=== PATIENT | female | born 1960 | race Caucasian/White ===

== ENCOUNTER 2023-01-16 09:07 | Outpatient (OUT) | payer BC, SELFPAY ==
[2023-01-16 09:55] LABS: Microalbumin Urine Random <1.3 mg/dL (<=30.0)
[2023-01-16 10:04] LABS: Basophils Percent Auto 0.6 % (0.2-2.0); Eosinophils Absolute Auto 0.1 10^3/uL (0.0-0.7); Eosinophils Percent Auto 1.8 % (0.9-7.0); Hematocrit 40.7 % (36.0-48.0); Hemoglobin 14.2 g/dL (12.0-16.0); Immature Granulocytes Abs Auto 0.03 10^3/uL (0.00-0.03); Immature Granulocytes Pct Auto 0.5 % (0.0-0.5); Lymphocytes Absolute Auto 1.5 10^3/uL (1.2-3.8); Lymphocytes Percent Auto 24.6 % (20.5-60.0); Mean Corpuscular HGB Conc 34.9 g/dL (29.9-35.2); Mean Corpuscular Hemoglobin 32.7 pg (26.7-34.0); Mean Corpuscular Volume 93.8 fL (81.0-99.0); Mean Platelet Volume 9.9 fL (9.5-13.5); Monocytes Absolute Auto 0.7 10^3/uL (0.3-0.8); Monocytes Percent Auto 10.4 % (1.7-12.0); Neutrophils Absolute Auto 3.9 10^3/uL (1.4-6.5); Neutrophils Percent Auto 62.1 % (43.0-75.0); Platelet Count 238 10^3/uL (150-450); Red Blood Count 4.34 10^6/uL (4.20-5.40); Red Cell Distribution Width 12.2 % (11.0-15.0); White Blood Count 6.2 10^3/uL (4.0-11.0)
[2023-01-16 10:07] LABS: Estimated Average Glucose 103 mg/dL; Glycohemoglobin A1C 5.2 % (4.5-6.2)
[2023-01-16 10:08] LABS: Alanine Aminotransferase 22 U/L (14-59); Albumin Globulin Ratio 1.1; Albumin Level 3.6 g/dL (3.4-5.0); Alkaline Phosphatase 86 U/L (46-116); Anion Gap 11.4; Aspartate Amino Transferase 19 U/L (15-37); BUN Creatinine Ratio 21.2; Bilirubin Total 0.5 mg/dL (0.2-1.0); Calcium 9.1 mg/dL (8.5-10.1); Carbon Dioxide 28.9 mmol/L (21.0-32.0); Chloride 105 mmol/L (98-107); Estimated GFR (African America >60 (>=60); Estimated GFR (Non-African Ame >60 (>=60); Globulin 3.4 g/dL; Glucose 101 mg/dL (74-106); Potassium 4.3 mmol/L (3.5-5.1); Sodium 141 mmol/L (136-145)
[2023-01-16 10:18] LABS: Chol HDL Ratio 3.3; Cholesterol 174 mg/dL (<=200); Free T3 2.68 pg/mL (2.18-3.98); HDL Cholesterol 52 mg/dL (40-60); Thyroid Stimulating Hormone 0.017 uIU/mL (0.358-3.740); Triglycerides 154 mg/dL (<=150); VLDL CHOLESTEROL 30.8 mg/dL
[2023-01-16 11:08] LABS: Free T4 1.25 ng/dL (0.76-1.46)
== END 2023-01-16 09:08 ==
PROVIDERS: PCP Family Medicine; Visit Provider Family Medicine
DX: R80.9 Proteinuria, unspecified (principal); Z79.899 Other long term (current) drug therapy; E03.9 Hypothyroidism, unspecified; R73.9 Hyperglycemia, unspecified; E78.5 Hyperlipidemia, unspecified
CPT/HCPCS: 36415; 80053; 80061; 82043; 83036; 84439; 84443; 84481; 85025

== ENCOUNTER 2023-03-06 11:16 | Outpatient (OUT) | payer BC, SELFPAY ==
--- NOTE | 2023-03-06 11:18 | MM_ITS ---
Patient: EZEQUIEL LEI Exam Date: 03/06/2023 : 1960 Gender:F Ordering : DR BLAS SLAUGHTER Admission #: [id number] Family : Order #: [id number] CLICK HERE TO VIEW EXAM RADIOLOGY REPORT PROCEDURE: MM TOMOSYNTHESIS SCREENING BI COMPARISON: None. INDICATIONS: Screening Calculator Name NCI Breast Cancer Risk Assessment Tool 5 Year Breast Cancer Risk 1.60% Lifetime Breast Cancer Risk 7.90% Personal Breast Cancer No Personal Ovarian Cancer No Treatments None Family Cancers None LOCATION: BREAST COMPOSITION: Almost entirely fatty. FINDINGS: DIAGNOSTIC CATEGORY 0--INCOMPLETE: NEED ADDITIONAL IMAGING EVALUATION. RIGHT BREAST: No significant suspicious finding. LEFT BREAST: 9 mm mass within upper-outer quadrant approximately 3 o'clock mid breast which does not clearly represent a lymph node. Spot magnification views and ultrasound evaluation recommended. RECOMMENDATIONS: ADDITIONAL MAMMOGRAPHIC VIEWS REQUIRED: LEFT BREAST - LEFT CRANIOCAUDAL SPOT MAGNIFICATION VIEW - LEFT OBLIQUE SPOT MAGNIFICATION VIEW - ULTRASOUND: LEFT BREAST PLEASE NOTE: A NORMAL MAMMOGRAM DOES NOT EXCLUDE THE POSSIBILITY OF BREAST CANCER. A CLINICALLY SUSPICIOUS PALPABLE LUMP SHOULD BE BIOPSIED. Dictated by: Jeff Kemp M.D. on 03/06/2023 at 14:58 Approved by: Jeff Kemp M.D. on 03/06/2023 at 15:02
== END 2023-03-06 11:17 | disposition home or self-care (01) ==
LOC: MAMMO 11:16
PROVIDERS: PCP Family Medicine; Visit Provider Family Medicine
DX: Z12.31 Encounter for screening mammogram for malignant neoplasm of breast (principal); N63.21 Unspecified lump in the left breast, upper outer quadrant
CPT/HCPCS: 77063; 77067

== ENCOUNTER 2023-03-16 13:53 | Outpatient (OUT) | payer BC, SELFPAY ==
--- NOTE | 2023-03-16 13:55 | MM_ITS ---
Patient: EZEQUIEL LEI Exam Date: 03/16/2023 : 1960 Gender:F Ordering : DR ELIER SLAUGHTER Admission #: [id number] Family : Order #: [id number] CLICK HERE TO VIEW EXAM RADIOLOGY REPORT PROCEDURE: MM DIAGNOSTIC MAMMO UNILAT LT, 03/16/2023, 13:43 US BREAST LT LIMITED, 03/16/2023, 15:05 COMPARISON: MM TOMOSYNTHESIS SCREENING BI, 03/06/2023. INDICATIONS: Abnormal mammogram R92.8 Calculator Name NCI Breast Cancer Risk Assessment Tool 5 Year Breast Cancer Risk 1.60% Lifetime Breast Cancer Risk 7.90% Personal Breast Cancer No Personal Ovarian Cancer No Treatments None Family Cancers None LOCATION: [facility] BREAST COMPOSITION: Almost entirely fatty. FINDINGS: DIAGNOSTIC CATEGORY 2--BENIGN FINDING: Three spot compression views demonstrate a persistent oval 7.2 x 5.5 mm nodule 3 o'clock position of the left breast. Ultrasound demonstrates at the 3 o'clock position 7.3 x 3.7 x 2.3 cm oval area of hypo echogenicity slightly lobular contour with mildly heterogeneous peripheral hypoechogenic cortex. Central hyperechogenic hypervascular hilum. A normal-sized lymph node is favored. No further evaluation is required. The patient was asked to return to yearly screening mammography RECOMMENDATIONS: ROUTINE MAMMOGRAM AND CLINICAL EVALUATION IN 12 MONTHS. PLEASE NOTE: A NORMAL MAMMOGRAM DOES NOT EXCLUDE THE POSSIBILITY OF BREAST CANCER. A CLINICALLY SUSPICIOUS PALPABLE LUMP SHOULD BE BIOPSIED. Dictated by: Elier Sanchez MD on 03/16/2023 at 15:19 Approved by: Elier Sanchez MD on 03/16/2023 at 15:21
== END 2023-03-16 13:54 | disposition home or self-care (01) ==
LOC: MAMMO 13:53
PROVIDERS: PCP Family Medicine; Visit Provider Family Medicine
DX: R92.8 Other abnormal and inconclusive findings on diagnostic imaging of breast (principal)
CPT/HCPCS: 76642; 77065

== ENCOUNTER 2023-08-28 06:36 | Outpatient (OUT) | payer BC, SELFPAY ==
[2023-08-28 07:11] LABS: Basophils Absolute Auto 0.1 10^3/uL (0.0-0.1); Basophils Percent Auto 1.1 % (0.2-2.0); Eosinophils Absolute Auto 0.1 10^3/uL (0.0-0.7); Eosinophils Percent Auto 1.7 % (0.9-7.0); Hematocrit 40.9 % (36.0-48.0); Immature Granulocytes Abs Auto 0.05 10^3/uL (0.00-0.03); Immature Granulocytes Pct Auto 0.8 % (0.0-0.5); Lymphocytes Absolute Auto 1.6 10^3/uL (1.2-3.8); Lymphocytes Percent Auto 25.2 % (20.5-60.0); Mean Corpuscular HGB Conc 34.2 g/dL (29.9-35.2); Mean Corpuscular Volume 99.3 fL (81.0-99.0); Mean Platelet Volume 9.9 fL (9.5-13.5); Monocytes Absolute Auto 0.7 10^3/uL (0.3-0.8); Monocytes Percent Auto 10.9 % (1.7-12.0); Neutrophils Absolute Auto 3.9 10^3/uL (1.4-6.5); Neutrophils Percent Auto 60.3 % (43.0-75.0); Platelet Count 212 10^3/uL (150-450); Red Blood Count 4.12 10^6/uL (4.20-5.40); White Blood Count 6.4 10^3/uL (4.0-11.0)
[2023-08-28 07:12] LABS: Bilirubin Urine NEGATIVE (NEGATIVE); Blood Urine NEGATIVE (NEGATIVE); Clarity Urine CLEAR (CLEAR); Color Urine LT. YELLOW (YELLOW); Glucose Urine UA NEGATIVE (NEGATIVE); Ketones Urine NEGATIVE (NEGATIVE); Leukocyte Esterase Urine NEGATIVE (NEGATIVE); Nitrite Urine NEGATIVE (NEGATIVE); Protein Urine NEGATIVE (NEG/TRACE); Urobilinogen Urine 0.2 EU/dL (0.2-1.0); pH Urine 6.5 (5.0-9.0)
[2023-08-28 07:23] LABS: RBC Urine 0-2 #/HPF (0-2); WBC Urine 0-2 #/HPF (NONE SEEN)
[2023-08-28 07:24] LABS: Bacteria Urine NONE SEEN #/HPF (NONE SEEN); Cast Seen? NONE SEEN #/LPF (NONE SEEN); Crystals Seen? None Seen #/HPF (None Seen); Mucus Urine TRACE (NONE SEEN); Squamous Epithelial Cell Urine RARE #/LPF (NONE/RARE); Urine Culture Indicated ALREADY ORDERED
[2023-08-28 07:27] LABS: Estimated Average Glucose 108 mg/dL; Glycohemoglobin A1C 5.4 % (4.5-6.2)
[2023-08-28 08:02] LABS: Alanine Aminotransferase 19 U/L (14-59); Albumin Globulin Ratio 1.1; Albumin Level 3.5 g/dL (3.4-5.0); Alkaline Phosphatase 100 U/L (46-116); Anion Gap 13.5; Aspartate Amino Transferase 17 U/L (15-37); BUN Creatinine Ratio 21.1; Bilirubin Total 0.4 mg/dL (0.2-1.0); Calcium 8.7 mg/dL (8.5-10.1); Carbon Dioxide 26.6 mmol/L (21.0-32.0); Chloride 106 mmol/L (98-107); Cholesterol 154 mg/dL (<=200); Estimated GFR (African America >60 (>=60); Estimated GFR (Non-African Ame >60 (>=60); Free T3 2.55 pg/mL (2.18-3.98); Globulin 3.3 g/dL; Glucose 97 mg/dL (74-106); HDL Cholesterol 52 mg/dL (40-60); Potassium 4.1 mmol/L (3.5-5.1); Sodium 142 mmol/L (136-145); Thyroid Stimulating Hormone 1.266 uIU/mL (0.358-3.740); Total Protein 6.8 g/dL (6.4-8.2); Triglycerides 120 mg/dL (<=150)
== END 2023-08-28 06:37 | disposition home or self-care (01) ==
LOC: LAB 06:39
PROVIDERS: PCP Family Medicine; Visit Provider Family Medicine
DX: Z00.00 Encounter for general adult medical examination without abnormal findings (principal); E03.9 Hypothyroidism, unspecified; R73.9 Hyperglycemia, unspecified
CPT/HCPCS: 36415; 80053; 80061; 81001; 83036; 84436; 84443; 84481; 85025; 87086

== ENCOUNTER 2023-11-19 09:32 | Emergency (ER) | payer BC, SELFPAY ==
[2023-11-19 09:34] VITALS: BP 160/107; PULSE 68; TEMP 36.5; O2SAT 98; BMI 32.5
--- NOTE | 2023-11-19 09:52 | CT_ITS ---
The [address] [address] Patient Name: EZEQUIEL LEI MRN: [id number] date: 1960 Sex: F Assigned Patient Location: ER Current Patient Location: ER Accession/Order Number: [id number] Exam Date: 11/19/2023 11:12 Report Date: 11/19/2023 12:04 At the request of: PAULA HERNANDEZ Procedure: CT abdomen pelvis w con EXAM: CT abdomen pelvis w con HISTORY: abdominal pain, n/v/d, hx diverticulitis COMPARISON: CT abdomen and CT pelvis studies dated 01/11/2022 TECHNIQUE: CT abdomen and CT pelvis studies were performed with the use of intravenous contrast. Multiple axial images were obtained. Reformatted coronal and sagittal images were obtained and reviewed. FINDINGS: Abdomen: Visualized lower lung smith appear grossly unremarkable. Views of the liver demonstrate a few small scattered areas of decreased attenuation measuring up to 0.7 cm too small to qualify with certainty though most likely representing cysts and similar to the prior study. No obvious splenic mass. Patient is status post cholecystectomy. Pancreas and adrenal glands appear grossly unremarkable. Stomach appears grossly unremarkable. Mild diverticulosis of the colon without evidence acute diverticulitis. Uson-ye-vyzkjkys generalized wall thickening of the colon compatible with colitis. No evidence of bowel obstruction or perforation. No evidence of abscess. Atherosclerotic calcifications within portions of the abdominal aorta. No evidence of aneurysm. No evidence of adenopathy in the retroperitoneum. A few small areas of decreased attenuation in the right kidney measuring up to 0.6 cm too small to qualify with certainty though likely representing cysts. Focal area of moderate cortical thinning of the superior right kidney similar to the prior study not felt to be acutely significant. Small fat filled umbilical hernia without bowel content. Pelvis: Bladder appears grossly unremarkable. Patient status post hysterectomy. No obvious adnexal mass. Perirectal fat planes appear grossly intact. Mild to moderate diverticulosis of the sigmoid colon, no obvious acute diverticulitis. Hxyu-lk-wirzwtdw generalized wall thickening of the sigmoid colon compatible with colitis. Correlate clinically. Atherosclerotic calcifications within portions of the iliac arteries. No evidence of aneurysm. No evidence of adenopathy. The appendix is visualized and appears unremarkable. Uelu-lm-vonejiev degenerative changes in the visualized dorsal spine with mild degenerative changes in the lumbar spine. Slight convexity of the lumbar spine to the left. CT/CT abdomen pelvis w con IMPRESSION: CT abdomen and CT pelvis studies demonstrate findings compatible colitis as described. Colon diverticulosis without definite evidence of acute diverticulitis. Likely few right renal cysts as noted. Small fat filled umbilical hernia. Likely few small hepatic cysts. Electronically authenticated by: YOAN LOPEZ Date: 11/19/2023 12:04
[2023-11-19 09:57] LABS: Basophils Absolute Auto 0.1 10^3/uL (0.0-0.1); Basophils Percent Auto 0.7 % (0.2-2.0); Eosinophils Absolute Auto 0.1 10^3/uL (0.0-0.7); Eosinophils Percent Auto 1.2 % (0.9-7.0); Hematocrit 43.4 % (36.0-48.0); Hemoglobin 14.9 g/dL (12.0-16.0); Immature Granulocytes Abs Auto 0.05 10^3/uL (0.00-0.03); Immature Granulocytes Pct Auto 0.6 % (0.0-0.5); Lymphocytes Absolute Auto 1.9 10^3/uL (1.2-3.8); Lymphocytes Percent Auto 22.3 % (20.5-60.0); Mean Corpuscular HGB Conc 34.3 g/dL (29.9-35.2); Mean Corpuscular Hemoglobin 33.3 pg (26.7-34.0); Mean Corpuscular Volume 97.1 fL (81.0-99.0); Mean Platelet Volume 9.9 fL (9.5-13.5); Monocytes Absolute Auto 0.8 10^3/uL (0.3-0.8); Monocytes Percent Auto 9.3 % (1.7-12.0); Neutrophils Absolute Auto 5.5 10^3/uL (1.4-6.5); Neutrophils Percent Auto 65.9 % (43.0-75.0); Platelet Count 251 10^3/uL (150-450); Red Blood Count 4.47 10^6/uL (4.20-5.40); Red Cell Distribution Width 12.3 % (11.0-15.0); White Blood Count 8.3 10^3/uL (4.0-11.0)
--- OUTSIDE RECORDS SUMMARY | 2023-11-19 10:01 | XMS_ITS | CCD ---
Author Organization [facility] Care Team Providers Care Flush Tester Name Role Phone Blas Slaughter Unavailable FRANCISCO JAVIER, COSME Admitting Unavailable FRANCISCO JAVIER, COSME Attending Unavailable FRANCISCO JAVIER, COSME Consulting Unavailable FRANCISCO JAVIER, COSME Admitting Unavailable FRANCISCO JAVIER, COSME Attending Unavailable GIRVIN, DR ODONNELL Primary Care Unavailable FRANCISCO JAVIER, COSME Consulting Unavailable KASANDRA, DR ODONNELL Admitting Unavailable GIRVIN, DR ODONNELL Attending Unavailable GIRVIN, DR ODONNELL Primary Care Unavailable GIRVIN, DR ODONNELL Consulting Unavailable PAY, DR DESHPANDE Admitting Unavailable PAY, DR DESHPANDE Attending Unavailable PAY, DR DESHPANDE Consulting Unavailable HARRIS, SABRINA Consulting Unavailable MISC, DR SKINNER Admitting Unavailable MISC, DR SKINNER Attending Unavailable MISC, DR SKINNER Consulting Unavailable GIRVIN, DR ODONNELL Admitting Unavailable GIRVIN, DR ODONNELL Attending Unavailable GIRVIN, DR ODONNELL Consulting Unavailable Allergies Allergy Classification Reported Allergen(s) Allergy Type Date of Onset Reaction(s) Facility (19 sources) atorvastatin Drug Allergy muscle aches/pain [facility] [employer] Other (19 sources) Ciprofloxacin Drug Allergy hives ? per ER 11/06/12 [employer] [facility] Other (19 sources) Meperidine Drug Allergy rash, swelling [employer] Other (19 sources) metroNIDAZOLE Drug Allergy hives ? per ER 11/06/12 [facility] [place] [employer] Other (1 source) Ciprofloxacin Drug Allergy [facility] (1 source) Meperidine Drug Allergy [facility] (1 source) metroNIDAZOLE Drug Allergy [facility] Medications Current Medications Medication Drug Class(es) Dates Sig (Normalized) Sig (Original) 0.25 MG, 0.5 MG Dose 3 ML semaglutide 0.68 MG/ML Pen Injector [Ozempic] (4 sources) Start: 01-19-2023 inject 0.5 mg by subcutaneous injection every week Ozempic (0.25 or 0.5 MG/DOSE) 2 MG/3ML 0.5 MG Subcutaneous once weekly for 28 days Jan, Active 3 ML semaglutide 1.34 MG/ML Pen Injector [Ozempic] (1 source) Start: 12-05-2022 inject 1 mg by subcutaneous injection every week Ozempic (1 MG/DOSE) 4 MG/3ML as directed Subcutaneous once a week for 30 days Nov, Active acetaminophen 325 mg / oxyCODONE hydrochloride 5 mg oral tablet (1 source) Opioid Agonist Start: 09-12-2021 Percocet 5-325 MG 1 tablet Orally q8-12 hrs prn Aug, Active amoxicillin 875 mg / clavulanate 125 mg oral tablet (1 source) Penicillin-class Antibacterial Start: 08-30-2021 take 1 tablet by mouth twice daily at mealtime Amoxicillin-Pot Clavulanate 875-125 MG 1 tablet Orally two times a day with food for 10 day(s) Aug, Active 84 hr estradiol 0.50281 mg/hr transdermal system (20 sources) Estrogen Start: 02-15-2023 apply 1 dose transdermal route two times weekly Estradiol 0.1 MG/24HR 1 patch to skin Transdermal Two times a Week for 30 days Feb, Active Vivelle Active hydrOXYzine pamoate 25 mg oral capsule (19 sources) Antihistamine Start: 08-27-2020 Vistaril 25 MG 1 capsule Orally q8-12 hrs prn anxiety prn Aug, Active levothyroxine sodium 0.15 mg oral tablet (19 sources) l-Thyroxine take 1 tablet by mouth once daily in the morning Levothyroxine Sodium 150 MCG TAKE 1 TABLET DAILY EVERY MORNING ON AN EMPTY STOMACH Orally Active take 1 tablet by gio th once daily in the morning Levothyroxine Sodium 150 MCG TAKE 1 TABL ET DAILY EVERY MORNING ON AN EMPTY STOMACH Orally Active take 1 tablet by gio th once daily in the morning Levothyroxine Sodium 175 MCG TAKE 1 TABL ET DAILY EVERY MORNING ON AN EMPTY STOMACH Orally for 90 days Active Multivitamin Women (19 sources) Multivitamin Wom en Not-Taking/PRN Multivitamin Wom en Not-Taking Multivitamin Wom en Active nitrofurantoin, macrocrystals 25 mg / nitrofurantoin, monohydrate 75 mg oral capsule (2 sources) Nitrofuran Antibacterial Start: 02-27-2022 take 1 capsule by mouth twice daily at mealtime Macrobid 100 MG 1 capsule Orally twice a day with food for 7 days Feb, Active rosuvastatin calcium 10 mg oral tablet (19 sources) HMG-CoA Reductase Inhibitor take 1 tablet by mouth once daily Rosuvastatin Calcium 10 MG TAKE 1 TABLET BY MOUTH EVERY DAY Active 0.25 mg, 0.5 mg dose 1.5 ml semaglutide 1.34 mg/ml pen injector (3 sources) Ozempic (0.25 or 0.5 MG/DOSE) 2 MG/1.5ML INJECT 0.25 MG SUBCUTANEOUSLY ONCE WEEKLY DIRECTED for 28 Active vitamin b12 1 mg extended release oral tablet (3 sources) Vitamin B12 Start: 12-08-2019 take 1 tablet by mouth once daily Vitamin B12 1000 MCG 1 tablet Orally qd Sun-Nov, Active Vitamin B12 1000 MCG (13 sources) Start: 12-08-2019 take 1 tablet by mouth once daily Vitamin B12 1000 MCG 1 tablet Orally qd Sun-Nov, Active wegovy 0.25 mg/0.5ml solution auto-injector (3 sources) Start: 09-12-2023 inject 0.5 mL by subcutaneous injection every week Wegovy 0.25 MG/0.5ML 0.5 mL Subcutaneous once weekly for 28 days Aug, Active Completed/Discontinued Medications Medication Drug Class(es) Dates Sig (Normalized) Sig (Original) homatropine / HYDROcodone (1 source) Opioid Agonist, Cholinergic Muscarinic Agonist Start: 09-20-2021 take 5 mL by mouth every six hours as needed Hycodan Syrup 5mg/1.5 mg 5ml po q 6 hrs prn for 7 days Sep, Not-Taking methylPREDNISolone (19 sources) Corticosteroid Start: 10-17-2019 SOLU-MEDROL 41 - 125 mg Oct, 125 mg ozempic (0.25 or 0.5 mg/dose) 2 mg/3ml solution pen-injector (6 sources) Start: 01-19-2023 inject 0.5 mg by subcutaneous injection every week as needed Ozempic (0.25 or 0.5 MG/DOSE) 2 MG/3ML 0.5 MG Subcutaneous once weekly for 28 days Jan, Not-Taking/PRN Start: 01-19-2023 inject 0.5 mg by sub cutaneous injection every week Ozempic (0.25 or 0.5 MG/DOSE) 2 MG/3ML 0.5 MG Subcutaneous once weekly for 28 days Jan, Active Triamcinolone (19 sources) Corticosteroid Start: 01-22-2017 Kenalog -40 mg Jan, 40 mg Problems Active Problems Problem Classification Problem Date Documented Date Episodic/Chronic Anxiety disorders (20 sources) Anxiety; Translations: [Anxiety disorder, unspecified] Chronic Diabetes mellitus without complication (6 sources) Hyperglycemia, unspecified Onset: 01-17-2022 Resolved: 01-17-2022 Episodic Disorders of lipid metabolism (20 sources) Hyperlipidemia; Translations: [Hyperlipidemia, unspecified] Onset: 01-17-2022 Resolved: 01-17-2022 Chronic Diverticulosis and diverticulitis (20 sources) Diverticulitis; Translations: [Diverticulitis of intestine, part unspecified, without perforation or abscess without bleeding] Onset: 01-13-2022 Resolved: 02-27-2022 Chronic Genitourinary symptoms and ill-defined conditions (6 sources) Nocturia; Translations: [Dysuria] Onset: 01-17-2022 Resolved: 02-27-2022 Episodic Osteoarthritis (19 sources) Osteoarthritis of knee; Translations: [Unilateral primary osteoarthritis, right knee] Chronic Other aftercare (5 sources) Other buttermaker (current) 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 therapy; Translations: [OTH 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 CURRENT DRUG THERAPY] Onset: 01-13-2022 Resolved: 01-17-2022 Episodic Other diseases of bladder and urethra (19 sources) Spasm of bladder; Translations: [Other specified disorders of bladder] Chronic Other ear and sense organ disorders (19 sources) Otitis externa; Translations: [Unspecified otitis externa, unspecified ear] Chronic Other nutritional; endocrine; and metabolic disorders (19 sources) Body mass index 30+ - obesity; Translations: [Body mass index (BMI) 36.0-36.9, adult] Chronic Other nutritional; endocrine; and metabolic disorders (10 sources) Obesity; Translations: [Obesity, unspecified] Chronic Other nutritional; endocrine; and metabolic disorders (2 sources) Obesity, unspecified Chronic Other nutritional; endocrine; and metabolic disorders (1 source) Disorder of carbohydrate metabolism; 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, unspecified] Chronic Other nutritional; endocrine; and metabolic disorders (1 source) Disorder of carbohydrate metabolism, unspecified Chronic Other nutritional; endocrine; and metabolic disorders (2 sources) Abnormal weight gain Episodic Other screening for suspected conditions (not mental disorders or infectious disease) (5 sources) Encounter for screening mammogram for malignant neoplasm of breast; Translations: [Other abnormal and inconclusive findings on diagnostic imaging of breast] Onset: 01-17-2022 Resolved: 01-17-2022 Episodic Other upper respiratory infections (20 sources) Sore throat symptom; Translations: [Acute pharyngitis, unspecified] Onset: 09-23-2021 Episodic Thyroid disorders (20 sources) Hypothyroidism; Translations: [Hypothyroidism, unspecified] Onset: 01-17-2022 Resolved: 01-17-2022 Chronic Unclassified (3 sources) CONTACT W/AND (SUSP) EXPOS COVID-19; Translations: [CONTACT W/AND (SUSP) EXPOS COVID-19] Onset: 05-09-2022 Unclassified (1 source) COUGH, UNSPECIFIED; Translations: [COUGH, UNSPECIFIED] Onset: 09-23-2021 Viral infection (1 source) COVID-19; Translations: [COVID-19] Onset: 09-06-2021 Past or Other Problems Problem Classification Problem Date Documented Da te Episodic/Chronic Abdominal pain (3 sources) Left upper quadrant pain; Translations: [LEFT UPPER QUADRANT PAIN] Onset: 01-11-2022 Episodic Unclassified (1 source) Cough R05.9 Onset: 02-27-2022 Resolved: 02-27-2022 Unclassified (1 source) CONTACT W/AND (SUSP) EXPOS COVID-19; Translations: [CONTACT W/AND (SUSP) EXPOS COVID-19] Onset: 05-02-2022 Urinary tract infections (1 source) Cystitis, unspecified without hematuria Onset: 03-01-2022 Resolved: 03-01-2022 Episodic Results Test Name Value Interpretation Reference Range Facility CBC AUTO DIFFon 07-15-2022 BASO # 0.1 103/ul Normal 0.0-0.1 [facility] Comment on above: Performed By: #### C BC #### [facility] [address] [address] [address] Ortega Morel Basophils/100 WBC (Bld) 1.0 % Normal 0.2-2.0 [facility] Comment on above: Performed By: #### C BC #### [facility] [address] [address] [address] Ortega Morel EO # 0.1 103/ul Normal 0.0-0.7 [facility] Comment on above: Performed By: #### C BC #### [facility] [address] [address] [address] Ortega Morel Eosinophils/100 WBC (Bld) 2.0 % Normal 0.9-7.0 [facility] Comment on above: Performed By: #### C BC #### [facility] [address] [place] [address] Dr. Ortega Morel Erythrocyte distribution width (RBC) [Ratio] 12.2 % Normal 11.0-15.0 [facility] Comment on above: Performed By: #### C BC #### [facility] [address] [place] [address] Dr. Ortega Morel Hematocrit (Bld) [Volume fraction] 41.4 % Normal 36.0-48.0 [facility] Comment on above: Performed By: #### C BC #### [facility] [address] [address] [address] Ortega Morel Hemoglobin (Bld) [Mass/Vol] 14.4 g/dL Normal 12.0-16.0 [facility] Comment on above: Performed By: #### C BC #### [facility] [address] [address] [address] Ortega Morel IG # 0.04 10e3/ul Critically high 0.00-0.03 [facility] Comment on above: Performed By: #### C BC #### [facility] [address] [address] [address] Ortega Morel IG % 0.7 % Critically high 0.0-0.5 [facility] Comment on above: Performed By: #### C BC #### [facility] [address] [place] [address] Dr. Ortega Morel LYMPH # 1.7 103/ul Normal 1.2-3.8 [facility] Comment on above: Performed By: #### C BC #### [facility] [address] [place] [address] Dr. Ortega Morel Lymphocytes/100 WBC (Bld) 28.2 % Normal 20.5-60.0 [facility] Comment on above: Performed By: #### C BC #### [facility] [address] [place] [address] Dr. Ortega Morel MANUAL DIFF REQ NO Normal [facility] Comment on above: Performed By: #### C BC #### [facility] [address] [place] [address] Dr. Ortega Morel MCH (RBC) [Entitic mass] 33.4 pg Normal 26.7-34.0 [facility] Comment on above: Performed By: #### C BC #### [facility] [address] [place] [address] Dr. Ortega Morel MCHC (RBC) [Mass/Vol] 34.8 g/dL Normal 29.9-35.2 [facility] Comment on above: Performed By: #### C BC #### [facility] [address] [place] [address] Dr. Ortega Morel MCV (RBC) [Entitic vol] 96.1 fL Normal 81.0-99.0 [facility] Comment on above: Performed By: #### C BC #### [facility] [address] [place] [address] Dr. Ortega Morel MONO # 0.7 103/ul Normal 0.3-0.8 [facility] Comment on above: Performed By: #### C BC #### [facility] [address] [place] [address] Dr. Ortega Morel Monocytes/100 WBC (Bld) 11.4 % Normal 1.7-12.0 [facility] Comment on above: Performed By: #### C BC #### [facility] [address] [place] [address] Dr. Ortega Morel NEUT # 3.4 103/ul Normal 1.4-6.5 [facility] Comment on above: Performed By: #### C BC #### [facility] [address] [place] [address] Dr. Ortega Morel Neutrophils/100 WBC (Bld) 56.7 % Normal 43.0-75.0 [facility] Comment on above: Performed By: #### C BC #### [facility] [address] [place] [address] Dr. Ortega Morel Platelet mean volume (Bld) [Entitic vol] 10.1 fL Normal 9.5-13.5 [facility] Comment on above: Performed By: #### C BC #### [facility] [address] [place] [address] Dr. Ortega Morel PLT 217 103/ul Normal 150-450 [facility] Comment on above: Performed By: #### C BC #### [facility] [address] [place] [address] Dr. Ortega Morel RBC 4.31 106/ul Normal 4.20-5.40 [facility] Comment on above: Performed By: #### C BC #### [facility] [address] [place] [address] Dr. Ortega Morel WBC 6.0 103/ul Normal 4.0-11.0 [facility] Comment on above: Performed By: #### C BC #### [facility] [address] [place] [address] Dr. Ortega Morel CULTURE URINEon 07-15-2022 CULTURE URINE Culture Observations: NO GROWTH. Normal [facility] Comment on above: Performed By: #### C MP #### [facility] [address] [place] [address] Dr. Ortega Morel FREE T3on 07-15-2022 FREE T3 1.87 pg/mlL Critically low 2.18-3.98 [facility] Comment on above: Performed By: #### T SH, LIPID, FT3 #### [facility] [address] [place] [address] Dr. Ortega Morel FREE T4on 07-15-2022 Free T4 [Mass/Vol] 0.92 ng/dL Normal 0.76-1.46 [facility] Comment on above: Performed By: #### F T4 #### [facility] [address] [place] [address] Dr. Ortega Morel GLYCOHEMOGLOBIN A1Con 2021 ADA RECOMMENDATION SEE BELOW Normal [facility] Comment on above: Result Comment: ADA RECOMMENDED LIMIT 4.0 - 6.0 ADA THERAPEUTIC TARGET < 7.0 ACTION SUGGESTED > 7.0 Performed By: #### C MP #### [facility] [address] [place] [address] Dr. Ortega Morel Glucose [Mass/Vol] 103 mg/dL Normal [facility] Comment on above: Performed By: #### C MP #### [facility] [address] [place] [address] Dr. Ortega Morel HbA1c (Bld) [Mass fraction] 5.2 % Normal 4.5-6.2 [facility] Comment on above: Performed By: #### C MP #### [facility] [address] [place] [address] Dr. Ortega Morel LIPID PROFILEon 07-15-2022 CHOL-HDL RATIO NORM SEE BELOW Normal [facility] Comment on above: Result Comment: 3.3 - 4.4 LOW RISK 4.4 - 7.1 AVERAGE RISK 7.1 - 11.0 MODERATE RISK >11.0 HIGH RISK Performed By: #### T SH, LIPID, FT3 #### [facility] [address] [place] [address] Dr. Ortega Morel Cholesterol [Mass/Vol] 197 mg/dL Normal <=200 [facility] Comment on above: Performed By: #### T SH, LIPID, FT3 #### [facility] [address] [place] [address] Dr. Ortega Morel Cholesterol in HDL [Mass/Vol] 54 mg/dL Normal 40-60 [facility] Comment on above: Performed By: #### T SH, LIPID, FT3 #### [facility] [address] [address] [address] Ortega Morel Cholesterol in LDL [Mass/Vol] 111.8 mg/dL Normal [facility] Comment on above: Performed By: #### T SH, LIPID, FT3 #### [facility] [address] [address] [address] Ortega Morel Cholesterol.total/Ch olesterol in HDL [Mass ratio] 3.6 {ratio} Normal [facility] Comment on above: Performed By: #### T SH, LIPID, FT3 #### [facility] [address] [address] [address] Ortega Morel HDL NORMAL > or = 60 mg/dl - LOW CARDIOVASCULAR RISK <40 mg/dl - HIGH CARDIOVASCULAR RISK Normal [facility] Comment on above: Performed By: #### T SH, LIPID, FT3 #### [facility] [address] [place] [address] Dr. Ortega Morel LDL CALC NORMAL SEE BELOW Normal [facility] Comment on above: Result Comment: <100 mg/dl OPTIMAL 100 - 129 mg/dl NEAR OR ABOVE OPTIMAL 130 - 159 mg/dl BORDERLINE HIGH 160 - 189 mg/dl HIGH >190 mg/dl VERY HIGH Performed By: #### T SH, LIPID, FT3 #### [facility] [address] [place] [address] Dr. Ortega Morel Triglyceride [Mass/Vol] 156 mg/dL Critically high <=150 [facility] Comment on above: Performed By: #### T SH, LIPID, FT3 #### [facility] [address] [place] [address] Dr. Ortega Morel VLDL CALC 31.2 mg/dL Normal [facility] Comment on above: Performed By: #### T SH, LIPID, FT3 #### [facility] [address] [place] [address] Dr. Ortega Morel PROF 14(COMP METB)on 022 Albumin [Mass/Vol] 3.8 g/dL Normal 3.4-5.0 [facility] Comment on above: Performed By: #### C MP #### [facility] [address] [place] [address] Dr. Ortega Morel Albumin/Globulin [Mass ratio] 1.2 {ratio} Normal [facility] Comment on above: Performed By: #### C MP #### [facility] [address] [address] [address] Ortega Morel ALP [Catalytic activity/Vol] 84 U/L Normal 46-116 [facility] Comment on above: Performed By: #### C MP #### [facility] [address] [place] [address] Dr. Ortega Morel ALT [Catalytic activity/Vol] 15 U/L Normal 14-59 [facility] Comment on above: Performed By: #### C MP #### [facility] [address] [place] [address] Dr. Ortega Morel Anion gap [Moles/Vol] 13.6 mmol/L Normal [facility] Comment on above: Performed By: #### C MP #### [facility] [address] [place] [address] Dr. Ortega Morel AST [Catalytic activity/Vol] 16 U/L Normal 15-37 [facility] Comment on above: Performed By: #### C MP #### [facility] [address] [place] [address] Dr. Ortega Morel Bilirubin [Mass/Vol] 0.5 mg/dL Normal 0.2-1.0 [facility] Comment on above: Performed By: #### C MP #### [facility] [address] [place] [address] Dr. Ortega Morel Calcium [Mass/Vol] 8.7 mg/dL Normal 8.5-10.1 [facility] Comment on above: Performed By: #### C MP #### [facility] [address] [place] [address] Dr. Ortega Morel Chloride [Moles/Vol] 105 mmol/L Normal 98-107 [facility] Comment on above: Performed By: #### C MP #### [facility] [address] [place] [address] Dr. Ortega Morel CO2 [Moles/Vol] 25.5 mmol/L Normal 21.0-32.0 [facility] Comment on above: Performed By: #### C MP #### [facility] [address] [address] [address] Ortega Morel Creatinine [Mass/Vol] 0.69 mg/dL Normal 0.55-1.02 [facility] Comment on above: Performed By: #### C MP #### [facility] [address] [address] [address] Ortega Morel EGFR-AF AUSTRIAN >60 Normal >=60 [facility] Comment on above: Performed By: #### C MP #### [facility] [address] [place] [address] Dr. Ortega Morel EGFR-NON AF AUSTRIAN >60 Normal >=60 [facility] Comment on above: Performed By: #### C MP #### [facility] [address] [place] [address] Dr. Ortega Morel Globulin (S) [Mass/Vol] 3.2 g/dL Normal [facility] Comment on above: Performed By: #### C MP #### [facility] [address] [place] [address] Dr. Ortega Morel Glucose [Mass/Vol] 94 mg/dL Normal 74-106 [facility] Comment on above: Performed By: #### C MP #### [facility] [address] [place] [address] Dr. Ortega Morel Potassium [Moles/Vol] 4.1 mmol/L Normal 3.5-5.1 [facility] Comment on above: Performed By: #### C MP #### [facility] [address] [place] [address] Dr. Ortega Morel Protein [Mass/Vol] 7.0 g/dL Normal 6.4-8.2 [facility] Comment on above: Performed By: #### C MP #### [facility] [address] [place] [address] Dr. Ortega Morel Sodium [Moles/Vol] 140 mmol/L Normal 136-145 [facility] Comment on above: Performed By: #### C MP #### [facility] [address] [address] [address] Ortega Morel Urea nitrogen [Mass/Vol] 14.0 mg/dL Normal 7.0-18.0 [facility] Comment on above: Performed By: #### C MP #### [facility] [address] [address] [address] Ortega oMrel Urea nitrogen/Creatinine [Mass ratio] 20.3 mg/mg Normal [facility] Comment on above: Performed By: #### C MP #### [facility] [address] [place] [address] Dr. Ortega Morel TSHon 07-15-2022 TSH 14.645 uIU/mL Critically high 0.358-3.740 [facility] Comment on above: Performed By: #### T SH, LIPID, FT3 #### [facility] [address] [place] [address] Dr. Ortega Morel UA RANDOMon 07-15-2022 Bilirubin Ql (U) Negative Normal NEGATIVE [facility] Comment on above: Performed By: #### U A #### [facility] [address] [place] [address] Dr. Ortega Morel Clarity (U) CLEAR Normal CLEAR [facility] Comment on above: Performed By: #### U A #### [facility] [address] [place] [address] Dr. Ortega Morel Color (U) YELLOW Normal YELLOW [facility] Comment on above: Performed By: #### U A #### [facility] [address] [place] [address] Dr. Ortega Morel Glucose Ql (U) Negative Normal NEGATIVE [facility] Comment on above: Performed By: #### U A #### [facility] [address] [place] [address] Dr. Ortega Morel Hemoglobin Ql (U) Negative Normal NEGATIVE [facility] Comment on above: Performed By: #### U A #### [facility] [address] [place] [address] Dr. Ortega Morel Ketones Ql (U) Negative Normal NEGATIVE [facility] Comment on above: Performed By: #### U A #### [facility] [address] [place] [address] Dr. Ortega Morel LEUKOCYTES Negative Normal NEGATIVE [facility] Comment on above: Performed By: #### U A #### [facility] [address] [place] [address] Dr. Ortega Morel Nitrite Ql (U) Negative Normal NEGATIVE [facility] Comment on above: Performed By: #### U A #### [facility] [address] [place] [address] Dr. Ortega Morel pH (U) 6.5 [pH] Normal 5-9 [facility] Comment on above: Performed By: #### U A #### [facility] [address] [place] [address] Dr. Ortega Morel SPEC GRAVITY 1.025 Normal 1.005-<=1.025 [facility] Comment on above: Performed By: #### U A #### [facility] [address] [place] [address] Dr. Ortega Morel UA PROTEIN TRACE Normal NEGATIVE/ TRACE [facility] Comment on above: Performed By: #### U A #### [facility] [address] [place] [address] Dr. Ortega Morel Urobilinogen Qn (U) 1.0 {Alphonso'U}/dL Normal 0.2 - 1. 0 [facility] Comment on above: Performed By: #### U A #### [facility] [address] [place] [address] Dr. Ortega Morel Covid-19 PCR ([facility])on 04-14 SARS-CoV-2 (COVID-19) RNA LIU+probe Ql (Unsp spec) Not detected Normal NOT DETECTED [facility] Comment on above: Result Comment: When diagnostic testing is negative, the possibility of a false negative should be considered in the context of a patient's recent exposures and the presence of clinical signs and symptoms consistent with SARS-CoV-2. This test is not yet approved or cleared by the [place] FDA. When there are no FDA-approved or cleared tests available, and other criteria are met, FDA can make tests available under an emergency access mechanism called an Emergency Use Authorization (EUA). The EUA for this test is supported by the Slice Cutting Machine Operator of Health and Human Service's declaration that circumstances exist to justify the emergency use of in vitro diagnostics for the detection and/or diagnosis of the virus that causes COVID-19. This EUA will remain in effect for the duration of the COVID-19 declaration justifying emergency of IVDs, unless it is terminated or revoked by the FDA (after which the test may no longer be used). Performed By: #### C MP #### [facility] [address] [place] [address] Dr. Ortega Morel Covid-19 PCR ([facility])on 04-13 SARS-CoV-2 (COVID-19) RNA LIU+probe Ql (Unsp spec) Not detected Normal NOT DETECTED [facility] Comment on above: Result Comment: When diagnostic testing is negative, the possibility of a false negative should be considered in the context of a patient's recent exposures and the presence of clinical signs and symptoms consistent with SARS-CoV-2. This test is not yet approved or cleared by the [place] FDA. When there are no FDA-approved or cleared tests available, and other criteria are met, FDA can make tests available under an emergency access mechanism called an Emergency Use Authorization (EUA). The EUA for this test is supported by the Slice Cutting Machine Operator of Health and Human Service's declaration that circumstances exist to justify the emergency use of in vitro diagnostics for the detection and/or diagnosis of the virus that causes COVID-19. This EUA will remain in effect for the duration of the COVID-19 declaration justifying emergency of IVDs, unless it is terminated or revoked by the FDA (after which the test may no longer be used). Performed By: #### C MP #### [facility] [address] [place] [address] Dr. Ortega Morel Dipstick and Microscopicon 0 02-27-2022 Appearance (U) Turbid Critically abnormal Clear F [facility] Comment on above: Order Comment: Name Collection Type:: Clean-Voided Midstream Performed By: #### A DDONUAPLUS, CUU #### [facility] [address] [place] [address] [place] Bacteria,Urine None Seen Normal None Seen [facility] Comment on above: Order Comment: Name Collection Type:: Clean-Voided Midstream Performed By: #### A DDONUAPLUS, CUU #### [place] [address] [place] Bilirubin,Urine 1+ High Negative [facility] Comment on above: Order Comment: Name Collection Type:: Clean-Voided Midstream Performed By: #### A DDONUAPLUS, CUU #### [place] [address] [place] Color (U) Dark Yellow Critically abnormal Yellow [facility] Comment on above: Order Comment: Name Collection Type:: Clean-Voided Midstream Performed By: #### A DDONUAPLUS, CUU #### [address] Glucose Ql (U) Normal Normal Normal [facility] Comment on above: Order Comment: Name Collection Type:: Clean-Voided Midstream Performed By: #### A DDONUAPLUS, CUU #### [place] [address] [place] Hyaline Casts,Urine 3-4 High 0-1 [facility] Comment on above: Order Comment: Name Collection Type:: Clean-Voided Midstream Performed By: #### A DDONUAPLUS, CUU #### [place] [address] [place] Ketones Ql (U) 3+ High Negative [facility] Comment on above: Order Comment: Name Collection Type:: Clean-Voided Midstream Performed By: #### A DDONUAPLUS, CUU #### [place] [address] [place] Leukocyte esterase Test strip Ql (U) 1+ High Negative [facility] Comment on above: Order Comment: Name Collection Type:: Clean-Voided Midstream Performed By: #### A DDONUAPLUS, CUU #### [place] [address] [place] Nitrite,Urine Negative Normal Negative [facility] Comment on above: Order Comment: Name Collection Type:: Clean-Voided Midstream Performed By: #### A DDONUAPLUS, CUU #### [place] [address] [place] Occult Blood,Urine Negative Normal Negative [facility] Comment on above: Order Comment: Name Collection Type:: Clean-Voided Midstream Result Comment: PERF ORMED BY: [place] [address] PATHOLOGIST [employer] EQUIPMENT OPERATOR JUANA EDDY M.D. Performed By: #### A ROSIBELUAPLUS, CUU #### [address] Other Casts,Urine None Seen Normal None Seen [facility] Comment on above: Order Comment: Name Collection Type:: Clean-Voided Midstream Result Comment: PERF ORMED BY: [place] [address] PATHOLOGIST [employer]OL[employer] COUR[employer] EQUIPMENT OPERATOR JUANA EDDY M.D. Performed By: #### A ROSIBELUAPLUS, CUU #### [address] pH (U) 5.5 [pH] Normal 5.0-9.0 [facility] Comment on above: Order Comment: Name Collection Type:: Clean-Voided Midstream Performed By: #### A DDONUAPLUS, CUU #### [address] Protein (U) [Mass/Vol] 30 mg/dL High Negative [facility] Comment on above: Order Comment: Name Collection Type:: Clean-Voided Midstream Performed By: #### A DDONUAPLUS, CUU #### [place] [address] [place] RBC,Urine 5-9 High 0-4 [facility] Comment on above: Order Comment: Name Collection Type:: Clean-Voided Midstream Performed By: #### A DDKACIEUAPLUS, CUU #### [address] Specificy [place],Urine 1.025 Normal 1.001-1.030 [facility] Comment on above: Order Comment: Name Collection Type:: Clean-Voided Midstream Performed By: #### A DDONUAPLUS, CUU #### [address] Squamous Epithelial Cell,Urine 10-19 High 0-2 [facility] Comment on above: Order Comment: Name Collection Type:: Clean-Voided Midstream Performed By: #### A DDONUAPLUS, CUU #### [address] Urobilinogen,Urine Normal Normal Normal [facility] Comment on above: Order Comment: Name Collection Type:: Clean-Voided Midstream Performed By: #### A DDONUAPLUS, CUU #### [address] WBC,Urine 3-4 Normal 0-4 [facility] Comment on above: Order Comment: Name Collection Type:: Clean-Voided Midstream Performed By: #### A DDONUAPLUS, CUU #### [address] Urine Cultureon 02-27-2022 Bacteria identified Cx Nom (U) <9,000 colonies/ml mixed bacterial skin contaminants 2 Days PERFORMED BY: [place] [address] PATHOLOGIST GOL[employer] COUR[employer] EQUIPMENT OPERATOR JUAAN EDDY M.D. [facility] Comment on above: Performed By: #### A DDONUAPLUS, CUU #### [address] CBC AUTO DIFFon 01-11-2022 BASO # 0.0 103/ul Normal 0.0-0.1 [facility] Comment on above: Performed By: #### C MP #### [facility] [address] [address] [address] Ortega Morel Basophils/100 WBC (Bld) 0.6 % Normal 0.2-2.0 [facility] Comment on above: Performed By: #### C MP #### [facility] [address] [place] [address] Dr. Ortega Morel EO # 0.1 103/ul Normal 0.0-0.7 [facility] Comment on above: Performed By: #### C MP #### [facility] [address] [place] [address] Dr. Ortega Morel Eosinophils/100 WBC (Bld) 1.5 % Normal 0.9-7.0 [facility] Comment on above: Performed By: #### C MP #### [facility] [address] [place] [address] Dr. Ortega Morel Erythrocyte distribution width (RBC) [Ratio] 12.7 % Normal 11.0-15.0 [facility] Comment on above: Performed By: #### C MP #### [facility] [address] [place] [address] Dr. Ortega Morel Hematocrit (Bld) [Volume fraction] 38.0 % Normal 36.0-48.0 [facility] Comment on above: Performed By: #### C MP #### [facility] [address] [place] [address] Dr. Ortega Morel Hemoglobin (Bld) [Mass/Vol] 13.1 g/dL Normal 12.0-16.0 [facility] Comment on above: Performed By: #### C MP #### [facility] [address] [place] [address] Dr. Ortega Morel IG # 0.02 10e3/ul Normal 0.00-0.03 [facility] Comment on above: Performed By: #### C MP #### [facility] [address] [place] [address] Dr. Ortega Morel IG % 0.4 % Normal 0.0-0.5 [facility] Comment on above: Performed By: #### C MP #### [facility] [address] [place] [address] Dr. Ortega Morel LYMPH # 1.0 103/ul Critically low 1.2-3.8 [facility] Comment on above: Performed By: #### C MP #### [facility] [address] [place] [address] Dr. Ortega Morel Lymphocytes/100 WBC (Bld) 18.3 % Critically low 20.5-60.0 [facility] Comment on above: Performed By: #### C MP #### [facility] [address] [place] [address] Dr. Ortega Morel MANUAL DIFF REQ NO Normal [facility] Comment on above: Performed By: #### C MP #### [facility] [address] [place] [address] Dr. Ortega Morel MCH (RBC) [Entitic mass] 33.9 pg Normal 26.7-34.0 [facility] Comment on above: Performed By: #### C MP #### [facility] [address] [place] [address] Dr. Ortega Morel MCHC (RBC) [Mass/Vol] 34.5 g/dL Normal 29.9-35.2 [facility] Comment on above: Performed By: #### C MP #### [facility] [address] [place] [address] Dr. Ortega Morel MCV (RBC) [Entitic vol] 98.4 fL Normal 81.0-99.0 [facility] Comment on above: Performed By: #### C MP #### [facility] [address] [place] [address] Dr. Ortega Morel MONO # 0.5 103/ul Normal 0.3-0.8 [facility] Comment on above: Performed By: #### C MP #### [facility] [address] [place] [address] Dr. Ortega Morel Monocytes/100 WBC (Bld) 9.2 % Normal 1.7-12.0 [facility] Comment on above: Performed By: #### C MP #### [facility] [address] [place] [address] Dr. Ortega Morel NEUT # 3.6 103/ul Normal 1.4-6.5 [facility] Comment on above: Performed By: #### C MP #### [facility] [address] [address] [address] Ortega Morel Neutrophils/100 WBC (Bld) 70.0 % Normal 43.0-75.0 [facility] Comment on above: Performed By: #### C MP #### [facility] [address] [address] [address] Ortega Morel Platelet mean volume (Bld) [Entitic vol] 10.0 fL Normal 9.5-13.5 [facility] Comment on above: Performed By: #### C MP #### [facility] [address] [address] [address] Ortega Morel PLT 189 103/ul Normal 150-450 [facility] Comment on above: Performed By: #### C MP #### [facility] [address] [address] [address] Ortega Morel RBC 3.86 106/ul Critically low 4.20-5.40 [facility] Comment on above: Performed By: #### C MP #### [facility] [address] [address] [address] Ortega Morel WBC 5.2 103/ul Normal 4.0-11.0 [facility] Comment on above: Performed By: #### C MP #### [facility] [address] [place] [address] ABD/PELV W CONon 01-12-[address] ABD/PELV W CON CT ABD/PELV W CON CLINICAL HISTORY: Generalized and left lower quadrant abdominal pain for one day. History of diverticulitis. COMPARISON: None available TECHNIQUE: Axial CT from lung bases through symphysis pubis following the injection of 65 mL of Omnipaque 300 iodinated contrast material. No oral contrast. Coronal and sagittal reconstructions generated. Dose reduction techniques were achieved by using automated exposure control and/or adjustment of mA and/or kV according to patient size and/or use of iterative reconstruction technique. FINDINGS: CT ABDOMEN FINDINGS: Normal heart size. Lung bases clear. Liver with a few too small to characterize hypodensities but probable cysts. Normal splenic size and enhancement. Normal-sized adrenal glands. Cholecystectomy with common duct size of 7 mm and tapering distally. Normal pancreatic enhancement without peripancreatic edema. Normal bilateral renal enhancement without hydronephrosis. Atherosclerotic aorta without aneurysm. GI tract nondilated without obstruction. Colonic diverticulosis with focal area of acute diverticulitis in the proximal descending colon just below the level of the spleen. No abscess or free air. No other significant inflammatory changes. Small fatty umbilical hernia. CT PELVIS FINDINGS: Appendix is negative. Hysterectomy. Urinary bladder not well distended but grossly unremarkable. Lumbar spondylosis with no acute bony process. IMPRESSION: Acute diverticulitis in the proximal descending colon. No abscess or free air. Cholecystectomy with 7 mm common duct size. Hysterectomy. Electronically authenticated by: SABRINA HARRIS Date: 2022-01-11 10:31 Normal [facility] ER URINE PROFILEon 2 Bilirubin Ql (U) Negative Normal NEGATIVE [facility] Comment on above: Performed By: #### E RUR #### [facility] [address] [place] [address] Dr. Ortega Morel Clarity (U) CLEAR Normal CLEAR [facility] Comment on above: Performed By: #### E RUR #### [facility] [address] [place] [address] Dr. Ortega Morel Color (U) BROWN Abnormal YELLOW [facility] Comment on above: Performed By: #### E RUR #### [facility] [address] [place] [address] Dr. Ortega Morel ERUJEFF A micrscopic examination will be performed if indicated. Normal [facility] Comment on above: Performed By: #### E RUR #### [facility] [address] [place] [address] Dr. Ortega Morel Glucose Ql (U) Negative Normal NEGATIVE [facility] Comment on above: Performed By: #### E RUR #### [facility] [address] [place] [address] Dr. Ortega Morel Hemoglobin Ql (U) Negative Normal NEGATIVE [facility] Comment on above: Performed By: #### E RUR #### [facility] [address] [place] [address] Dr. Ortega Morel Ketones Ql (U) TRACE Abnormal NEGATIVE [facility] Comment on above: Performed By: #### E RUR #### [facility] [address] [place] [address] Dr. Ortega Morel LEUKOCYTES Negative Normal NEGATIVE [facility] Comment on above: Performed By: #### E RUR #### [facility] [address] [place] [address] Dr. Ortega Morel Nitrite Ql (U) Negative Normal NEGATIVE [facility] Comment on above: Performed By: #### E RUR #### [facility] [address] [place] [address] Dr. Ortega Morel pH (U) 6.0 [pH] Normal 5-9 [facility] Comment on above: Performed By: #### E RUR #### [facility] [address] [place] [address] Dr. Ortega Morel SPEC GRAVITY 1.025 Normal 1.005-<=1.025 [facility] Comment on above: Performed By: #### E RUR #### [facility] [address] [place] [address] Dr. Ortega Morel UA PROTEIN Negative Normal NEGATIVE/ TRACE [facility] Comment on above: Performed By: #### E RUR #### [facility] [address] [place] [address] Dr. Ortega Morel UR MICRO IND NOT INDICATED Normal [facility] Comment on above: Performed By: #### E RUR #### [facility] [address] [place] [address] Dr. Ortega Morel Urobilinogen Qn (U) 1.0 {Alphonso'U}/dL Normal 0.2 - 1. 0 [facility] Comment on above: Performed By: #### E RUR #### [facility] [address] [place] [address] Dr. Ortega Morel LACTATE/LACTIC ACIDon 2021 Lactate [Moles/Vol] 0.7 mmol/L Normal 0.4-1.9 [facility] Comment on above: Performed By: #### L ACT #### [facility] [address] [place] [address] Dr. Ortega Morel LIPASEon 01-11-2022 Lipase [Catalytic activity/Vol] 66.0 U/L Critically low 73.0-393.0 [facility] Comment on above: Performed By: #### C MP #### [facility] [address] [place] [address] Dr. Ortega Morel PROF 14(COMP METB)on 022 Albumin [Mass/Vol] 3.4 g/dL Normal 3.4-5.0 [facility] Comment on above: Performed By: #### C MP #### [facility] [address] [place] [address] Dr. Ortega Morel Albumin/Globulin [Mass ratio] 1.1 {ratio} Normal [facility] Comment on above: Performed By: #### C MP #### [facility] [address] [place] [address] Dr. Ortega Mroel ALP [Catalytic activity/Vol] 71 U/L Normal 46-116 [facility] Comment on above: Performed By: #### C MP #### [facility] [address] [place] [address] Dr. Ortega Morel ALT [Catalytic activity/Vol] 20 U/L Normal 14-59 [facility] Comment on above: Performed By: #### C MP #### [facility] [address] [place] [address] Dr. Ortega Morel Anion gap [Moles/Vol] 10.3 mmol/L Normal [facility] Comment on above: Performed By: #### C MP #### [facility] [address] [place] [address] Dr. Ortega Morel AST [Catalytic activity/Vol] 15 U/L Normal 15-37 [facility] Comment on above: Performed By: #### C MP #### [facility] [address] [place] [address] Dr. Ortega Morel Bilirubin [Mass/Vol] 0.7 mg/dL Normal 0.2-1.0 [facility] Comment on above: Performed By: #### C MP #### [facility] [address] [address] [address] Ortega Morel Calcium [Mass/Vol] 8.7 mg/dL Normal 8.5-10.1 [facility] Comment on above: Performed By: #### C MP #### [facility] [address] [place] [address] Dr. Ortega Morel Chloride [Moles/Vol] 106 mmol/L Normal 98-107 [facility] Comment on above: Performed By: #### C MP #### [facility] [address] [address] [address] Ortega Morel CO2 [Moles/Vol] 26.5 mmol/L Normal 21.0-32.0 [facility] Comment on above: Performed By: #### C MP #### [facility] [address] [place] [address] Dr. Ortega Morel Creatinine [Mass/Vol] 0.74 mg/dL Normal 0.55-1.02 [facility] Comment on above: Performed By: #### C MP #### [facility] [address] [place] [address] Dr. Ortega Morel EGFR-AF AUSTRIAN >60 Normal >=60 [facility] Comment on above: Performed By: #### C MP #### [facility] [address] [place] [address] Dr. Ortega Morel EGFR-NON AF AUSTRIAN >60 Normal >=60 [facility] Comment on above: Performed By: #### C MP #### [facility] [address] [place] [address] Dr. Ortega Morel Globulin (S) [Mass/Vol] 3.1 g/dL Normal [facility] Comment on above: Performed By: #### C MP #### [facility] [address] [place] [address] Dr. Ortega Morel Glucose [Mass/Vol] 95 mg/dL Normal 74-106 [facility] Comment on above: Performed By: #### C MP #### [facility] [address] [place] [address] Dr. Ortega Morel Potassium [Moles/Vol] 3.8 mmol/L Normal 3.5-5.1 [facility] Comment on above: Performed By: #### C MP #### [facility] [address] [place] [address] Dr. Ortega Morel Protein [Mass/Vol] 6.5 g/dL Normal 6.4-8.2 [facility] Comment on above: Performed By: #### C MP #### [facility] [address] [address] [address] Ortega Morel Sodium [Moles/Vol] 139 mmol/L Normal 136-145 [facility] Comment on above: Performed By: #### C MP #### [facility] [address] [place] [address] Dr. Ortega Morel Urea nitrogen [Mass/Vol] 15.0 mg/dL Normal 7.0-18.0 [facility] Comment on above: Performed By: #### C MP #### [facility] [address] [place] [address] Dr. Ortega Morel Urea nitrogen/Creatinine [Mass ratio] 20.3 mg/mg Normal [facility] Comment on above: Performed By: #### C MP #### [facility] [address] [place] [address] Dr. Ortega Morel TROPONIN, HIGH SENSITIVITYon 01-11-2022 HSTROP <4.0 Normal 4.0-51.3 [facility] Comment on above: Result Comment: CUT- OFF POINTS HAVE BEEN ESTABLISHED BASED ON THE FOURTH UNIVERSAL DEFINITIONS OF MYOCARDIAL INFARCTION. THE UPPER REFERENCE LIMIT (URL) OF TROPONIN, DEFINED THE 99TH PERCENTILE OF cTnI DISTRIBUTION IN A REFERENCE POPULATION, HAS BEEN CONFIRMED THE DECISION THRESHOLD FOR [place] DIAGNOSIS. Performed By: #### C MP #### [facility] [address] [place] [address] Dr. Ortega Morel CNOVon 09-29-2021 CNOV Office Visit (GENSAM) EZEQUIEL LEI ([id number]) 1960 F Date Time Provider Department 09/29/21 11:15 AM JESSICA LITTLE III During your visit today, we recorded the following information about you: Pulse Blood pressure Weight 79/minute 134/91 91.2 kg Jessica Little III, MD 09/29/2021 11:22 AM Addendum Ms. Lei is here today at the request of Blas Slaughter [address] [place] [phone] for my opinion regarding recurrent diverticulitis. My final recommendation will be communicated back to the requesting physician by way of shared medical record or letter. Patient states she has had intermittent episodes of diverticulitis for the past 5 years. She states she has episodes about every 9 months that have all been treated in ED/outpatient. Her most recent episode began August 21 and required two 10 day courses of Augmentin to resolve. She states she had taken Cipro/Flagyl in the past with faster results but developed allergy to both meds. She does not have residual pain presently. Her last colonoscopy she believes was about 10 years ago. Pain is located in LLQ Pain is sharp/stabbing Pain severity is 10/10 at the worst Pain radiates to: no radiation Pain is associated with diarrhea, bloating Pain is worse with stress Pain is better with abx No past medical history on file.No past surgical history on file. Social History Tobacco Use - Smoking status: Current Some Day Smoker - Smokeless tobacco: Never Used Substance Use Topics - Alcohol use: Not Currently - Drug use: Not on file No family history on file. REVIEW OF SYSTEMS GENERAL: No weight loss, malaise or fevers. HEENT: Negative for frequent or significant headaches, Negative for changes in hearing, vision or dizziness, Negative for nose bleeds, Negative for difficulty swallowing or hoarseness RESPIRATORY: Negative for hemoptysis, wheezing or shortness of breath; Positive for cough CARDIOVASCULAR: Negative for chest pain, leg swelling or palpitations. GI: No nausea, vomiting, diarrhea, constipation, hematochezia, melena, or abdominal pain : No history of dysuria, hematuria, frequency or incontinence. SKIN: Negative for lesions, rash, and itching NEURO: No history of headaches, syncope, paralysis, seizures or tremors PHYSICAL EXAMINATION BP 134/91 Pulse 79 Wt 91.2 kg (201 lb) General Appearance: Well appearing, alert, in no acute distress, well-hydrated, well nourished. Skin: Color, texture, turgor normal, no suspicious rashes or lesions Head: Normocephalic, no masses, lesions, tenderness or abnormalities Neck: Supple, no adenopathy; thyroid symmetric, normal size, no bruits Lungs: +mild wheeze apices bilaterally Heart: RRR without murmur, gallop, or rubs. No ectopy Abdomen: Soft, non-tender. +well-healed laparoscopic and pfannenstiel scars Extremities: No ankle edema. Lymph Nodes: No cervical lymphadenopathy CT abdomen pelvis wo con [facility] [place] [address] [place] [address] CT Scan Report Signed Patient: Ezequiel Lei MR#: [id number] : 1960 Acct:[id number] Age/Sex: 61 / F ADM Date: 08/30/21 Loc: ER Room: Type: [facility] ER Attending Dr: Ordering Provider: Jas Watson Jr, MD Date of Service: 08/31/21 CT/CT abdomen pelvis wo con: severe LLQ pain hx diverticulitis Copies to: Jas Watson Jr, MD CT abdomen and pelvis withoutcontrast TECHNIQUE: Axial imaging with 2-D reconstruction. . The CT exam was performed using one or more the following dose reduction techniques: Automated exposure control, adjustment of the MA and/or Kv according to patient size, or use of the iterative reconstruction technique. COMPARISON:09/21/20 History: LEFT lower quadrant pain for 2 days. History of diverticulitis. Lung bases are unremarkable. No hepatic mass or intrahepatic biliary ductal dilatation identified. Prominent Francia's lobe identified. Normal density of the liver parenchyma identified. Cholecystectomy clips identified. No extrahepatic biliary ductal dilatation identified. There is no splenomegaly or splenic mass identified. No pancreatic mass or ductal dilatation identified. The adrenal glands are unremarkable. No nephrolithiasis or obstructive uropathy is identified. No abdominal aortic aneurysm identified. No significant retroperitoneal abnormalities identified. The small bowel loops are nondistended. The appendix is normal. Mild wall thickening and pericolonic inflammation involving the proximal sigmoid colon is consistent with acute diverticulitis. No abscess or pneumoperitoneum. Scattered distal colonic diver ticuli identified. Urinary bladder is unremarkable. The uterus is absent. No free intraperitoneal air or fluid is identified. Endplate osteophytes. Facet arthropat (more content not included)... Normal [facility] HISTORY PHYSICALon HISTORY PHYSICAL HNO ID: [id number] Author: Jessica Little III, MD Service: ? Author Type: Physician Type: HANDP Filed: 09/29/2021 12:21 PM Note Text: Ms. Lei is here today at the request of Blas Slaughter [address] [place] [id number] for my opinion regarding recurrent diverticulitis. My final recommendation will be communicated back to the requesting physician by way of shared medical record or letter. Patient states she has had intermittent episodes of diverticulitis for the past 5 years. She states she has episodes about every 9 months that have all been treated in ED/outpatient. Her most recent episode began August 21 and required two 10 day courses of Augmentin to resolve. She states she had taken Cipro/Flagyl in the past with faster results but developed allergy to both meds. She does not have residual pain presently. Her last colonoscopy she believes was about 10 years ago. Pain is located in LLQ Pain is sharp/stabbing Pain severity is 10/10 at the worst Pain radiates to: no radiation Pain is associated with diarrhea, bloating Pain is worse with stress Pain is better with abx No past medical history on file.No past surgical history on file. Social History Tobacco Use - Smoking status: Current Some Day Smoker - Smokeless tobacco: Never Used Substance Use Topics - Alcohol use: Not Currently - Drug use: Not on file No family history on file. REVIEW OF SYSTEMS GENERAL: No weight loss, malaise or fevers. HEENT: Negative for frequent or significant headaches, Negative for changes in hearing, vision or dizziness, Negative for nose bleeds, Negative for difficulty swallowing or hoarseness RESPIRATORY: Negative for hemoptysis, wheezing or shortness of breath; Positive for cough CARDIOVASCULAR: Negative for chest pain, leg swelling or palpitations. GI: No nausea, vomiting, diarrhea, constipation, hematochezia, melena, or abdominal pain : No history of dysuria, hematuria, frequency or incontinence. SKIN: Negative for lesions, rash, and itching NEURO: No history of headaches, syncope, paralysis, seizures or tremors PHYSICAL EXAMINATION BP 134/91 Pulse 79 Wt 91.2 kg (201 lb) General Appearance: Well appearing, alert, in no acute distress, well-hydrated, well nourished. Skin: Color, texture, turgor normal, no suspicious rashes or lesions Head: Normocephalic, no masses, lesions, tenderness or abnormalities Neck: Supple, no adenopathy; thyroid symmetric, normal size, no bruits Lungs: +mild wheeze apices bilaterally Heart: RRR without murmur, gallop, or rubs. No ectopy Abdomen: Soft, non-tender. +well-healed laparoscopic and pfannenstiel scars Extremities: No ankle edema. Lymph Nodes: No cervical lymphadenopathy CT abdomen pelvis wo con [facility] Main [place] [address] [place] [address] CT Scan Report Signed Patient: Ezequiel Lei MR#: [id number] 239 : 1960 Acct:[id number] Age/Sex: 61 / F ADM Date: 08/30/21 Loc: ER Room: Type: [facility] ER Attending Dr: Ordering Provider: Jas Watson Jr, MD Date of Service: 08/31/21 CT/CT abdomen pelvis wo con: severe LLQ pain hx diverticulitis Copies to: Jas Watson Jr, MD CT abdomen and pelvis withoutcontrast TECHNIQUE: Axial imaging with 2-D reconstruction. . The CT exam was performed using one or more the following dose reduction techniques: Automated exposure control, adjustment of the MA and/or Kv according to patient size, or use of the iterative reconstruction technique. COMPARISON:09/21/20 History: LEFT lower quadrant pain for 2 days. History of diverticulitis. Lung bases are unremarkable. No hepatic mass or intrahepatic biliary ductal dilatation identified. Prominent Francia's lobe identified. Normal density of the liver parenchyma identified. Cholecystectomy clips identified. No extrahepatic biliary ductal dilatation identified. There is no splenomegaly or splenic mass identified. No pancreatic mass or ductal dilatation identified. The adrenal glands are unremarkable. No nephrolithiasis or obstructive uropathy is identified. No abdominal aortic aneurysm identified. No significant retroperitoneal abnormalities identified. The small bowel loops are nondistended. The appendix is normal. Mild wall thickening and pericolonic inflammation involving the proximal sigmoid colon is consistent with acute diverticulitis. No abscess or pneumoperitoneum. Scattered distal colonic diver ticuli identified. Urinary bladder is unremarkable. The uterus is absent. No free intraperitoneal air or fluid is identified. Endplate osteophytes. Facet arthropathy. Acute bony findings. No subcutaneous soft tissue abnormality identified. CT/CT abdomen pelvis wo con IMPRESSION: Acute diverticulitis of the proximal sigmoid colon. No abscess or pneumoperitoneum. Impression dictated by: Quinton (more content not included)... Normal [facility]on SARS-CoV-2 (COVID-19) RNA LIU+probe Ql (Unsp spec) Not detected Normal NOT DETECTED [facility] Comment on above: Result Comment: This test is not yet approved or cleared by the [place] FDA. When there are no FDA-approved or cleared tests available, and other criteria are met, FDA can make tests available under an emergency access mechanism called an Emergency Use Authorization (EUA). The EUA for this test is supported by the [place] of Health and Human Service's (HHS's) declaration that circumstances exist to justify the emergency use of in vitro diagnostics for the detection and/or diagnosis of the virus that causes COVID-19. This EUA will remain in effect (meaning this test can be used) for the duration of the COVID-19 declaration justifying emergency of IVDs, unless it is terminated or revoked by FDA (after which the test may no longer be used). When diagnostic testing is negative, the possibility of a false negative should be considered in the context of a patient's recent exposures and the presence of clinical signs and symptoms consistent with SARS-CoV-2. Performed By: #### C VDTB #### [facility] [address] [place] [address] Dr. Ortega Morel Complete Blood Count Auto Di ffon 09-12-2021 Basophils (Bld) [#/Vol] 0.0 10*3/uL Normal 0.0-0.2 [facility] Comment on above: Result Comment: PERF ORMED BY: [place] [address] PATHOLOGIST [employer] EQUIPMENT OPERATOR JUANA EDDY M.D. Performed By: #### C BC, CMP #### [address] Basophils/100 WBC (Bld) 0.5 % Normal . [facility] Comment on above: Performed By: #### C BC, CMP #### [address] Eosinophils (Bld) [#/Vol] 0.1 10*3/uL Normal 0.0-0.45 [facility] Comment on above: Performed By: #### C BC, CMP #### [address] Eosinophils/100 WBC (Bld) 0.9 % Normal . [facility] Comment on above: Performed By: #### C BC, CMP #### [address] Erythrocyte distribution width (RBC) [Ratio] 12.7 % Normal 11.9-15.3 [facility] Comment on above: Performed By: #### C BC, CMP #### [address] Hematocrit (Bld) [Volume fraction] 39.0 % Normal 34.0-46.4 [facility] Comment on above: Performed By: #### C BC, CMP #### [address] Hemoglobin (Bld) [Mass/Vol] 13.6 g/dL Normal 11.8-15.4 [facility] Comment on above: Performed By: #### C BC, CMP #### [address] Lymphocytes (Bld) [#/Vol] 0.8 10*3/uL Low 1.00-4.8 [facility] Comment on above: Performed By: #### C BC, CMP #### [place] [address] [place] Lymphocytes/100 WBC (Bld) 11.6 % Normal . [facility] Comment on above: Performed By: #### C BC, CMP #### [facility] [address] MCH (RBC) [Entitic mass] 33.9 pg Normal 24.7-34.3 [facility] Comment on above: Performed By: #### C BC, CMP #### [facility] [address] MCV (RBC) [Entitic vol] 97.5 fL Normal 80-100 [facility] Comment on above: Performed By: #### C BC, CMP #### [facility] [address] Mean Corpuscular HGB Conc 34.7 g/dL Normal 32.0-35.0 [facility] Comment on above: Performed By: #### C BC, CMP #### [address] Monocytes (Bld) [#/Vol] 0.6 10*3/uL Normal 0.0-0.8 [facility] Comment on above: Performed By: #### C BC, CMP #### [address] Monocytes/100 WBC (Bld) 8.7 % Normal . [facility] Comment on above: Performed By: #### C BC, CMP #### [facility] [address] Neutrophils (Bld) [#/Vol] 5.5 10*3/uL Normal 1.8-7.7 [facility] Comment on above: Performed By: #### C BC, CMP #### [address] Neutrophils/100 WBC (Bld) 78.3 % Normal . [facility] Comment on above: Performed By: #### C BC, CMP #### [address] Nucleated RBC/100 WBC (Bld) [Ratio] 0.0 % Normal 0-0.5 [facility] Comment on above: Performed By: #### C BC, CMP #### [address] Platelet mean volume (Bld) [Entitic vol] 8.2 fL Normal 6.3-10.7 [facility] Comment on above: Performed By: #### C BC, CMP #### [address] Platelets (Bld) [#/Vol] 223 10*3/uL Normal 150-450 [facility] Comment on above: Performed By: #### C BC, CMP #### [address] RBC (Bld) [#/Vol] 4.00 10*6/uL Normal 3.60-5.00 [facility] Comment on above: Performed By: #### C BC, CMP #### [address] WBC (Bld) [#/Vol] 7.1 10*3/uL Normal 4.5-11.0 [facility] Comment on above: Performed By: #### C BC, CMP #### [address] Comprehensive Metabolic Pane rhoda 09-12-2021 Albumin [Mass/Vol] 3.4 g/dL Normal 3.2-5.5 [facility] Comment on above: Performed By: #### C BC, CMP #### [address] Albumin/Globulin [Mass ratio] 1.2 {ratio} Normal [facility] Comment on above: Performed By: #### C BC, CMP #### [address] ALP [Catalytic activity/Vol] 64 U/L Normal 32-92 [facility] Comment on above: Performed By: #### C BC, CMP #### [address] ALT [Catalytic activity/Vol] 19 U/L Normal 10-60 [facility] Comment on above: Performed By: #### C BC, CMP #### [facility] [address] AST [Catalytic activity/Vol] 30 U/L Normal 10-42 [facility] Comment on above: Performed By: #### C BC, CMP #### [facility] [address] Bilirubin [Mass/Vol] 1.1 mg/dL Normal 0.3-1.2 [facility] Comment on above: Performed By: #### C BC, CMP #### [facility] [address] Calcium [Mass/Vol] 8.9 mg/dL Normal 8.2-10.2 [facility] Comment on above: Performed By: #### C BC, CMP #### [facility] [address] [place] [address] [place] Chloride [Moles/Vol] 106 mmol/L Normal 95-114 [facility] Comment on above: Performed By: #### C BC, CMP #### [facility] [address] CO2 [Moles/Vol] 21.5 mmol/L Low 22.0-30.0 [facility] Comment on above: Performed By: #### C BC, CMP #### [facility] [address] [place] [address] [place] Creatinine [Mass/Vol] 0.70 mg/dL Normal 0.44-1.03 [facility] Comment on above: Performed By: #### C BC, CMP #### [facility] [address] [place] [address] [place] Creatinine Clr Calc Pharmacy 82.76 Normal [facility] Comment on above: Result Comment: PERF ORMED BY: [place] [address] PATHOLOGIST [employer] EQUIPMENT OPERATOR JUANA EDDY M.D. Performed By: #### C BC, CMP #### [address] [place] [address] [place] Estimated GFR ( Shilpa > 60 Normal [facility] Comment on above: Result Comment: GFR estimated reference range: According to KDOQI guidelines, <60 ml/min/1.73m2 is sufficient to diagnose a patient with chronic kidney disease. Performed By: #### C BC, CMP #### [address] Estimated GFR (Non- Am > 60 Normal [facility] Comment on above: Performed By: #### C BC, CMP #### [address] Globulin (S) [Mass/Vol] 2.8 g/dL Normal [facility] Comment on above: Performed By: #### C BC, CMP #### [address] Glucose [Mass/Vol] 101 mg/dL High 70-100 [facility] Comment on above: Result Comment: [place] Glucose Reference Range is dependent on time and content of last meal. Glucose of more than 200 mg/dL in a nonstressed, ambulatory subject supports the diagnosis of Diabetes Mellitus. ADA recommended reference range Performed By: #### C BC, CMP #### [address] Potassium [Moles/Vol] 3.8 mmol/L Normal 3.5-5.1 [facility] Comment on above: Performed By: #### C BC, CMP #### [address] Protein [Mass/Vol] 6.2 g/dL Normal 6.1-7.9 [facility] Comment on above: Performed By: #### C BC, CMP #### [address] Sodium [Moles/Vol] 137 mmol/L Normal 136-146 [facility] Comment on above: Performed By: #### C BC, CMP #### [address] Urea nitrogen [Mass/Vol] 8 mg/dL Low 9-23 [facility] Comment on above: Performed By: #### C BC, CMP #### [facility] [address] [place] [id number] [facility] CT abdomen pelvis wo conon 0 08-31-2021 CT abdomen pelvis wo con [facility] Main [place] [address] [place] [address] CT Scan Report Signed Patient: Ezequiel Lei MR#: [id number] 239 : 1960 Acct:[id number] Age/Sex: 61 / F ADM Date: 08/30/21 Loc: ER Room: Type: [facility] ER Attending Dr: Ordering Provider: Jas Watson Jr, MD Date of Service: 08/31/21 CT/CT abdomen pelvis wo con: severe LLQ pain hx diverticulitis Copies to: Jas Watson Jr, MD CT abdomen and pelvis withoutcontrast TECHNIQUE: Axial imaging with 2-D reconstruction. . The CT exam was performed using one or more the following dose reduction techniques: Automated exposure control, adjustment of the MA and/or Kv according to patient size, or use of the iterative reconstruction technique. COMPARISON:09/21/20 History: LEFT lower quadrant pain for 2 days. History of diverticulitis. Lung bases are unremarkable. No hepatic mass or intrahepatic biliary ductal dilatation identified. Prominent Francia's lobe identified. Normal density of the liver parenchyma identified. Cholecystectomy clips identified. No extrahepatic biliary ductal dilatation identified. There is no splenomegaly or splenic mass identified. No pancreatic mass or ductal dilatation identified. The adrenal glands are unremarkable. No nephrolithiasis or obstructive uropathy is identified. No abdominal aortic aneurysm identified. No significant retroperitoneal abnormalities identified. The small bowel loops are nondistended. The appendix is normal. Mild wall thickening and pericolonic inflammation involving the proximal sigmoid colon is consistent with acute diverticulitis. No abscess or pneumoperitoneum. Scattered distal colonic diver ticuli identified. Urinary bladder is unremarkable. The uterus is absent. No free intraperitoneal air or fluid is identified. Endplate osteophytes. Facet arthropathy. Acute bony findings. No subcutaneous soft tissue abnormality identified. CT/CT abdomen pelvis wo con IMPRESSION: Acute diverticulitis of the proximal sigmoid colon. No abscess or pneumoperitoneum. Impression dictated by: Charlee Arriaga M.D.08/31/2021 9:01 AM Dictation Location: [place] [address] Transcribed By: [facility] 08/31/21900 Dictated By: Charlee Arriaga DO 08/31/2155 Signed By: 08/31/21900 Normal [facility] Complete Blood Count Auto Di ffon 08-31-2021 Basophils (Bld) [#/Vol] 0.0 10*3/uL Normal 0.0-0.2 [facility] Comment on above: Result Comment: PERF ORMED BY: [place] [address] PATHOLOGIST [employer] EQUIPMENT OPERATOR JUANA EDDY M.D. Performed By: #### C BC #### [address] Basophils/100 WBC (Bld) 0.5 % Normal . [facility] Comment on above: Performed By: #### C BC #### [address] Eosinophils (Bld) [#/Vol] 0.0 10*3/uL Normal 0.0-0.45 [facility] Comment on above: Performed By: #### C BC #### [address] Eosinophils/100 WBC (Bld) 0.6 % Normal . [facility] Comment on above: Performed By: #### C BC #### [address] Erythrocyte distribution width (RBC) [Ratio] 12.5 % Normal 11.9-15.3 [facility] Comment on above: Performed By: #### C BC #### [address] Hematocrit (Bld) [Volume fraction] 39.3 % Normal 34.0-46.4 [facility] Comment on above: Performed By: #### C BC #### [address] Hemoglobin (Bld) [Mass/Vol] 13.4 g/dL Normal 11.8-15.4 [facility] Comment on above: Performed By: #### C BC #### [facility] [address] Lymphocytes (Bld) [#/Vol] 0.9 10*3/uL Low 1.00-4.8 [facility] Comment on above: Performed By: #### C BC #### [address] Lymphocytes/100 WBC (Bld) 11.0 % Normal . [facility] Comment on above: Performed By: #### C BC #### [facility] [address] MCH (RBC) [Entitic mass] 33.1 pg Normal 24.7-34.3 [facility] Comment on above: Performed By: #### C BC #### [address] MCV (RBC) [Entitic vol] 96.9 fL Normal 80-100 [facility] Comment on above: Performed By: #### C BC #### [address] Mean Corpuscular HGB Conc 34.2 g/dL Normal 32.0-35.0 [facility] Comment on above: Performed By: #### C BC #### [address] Monocytes (Bld) [#/Vol] 0.8 10*3/uL Normal 0.0-0.8 [facility] Comment on above: Performed By: #### C BC #### [place] [address] [place] Monocytes/100 WBC (Bld) 10.0 % Normal . [facility] Comment on above: Performed By: #### C BC #### [address] Neutrophils (Bld) [#/Vol] 6.4 10*3/uL Normal 1.8-7.7 [facility] Comment on above: Performed By: #### C BC #### [facility] [address] Neutrophils/100 WBC (Bld) 77.9 % Normal . [facility] Comment on above: Performed By: #### C BC #### [facility] [address] [place] [id number] [facility] Nucleated RBC/100 WBC (Bld) [Ratio] 0.0 % Normal 0-0.5 [facility] Comment on above: Performed By: #### C BC #### [facility] [address] Platelet mean volume (Bld) [Entitic vol] 7.4 fL Normal 6.3-10.7 [facility] Comment on above: Performed By: #### C BC #### [address] Platelets (Bld) [#/Vol] 211 10*3/uL Normal 150-450 [facility] Comment on above: Performed By: #### C BC #### [address] RBC (Bld) [#/Vol] 4.06 10*6/uL Normal 3.60-5.00 [facility] Comment on above: Performed By: #### C BC #### [address] WBC (Bld) [#/Vol] 8.2 10*3/uL Normal 4.5-11.0 [facility] Comment on above: Performed By: #### C BC #### [place] [id number] [facility] Comprehensive Metabolic Pane rhoda 08-31-2021 Albumin [Mass/Vol] 3.6 g/dL Normal 3.2-5.5 [facility] Comment on above: Performed By: #### L IPASE, CMP #### [place] [id number] [facility] Albumin/Globulin [Mass ratio] 1.5 {ratio} Normal [facility] Comment on above: Performed By: #### L IPASE, CMP #### [facility] [address] ALP [Catalytic activity/Vol] 61 U/L Normal 32-92 [facility] Comment on above: Performed By: #### L IPASE, CMP #### [facility] [address] ALT [Catalytic activity/Vol] 13 U/L Normal 10-60 [facility] Comment on above: Performed By: #### L IPASE, CMP #### [address] AST [Catalytic activity/Vol] 16 U/L Normal 10-42 [facility] Comment on above: Performed By: #### L IPASE, CMP #### [address] Bilirubin [Mass/Vol] 0.7 mg/dL Normal 0.3-1.2 [facility] Comment on above: Performed By: #### L IPASE, CMP #### [address] Calcium [Mass/Vol] 8.9 mg/dL Normal 8.2-10.2 [facility] Comment on above: Performed By: #### L IPASE, CMP #### [address] Chloride [Moles/Vol] 107 mmol/L Normal 95-114 [facility] Comment on above: Performed By: #### L IPASE, CMP #### [address] CO2 [Moles/Vol] 23.0 mmol/L Normal 22.0-30.0 [facility] Comment on above: Performed By: #### L IPASE, CMP #### [place] [address] [place] Creatinine [Mass/Vol] 0.68 mg/dL Normal 0.44-1.03 [facility] Comment on above: Performed By: #### L IPASE, CMP #### [place] [address] [place] Creatinine Clr Calc Pharmacy 85.19 [facility] Comment on above: Performed By: #### L IPASE, CMP #### [facility] [address] Estimated GFR ( Shilpa > 60 [facility] Comment on above: Result Comment: GFR estimated reference range: According to KDOQI guidelines, <60 ml/min/1.73m2 is sufficient to diagnose a patient with chronic kidney disease. Performed By: #### L IPASE, CMP #### [facility] [address] Estimated GFR (Non- Am > 60 [facility] Comment on above: Performed By: #### L IPASE, CMP #### [address] Globulin (S) [Mass/Vol] 2.4 g/dL [facility] Comment on above: Performed By: #### L IPASE, CMP #### [address] Glucose [Mass/Vol] 111 mg/dL High 70-100 [facility] Comment on above: Result Comment: [place] Glucose Reference Range is dependent on time and content of last meal. Glucose of more than 200 mg/dL in a nonstressed, ambulatory subject supports the diagnosis of Diabetes Mellitus. ADA recommended reference range Performed By: #### L IPASE, CMP #### [address] Potassium [Moles/Vol] 3.9 mmol/L Normal 3.5-5.1 [facility] Comment on above: Performed By: #### L IPASE, CMP #### [address] Protein [Mass/Vol] 6.0 g/dL Low 6.1-7.9 [facility] Comment on above: Performed By: #### L IPASE, CMP #### [address] Sodium [Moles/Vol] 138 mmol/L Normal 136-146 [facility] Comment on above: Performed By: #### L IPASE, CMP #### [facility] [address] Urea nitrogen [Mass/Vol] 13 mg/dL Normal 05-05 [facility] Comment on above: Performed By: #### L IPASE, CMP #### [facility] [address] Lipaseon 08-31-2021 Lipase [Catalytic activity/Vol] 21.0 U/L Low 22-51 [facility] Comment on above: Result Comment: PERF ORMED BY: [place] [address] PATHOLOGIST [employer] EQUIPMENT OPERATOR JUANA EDDY M.D. Performed By: #### L IPASE, CMP #### [facility] [address] Covid-19 PCR ([facility])on SARS-CoV-2 (COVID-19) RNA LIU+probe Ql (Unsp spec) Detected Critically abnormal NOT DETECTED [facility] Comment on above: Result Comment: This test is not yet approved or cleared by the [place] FDA. When there are no FDA-approved or cleared tests available, and other criteria are met, FDA can make tests available under an emergency access mechanism called an Emergency Use Authorization (EUA). The EUA for this test is supported by the [employer] Operator of Health and Human Service's (HHS's) declaration that circumstances exist to justify the emergency use of in vitro diagnostics for the detection and/or diagnosis of the virus that causes COVID-19. This EUA will remain in effect (meaning this test can be used) for the duration of the COVID-19 declaration justifying emergency of IVDs, unless it is terminated or revoked by FDA (after which the test may no longer be used). Performed By: #### C MP #### [facility] [address] [id number] [address] Ortega Morel Quantiferon-TB Plus (Client Incubated)on 07-08-2020 Gamma interferon background IA Qn (Bld) 0.09 International_Unit/m L [facility] Comment on above: Performed By: #### 3 [id number] #### [facility] [address] [place] [address]91 M. tuberculosis stim IFN-g by CD4+ CD8+ T-cells corrected for background Qn (Bld) 0.43 International_Unit/m L [facility] Comment on above: Performed By: #### 3 [id number], [id number] #### [facility] [address] [place] [address]29 M. tuberculosis stim IFN-g by CD4+ T-cells corrected for background Qn (Bld) 0.36 International_Unit/m L [facility] Comment on above: Performed By: #### 3 [id number], [id number], [id number] #### [facility] [address] [place] [address]9833 M. tuberculosis stim IFN-g Ql (Bld) [Interp] Negative Negative [facility] Comment on above: Result Comment: The specimen received for QuantiFERON testing was incubated by the ordering institution. Specific procedures outlined in our Directory of Services and in the package insert for the QuantiFERON Gold (In Tube) test must be followed to enable for proper stimulation of cells for the production of interferon gamma. Performed at: [address] [id number] PhD Anjel Arreola Performed By: #### 3 [id number] #### [facility] [address] [place] [address] Mitogen stimulated gamma interferon Qn (Bld) >10.00 [facility] Comment on above: Performed By: #### 3 [id number] #### [facility] [address] [place] [id number] Service comment (Unsp spec) [Interp] Comment [facility] Comment on above: Result Comment: The QuantiFERON-TB Gold Plus result is determined by subtracting the Nil value from either TB antigen (Ag) tube. The mitogen tube serves as a control for the test. Performed By: #### 3 [id number], [id number] #### [facility] [address] [place] [address] Hep Bs Abon 07-06-2020 HBV surface Ab Ql (S) Reactive [facility] Comment on above: Result Comment: Non Reactive: Inconsistent with immunity, less than 10 mIU/mL Reactive: Consistent with immunity, greater than 9.9 mIU/mL Performed at: [address] [id number] PhD Anjel Arreola Performed By: #### 3 [id number] #### [facility] [address] [place] [address] Measles/Mumps/Rubella Immuni tyon 07-06-2020 MeV IgG IA Qn (S) {index_val} Immune >16.4 [facility] Comment on above: Result Comment: Nega tive <13.5 Equivocal 13.5 - 16.4 Positive >16.4 Presence of antibodies to Rubeola is presumptive evidence of immunity except when acute infection is suspected. Performed By: #### 3 [id number], [id number], [id number] #### [facility] [address] [place] [address] MuV IgG IA Qn (S) 31.4 A unit/mL Immune >10.9 [facility] Comment on above: Result Comment: Nega tive <9.0 Equivocal 9.0 - 10.9 Positive >10.9 A positive result generally indicates past exposure to Mumps virus or previous vaccination. Performed at: [facility] [address] [place] [id number] PhD Anjel Arreola Performed By: #### 3 [id number] #### [facility] [address] [place] [address] Rubella virus IgG Qn (S) 24.40 [IU]/mL Immune >0.99 [facility] Comment on above: Result Comment: Non- immune <0.90 Equivocal 0.90 - 0.99 Immune >0.99 Performed By: #### 3 [id number], [id number], [id number] #### [facility] [address] [place] [address] Varic IgGon 07-06-2020 VZV IgG IA Qn (S) >4000 Immune >165 [facility] Comment on above: Result Comment: Nega tive <135 Equivocal 135 - 165 Positive >165 A positive result generally indicates exposure to the pathogen or administration of specific immunoglobulins, but it is not indication of active infection or stage of disease. Performed at: [address] [id number] PhD Anjel Arreola Performed By: #### 3 [id number], [id number] #### [facility] [address] [place] [address] Consent for Treatmenton 06-14 Consent for Treatment [id number] #1.00CD:127 Normal [facility] Physician Orderon 07-05-2020 Physician Order [id number]#1.00CD:127 Normal [facility] Vital Signs Date Time Vital Sign Value Performing Clinician Facility 09-11-2023 14:40-0500 Body height 154.94 cm Blas Slaughter Other [facility] Other 09-11-2023 14:40-0500 Body mass index (BMI) [Ratio] 37.6 kg/m2 Blas Slaughter Other [facility] Other 09-11-2023 14:40-0500 Body temperature 97.9 [degF] Blas Slaughter Other [facility] Other 09-11-2023 14:40-0500 Body weight 90.27 kg Blas Slaughter Other [facility] Other 09-11-2023 14:40-0500 Diastolic blood pressure 88 mm[Hg] Blas Slaughter Other [facility] Other 09-11-2023 14:40-0500 Respiratory rate 18 /min Blas Slaughter Other [facility] Other 09-11-2023 14:40-0500 SaO2% (BldA) [Mass fraction] 98 % Blas Slaughter Other [facility] Other 09-11-2023 14:40-0500 Systolic blood pressure 138 mm[Hg] Blas Slaughter Other [facility] Other 01-19-2023 10:30-0400 Body height 154.94 cm Blas Slaughter Other [facility] Other 01-19-2023 10:30-0400 Body mass index (BMI) [Ratio] 36.27 kg/m2 Blas Slaughter Other [facility] Other 01-19-2023 10:30-0400 Body temperature 98.7 [degF] Blas Slaughter Other [facility] Other 01-19-2023 10:30-0400 Body weight 87.09 kg Blas Slaughter Other [facility] Other 01-19-2023 10:30-0400 Diastolic blood pressure 82 mm[Hg] Blas Slaughter Other [facility] Other 01-19-2023 10:30-0400 Respiratory rate 18 /min Blas Slaughter Other [facility] Other 01-19-2023 10:30-0400 SaO2% (BldA) [Mass fraction] 97 % Blas Slaughter Other [facility] Other 01-19-2023 10:30-0400 Systolic blood pressure 126 mm[Hg] Blas Slaughter Other [facility] Other 07-17-2022 10:50-0500 Body height 154.94 cm Blas Slaughter Other [facility] Other 07-17-2022 10:50-0500 Body mass index (BMI) [Ratio] 37.5 kg/m2 Blas Slaughter Other [facility] Other 07-17-2022 10:50-0500 Body temperature 97.6 [degF] Blas Slaughter Other [facility] Other 07-17-2022 10:50-0500 Body weight 90.04 kg Blas Slaughter Other [facility] Other 07-17-2022 10:50-0500 Diastolic blood pressure 88 mm[Hg] Blas Slaughter Other [facility] Other 07-17-2022 10:50-0500 Respiratory rate 18 /min Blas Slaughter Other [facility] Other 07-17-2022 10:50-0500 SaO2% (BldA) [Mass fraction] 99 % Blas Slaughter Other [facility] Other 07-17-2022 10:50-0500 Systolic blood pressure 132 mm[Hg] Blas Slaughter Other [facility] Other 01-17-2022 09:10-0400 Body height 154.94 cm Blas Slaughter Other [facility] Other 01-17-2022 09:10-0400 Body mass index (BMI) [Ratio] 37.31 kg/m2 Blas Slaughter Other [facility] Other 01-17-2022 09:10-0400 Body temperature 96.8 [degF] Blas Slaughter Other [facility] Other 01-17-2022 09:10-0400 Body weight 89.59 kg Blas Slaughter Other [facility] Other 01-17-2022 09:10-0400 Diastolic blood pressure 86 mm[Hg] Blas Slaughter Other [facility] Other 01-17-2022 09:10-0400 Respiratory rate 18 /min Blas Slaughter Other [facility] Other 01-17-2022 09:10-0400 SaO2% (BldA) [Mass fraction] 98 % Blas Slaughter Other [facility] Other 01-17-2022 09:10-0400 Systolic blood pressure 126 mm[Hg] Blas Slaughter Other [facility] Other Encounters Encounter Date Encounter Type Care Provider Facility Start: 09-19-2023 End: 09-19-2023 ambulatory Blas Slaughter Other [facility] Other Start: 09-19-2023 Telephone encounter Blas Slaughter [facility] Start: 09-12-2023 End: 09-12-2023 ambulatory Blas Slaughter Other [facility] Other Start: 09-12-2023 Telephone encounter Blas Slaughter [facility] [place] Start: 09-11-2023 End: 09-11-2023 ambulatory Blas Slaughter Other [facility] Other Start: 09-11-2023 Office outpatient vi sit 25 minutes Blas Slaughter [facility] [place] Start: 09-10-2023 End: 09-10-2023 ambulatory Blas Slaughter Other [facility] Other Start: 09-10-2023 Encounter for genera l adult medical examination without abnormal findings Blas Slaughter [facility] [place] Start: 09-10-2023 Telephone encounter Blas Slaughter [facility] [place] Start: 08-27-2023 End: 08-27-2023 ambulatory Blas Slaughter Other [facility] Other Start: 08-27-2023 Encounter for genera l adult medical examination without abnormal findings Blas Slaughter [facility] [place] Start: 08-27-2023 Telephone encounter Blas Slaughter [facility] [place] Start: 08-21-2023 End: 08-21-2023 ambulatory Blas Slaughter Other [facility] Other Start: 08-21-2023 Telephone encounter Blas Slaughtre [facility] [place] Start: 05-01-2023 End: 05-01-2023 ambulatory Blas Slaughter Other [facility] Other Start: 05-01-2023 Telephone encounter Blas Slaughter [facility] [place] Start: 03-07-2023 End: 03-07-2023 ambulatory Blas Slaughter Other [facility] Other Start: 03-07-2023 Telephone encounter Blas Slaughter [facility] [place] Start: 02-15-2023 End: 02-15-2023 ambulatory Blas Slaughter Other [facility] Other Start: 02-15-2023 Telephone encounter Blas Slaughter [facility] [place] Start: 01-19-2023 End: 01-19-2023 ambulatory Blas Slaughter Other [facility] Other Start: 01-19-2023 Office outpatient vi sit 25 minutes Blas Slaughter [facility] [place] Start: 12-05-2022 End: 12-05-2022 ambulatory Blas Slaughter Other [facility] Other Start: 12-05-2022 Telephone encounter Blas Slaughter [facility] [place] Start: 10-10-2022 End: 10-10-2022 ambulatory Blas Slaughter Other [facility] Other Start: 10-10-2022 Telephone encounter Blas Slaughter [facility] [place] Start: 09-04-2022 End: 09-04-2022 ambulatory Blas Slaughter Other [facility] Other Start: 09-04-2022 Telephone encounter Blas Slaughter [facility] [place] Start: 08-16-2022 End: 08-16-2022 ambulatory Blas Slaughter Other [facility] Other Start: 08-16-2022 Telephone encounter Blas Slaughter [facility] [place] Start: 07-17-2022 End: 07-17-2022 ambulatory Blas Slaughter Other [facility] Other Start: 07-17-2022 Office outpatient vi sit 25 minutes Blas Slaughter [facility] [place] Start: 07-17-2022 Telephone encounter Blas Slaughter [facility] [place] Start: 07-15-2022 End: 07-16-[address] BLAS SLAUGHTER Facility:[facility] Start: 05-02-2022 End: 05-02-2022 ambulatory COSME MCINTYRE Facility:[facility] Start: 04-28-2022 End: 04-28-2022 ambulatory COSME MCINTYRE Facility:[facility] Start: 03-01-2022 End: 03-01-2022 ambulatory Blas Slaughter Other [facility] Other Start: 03-01-2022 Telephone encounter Blas Slaughter [facility] Start: 02-27-2022 End: 02-27-2022 ambulatory Blas Slaughter Other [facility] Other Start: 02-27-2022 Telephone encounter Blas Slaughter [facility] Start: 01-17-2022 End: 01-17-2022 ambulatory Blas Slaughter Other [facility] Other Start: 01-17-2022 Office outpatient vi sit 15 minutes Blas Slaughter [facility] Start: 01-11-2022 End: 01-11-[address] CHARLEE TAYLOR Facility:[facility] Start: 09-20-2021 End: 09-20-[address] BLAS SLAUGHTER Facility:[facility] Start: 08-21-2021 End: 08-21-[address] DOCTOR GOLDSTEIN Facility:[facility] Immunizations Immunization Date Immunization Notes Care Provider [place] ring 06-13-2021 COVID-19 Vaccine Moderna - Documentation Purposes Only Blas Slaughter Other [facility] Other 09-08-2020 COVID-19 Vaccine Moderna - Documentation Purposes Only Blas Slaughter Other [facility] Other 08-11-2020 COVID-19 Vaccine Moderna - Documentation Purposes Only Blas Slaughter Other [facility] Other NEGATED: Highlighted row has not occurred!10-17-2019 influenza, seasonal, injectable Blas Slaughter Other [facility] Other Payers Date Payer Category Payer Unknown [id number] 2.16.84 [id number] 1960 Unknown [id number] 2.16.84 [id number] 1961 Unknown [id number] 2.16.84 [id number] 1961 Unknown [id number] 2.16.84 [id number] 1961 Unknown [id number] 2.16.84 [id number] 1961 Unknown [id number] 2.16.84 [id number] 1959 Unknown [id number] 2. 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 TSH is 1.266. Free T3 is 2.55. Free T4 is 8.80. I would like her to continue with the same dose of Levothyroxine. Aug, Hyperlipidemia (ICD-10 - E78.5) Discussed cholesterol results with patient today. Total is 154. HDL is 52. LDL is 78. Triglycerides are 120. VLDL is 24. I would like her to continue to monitor her intake of carbs and sugars. Stay active. I would like her to continue with the same dose of Rosuvastatin. Aug, Hyperglycemia (ICD-10 - R73.9) She voices that she has new insurance and was told that her insurance will cover weight loss medication. I did recommend that she try Wegovy which is the same medication as Ozempic but is used for weight loss. She is willing to try this medication. I will have to see her back in one month. Her glucose is 97. HgA1C is 5.4 which is normal. Aug, Abnormal CBC (ICD-10 - R79.89) I did advise her that her CBC showed immature granulocytes 0.8 (H) on it. I did explain to her that this has not hit the problem zone yet and I suspect the lab is being too strict with their values. To be sure, I would like to repeat a CBC in one month, and she can call for results. If needed in the future we could refer to a specialist but I do not expect this to be an issue. Reassurance given. Aug, Other fpc (current) drug therapy (ICD-10 - Z79.899) Aug, Nocturia (ICD-10 - R35.1) Aug, Weight gain (ICD-10 - R63.5) She has gained seven pounds since last seen. We are going to start her on Wegovy to help with weight loss. Side effects/risks/benef its of medication were reviewed. She can keep me posted with how she does on the medication. Will start her on the low dose of medication and explained that we can titrate the dose if needed. I will see her back in one month. She has taken Adipex in the past but does not like the way it makes her feel. Aug, Other She is told thony t her lab work indicates that her cells are big, she may need B12. She admits that she drinks bourbon. I did recommend she take a B Complex and a B12 vitamin daily. [facility] Other 01-29-2024 Evaluation note* Encounter Date Diagnosis Assessment Notes Treatment Notes Treatment Clinical Notes Aug, Wellness examination (ICD-10 - Z00.00) [facility] Other 01-15-2024 Evaluation note* Encounter Date Diagnosis Assessment Notes Treatment Notes Treatment Clinical Notes Aug, Wellness examination (ICD-10 - Z00.00) Aug, Hypothyroidism (ICD-10 - E03.9) Aug, Hyperglycemia (ICD-1 0 - R73.9) [facility] Other 07-26-2023 Evaluation note* Encounter Date Diagnosis Assessment Notes Treatment Notes Treatment Clinical Notes Feb, Abnormal mammogram of left breast (ICD-10 - R92.8) [facility] Other 06-09-2023 Evaluation note* Encounter Date Diagnosis Assessment Notes Treatment Notes Treatment Clinical Notes Jan, Hypothyroidism (ICD-10 - E03.9) Discussed thyroid results with patient today. TSH is 0.017. Free T3 is 2.68. Free T4 is 1.25. I would like her to decrease her Levothyroxine to 150 MCG daily. Repeat lab in three months. Guidance is given on how to take the lower dose. She does not need a refill on the 150 MCG she has enough at home. Jan, Hyperlipidemia (ICD-10 - E78.5) Discussed cholesterol results with patient today. Total is 174. HDL is 52. LDL is 92. Triglycerides are 154. VLDL is 30.8. Continue to work on weight loss, lifestyle modifications. Jan, Hyperglycemia (ICD-10 - R73.9) She voices that while on Ozempic she was unable to eat barely any food. When she went up to the 1 MG dose she became very nauseous and sick and could not handle the higher dose. She voices that she did not have any energy after taking it. She tried one more dose and she still felt the same way so she did not use it. She would like to return to the lower dose. Guidance was given on how to use the 0.5 MG dose once weekly. Her glucose is 101. HgA1C is 5.2 which is normal. She is encouraged to continue with lifestyle and dietary modifications that she has made to help keep the weight she has lost off. Jan, Obesity (BMI 30-39.9) (ICD-10 - E66.9) She is working on lifestyle and dietary modifications to help lose weight. Jan, Breast cancer screening (ICD-10 - Z12.31) Provided her with an order to have a bilateral mammogram done. Jan, Other fpc (current) drug therapy (ICD-10 - Z79.899) Jan, Anxiety (ICD-10 - F41.9) Continue with above medication as needed. Jan, Nocturia (ICD-10 - R35.1) [facility] Other 01-04-2023 Evaluation note* Encounter Date Diagnosis Assessment Notes Treatment Notes Treatment Clinical Notes Aug, Hyperlipidemia (ICD-10 - E78.5) [facility] Other 12-05-2022 Evaluation note* Encounter Date Diagnosis Assessment Notes Treatment Notes Treatment Clinical Notes Jul, Hypothyroidism (ICD-10 - E03.9) [facility] Other 12-05-2022 Evaluation note* Encounter Date Diagnosis Assessment Notes Treatment Notes Treatment Clinical Notes Jul, Hyperlipidemia (ICD-10 - E78.5) Discussed cholesterol results with patient today. Total is 197. HDL is 54. LDL is 111.8. Triglycerides are 156. VLDL is 31.2. She voices that she has been good about taking her medication as directed. I did encourage her to watch her intake of carbs and sugars. Stay active. Jul, Hyperglycemia (ICD-10 - R73.9) Discussed blood sugar results with patient today. Glucose is 94. HgA1C is normal at 5.2. Jul, Hypothyroidism (ICD-10 - E03.9) We discussed thyroid results today. TSH is 14.645. Free T3 is 1.87. Free T4 is 0.92. She voices that she takes her thyroid medication most days of the week. She is going to go home and be sure she is taking the correct dose at home. I want her to be taking 150 MCG daily. She will call me with what she is taking. She does take this on it's own with water first thing in the morning. If she is currently taking 150 MCG daily then we will likely increase the dose to 175 MCG daily. If we have to increase the dose then we may recheck lab in three months. Jul, Proteinuria (ICD-10 - R80.9) Will order a microalbumin/creatin ine ratio to be done with her next lab. Jul, Other fpc (current) drug therapy (ICD-10 - Z79.899) Jul, Anxiety (ICD-10 - F41.9) Continue with above medication as needed. Jul, Nocturia (ICD-10 - R35.1) Jul, Weight gain (ICD-10 - R63.5) She voices that she has been doing research on Ozempic. We discussed that this medication can make you feel sick to your stomach after you take it. Side effects/risks/benefi ts of medication were reviewed. She would like to work on weight loss to help her overall health. I did advise her that since 2019 she has lost 13 pounds. She would like to begin taking Ozempic. I did advise her that constipation is a side effect, she is concerned about this because of her diverticulitis. She takes a stool softener every night. After discussion she voices that she is going to continue to do research on this and will think about the medication. She does not want a prescription. If she changes her mind and would like to try the Ozempic she is to call. She should cut back on her intake of carbs and sugars. Stay active. Jul, Diverticulitis (ICD-10 - K57.92) She voices that she did not follow up with Dr. Muñoz for evaluation. She has done some research and has decided that she does not want to have surgery for this. She is due to have a colonoscopy in the spring and would like to have Dr. Muñoz do this. We will discuss that at her office visit in six months. She voices that she has not had any episodes of diverticulitis recently. Jul, Encounter for screening mammogram for breast cancer (ICD-10 - Z12.31) She voices that she has a mammogram scheduled for 07-20-22. [facility] Other 07-20-2022 Evaluation note* Encounter Date Diagnosis Assessment Notes Treatment Notes Treatment Clinical Notes Feb, Cystitis (ICD-10 - N30.90) [facility] Other 07-18-2022 Evaluation note* Encounter Date Diagnosis Assessment Notes Treatment Notes Treatment Clinical Notes Feb, Dysuria (ICD-10 - R30.0) Feb, Diverticulitis (ICD-10 - K57.92) Feb, Cough (ICD-10 - R05.9) [facility] Other 06-07-2022 Evaluation note* Encounter Date Diagnosis Assessment Notes Treatment Notes Treatment Clinical Notes Jan, Diverticulitis (ICD-10 - K57.92) She did go see the specialist in [place] for evaluation who recommended that she have a colonoscopy and otherwise was not sure why she was there. She advised him that she has had recurrent episodes of diverticulitis. She explained to him that all she eats is jello, applesauce, she is afraid to eat anything because she is afraid it will flare up the diverticulitis. She is scared to eat a full meal. She asked him what her options were, and he told her to have the colonoscopy done and get back with him . She decided she did not want to return to see him. She has not had the colonoscopy done. She voices that she does not finish her antibiotics because she is so afraid that she won't have any for the next time she has a flare up. She cannot go to the ER every time she has a flare up for a CT scan. I did explain to her that I have to recommend that she go to the ER for evaluation when she calls with abdominal pain and potential diverticulitis to rule out an abscess. An abscess can perforate at any time. She has been educated on the importance of going to the ER. She voices that she knows immediately when she has diverticulitis. She would like to have Augmentin on hand to use if needed. Education was done on how to use the medication and when to use the medication. She understands when she will need to be seen at the ER. I did independently review the CT scan of the abdomen and pelvis from 01-11-22 with her today. Results showed acute diverticulitis of the proximal descending colon, no abscess. Three other episodes were in different areas (sigmoid, mid and lower) Her last colonoscopy was 10 years ago at age 51. I did recommend she have a consultation with a general surgeon such as Dr. Muñoz. A referral is provided. Provided her with an off work note for 01-15-22. Jan, Hyperglycemia (ICD-10 - R73.9) Jan, Hyperlipidemia (ICD-10 - E78.5) Provided her with an order to have fasting labs drawn soon. 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 Hardy Medical History Diverticulosis Surgical History hysterectomy and bilateral ooph erectomy 1988 Surgical History tumor removal 1993 Surgical History gallbladder 1995 Surgical History Colonoscopy, Dr. Carlyn yanes- Sigmoid Diverticulosis repeat in 10 years 12-04-12 Surgical History Fried, cortisone injection rt kn ee Hospitalization History see above Hospitalization History [facility] [place] 03/09/2015 Hospitalization History Urgent Care - Diarrhea 1 Hospitalization History [facility] [place] - Back Pain 2019 [employer] Other Evaluation noteNo InformationNort Palmer [employer] Other Summary Purpose Family History No Family History Records FoundNo Family History Records FoundNo Family History Records FoundNo Family History Records Found Advance Directives No Advanced Directives Records FoundNo Advanced Directives Records FoundNo Advanced Directives Records FoundNo Advanced Directives Records Found Reason for Referral Reason appt pt needs cons ult w/ Dr. Muñoz to discuss recurrent diverticulitis and discuss colonoscopy Diagnosis 1 Diverticulitis (K57. 92) Referral Organization [facility] Referring Provider First Name Blas Referring Provider Last Name Kasandra Referring Provider Specialty Family Prac kat Referred Organization [facility] Referred Provider Yo Muñozdrmargie David Referred Address ,[place], [place],[address] Referred Provider Specialty Surgery Referral Priority Routine General Notes Charissa Paulino 01/17/2022 09:06:40 AM > referral sent p2p with visit note, last two CT scans, ER labs and ins card. pt informed she zeina be contacted to schedule this appt. Additional Source Comments INFORMATION SOURCE (unrecogn ized section and content) DATE CREATED AUTHOR 07/08/2020 Ronquillo Vladimir [facility] DATE CREATED AUTHOR AUTHOR'S ORGANIZ ATION 11/04/2021 [facility] DATE CREATED AUTHOR AUTHOR'S ORGANIZ ATION 03/06/2022 [facility] DATE CREATED AUTHOR AUTHOR'S ORGANIZ ATION 07/16/2022 [facility] REASON FOR VISIT (unrecogniz ed section and content) ER f/u diverticulitisUTIclin icalClinicalcheck uprefillstarting meddosage increaserefillreview labsrefill requestClinicalClinicallab orderslab order changereview labNo InformationPA WegovyPA Appeal FOR RECORDS PERTAINING TO PATIENTS WHO ARE OR HAVE BEEN ENROLLED IN A CHEMICAL DEPENDENCY/SUBSTANCEABUSE PROGRAM, SOME INFORMATION MAY BE OMITTED. This clinical summary was aggregated from multiple sources. Caution should be exercised in using it in the provision of clinical care. This summary normalizes information from multiple sources, and as a consequence, information in this document may materially change the coding, format and clinical context of patient data. In addition, data may be omitted in some cases. CLINICAL DECISIONS SHOULD BE BASED ON THE PRIMARY CLINICAL RECORDS. [employer] provides no warranty or guarantee of the accuracy or completeness of information in this document.
[2023-11-19] MEDS: 0.9 % SODIUM CHLORIDE 1,000 ML 999 ML IV (10:04)
[2023-11-19] MEDS: ONDANSETRON PF 4 MG/2 ML VIAL IV (10:05)
--- NOTE | 2023-11-19 10:12 | PC.NURSE ---
pt does not wish to be tested for flu or covid at this time
[2023-11-19 10:13] LABS: Bilirubin Urine NEGATIVE (NEGATIVE); Blood Urine TRACE-I (NEGATIVE); Clarity Urine CLEAR (CLEAR); Color Urine YELLOW (YELLOW); Glucose Urine UA NEGATIVE (NEGATIVE); Ketones Urine NEGATIVE (NEGATIVE); Leukocyte Esterase Urine NEGATIVE (NEGATIVE); Nitrite Urine NEGATIVE (NEGATIVE); Protein Urine NEGATIVE (NEG/TRACE); Specific Gravity Urine >=1.030 (1.005-1.025); Urobilinogen Urine 0.2 EU/dL (0.2-1.0); pH Urine 5.5 (5.0-9.0)
[2023-11-19 10:14] LABS: Urine Microscopic Indicated YES
[2023-11-19 10:26] LABS: Bacteria Urine NONE SEEN #/HPF (NONE SEEN); Mucus Urine NONE SEEN (NONE SEEN); RBC Urine 0-2 #/HPF (0-2); WBC Urine NONE SEEN #/HPF (NONE SEEN)
[2023-11-19 10:27] LABS: Cast Seen? NONE SEEN #/LPF (NONE SEEN); Crystals Seen? None Seen #/HPF (None Seen); Squamous Epithelial Cell Urine RARE #/LPF (NONE/RARE)
[2023-11-19 10:28] LABS: Alanine Aminotransferase 21 U/L (14-59); Albumin Globulin Ratio 1.1; Albumin Level 3.8 g/dL (3.4-5.0); Alkaline Phosphatase 91 U/L (46-116); Anion Gap 17.7; Aspartate Amino Transferase 18 U/L (15-37); BUN Creatinine Ratio 22.8; Bilirubin Total 0.7 mg/dL (0.2-1.0); Calcium 9.3 mg/dL (8.5-10.1); Carbon Dioxide 22.2 mmol/L (21.0-32.0); Chloride 104 mmol/L (98-107); Estimated GFR (African America >60 (>=60); Estimated GFR (Non-African Ame >60 (>=60); Globulin 3.5 g/dL; Glucose 99 mg/dL (74-106); Potassium 3.9 mmol/L (3.5-5.1); Sodium 140 mmol/L (136-145); Total Protein 7.3 g/dL (6.4-8.2)
--- NOTE | 2023-11-19 12:33 | ED.ABDPAIN1 ---
HPI - Abdominal Pain General Chief Complaint: Abdominal Pain Stated Complaint: ABDOMINAL PAIN Time Seen by Provider: 11/19/23 09:40 Source: patient Mode of arrival: walk-in History of Present Illness HPI narrative: Patient complains of left upper abdominal pain that began yesterday and was worse this morning. Prev diagnosed with diverticulitis. She has some nausea and diarrhea but no vomiting. pain is moderate. No blood in urine or stool. No flank pain. No fever or chills. Related Data Previous Rx's ?Medication ?Instructions ?Recorded amoxicillin 875 mg-potassium 1 tab PO Q12H #14 tabs 11/19/23 clavulanate 125 mg tablet hyoscyamine sulfate 0.125 mg 0.125 mg PO Q6H PRN abdominal pain 11/19/23 sublingual tablet (Levsin/SL) #20 tabs Allergies Allergy/AdvReac Type Severity Reaction Status Date / Time ciprofloxacin [From Cipro] Allergy Verified 11/19/23 09:39 meperidine [From Demerol] Allergy Verified 11/19/23 09:39 metronidazole [From Flagyl] Allergy Verified 11/19/23 09:39 Exam Narrative Exam Narrative: Nurses notes and vital signs reviewed and patient is not hypoxic. Afebrile General: Well-appearing and in no apparent distress. Skin: Warm, dry, no pallor noted. No rash. Eye: Pupils are equal, round and EOMI. No scleral icterus. Ears, Nose, Mouth, and Throat: Oral mucosa is moist Cardiovascular: Regular Rate and Rhythm without murmur, gallop or rub. Respiratory: No accessory muscle use or respiratory distress. Lungs are clear to auscultation, no wheezing, rales or rhonchi Back: No CVA tenderness Musculoskeletal: normal ROM GI: Abdomen is soft, non-distended. Normal bowel sounds. No masses appreciated. LUQ tenderness to palpation. No rebound, guarding, or rigidity noted. Neurological: A&O x4. No cranial nerve dysfunction observed. No truncal ataxia. Moves all extremities. Sensation intact. Psychiatric: Cooperative and interactive. Normal mood and affect. Constitutional Vital Signs, click to edit/add: Last Vital Signs Temp 97.7 F 11/19/23 09:34 Pulse 68 11/19/23 09:34 Resp 18 11/19/23 09:34 BP 160/107 H 11/19/23 09:34 Pulse Ox 98 11/19/23 09:34 O2 Del Method Room Air 11/19/23 09:34 Course Vital Signs Vital signs: Vital Signs Temperature 97.7 F 11/19/23 09:34 Pulse Rate 68 11/19/23 09:34 Respiratory Rate 18 11/19/23 09:34 Blood Pressure 160/107 H 11/19/23 09:34 Pulse Oximetry 98 11/19/23 09:34 Oxygen Delivery Method Room Air 11/19/23 09:34 Temperature 97.7 F 11/19/23 09:34 Pulse Rate 68 11/19/23 09:34 Respiratory Rate 18 11/19/23 09:34 Blood Pressure 160/107 H 11/19/23 09:34 Pulse Oximetry 98 11/19/23 09:34 Oxygen Delivery Method Room Air 11/19/23 09:34 MDM - Abdominal Pain MDM Narrative Medical decision making narrative: Peripheral IV established blood drawn and sent for testing. Urine also obtained and sent for testing. The patient was ordered to undergo CT scanning of the abdomen pelvis with IV contrast. She refused swab for COVID or influenza. Patient received a liter of normal saline IV fluid And IV Zofran. She was given a dose of Levsin before discharge CBC, CMP, urine and lipase all were negative. No worrisome findings noted on blood or urine testing. CT revealed colitis as well as diverticulosis without definitive evidence of acute diverticulitis. Results were explained to the patient. She is allergic to Cipro and Flagyl - She had a very bad allergic reaction with hives and difficulty breathing. We discussed the use of natural cultures and probiotics via yogurt. She will also be discharged home with prescriptions for Augmentin and Levsin. ED return if she worsens. Lab Data Attestation: I reviewed the patient's lab results. Labs: Lab Results 11/19/23 11/19/23 Range/Units 09:45 10:00 WBC 8.3 (4.0-11.0) 10^3/uL RBC 4.47 (4.20-5.40) 10^6/uL Hgb 14.9 (12.0-16.0) g/dL Hct 43.4 (36.0-48.0) % MCV 97.1 (81.0-99.0) fL MCH 33.3 (26.7-34.0) pg MCHC 34.3 (29.9-35.2) g/dL RDW 12.3 (11.0-15.0) % Plt Count 251 (150-450) 10^3/uL MPV 9.9 (9.5-13.5) fL Neut % (Auto) 65.9 (43.0-75.0) % Lymph % (Auto) 22.3 (20.5-60.0) % [place] % (Auto) 9.3 (1.7-12.0) % Eos % (Auto) 1.2 (0.9-7.0) % Baso % (Auto) 0.7 (0.2-2.0) % Neut # (Auto) 5.5 (1.4-6.5) 10^3/uL Lymph # (Auto) 1.9 (1.2-3.8) 10^3/uL [place] # (Auto) 0.8 (0.3-0.8) 10^3/uL Eos # (Auto) 0.1 (0.0-0.7) 10^3/uL Baso # (Auto) 0.1 (0.0-0.1) 10^3/uL Abs Immat Gran (auto) 0.05 H (0.00-0.03) 10^3/uL Imm/Tot Granulo (auto) 0.6 H (0.0-0.5) % Sodium 140 (136-145) mmol/L Potassium 3.9 (3.5-5.1) mmol/L Chloride 104 (98-107) mmol/L Carbon Dioxide 22.2 (21.0-32.0) mmol/L Anion Gap 17.7 BUN 18.0 (7.0-18.0) mg/dL Creatinine 0.79 (0.55-1.02) mg/dL Est GFR ( Amer) >60 (>=60) Est GFR (Non-Af Amer) >60 (>=60) BUN/Creatinine Ratio 22.8 Glucose 99 (74-106) mg/dL Calcium 9.3 (8.5-10.1) mg/dL Total Bilirubin 0.7 (0.2-1.0) mg/dL AST 18 (15-37) U/L ALT 21 (14-59) U/L Alkaline Phosphatase 91 (46-116) U/L Total Protein 7.3 (6.4-8.2) g/dL Albumin 3.8 (3.4-5.0) g/dL Globulin 3.5 g/dL Albumin/Globulin Ratio 1.1 Lipase 23.0 (16.0-77.0) U/L Urine Color Yellow (YELLOW) Urine Clarity Clear (CLEAR) Urine pH 5.5 (5.0-9.0) Ur Specific [place] >=1.030 A (1.005-1.025) Urine Protein Negative (NEG/TRACE) mg/dL Urine Glucose (UA) Negative (NEGATIVE) mg/dL Urine Ketones Negative (NEGATIVE) mg/dL Urine Occult Blood Trace-i (NEGATIVE) Urine Nitrite Negative (NEGATIVE) Urine Bilirubin Negative (NEGATIVE) Urine Urobilinogen 0.2 (0.2-1.0) EU/dL Ur Leukocyte Esterase Negative (NEGATIVE) Urine RBC 0-2 (0-2) #/HPF Urine WBC None seen (NONE SEEN) #/HPF Ur Squamous Epith Cells Rare (NONE/RARE) #/LPF Urine Crystals None seen (None Seen) #/HPF Urine Bacteria None seen (NONE SEEN) #/HPF Urine Casts None seen (NONE SEEN) #/LPF Urine Mucus None seen (NONE SEEN) Imaging Data CT scan - abdomen: Radiologist's impression: ITS Impressions Abdomen/Pelvis CT 11/19/23 09:52 IMPRESSION: CT abdomen and CT pelvis studies demonstrate findings compatible colitis as described. Colon diverticulosis without definite evidence of acute diverticulitis. Likely few right renal cysts as noted. Small fat filled umbilical hernia. Likely few small hepatic cysts. Electronically authenticated by: YOAN LOPEZ Date: 11/19/2023 12:04 Discharge Plan Discharge Stand Alone Forms: Portal Instructions Chief Complaint: Abdominal Pain Clinical Impression: Colitis Patient Disposition: Home, Self-Care Time of Disposition Decision: 12:32 Prescriptions / Home Meds: New amoxicillin-pot clavulanate 875-125 mg tablet 1 tab PO Q12H Qty: 14 0RF hyoscyamine sulfate [Levsin/SL] 0.125 mg tablet, sublingual 0.125 mg PO Q6H PRN (Reason: abdominal pain) Qty: 20 0RF Print Language: Bruneian Instructions: Colitis (ED) Referrals: BLAS SLAUGHTER [Primary Care Provider] - 1 week
[2023-11-19] MEDS: HYOSCYAMINE SULFATE 0.125 MG TAB.SUBL SL (12:39)
== END 2023-11-19 12:44 | disposition home or self-care (01) ==
PROVIDERS: Emergency Provider Emergency Medicine; PCP Family Medicine
DX: K52.9 Noninfective gastroenteritis and colitis, unspecified (principal)
CPT/HCPCS: 36415; 74177; 80053; 81001; 83690; 85025; 87804; 87811; 96361; 96374; 99284; Q9967

== ENCOUNTER 2024-09-23 06:39 | Outpatient (OUT) | payer BC, SELFPAY ==
--- OUTSIDE RECORDS SUMMARY | 2024-09-23 06:45 | XMS_ITS | CCD ---
Author Organization [facility] Care Team Providers Care [employer]ined [employer] Sprayer Name Role Phone Blas Slaughter Unavailable FRANCISCO JAVIER, COSME Admitting Unavailable FRANCISCO JAVIER, COSME Attending Unavailable FRANCISCO JAVIER, COSME Consulting Unavailable FRANCISCO JAVIER, COSME Admitting Unavailable FRANCISCO JAVIER, COSME Attending Unavailable GIRVIN, DR ODONNELL Primary Care Unavailable FRANCISCO JAVIER, COSME Consulting Unavailable LINDSEYVIN, DR ODONNELL Admitting Unavailable GIRVIN, DR ODONNELL Attending Unavailable GIRVIN, DR ODONNELL Primary Care Unavailable GIRVIN, DR ODONNELL Consulting Unavailable PAY, DR DESHPANDE Admitting Unavailable PAY, DR DESHPANDE Attending Unavailable PAY, DR DESHPANDE Consulting Unavailable HARRISSABRINA Consulting Unavailable MISC, DR SKINNER Admitting Unavailable MISC, DR SKINNER Attending Unavailable MISC, DR SKINNER Consulting Unavailable GIRVIN, DR ODONNELL Admitting Unavailable GIRVIN, DR ODONNELL Attending Unavailable GIRVIN, DR ODONNELL Consulting Unavailable Lindseyvin Blas DUNCAN Primary Care Provider Blas Slaughter DO Primary Care Provider [phone] Dina Mendez APRN Emergency Provider Luis Enrique Marcano DO Emergency Provider Luis Enrique Marcano Admitting Unavailable Blas Slaughter Primary Care Unavailable Luis Enrique Marcano Attending Unavailable Blas Slaughter Primary Care Unavailable Dina Mendez Attending Unavailable Dina Mendez Admitting Unavailable Allergies Allergy Classification Reported Allergen(s) Allergy Type Date of Onset Reaction(s) Facility HMG-CoA Reductase Inhibitors (statins) (1 source) atorvastatin Drug Allergy 4 muscle aches/pain [facility] Nitroimidazoles (antibiotic) (1 source) metroNIDAZOLE Drug Allergy 4 Hives, hives ? per ER 11/06/12 [facility] Opioid Agonists (1 source) Meperidine Drug Allergy 4 Hives, rash, swelling [facility] Quinolones (antibiotic) (1 source) Ciprofloxacin Drug Allergy 4 Hives, hives ? per ER 11/06/12 [facility] (20 sources) atorvastatin Drug Allergy 4 muscle aches/pain [facility] (20 sources) Ciprofloxacin Drug Allergy 4 hives ? per ER 11/06/12, Hives, hives ? per ER 11/06/12 [facility] (20 sources) Meperidine Drug Allergy 2 [facility] (20 sources) metroNIDAZOLE Drug Allergy 2 [facility] (1 source) Ciprofloxacin Drug Allergy [facility] (1 source) Meperidine Drug Allergy [facility] (1 source) metroNIDAZOLE Drug Allergy [facility] (1 source) Ciprofloxacin Drug Allergy 2 Hives [facility] (1 source) Meperidine Drug Allergy [address] [facility] (1 source) atorvastatin Drug Allergy 5 [facility] (1 source) Ciprofloxacin Drug Allergy 5 [facility] (1 source) Meperidine Drug Allergy 5 [facility] (1 source) metroNIDAZOLE Drug Allergy 5 [facility] Medications Current Medications Medication Drug [...] tablet Orally q8-12 hrs prn Aug, Active atorvastatin 20 mg oral tablet (1 source) HMG-CoA Reductase Inhibitor atorvastatin (Lipitor) 20 MG tablet 1 (one) time each day at the same time. Active 84 hr estradiol 0.03218 mg/hr transdermal system (20 sources) Estrogen Start: 09-22-2024 apply 1 dose transdermal route two times weekly Estradiol 0.1 mg/24 hr patch semiweekly Active 1 PATCH TRANSDERML Twice a Week September 22, 2024 12:08pm Start: 09-18-2024 End: 09-22-2024 Estradiol 0.1 mg/24 hr patch semiweekly Discontinued September 18, 2024 12:00am September 22, 2024 12:08pm Start: 06-26-2024 estradiol (Anita ne-DOT) 0.1 MG/24HR Indications: Surgical menopause on hormone replacement therapy PLACE ONE PATCH ON THE SKIN FOR 96 HOURS (4 DAYS) DO THIS TWICE WEEKLY 24 patch 06/26/2024 Active Start: 04-07-2024 End: 06-26-2024 estradiol (Vivelle-DOT) 0.1 MG/24HR Indications: Surgical menopause on hormone replacement therapy PLACE 1 PATCH OVER 96 HOURS ON THE SKIN 2 (TWO) TIMES A WEEK. 24 patch 04/07/2024 06/26/2024 Discontinued Start: 02-15-2023 apply 1 dose transde rmal route two times weekly Estradiol 0.1 MG/24HR 1 patch to skin Transdermal Two times a Week for 30 days Feb, Active Start: 04-30-2018 End: 09-18-2024 Estradiol (Vivelle) 0.075 mg /24 hr Patch Semiweekly Discontinued 1 PATCH TRANSDERML Twice a Week April 29, 2018 11:00pm September 18, 2024 12:10pm Vivelle Active hydrOXYzine pamoate 25 mg oral capsule (20 sources) Antihistamine Start: 09-19-2024 Hydroxyzine Pa moate 25 mg capsule Active 25 MG PO .COMPLEX September 19, 2024 12:00am 25 mg orally Q8-12 hours prn anxiety; Start: 08-27-2020 Vistaril 25 MG 1 capsule Orally q8-12 hrs prn anxiety prn Aug, Active magnesium oxide 400 mg oral tablet (4 sources) Start: 01-22-2024 take 1 tablet by mouth once daily Magnesium Oxide 400 mg magnesium tablet Active 400 MG PO Daily January 21, 2024 11:00pm Multivitamin Women (19 sources) Multivitamin Wom en Not-Taking/PRN Multivitamin Wom en Not-Taking Multivitamin Wom en Active nitrofurantoin, macrocrystals 25 mg / nitrofurantoin, monohydrate 75 mg oral capsule (2 sources) Nitrofuran Antibacterial Start: 02-27-2022 take 1 capsule by mouth twice daily at mealtime Macrobid 100 MG 1 capsule Orally twice a day with food for 7 days Feb, Active ondansetron 4 mg oral tablet (7 sources) Serotonin-3 Receptor Antagonist Start: 09-18-2024 Ondansetron Hcl 4 mg tablet Active 4 MG PO every 6 to 8 hours as needed for nausea and vomiting September 18, 2024 12:00am Start: 08-31-2021 End: 12-14-2023 take 1 tablet by mouth every eight hours as needed for nausea and vomiting Ondansetron 4 mg tablet,disintegrating Discontinued 4 MG PO Q8H as needed for nausea and vomiting August 31, 2021 12:00am December 14, 2023 9:28am 0.25 mg, 0.5 mg dose 1.5 ml semaglutide 1.34 mg/ml pen injector (3 sources) Ozempic (0.25 or 0.5 MG/DOSE) 2 MG/1.5ML INJECT 0.25 MG SUBCUTANEOUSLY ONCE WEEKLY DIRECTED for 28 Active Semaglutide (1 source) Start: 02-18-20 inject 1 mL by subcutaneous injection every week Semaglutide Active 0.5 ML SUBCUT .once weekly February 18, 2024 12:00am sertraline 25 mg oral tablet (1 source) Serotonin Reuptake Inhibitor Start: 09-22-19 take 1 tablet by mouth once daily Sertraline (Zoloft) 25 mg tablet Active 25 MG PO Daily September 22, 2024 12:00am vitamin b12 1 mg extended release oral tablet (3 sources) Vitamin B12 Start: 04-27-20 20 take 1 tablet by mouth once daily Vitamin B12 1000 MCG 1 tablet Orally qd Sun-Nov, Active Vitamin B12 1000 MCG (13 sources) Start: 12-08-19 20 take 1 tablet by mouth once daily Vitamin B12 1000 MCG 1 tablet Orally qd Sun-Nov, Active Vitamin D3-Vitamin K2 (Mk4) (K2 Plus D3) 1,000-100 unit-mcg tablet (5 sources) Start: 12-14-19 24 take 1 tablet by mouth once daily Vitamin D3-Vitamin K2 (Mk4) (K2 Plus D3) 1,000-100 unit-mcg tablet Active 1 TAB PO Daily December 13, 2023 11:00pm Start: 12-14-2023 take 1 tablet by gio th once daily Vitamin D3-Vitamin K2 (Mk4) (K2 Plus D3) 1,000-100 unit-mcg tablet Active 1 TAB PO Daily December 14, 2023 12:00am wegovy 0.25 mg/0.5ml solution auto-injector (3 sources) Start: 09-12-2023 inject 0.5 mL by subcutaneous injection every week Wegovy 0.25 MG/0.5ML 0.5 mL Subcutaneous once weekly for 28 days Aug, Active Completed/Discontinued Medications Medication Drug Class(es) Dates Sig (Normalized) Sig (Original) acetaminophen 325 mg / HYDROcodone bitartrate 5 mg oral tablet (20 sources) Opioid Agonist Start: 08-31-2021 End: 12-14-2023 take 1 tablet by mouth every six hours as needed for pain Hydrocodone-Acetami nophen 5-325 mg tablet Discontinued 1 - 2 TAB PO Q6H as needed for pain 15 August 31, 2021 December 14, 2023 9:28am Start: 11-03-2020 End: 08-31-2021 take 1 tablet by mouth every four to six hours as needed for pain Hydrocodone-Acetaminophen 5-325 mg Table t Discontinued 1 TAB PO EVERY 4-6 HOURS as needed for Pain 20 November 03, 2020 August 31, 2021 2:07am Start: 10-14-2019 End: 09-21-2020 take 1 tablet by mouth every four to six hours as needed for pain Hydrocodone-Acetaminophen ([place]) 5-325 mg tablet Discontinued 1 TAB PO EVERY 4-6 HOURS as needed for pain 10 October 14, 2019 September 21, 2020 9:46am Start: 04-30-2018 End: 05-03-2018 take 1 tablet by mouth every four hours Hydrocodone-Acetaminophen ([place]) 5-325 mg tablet Discontinued 1 TAB PO Q4H 10 April 30, 2018 May 01, 2018 11:00pm May 02, 2018 11:01pm amoxicillin 875 mg / clavulanate 125 mg oral tablet (20 sources) Penicillin-class Antibacterial Start: 09-02-2024 End: 09-18-2024 take 1 tablet by mouth twice daily at mealtime Amoxicillin-Pot Clavulanate 875-125 mg tablet Discontinued 1 TAB PO Twice daily 01 06September 02, 2024 12:00am September 18, 2024 12:11pm with food Start: 09-21-2020 End: 12-14-2023 take 1 tablet by mouth twice daily Amoxicillin-Pot Clavulanate (Augmentin) 875-125 mg Tablet Discontinued 1 TAB PO Twice daily September 12, 2021 12:00am November 19, 2023 8:45am Start: 04-30-2018 End: 09-12-2018 take 1 tablet by mouth twice daily Amoxicillin-Pot Clavulanate 875-125 mg tablet Discontinued 1 TAB PO Twice daily April 29, 2018 11:00pm September 12, 2018 9:13am cephalexin 500 mg oral capsule (5 sources) Cephalosporin Antibacterial Start: 09-12-2018 End: 09-19-2018 take 1 capsule by mouth twice daily Cephalexin (Keflex) 500 mg capsule Discontinued 500 MG PO Twice daily 23 02September 12, 2018 12:00am September 18, 2018 12:00am September 19, 2018 12:01am cyclobenzaprine hydrochloride 10 mg oral tablet (5 sources) Muscle Relaxant Start: 10-14-2019 End: 09-21-2020 take 1 tablet by mouth three times daily as needed for muscle spasms Cyclobenzaprine 10 mg tablet Discontinued 10 MG PO Three times daily as needed for muscle spasm October 14, 2019 12:00am September 21, 2020 9:46am dicyclomine hydrochloride 10 mg oral capsule (2 sources) Anticholinergic Start: 07-21-2024 End: 09-18-2024 take 1 capsule by mouth every eight hours as needed Dicyclomine 10 mg capsule Discontinued 10 MG PO .COMPLEX July 21, 2024 12:00am September 18, 2024 12:11pm 10 mg orally q8 hrs prn intestinal cramping; doxycycline hyclate 100 mg oral tablet (7 sources) Tetracycline-class Drug Start: 08-12-2024 End: 09-02-2024 take 1 tablet by mouth twice daily Doxycycline Hyclate 100 mg tablet Discontinued 100 MG PO Twice daily August 12, 2024 12:00am September 02, 2024 1:52pm Start: 04-30-2018 End: 09-12-2018 take 1 capsule by mouth twice daily Doxycycline Hyclate 100 mg capsule Discontinued 100 MG PO Twice daily 01 06April 29, 2018 11:00pm September 12, 2018 9:13am fluconazole 150 mg oral tablet (7 sources) Azole Antifungal Start: 09-02-2024 End: 09-18-2024 take 1 tablet by mouth once daily Fluconazole 150 mg tablet Discontinued 150 MG PO Daily 2 September 02, 2024 12:00am September 18, 2024 12:09pm Start: 04-30-2018 End: 09-12-2018 take 1 tablet by mouth once Fluconazole 150 mg tablet Discontinued 150 MG PO April 29, 2018 11:00pm September 12, 2018 9:13am homatropine / HYDROcodone (1 source) Opioid Agonist, Cholinergic Muscarinic Agonist Start: 09-20-2021 take 5 mL by mouth every six hours as needed Hycodan Syrup 5mg/1.5 mg 5ml po q 6 hrs prn for 7 days Sep, Not-Taking ibuprofen 600 mg oral tablet (5 sources) Nonsteroidal Anti-inflammatory Drug Start: 08-31-2021 End: 09-18-2024 take 1 tablet by mouth every eight hours as needed for pain Ibuprofen 600 mg tablet Discontinued 600 MG PO Q8H as needed for pain August 31, 2021 12:00am September 18, 2024 12:18pm levothyroxine sodium 0.15 mg oral tablet (20 sources) l-Thyroxine Start: 10-30-2022 take 1 tablet by mouth once daily in the morning levothyroxine (Synthroid, Levoxyl) 175 MCG tablet TAKE 1 TABLET BY MOUTH ONCE EVERY MORNING ON AN EMPTY STOMACH 10/30/2022 Active Start: 04-30-2018 End: 10-19-2023 take 1 tablet by mouth once daily Levothyroxine 150 mcg tablet Discontinued 150 MCG PO Daily October 19, 2023 9:59am October 19, 2023 12:29pm take 1 tablet by gio th once daily in the morning Levothyroxine Sodium 150 MCG TAKE 1 TABLET DAILY EVERY MORNING ON AN EMPTY STOMACH Orally Active take 1 tablet by gio th once daily in the morning Levothyroxine Sodium 175 MCG TAKE 1 TABLET DAILY EVERY MORNING ON AN EMPTY STOMACH Orally for 90 days Active lidocaine 0.05 mg/mg medicated patch (5 sources) Antiarrhythmic, Amide Local Anesthetic Start: 10-14-2019 End: 09-21-2020 apply 1 dose topically every twenty-four hours Lidocaine 5 % adhesive patch,medicated Discontinued 2 PATCH TOPICAL Q24H October 14, 2019 12:00am September 21, 2020 9:46am leave on most painful area for up to 12 hrs methylPREDNISolone (19 sources) Corticosteroid Start: 10-17-2019 SOLU-MEDROL 41 - 125 mg Oct, 125 mg naproxen 500 mg oral tablet (5 sources) Nonsteroidal Anti-inflammatory Drug Start: 10-14-2019 End: 09-21-2020 take 1 tablet by mouth twice daily as needed for pain Naproxen 500 mg tablet Discontinued 500 MG PO Twice daily as needed for pain October 14, 2019 12:00am September 21, 2020 9:46am administer with food or milk ozempic (0.25 or 0.5 mg/dose) 2 mg/3ml [...] once weekly for 28 days Jan, Active predniSONE 20 mg oral tablet (2 sources) Start: 08-06-2024 End: 09-18-2024 take 1 tablet by mouth once daily Prednisone 20 mg tablet Discontinued 20 MG PO Daily 12 15August 06, 2024 12:00am September 18, 2024 12:10pm rosuvastatin calcium 10 mg oral tablet (20 sources) HMG-CoA Reductase Inhibitor Start: 12-14-2023 End: 08-26-2024 take 1 tablet by mouth once daily Rosuvastatin 10 mg tablet Discontinued 10 MG PO Daily May 23, 2024 6:47am August 26, 2024 1:55pm Start: 11-28-2023 End: 12-14-2023 take 1 tablet by mouth once daily Rosuvastatin 10 mg tablet Discontinued 0 .ROUTE .COMPLEX November 28, 2023 7:31am December 14, 2023 9:32am TAKE 1 TABLET BY MOUTH EVERY DAY Start: 11-28-2023 End: 11-28-2023 take 1 tablet by mouth once daily Rosuvastatin 10 mg tablet Discontinued 10 MG PO Daily November 27, 2023 11:00pm November 28, 2023 7:31am Start: 04-30-2018 End: 11-28-2023 take 1 tablet by mouth once daily Rosuvastatin 5 mg tablet Discontinued 5 MG PO Daily April 29, 2018 11:00pm November 28, 2023 7:30am Semaglutide (5 sources) Start: 12-14-2023 End: 02-18-2024 inject 0.5 mg by subcutaneous injection every week Semaglutide (Ozempic) 0.25 mg or 0.5 mg (2 mg/3 mL) pen injector Discontinued 0.25 MG SUBCUT every week December 13, 2023 11:00pm February 18, 2024 2:23pm FreeTextSi.5 MG Subcutaneous once weekly; Note: Source Status: Not-TakingundefinedPRN; Refills: 5; Qty: 1.5 ml; Provider: Katy Vasquez Start: 12-14-2023 End: 02-18-2024 inject 0.5 mg by subcutaneous injection every week Semaglutide (Ozempic) 0.25 mg or 0.5 mg (2 mg/3 mL) pen injector Discontinued 0.25 MG SUBCUT every week December 14, 2023 12:00am February 18, 2024 3:23pm FreeTextSi.5 MG Subcutaneous once weekly; Note: Source Status: Not-Taking\PRN; Refills: 5; Qty: 1.5 ml; Provider: Katy Vasquez Start: 12-14-2023 inject 0.5 mg by sub cutaneous injection every week Semaglutide (Ozempic) 0.25 mg or 0.5 mg (2 mg/3 mL) pen injector Active 0.25 MG SUBCUT every week December 14, 2023 12:00am FreeTextSi.5 MG Subcutaneous once weekly; Note: Source Status: Not-Taking\PRN; Refills: 5; Qty: 1.5 ml; Provider: Katy Vasquez Semaglutide (Weight Loss) (5 sources) Start: 12-14-2023 End: 12-14-2023 Semaglutide (Weight Loss) (W egovy) 0.25 mg/0.5 mL pen injector Discontinued 0.25 MG SUBCUT every week December 13, 2023 11:00pm December 14, 2023 9:44am Start: 12-14-2023 End: 12-14-2023 Semaglutide (Weight Loss) (W egovy) 0.25 mg/0.5 mL pen injector Discontinued 0.25 MG SUBCUT every week December 14, 2023 12:00am December 14, 2023 10:44am Semaglutide 0.6 mg/0.5 mL (2 sources) Start: 02-18-2024 End: 09-22-2024 Semaglutide 0.6 mg/0.5 mL Discontinued 0.5 ML SUBCUT .once weekly February 17, 2024 11:00pm September 22, 2024 12:02pm Start: 02-18-2024 Semaglutide 0. 6 mg/0.5 mL Active 0.5 ML SUBCUT .once weekly February 17, 2024 11:00pm Triamcinolone (19 sources) Corticosteroid Start: 01-22-2017 Kenalog -40 mg Jan, 40 mg Problems Active Problems Problem Classification Problem Date Documented Date Episodic/Chronic Anxiety disorders (20 sources) Anxiety; Translations: [Anxiety disorder, unspecified] Chronic Complications of surgical procedures or medical care (1 source) Postsurgical menopause; 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 postprocedural ovarian failure] 06-25-2024 Chronic Conditions associated with dizziness or vertigo (2 sources) Dizziness; Translations: [Dizziness and giddiness] 09-18-2024 Episodic Diabetes mellitus without complication (6 sources) Hyperglycemia, [...] Translations: [Dysuria] Onset: 01-17-2022 Resolved: 02-27-2022 Episodic Intestinal infection (1 source) Viral gastroenteritis due to Lamona-like agent; Translations: [Acute gastroenteropathy due to Lamona agent] 09-22-2024 Episodic Nausea and vomiting (4 sources) Diarrhea and vomiting; Translations: [Vomiting, unspecified] 09-22-2024 Episodic Osteoarthritis (19 sources) Osteoarthritis of knee; Translations: [Unilateral primary osteoarthritis, right knee] Chronic Other aftercare (5 sources) Other fci (current) drug therapy; Translations: [OTH CARE HOME CURRENT DRUG THERAPY] Onset: 01-13-2022 Resolved: 01-17-2022 Episodic Other connective tissue disease (4 sources) Cramp in lower limb; Translations: [Cramp and spasm] 01-22-2024 Episodic Other connective tissue disease (3 sources) Cramp and spasm; Translations: [Cramp of limb] 01-22-2024 Episodic Other diseases of bladder and urethra (19 sources) Spasm of bladder; Translations: [Other specified disorders of bladder] Chronic Other ear and sense organ disorders (19 sources) Otitis externa; Translations: [Unspecified otitis externa, unspecified ear] Chronic Other lower respiratory disease (1 source) Dyspnea; Translations: [Shortness of breath] 09-22-2024 Episodic Other nutritional; endocrine; and metabolic disorders (19 [...] Chronic Other nutritional; endocrine; and metabolic disorders (8 sources) Abnormal weight gain; Translations: [Abnormal weight gain] Episodic Other nutritional; endocrine; and metabolic disorders (3 sources) Weight gain; Translations: [Abnormal weight gain] 12-14-2023 Episodic Other nutritional; endocrine; and metabolic disorders (2 sources) Weight increased; Translations: [Abnormal weight gain] 12-14-2023 Episodic Other screening for suspected conditions (not mental disorders or infectious disease) (5 sources) Encounter for screening mammogram for malignant neoplasm of breast; Translations: [Other abnormal and inconclusive findings on diagnostic imaging of breast] Onset: 01-17-2022 Resolved: 01-17-2022 Episodic Other upper respiratory infections (20 sources) Sore throat symptom; Translations: [Acute pharyngitis, unspecified] Onset: 09-23-2021 08-14-2024 Episodic Sprains and strains (5 sources) Low back strain; Translations: [Strain of muscle, fascia and tendon of lower back, initial encounter] 10-14-2019 Episodic Superficial injury; contusion (5 sources) Abrasion of foot; Translations: [Abrasion, unspecified foot, initial encounter] 11-03-2020 Episodic Thyroid disorders (20 sources) Hypothyroidism; Translations: [Hypothyroidism, unspecified] Onset: 01-17-2022 Resolved: 01-17-2022 Chronic Unclassified (3 sources) CONTACT W/AND (SUSP) EXPOS COVID-19; Translations: [CONTACT W/AND (SUSP) EXPOS COVID-19] Onset: 05-09-2022 Unclassified (1 source) COUGH, UNSPECIFIED; Translations: [COUGH, UNSPECIFIED] Onset: 09-23-2021 Unclassified (5 sources) Fracture of toe 11-03-2020 Unclassified (1 source) Cough, unspecified; Translations: [Cough, unspecified] Onset: 08-06-2024 Viral infection (1 source) COVID-19; Translations: [COVID-19] [...] Test Name Value Interpretation Reference Range Facility Alanine aminotransferase [En zymatic activity/volume] in Serum or PlasmaOrdered By: Luis Enrique Marcano on 09-18-2024 ALT [Catalytic activity/Vol] Alanine aminotransferase [Enzymatic activity/volume] in Serum or Plasma 7-52 [facility] Albumin [Mass/volume] in Ser um or Plasma by Bromocresol green (BCG) dye binding methoOrdered By: Luis Enrique Marcano on 09-18-2024 Albumin BCG dye [Mass/Vol] Albumin [Mass/volume] in Serum or Plasma by Bromocresol green (BCG) dye binding metho 3.5-5.7 [facility] Alkaline phosphatase [Enzyma tic activity/volume] in Serum or PlasmaOrdered By: Luis Enrique Macrano on 09-18-2024 ALP [Catalytic activity/Vol] Alkaline phosphatase [Enzymatic activity/volume] in Serum or Plasma 34-104 [facility] Appearance of UrineOrdered B y: Luis Enrique Marcano on 09-18-2024 Appearance (U) Urine appearance Clear [facility] Aspartate aminotransferase [ Enzymatic activity/volume] in Serum or PlasmaOrdered By: Luis Enrique Marcano on 09-18-2024 AST [Catalytic activity/Vol] Aspartate aminotransferase [Enzymatic activity/volume] in Serum or Plasma 13-39 [facility] B-Type Natriuretic Peptideon 09-18-2024 Natriuretic peptide B (Bld) [Mass/Vol] 30.0 pg/mL Normal 5-100 [facility] Comment on above: Result Comment: PERF ORMED BY: [facility] [address] [place] [address] PATHOLOGIST CARVER HAND TIBURCIO BARRON M.D. Performed By: #### P T, BNP, BMP, HEPATIC, CBC, CK, HS TROP #### [facility] [address] [place] [address] [place] Bacteria [Presence] in Urine by AutomatedOrdered By: Luis Enrique Marcano on 09-18-2024 Bacteria Auto Ql (U) Bacteria [Presence] in Urine by Automated None Seen [facility] Basic Metabolic Panelon Anion gap [Moles/Vol] 11.9 mmol/L Normal 6.0-15.0 [facility] Comment on above: Performed By: #### P T, BNP, BMP, HEPATIC, CBC, CK, HS TROP #### [address] Calcium [Mass/Vol] 9.0 mg/dL Normal 8.6-10.3 [facility] Comment on above: Performed By: #### P T, BNP, BMP, HEPATIC, CBC, CK, HS TROP #### [address] Chloride [Moles/Vol] 109 mmol/L High 98-107 [facility] Comment on above: Performed By: #### P T, BNP, BMP, HEPATIC, CBC, CK, HS TROP #### [address] CO2 [Moles/Vol] 21.5 mmol/L Normal 21.0-31.0 [facility] Comment on above: Performed By: #### P T, BNP, BMP, HEPATIC, CBC, CK, HS TROP #### [facility] [address] [place] [address] [place] Creatinine [Mass/Vol] 0.71 mg/dL Normal 0.60-1.20 [facility] Comment on above: Performed By: #### P T, BNP, BMP, HEPATIC, CBC, CK, HS TROP #### [facility] [address] [place] [address] [place] Creatinine Clr Calc Pharmacy 78.53 Normal [facility] Comment on above: Result Comment: PERF ORMED BY: [place] [address] PATHOLOGIST CARVER HAND TIBURCIO BARRON M.D. Performed By: #### P T, BNP, BMP, HEPATIC, CBC, CK, HS TROP #### [facility] [address] GFR/1.73 sq M.predicted MDRD (S/P/Bld) [Vol rate/Area] mL/min/{1.73_m2} Normal [facility] Comment on above: Performed By: #### P T, BNP, BMP, HEPATIC, CBC, CK, HS TROP #### [facility] [address] Glucose [Mass/Vol] 117 mg/dL High 70-100 [facility] Comment on above: Result Comment: [place] Glucose Reference Range is dependent on time and content of last meal. Glucose of more than 200 mg/dL in a nonstressed, ambulatory subject supports the diagnosis of Diabetes Mellitus. ADA recommended reference range Performed By: #### P T, BNP, BMP, HEPATIC, CBC, CK, HS TROP #### [facility] [address] Potassium [Moles/Vol] 3.4 mmol/L Low 3.5-5.1 [facility] Comment on above: Performed By: #### P T, BNP, BMP, HEPATIC, CBC, CK, HS TROP #### [facility] [address] Sodium [Moles/Vol] 139 mmol/L Normal 136-145 [facility] Comment on above: Performed By: #### P T, BNP, BMP, HEPATIC, CBC, CK, HS TROP #### [facility] [address] [place] [address] [place] Urea nitrogen [Mass/Vol] 13 mg/dL Normal 7-25 [facility] Comment on above: Performed By: #### P T, BNP, BMP, HEPATIC, CBC, CK, HS TROP #### [facility] [address] [place] [address] [place] Basophils Auto (Bld) [#/Vol] Ordered By: Luis Enrique Marcano on 09-18-2024 Basophils (Bld) [#/Vol] Automated basophil count 0.0-0.2 [facility] Basophils/100 WBC Auto (Bld) Ordered By: Luis Enrique Marcano on 09-18-2024 Basophils/100 WBC (Bld) Automated basophil % . [facility] Bilirubin Test strip Ql (U)O rdered By: Luis Enrique Marcano on 09-18-2024 Bilirubin Ql (U) Bilirubin.total [Pre sence] in Urine by Test strip Negative [facility] Bilirubin.direct [Mass/volum e] in Serum or PlasmaOrdered By: Luis Enrique Marcano on 09-18-2024 Bilirubin.direct [Mass/Vol] Bilirubin.direct [Mass/volume] in Serum or Plasma High 0.03-0.18 [facility] Bilirubin.total [Mass/volume ] in Serum or PlasmaOrdered By: Luis Enrique Marcano on 09-18-2024 Bilirubin [Mass/Vol] Bilirubin.total [Mass/volume] in Serum or Plasma 0.3-1.0 [facility] COVID Cepheid NegativeOrdere d By: Luis Enrique Marcano on 09-18-2024 SARS-CoV-2 (COVID-19) Ab IA Ql COVID Cepheid Negative [facility] Comment on above: This is a duplicate Cepheid Xpert Xpress CoV-2/Flu/RSV Plus RNA by RT-PCR result to be used for statistical tracking purpose only. COVID-19 / Flu A/B / RSV PCR on 09-18-2024 SARS-CoV-2 (COVID-19) RNA LIU+probe Ql (Unsp spec) COVID-19 Cepheid Result Negative for SARS-CoV-2 RNA by RT-PCR Flu A Cepheid Result Negative for Flu A RNA by RT-PCR Flu B Cepheid Result Negative for Flu B RNA by RT-PCR RSV Cepheid Result Negative for RSV RNA by RT-PCR COVID19 Blank Space -- Reference: Negative COVID19 Blank Space -- Cepheid Disclaimer The Cepheid Xpert Xpress CoV-2/Flu/RSV Plus has Cepheid Disclaimer not been FDA cleared or approved; this test has Cepheid Disclaimer been authorized by FDA under an EUA for use by Cepheid Disclaimer authorized laboratories; this test has been Cepheid Disclaimer authorized only for the simultaneous qualitative Cepheid Disclaimer detection and differentiation of nucleic acids from Cepheid Disclaimer SARS-CoV-2, influenza A, influenza B, and Cepheid Disclaimer respiratory syncytial virus (RSV), and not for any Cepheid Disclaimer other viruses or pathogens; and this test is only Cepheid Disclaimer authorized for the duration of the declaration that Cepheid Disclaimer circumstances exist justifying the authorization of Cepheid Disclaimer emergency use of in vitro diagnostic tests for Cepheid Disclaimer detection and/or diagnosis of COVID-19 under Cepheid Disclaimer Section 564(b)(1) of the Act, 21 U.S.C. 360bbb- Cepheid Disclaimer 3(b)(1), unless the authorization is terminated or Cepheid Disclaimer revoked sooner. PERFORMED BY: [place] [address] PATHOLOGIST CARVER HAND TIBURCIO BARRON M.D. Normal [facility] Comment on above: Performed By: #### P T, BNP, BMP, HEPATIC, CBC, CK, HS TROP #### [address] Calcium [Mass/volume] in Ser um or PlasmaOrdered By: Luis Enrique Marcano on 09-18-2024 Calcium [Mass/Vol] Calcium [Mass/volume ] in Serum or Plasma 8.6-10.3 [facility] Carbon dioxide, total [Moles /volume] in Serum or PlasmaOrdered By: Luis Enrique Marcano on 09-18-2024 CO2 [Moles/Vol] Carbon dioxide, tota l [Moles/volume] in Serum or Plasma 21.0-31.0 [facility] Cepheid COVID PCR Negativeon 09-18-2024 SARS-CoV-2 (COVID-19) RNA LIU+probe Ql (Unsp spec) Negative Normal Negative [facility] Comment on above: Result Comment: This is a duplicate Cepheid Xpert Xpress CoV-2/Flu/RSV Plus RNA by RT-PCR result to be used for statistical tracking purpose only. PERFORMED BY: [place] [address] PATHOLOGIST [employer] TIBURCIO BARRON M.D. Performed By: #### P T, BNP, BMP, HEPATIC, CBC, CK, HS TROP #### [facility] [address] [place] [address] Chloride [Moles/volume] in S apollo or PlasmaOrdered By: Luis Enrique Marcano on 09-18-2024 Chloride [Moles/Vol] Chloride [Moles/vol ume] in Serum or Plasma High 98-107 [facility] Color Auto (U)Ordered By: Cisco Marcano on 09-18-2024 Color (U) Color of Urine by Auto Yellow Fi [facility] Complete Blood Count Auto Di ffon 09-18-2024 Basophils (Bld) [#/Vol] 0.0 10*3/uL Normal 0.0-0.2 [facility] Comment on above: Result Comment: PERF ORMED BY: [place] [address] PATHOLOGIST [employer]VER HAND TIBURCIO BARRON M.D. Performed By: #### P T, BNP, BMP, HEPATIC, CBC, CK, HS TROP #### [facility] [address] [place] [address] [place] Basophils/100 WBC (Bld) 0.9 % Normal . [facility] Comment on above: Performed By: #### P T, BNP, BMP, HEPATIC, CBC, CK, HS TROP #### [facility] [address] [place] [address] [place] Eosinophils (Bld) [#/Vol] 0.1 10*3/uL Normal 0.0-0.45 [facility] Comment on above: Performed By: #### P T, BNP, BMP, HEPATIC, CBC, CK, HS TROP #### [address] Eosinophils/100 WBC (Bld) 1.2 % Normal . [facility] Comment on above: Performed By: #### P T, BNP, BMP, HEPATIC, CBC, CK, HS TROP #### [address] Erythrocyte distribution width (RBC) [Ratio] 13.1 % Normal 11.9-15.3 [facility] Comment on above: Performed By: #### P T, BNP, BMP, HEPATIC, CBC, CK, HS TROP #### [address] Hematocrit (Bld) [Volume fraction] 40.8 % Normal 34.0-46.4 [facility] Comment on above: Performed By: #### P T, BNP, BMP, HEPATIC, CBC, CK, HS TROP #### [address] Hemoglobin (Bld) [Mass/Vol] 14.5 g/dL Normal 11.8-15.4 [facility] Comment on above: Performed By: #### P T, BNP, BMP, HEPATIC, CBC, CK, HS TROP #### [address] Lymphocytes (Bld) [#/Vol] 1.7 10*3/uL Normal 1.00-4.8 [facility] Comment on above: Performed By: #### P T, BNP, BMP, HEPATIC, CBC, CK, HS TROP #### [address] Lymphocytes/100 WBC (Bld) 37.7 % Normal . [facility] Comment on above: Performed By: #### P T, BNP, BMP, HEPATIC, CBC, CK, HS TROP #### [address] MCH (RBC) [Entitic mass] 34.5 pg High 24.7-34.3 [facility] Comment on above: Performed By: #### P T, BNP, BMP, HEPATIC, CBC, CK, HS TROP #### [address] MCV (RBC) [Entitic vol] 97.4 fL Normal 80-100 [facility] Comment on above: Performed By: #### P T, BNP, BMP, HEPATIC, CBC, CK, HS TROP #### [address] Mean Corpuscular HGB Conc 35.5 g/dL High 32.0-35.0 [facility] Comment on above: Performed By: #### P T, BNP, BMP, HEPATIC, CBC, CK, HS TROP #### [address] Monocytes (Bld) [#/Vol] 0.4 10*3/uL Normal 0.0-0.8 [facility] Comment on above: Performed By: #### P T, BNP, BMP, HEPATIC, CBC, CK, HS TROP #### [address] Monocytes/100 WBC (Bld) 23.57 % High 0.00-20.00 [facility] Comment on above: Result Comment: For adults in ED, MDW > 20.0 may be associated with a higher risk of sepsis during the first 12 hrs of hospital admission Performed By: #### P T, BNP, BMP, HEPATIC, CBC, CK, HS TROP #### [address] Monocytes/100 WBC (Bld) 9.2 % Normal . [facility] Comment on above: Performed By: #### P T, BNP, BMP, HEPATIC, CBC, CK, HS TROP #### [address] Neutrophils (Bld) [#/Vol] 2.3 10*3/uL Normal 1.8-7.7 [facility] Comment on above: Performed By: #### P T, BNP, BMP, HEPATIC, CBC, CK, HS TROP #### [address] Neutrophils/100 WBC (Bld) 51.0 % Normal . [facility] Comment on above: Performed By: #### P T, BNP, BMP, HEPATIC, CBC, CK, HS TROP #### [address] NRBC% 0.1 /100{WBC} Normal 0-0.5 [facility] Comment on above: Performed By: #### P T, BNP, BMP, HEPATIC, CBC, CK, HS TROP #### [address] Platelet mean volume (Bld) [Entitic vol] 7.6 fL Normal 6.3-10.7 [facility] Comment on above: Performed By: #### P T, BNP, BMP, HEPATIC, CBC, CK, HS TROP #### [address] Platelets (Bld) [#/Vol] 235 10*3/uL Normal 150-450 [facility] Comment on above: Performed By: #### P T, BNP, BMP, HEPATIC, CBC, CK, HS TROP #### [address] RBC (Bld) [#/Vol] 4.19 10*6/uL Normal 3.60-5.00 [facility] Comment on above: Performed By: #### P T, BNP, BMP, HEPATIC, CBC, CK, HS TROP #### [address] WBC (Bld) [#/Vol] 4.5 10*3/uL Normal 3.8-11.6 [facility] Comment on above: Performed By: #### P T, BNP, BMP, HEPATIC, CBC, CK, HS TROP #### [address] Creatine Kinaseon 09-18-2024 CK [Catalytic activity/Vol] 189 U/L Normal 30-223 [facility] Comment on above: Performed By: #### P T, BNP, BMP, HEPATIC, CBC, CK, HS TROP #### [facility] [address] [place] [id number] [place] Creatine kinase [Enzymatic a ctivity/volume] in Serum or PlasmaOrdered By: Luis Enrique Marcano on 09-18-2024 CK [Catalytic activity/Vol] Creatine kinase [Enzymatic activity/volume] in Serum or Plasma [facility] Creatinine [Mass/volume] in Serum or PlasmaOrdered By: Luis Enrique Marcano on 09-18-2024 Creatinine [Mass/Vol] Creatinine [Mass/v olume] in Serum or Plasma 0.60-1.20 [facility] Dipstick and Microscopicon 0 09-18-2024 Appearance (U) Clear Normal Clear [facility] Comment on above: Order Comment: Name Collection Type:: Clean-Voided Midstream Performed By: #### A DDONUAPLUS #### [facility] [address] [place] [address] [place] Bacteria,Urine Rare Normal None Seen [facility] Comment on above: Order Comment: Name Collection Type:: Clean-Voided Midstream Performed By: #### A DDONUAPLUS #### [place] [address] [place] Bilirubin,Urine Negative Normal Negative [facility] Comment on above: Order Comment: Name Collection Type:: Clean-Voided Midstream Performed By: #### A DDONUAPLUS #### [facility] [address] [place] [id number] [place] Color (U) Yellow Normal Yellow [facility] Comment on above: Order Comment: Name Collection Type:: Clean-Voided Midstream Performed By: #### A DDONUAPLUS #### [facility] [address] [place] [id number] [place] Glucose Ql (U) Normal Normal Normal [facility] Comment on above: Order Comment: Name Collection Type:: Clean-Voided Midstream Performed By: #### A DDONUAPLUS #### [facility] [address] [place] [id number] [place] Hyaline Casts,Urine None Normal 0-8 [facility] Comment on above: Order Comment: Name Collection Type:: Clean-Voided Midstream Performed By: #### A DDONUAPLUS #### [address] Ketones Ql (U) 2+ High Negative [facility] Comment on above: Order Comment: Name Collection Type:: Clean-Voided Midstream Performed By: #### A DDONUAPLUS #### [address] Leukocyte esterase Test strip Ql (U) Negative Normal Negative [facility] Comment on above: Order Comment: Name Collection Type:: Clean-Voided Midstream Performed By: #### A DDONUAPLUS #### [address] Mucus,Urine 1+ Critically abnormal [facility] Comment on above: Order Comment: Name Collection Type:: Clean-Voided Midstream Result Comment: PERF ORMED BY: [place] [address] PATHOLOGIST [employer] HAND TIBURCIO BARRON M.D. Performed By: #### A DDONUAPLUS #### [place] [address] [place] Nitrite,Urine Negative Normal Negative [facility] Comment on above: Order Comment: Name Collection Type:: Clean-Voided Midstream Performed By: #### A DDONUAPLUS #### [place] [address] [place] Occult Blood,Urine Negative Normal Negative [facility] Comment on above: Order Comment: Name Collection Type:: Clean-Voided Midstream Result Comment: PERF ORMED BY: [place] [address] PATHOLOGIST [employer] HAND TIBURCIO BARRON M.D. Performed By: #### A DDONUAPLUS #### [place] [address] [place] pH (U) 7.5 [pH] Normal 5.0-9.0 [facility] Comment on above: Order Comment: Name Collection Type:: Clean-Voided Midstream Performed By: #### A DDONUAPLUS #### [place] [address] [place] Protein,Urine Trace High Negative [facility] Comment on above: Order Comment: Name Collection Type:: Clean-Voided Midstream Performed By: #### A DDONUAPLUS #### [address] RBC,Urine 1 [HPF] Normal 0-4 [facility] Comment on above: Order Comment: Name Collection Type:: Clean-Voided Midstream Performed By: #### A DDONUAPLUS #### [place] [address] [place] Specificy Amasa,Urine 1.025 Normal 1.001-1.030 [facility] Comment on above: Order Comment: Name Collection Type:: Clean-Voided Midstream Performed By: #### A DDONUAPLUS #### [address] Squamous Epithelial Cell,Urine 3 [HPF] High 0-2 [facility] Comment on above: Order Comment: Name Collection Type:: Clean-Voided Midstream Performed By: #### A DDONUAPLUS #### [place] [address] [place] Urobilinogen,Urine 2 mg/dL High Normal [facility] Comment on above: Order Comment: Name Collection Type:: Clean-Voided Midstream Performed By: #### A DDONUAPLUS #### [place] [address] [place] WBC,Urine 3 [HPF] Normal 0-4 [facility] Comment on above: Order Comment: Name Collection Type:: Clean-Voided Midstream Performed By: #### A DDONUAPLUS #### [address] ECG 12 lead ECGon 09-18-2024 ECG 12 lead ECG [facility] [place] [address] [place] [address] Electrocardiograph Report Signed Patient: Ezequiel Lei MR#: [id number] : 1960 Acct:[id number] Age/Sex: 64 / F ADM Date: 09/18/24 Loc: ER Room: Type: [facility] ER Attending Dr: Ordering Provider: Luis Enrique Marcano DO Date of Service: 09/18/2402/05/1204 ECG/ECG 12 lead ECG: Dizziness Copies to: Test Reason : Blood Pressure : 147/67 mmHG Vent. Rate : 70 BPM Atrial Rate : 70 BPM P-R Int : 170 ms QRS Dur : 80 ms QT Int : 420 ms P-R-T Axes : 44 -38 23 degrees QTcB Int : 453 ms Normal sinus rhythm Left axis deviation Abnormal ECG No previous ECGs available Confirmed by Luis Enrique Marcano DO ([id number]) on 09/18/2024 4:42:55 PM Referred By: Electronically Signed By: Lius Enrique Marcano DO Transcribed By: MUS Signed By Luis Enrique Marcano DO 5 1643 Normal [facility] Eosinophils Auto (Bld) [#/Vo l]Ordered By: Luis Enrique Marcano on 09-18-2024 Eosinophils (Bld) [#/Vol] Automated eosinophil count 0.0-0.45 [facility] Eosinophils/100 WBC Auto (Bl d)Ordered By: Luis Enrique Marcano on 09-18-2024 Eosinophils/100 WBC (Bld) Automated eosinophil % . [facility] Epithelial cells.squamous [# /area] in Urine sediment by Automated countOrdered By: Luis Enrique Marcano on 09-18-2024 Epithelial cells.squamous Auto (Urine sed) [#/Area] Epithelial cells.squamous [#/area] in Urine sediment by Automated count High 0-2 [facility] Erythrocyte distribution wid th Auto (RBC) [Ratio]Ordered By: Luis Enrique Marcano on 09-18-2024 Erythrocyte distribution width (RBC) [Ratio] Erythrocyte distribution width [Ratio] by Automated count 11.9-15.3 [facility] Erythrocytes [#/area] in Uri ne sediment by Automated countOrdered By: Luis Enrique Marcano on 09-18-2024 RBC Auto (Urine sed) [#/Area] Erythrocytes [#/area] in Urine sediment by Automated count 0-4 [facility] Globulin Calc (S) [Mass/Vol] Ordered By: Luis Enrique Marcano on 09-18-2024 Globulin (S) [Mass/Vol] Serum globulin measurement by calculation (mass/volume) [facility] Glucose [Mass/volume] in Ser um or PlasmaOrdered By: Luis Enrique Marcano on 09-18-2024 Glucose [Mass/Vol] Glucose [Mass/volume ] in Serum or Plasma High 70-100 [facility] Comment on above: ADA recommended refe rence rangeRandom Glucose Reference Range is dependent on time and content of last meal. Glucose of more than 200 mg/dL in a nonstressed, ambulatory subject supports the diagnosis of Diabetes Mellitus. Glucose [Mass/volume] in Uri ne by Test stripOrdered By: Luis Enrique Marcano on 09-18-2024 Glucose Test strip (U) [Mass/Vol] Glucose [Mass/volume] in Urine by Test strip Normal [facility] Hematocrit Auto (Bld) [Volum e fraction]Ordered By: Luis Enrique Marcano on 09-18-2024 Hematocrit (Bld) [Volume fraction] Hematocrit [Volume Fraction] of Blood by Automated count 34.0-46.4 [facility] Hemoglobin Test strip Ql (U) Ordered By: Luis Enrique Marcano on 09-18-2024 Hemoglobin Ql (U) Hemoglobin [Presence ] in Urine by Test strip Negative [facility] Hemoglobin [Mass/volume] in BloodOrdered By: Luis Enrique Marcano on 09-18-2024 Hemoglobin (Bld) [Mass/Vol] Hemoglobin [Mass/volume] in Blood 11.8-15.4 [facility] Hepatic Panelon 09-18-2024 Albumin [Mass/Vol] 4.0 g/dL Normal 3.5-5.7 [facility] Comment on above: Performed By: #### P T, BNP, BMP, HEPATIC, CBC, CK, HS TROP #### [facility] [address] [place], [place] [address] Albumin/Globulin [Mass ratio] 1.5 {ratio} Normal [facility] Comment on above: Performed By: #### P T, BNP, BMP, HEPATIC, CBC, CK, HS TROP #### [facility] [address] ALP [Catalytic activity/Vol] 55 U/L Normal 34-104 [facility] Comment on above: Performed By: #### P T, BNP, BMP, HEPATIC, CBC, CK, HS TROP #### [address] ALT [Catalytic activity/Vol] 15 U/L Normal 7-52 [facility] Comment on above: Performed By: #### P T, BNP, BMP, HEPATIC, CBC, CK, HS TROP #### [address] AST [Catalytic activity/Vol] 25 U/L Normal 13-39 [facility] Comment on above: Performed By: #### P T, BNP, BMP, HEPATIC, CBC, CK, HS TROP #### [address] Bilirubin [Mass/Vol] 0.7 mg/dL Normal 0.3-1.0 [facility] Comment on above: Performed By: #### P T, BNP, BMP, HEPATIC, CBC, CK, HS TROP #### [place] [address] [place] Bilirubin,Indirect 0.5 mg/dL Normal [facility] Comment on above: Performed By: #### P T, BNP, BMP, HEPATIC, CBC, CK, HS TROP #### [place] [address] [place] Bilirubin.indirect [Mass/Vol] 0.20 mg/dL High 0.03-0.18 [facility] Comment on above: Performed By: #### P T, BNP, BMP, HEPATIC, CBC, CK, HS TROP #### [place] [address] [place] Globulin (S) [Mass/Vol] 2.6 g/dL Normal [facility] Comment on above: Performed By: #### P T, BNP, BMP, HEPATIC, CBC, CK, HS TROP #### [address] Protein [Mass/Vol] 6.6 g/dL Normal 6.4-8.9 [facility] Comment on above: Performed By: #### P T, BNP, BMP, HEPATIC, CBC, CK, HS TROP #### [facility] [address] Hyaline casts [#/area] in Ur ine sediment by Automated countOrdered By: Luis Enrique Marcano on 09-18-2024 Hyaline casts Auto (Urine sed) [#/Area] Hyaline casts [#/area] in Urine sediment by Automated count 0-8 [facility] INR in Platelet poor plasma by Coagulation assayOrdered By: Luis Enrique Marcano on 09-18-2024 INR Coag (PPP) [Relative time] INR in Platelet poor plasma by Coagulation assay [facility] Comment on above: INR Therapeutic Rang e A) Pre- and Peroperative OAT started two weeks before surgery. NOT HIP SURGERY: 1.5 - 2.5 HIP SURGERY: 2 - 3B) Primary and secondary prevention of venous THROMBOSIS: 2 - 3C) Active venous thrombosis, pulmonary embolismand prevention of recurrent venous thrombosis: 2 - 3D) Prevention of arterial thromboembolismincluding patients with mechanical heart valves: 3 - 4.5 Ketones Test strip Ql (U)Ord ered By: Luis Enrique Marcano on 09-18-2024 Ketones Ql (U) Ketones [Presence] i n Urine by Test strip High Negative [facility] Leukocyte esterase [Presence ] in Urine by Test stripOrdered By: Luis Enrique Marcano on 09-18-2024 Leukocyte esterase Test strip Ql (U) Leukocyte esterase [Presence] in Urine by Test strip Negative [facility] Leukocytes [#/area] in Urine sediment by Automated countOrdered By: Luis Enrique Marcano on 09-18-2024 WBC Auto (Urine sed) [#/Area] Leukocytes [#/area] in Urine sediment by Automated count 0-4 [facility] Leukocytes [#/volume] correc malka for nucleated erythrocytes in Blood by Automated counOrdered By: Luis Enrique Marcano on 09-18-2024 WBC corrected for nucl RBC Auto (Bld) [#/Vol] Leukocytes [#/volume] corrected for nucleated erythrocytes in Blood by Automated coun 3.8-11.6 [facility] Lymphocytes Auto (Bld) [#/Vo l]Ordered By: Luis Enrique Marcano on 09-18-2024 Lymphocytes (Bld) [#/Vol] Lymphocytes [#/volume] in Blood by Automated count 1.00-4.8 [facility] Lymphocytes/100 WBC Auto (Bl d)Ordered By: Luis Enrique Marcano on 09-18-2024 Lymphocytes/100 WBC (Bld) Lymphocytes/100 leukocytes in Blood by Automated count . [facility] MCH Auto (RBC) [Entitic mass ]Ordered By: Luis Enrique Marcano on 09-18-2024 MCH (RBC) [Entitic mass] MCH [Entitic mass] by Automated count High 24.7-34.3 [facility] MCHC Auto (RBC) [Mass/Vol]Or dered By: Luis Enrique Marcano on 09-18-2024 MCHC (RBC) [Mass/Vol] MCHC [Mass/volume] by Automated count High 32.0-35.0 [facility] MCV Auto (RBC) [Entitic vol] Ordered By: Luis Enrique Marcano on 09-18-2024 MCV (RBC) [Entitic vol] MCV [Entitic volume] by Automated count 80-100 [facility] Monocyte distribution width [Entitic volume] in Blood by AutomatedOrdered By: Luis Enrique Marcano on 09-18-2024 Monocyte distribution width Auto (Bld) [Entitic vol] Monocyte distribution width [Entitic volume] in Blood by Automated High 0.00-20.00 [facility] Comment on above: For adults in ED, MD W > 20.0 may be associated with a higher risk of sepsis during the first 12 hrs of hospital admission Monocytes Auto (Bld) [#/Vol] Ordered By: Luis Enrique Marcano on 09-18-2024 Monocytes (Bld) [#/Vol] Automated blood monocyte count 0.0-0.8 [facility] Monocytes/100 WBC Auto (Bld) Ordered By: Luis Enrique Marcano on 09-18-2024 Monocytes/100 WBC (Bld) Automated monocyte % . [facility] Mucus [Presence] in Urine by AutomatedOrdered By: Luis Enrique Marcano on 09-18-2024 Mucus Auto Ql (U) Mucus [Presence] in Urine by Automated Abnormal [facility] Natriuretic peptide B [Mass/ Vol]Ordered By: Luis Enrique Marcano on 09-18-2024 Natriuretic peptide B (Bld) [Mass/Vol] BNP ser/plas 5-100 [facility] Neutrophils Auto (Bld) [#/Vo l]Ordered By: Luis Enrique Marcano on 09-18-2024 Neutrophils (Bld) [#/Vol] Neutrophils [#/volume] in Blood by Automated count 1.8-7.7 [facility] Neutrophils/100 WBC Auto (Bl d)Ordered By: Luis Enrique Marcano on 09-18-2024 Neutrophils/100 WBC (Bld) Automated neutrophil % . [facility] Nitrite Test strip Ql (U)Ord ered By: Luis Enrique Marcano on 09-18-2024 Nitrite Ql (U) Nitrite [Presence] i n Urine by Test strip Negative [facility] No Panel InformationOrdered By: Luis Enrique Marcano on 09-18-2024 Estimated GFR (CKD-EPI) > 60.0 mL/Min [facility]acy Creatinine Clearance (Chem 78.53 [facility] Nucleated erythrocytes [Pres ence] in Blood by Automated countOrdered By: Luis Enrique Marcano on 09-18-2024 Nucleated RBC Auto Ql (Bld) Nucleated erythrocytes [Presence] in Blood by Automated count 0-0.5 [facility] Platelet mean volume Auto (B ld) [Entitic vol]Ordered By: Luis Enrique Marcano on 09-18-2024 Platelet mean volume (Bld) [Entitic vol] Platelet mean volume [Entitic volume] in Blood by Automated count 6.3-10.7 [facility] Platelets Auto (Bld) [#/Vol] Ordered By: Luis Enrique Marcano on 09-18-2024 Platelets (Bld) [#/Vol] Platelets [#/volume] in Blood by Automated count 150-450 [facility] Potassium [Moles/volume] in Serum or PlasmaOrdered By: Luis Enrique Marcano on 09-18-2024 Potassium [Moles/Vol] Potassium [Moles/v olume] in Serum or Plasma Low 3.5-5.1 [facility] Protein Test strip (U) [Mass /Vol]Ordered By: Luis Enrique Marcano on 09-18-2024 Protein (U) [Mass/Vol] Protein [Mass/vol ume] in Urine by Test strip High Negative [facility] Protein [Mass/volume] in Ser um or PlasmaOrdered By: Luis Enrique Marcano on 09-18-2024 Protein [Mass/Vol] Protein [Mass/volume ] in Serum or Plasma 6.4-8.9 [facility] Prothrombin Time INRon 09-18 INR Coag (PPP) [Relative time] 1.0 {INR} Normal [facility] Comment on above: Result Comment: INR Therapeutic Range A) Pre- and Peroperative OAT started two weeks before surgery. NOT HIP SURGERY: 1.5 - 2.5 HIP SURGERY: 2 - 3 B) Primary and secondary prevention of venous THROMBOSIS: 2 - 3 C) Active venous thrombosis, pulmonary embolism and prevention of recurrent venous thrombosis: 2 - 3 D) Prevention of arterial thromboembolism including patients with mechanical heart valves: 3 - 4.5 PERFORMED BY: [place] [address] PATHOLOGIST CARVER HAND TIBURCIO BARRON M.D. Performed By: #### P T, BNP, BMP, HEPATIC, CBC, CK, HS TROP #### [facility] [id number] [facility] PT Coag (PPP) [Time] 11.7 s Normal 9.0-12.9 [facility] Comment on above: Result Comment: A he matocrit value greater than 55% may lead to inaccurate results in coagulation testing. Patients having hematocrit values >55% require a special collection tube for coagulation studies. Please contact the laboratory at [phone] for redraw instructions. Performed By: #### P T, BNP, BMP, HEPATIC, CBC, CK, HS TROP #### [facility] [address] [place] [address] [place] Prothrombin time (PT)Ordered By: Luis Enrique Marcano on 09-18-2024 PT Coag (PPP) [Time] Prothrombin time (PT) 9.0- 12.9 [facility] Comment on above: A hematocrit value g reater than 55% may lead to inaccurate results in coagulation testing. Patients having hematocrit values >55% require a special collection tube for coagulation studies. Please contact the laboratory at [phone] for redraw instructions. RBC Auto (Bld) [#/Vol]Ordere d By: Luis Enrique Marcano on 09-18-2024 RBC (Bld) [#/Vol] Erythrocytes [#/volu me] in Blood by Automated count 3.60-5.00 [facility] Respiratory specimen influen za A virus, influenza B virus, respiratory syncytical virOrdered By: Luis Enrique Marcano on 09-18-2024 SARS-CoV-2 (COVID-19) RNA LIU+probe Ql (Unsp spec) Respiratory specimen influenza A virus, influenza B virus, respiratory syncytical vir [facility] Serum or plasma albumin/glob ulin mass ratioOrdered By: Luis Enrique Marcano on 09-18-2024 Albumin/Globulin [Mass ratio] Serum or plasma albumin/globulin mass ratio [facility] Serum or plasma anion gap de terminationOrdered By: Luis Enrique Marcano on 09-18-2024 Anion gap [Moles/Vol] Serum or plasma an ion gap determination 6.0-15.0 [facility] Serum or plasma non-glucuron idated bilirubin measurement (mass/volume)Ordered By: Luis Enrique Marcano on 09-18-2024 Bilirubin.indirect [Mass/Vol] Serum or plasma non-glucuronidated bilirubin measurement (mass/volume) [facility] Sodium [Moles/volume] in Ser um or PlasmaOrdered By: Luis Enrique Marcano on 09-18-2024 Sodium [Moles/Vol] Sodium [Moles/volume ] in Serum or Plasma 136-145 [facility] Specific gravity Test strip (U) [Rel density]Ordered By: Luis Enrique Marcano on 09-18-2024 Specific gravity (U) [Rel density] Specific gravity of Urine by Test strip 1.001-1.030 [facility] Troponin I High Sensitivityo n 09-18-2024 Troponin I High Sensitivity 3 Normal 0-15 [facility] Comment on above: Result Comment: The Troponin units of report have been changed to meet the Chest Pain Accreditation requirement, element EC5.M1l2. Troponin units are changed from pg/ml to ng/L. Also, the decimal is removed and results are in whole numbers. PERFORMED BY: [address] [place] [address] PATHOLOGIST CARVER HAND TIBURCIO BARRON M.D. Performed By: #### P T, BNP, BMP, HEPATIC, CBC, CK, HS TROP #### [id number] [facility] Troponin I.cardiac [Mass/vol ume] in Serum or Plasma by Detection limit <= 0.01 ng/Ordered By: Luis Enrique Marcano on 09-18-2024 Troponin I.cardiac DL <= 0.01 ng/mL [Mass/Vol] Troponin I.cardiac [Mass/volume] in Serum or Plasma by Detection limit <= 0.01 ng/ 0-15 [facility] Comment on above: The Troponin units o f report have been changed to meet the Chest Pain Accreditation requirement, element EC5.M1l2. Troponin units are changed from pg/ml to ng/L. Also, the decimal is removed and results are in whole numbers. Urea nitrogen [Mass/volume] in Serum or PlasmaOrdered By: Luis Enrique Marcano on 09-18-2024 Urea nitrogen [Mass/Vol] Urea nitrogen [Mass/volume] in Serum or Plasma 7-25 [facility] Urobilinogen Test strip (U) [Mass/Vol]Ordered By: Luis Enrique Marcano on 09-18-2024 Urobilinogen (U) [Mass/Vol] Urobilinogen [Mass/volume] in Urine by Test strip High Normal [facility] WBC Auto (Bld) [#/Vol]Ordere d By: Luis Enrique Marcano on 09-18-2024 WBC (Bld) [#/Vol] Leukocytes [#/volume ] in Blood by Automated count 3.8-11.6 [facility] X-ray reportOrdered By: Gabino Shirley on 09-18-2024 Study report [facility] [address] [place] [address] [place] [address] XRay Report Signed Patient: Ezequiel Lei MR#: [id number] : 1960 Acct:[id number] Age/Sex: 64 / F ADM Date: 5 Loc: ER Room: Type: PRE ER Attending Dr: Copies to: Luis Enrique Marcano, DO~ Ordering Provider: Luis Enrique Marcano DO Date of Service: 09/18/24 XR/XR chest 1V portable: Dizziness XR chest 1V portable 09/18/2024 12:05 PM SIGNS AND SYMPTOMS: Lightheadedness, nausea, shortness of breath PROTOCOL: Frontal radiograph of the chest COMPARISON: None FINDINGS: The trachea is midline. The heart and mediastinal structures are within normal limits. The lung parenchyma is clear. The bony thorax is intact. XR/XR chest 1V portable IMPRESSION: No acute cardiopulmonary pathology. Impression dictated by: Gabino Shirley M.D.09/18/2024 12:34 PM Dictation Location: [id number] Transcribed By: JAMEY 09/18/24 1234 Dictated By: Gabino Shirley II, MD 09/18/24 1232 Signed By: 09/18/24 [facility] Work Phone: XR chest 1V portableon 09-18 XR chest 1V portable [place] [address] XRay Report Signed Patient: Ezequiel Lei MR#: [id number] : 1960 Acct:[id number] Age/Sex: 64 / F ADM Date: 09/18/24 Loc: ER Room: Type: PRE ER Attending Dr: Copies to: Luis Enrique Marcano DO Ordering Provider: Luis Enrique Marcano DO Date of Service: 09/18/24 XR/XR chest 1V portable: Dizziness XR chest 1V portable 09/18/2024 12:05 PM SIGNS AND SYMPTOMS: Lightheadedness, nausea, shortness of breath PROTOCOL: Frontal radiograph of the chest COMPARISON: None FINDINGS: The trachea is midline. The heart and mediastinal structures are within normal limits. The lung parenchyma is clear. The bony thorax is intact. XR/XR chest 1V portable IMPRESSION: No acute cardiopulmonary pathology. Impression dictated by: Gabino Shirley M.D.09/18/2024 12:34 PM Dictation Location: [id number] Transcribed By: JAMEY 09/18/24 1234 Dictated By: Gabino Shirley II, MD 09/18/24 1232 Signed By: 09/18/24 1234 Normal [facility] pH Test strip (U)Ordered By: Luis Enrique Marcano on 09-18-2024 pH (U) pH of Urine by Test strip 5.0-9.0 [facility] Automated epithelial cells c ount in urine sediment (number/area)on 11-19-2023 Epithelial cells Auto (Urine sed) [#/Area] RARE #/LPF NONE/RARE [facility] Automated leukocytes count i n urine sediment (number/area)on 11-19-2023 WBC Auto (Urine sed) [#/Area] 0-2 #/HPF 0-2 [facility] Automated urine specific gra vity by refractometryon 11-19-2023 Specific gravity Refractometry automated (U) [Rel density] >=1.030 1.005-1.025 [facility] Basophils Auto (Bld) [#/Vol] on 11-19-2023 Basophils (Bld) [#/Vol] 0.1 10 3/uL 0.0-0.1 [facility] Basophils/100 WBC Auto (Bld) on 11-19-2023 Basophils/100 WBC (Bld) 0.7 % 0.2-2.0 [facility] Bilirubin Auto test strip (U ) [Mass/Vol]on 11-19-2023 Bilirubin (U) [Mass/Vol] Negative NEGATIVE [facility] Casts typing in urine sedime nt by light microscopyon 11-19-2023 Casts LM Nom (Urine sed) NONE SEEN #/LPF NONE SEEN [facility] Color Auto (U)on 11-19-2023 Color (U) YELLOW YELLOW [facility] Eosinophils/100 WBC Auto (Bl d)on 11-19-2023 Eosinophils/100 WBC (Bld) 1.2 % 0.9-7.0 [facility] Erythrocyte distribution wid th Auto (RBC) [Ratio]on 11-19-2023 Erythrocyte distribution width (RBC) [Ratio] 12.3 % 11.0-15.0 [facility] Estimated glomerular filtrat ion rate (GFR) non- Americanon 11-19-2023 GFR/1.73 sq M.predicted among non-blacks MDRD (S/P/Bld) [Vol rate/Area] mL/min/{1.73_m2} >=60 [facility] Globulin Calc (S) [Mass/Vol] on 11-19-2023 Globulin (S) [Mass/Vol] 3.5 g/dL [facility] Hematocrit Auto (Bld) [Volum e fraction]on 11-19-2023 Hematocrit (Bld) [Volume fraction] 43.4 % 36.0-48.0 [facility] Hemoglobin [Mass/volume] in Bloodon 11-19-2023 Hemoglobin (Bld) [Mass/Vol] 14.9 g/dL 12.0-16.0 [facility] Ketones Auto test strip (U) [Mass/Vol]on 11-19-2023 Ketones (U) [Mass/Vol] Negative NEGATIVE [facility] - Chemistry and C hemistry - challengeon 11-19-2023 Albumin [Mass/Vol] 3.8 g/dL 3.4-5.0 [facility] ALP [Catalytic activity/Vol] 91 U/L 46-116 [facility] ALT [Catalytic activity/Vol] 21 U/L 14-59 [facility] AST [Catalytic activity/Vol] 18 U/L 15-37 [facility] Bilirubin [Mass/Vol] 0.7 mg/dL 0.2-1.0 [facility] Calcium [Mass/Vol] 9.3 mg/dL 8.5-10.1 [facility] Chloride [Moles/Vol] 104 mmol/L 98-107 [facility] CO2 [Moles/Vol] 22.2 mmol/L 21.0-32.0 [facility] Creatinine [Mass/Vol] 0.79 mg/dL 0.55-1.02 [facility] GFR/1.73 sq M.predicted MDRD (S/P/Bld) [Vol rate/Area] mL/min/{1.73_m2} >=60 [facility] Glucose [Mass/Vol] 99 mg/dL 74-106 [facility] Lipase [Catalytic activity/Vol] 23.0 U/L 16.0-77.0 [facility] Potassium [Moles/Vol] 3.9 mmol/L 3.5-5.1 [facility] Protein [Mass/Vol] 7.3 g/dL 6.4-8.2 [facility] Sodium [Moles/Vol] 140 mmol/L 136-145 [facility] Urea nitrogen [Mass/Vol] 18.0 mg/dL 7.0-18.0 [facility] Urea nitrogen/Creatinine [Mass ratio] 22.8 mg/mg [facility] Laboratory - Hematology and Cell countson 11-19-2023 Immature granulocytes/100 WBC (Bld) 0.6 % 0.0-0.5 [facility] Leukocytes [#/volume] correc malka for nucleated erythrocytes in Blood by Automated counon 11-19-2023 WBC corrected for nucl RBC Auto (Bld) [#/Vol] 8.3 10 3/uL 4.0-11.0 [facility] Lymphocytes Auto (Bld) [#/Vo l]on 11-19-2023 Lymphocytes (Bld) [#/Vol] 1.9 10 3/uL 1.2-3.8 [facility] Lymphocytes/100 WBC Auto (Bl d)on 11-19-2023 Lymphocytes/100 WBC (Bld) 22.3 % 20.5-60.0 [facility] MCH Auto (RBC) [Entitic mass ]on 11-19-2023 MCH (RBC) [Entitic mass] 33.3 pg 26.7-34.0 [facility] MCHC Auto (RBC) [Mass/Vol]on 11-19-2023 MCHC (RBC) [Mass/Vol] 34.3 g/dL 29.9-35.2 [facility] MCV Auto (RBC) [Entitic vol] on 11-19-2023 MCV (RBC) [Entitic vol] 97.1 fL 81.0-99.0 [facility] Monocytes Auto (Bld) [#/Vol] on 11-19-2023 Monocytes (Bld) [#/Vol] 0.8 10 3/uL 0.3-0.8 [facility] Monocytes/100 WBC Auto (Bld) on 11-19-2023 Monocytes/100 WBC (Bld) 9.3 % 1.7-12.0 [facility] Mucus LM Ql (Urine sed)on Mucus Ql (Urine sed) NONE SEEN NONE SEEN [facility] Neutrophils Auto (Bld) [#/Vo l]on 11-19-2023 Neutrophils (Bld) [#/Vol] 5.5 10 3/uL 1.4-6.5 [facility] Neutrophils/100 WBC Auto (Bl d)on 11-19-2023 Neutrophils/100 WBC (Bld) 65.9 % 43.0-75.0 [facility] No Panel Informationon 11-18 Urine Microscopic Review YES [facility] Eosinophils # (Auto) 0.1 10 3/uL 0.0-0.7 [facility] Immature Granulocyte # (Auto) 0.05 10 3/uL 0.00-0.03 [facility] Platelet mean volume Auto (B ld) [Entitic vol]on 11-19-2023 Platelet mean volume (Bld) [Entitic vol] 9.9 fL 9.5-13.5 [facility] Platelets Auto (Bld) [#/Vol] on 11-19-2023 Platelets (Bld) [#/Vol] 251 10 3/uL 150-450 [facility] Protein Auto test strip (U) [Mass/Vol]on 11-19-2023 Protein (U) [Mass/Vol] Negative NEG/TRACE [facility] RBC Auto (Bld) [#/Vol]on RBC (Bld) [#/Vol] 4.47 10 6/uL 4.20-5.40 [facility] Serum or plasma albumin/glob ulin mass ratioon 11-19-2023 Albumin/Globulin [Mass ratio] 1.1 {ratio} [facility] Serum or plasma anion gap de terminationon 11-19-2023 Anion gap [Moles/Vol] 17.7 mmol/L Fi [facility] Specific gravity Auto test s trip (U) [Rel density]on 11-19-2023 Specific gravity (U) [Rel density] CLEAR CLEAR [facility] Urine bacteria detection by automated methodon 11-19-2023 Bacteria Auto Ql (U) NONE SEEN #/HPF NONE SEEN [facility] Urine glucose measurement by test strip (mass/volume)on 11-19-2023 Glucose Test strip (U) [Mass/Vol] Negative NEGATIVE [facility] Urine hemoglobin detection b y automated test stripon 11-19-2023 Hemoglobin Auto test strip Ql (U) TRACE-I NEGATIVE [facility] Urine nitrite detection by a utomated test stripon 11-19-2023 Nitrite Auto test strip Ql (U) Negative NEGATIVE [facility] Urine sediment crystal ident ification by light microscopyon 11-19-2023 Crystals LM Nom (Urine sed) None Seen #/HPF None Seen [facility] Urine sediment leukocyte cou nt by microscopy (number/high power field)on 11-19-2023 WBC LM.HPF (Urine sed) [#/Area] NONE SEEN #/HPF NONE SEEN [facility] Urobilinogen Auto test strip (U) [Mass/Vol]on 11-19-2023 Urobilinogen Qn (U) 0.2 {Alphonso'U}/dL 0.2-1.0 [facility] pH Auto test strip (U)on pH (U) 5.5 [pH] 5.0-9.0 [facility] CBC AUTO DIFFon 07-15-2022 BASO # 0.1 103/ul Normal 0.0-0.1 [facility] Comment on above: Performed By: #### C BC #### [facility] [address] [place] [address] Dr. Ortega Morel Basophils/100 WBC (Bld) 1.0 % Normal 0.2-2.0 [facility] Comment on above: Performed By: #### C BC #### [facility] [address] [place] [address] Dr. Ortega Morel EO # 0.1 103/ul Normal 0.0-0.7 [facility] Comment on above: Performed By: #### C BC #### [facility] [address] [place] [address] Dr. Ortega Morel Eosinophils/100 WBC (Bld) 2.0 % Normal 0.9-7.0 [facility] Comment on above: Performed By: #### C BC #### [facility] [address] [place] [address] Dr. Ortega Morel Erythrocyte distribution width (RBC) [Ratio] 12.2 % Normal 11.0-15.0 [facility] Comment on above: Performed By: #### C BC #### [facility] [address] [place] [address] Dr. Ortega Morel Hematocrit (Bld) [Volume fraction] 41.4 % Normal 36.0-48.0 [facility] Comment on above: Performed By: #### C BC #### [facility] [address] [place] [address] Dr. Ortega Morel Hemoglobin (Bld) [Mass/Vol] 14.4 g/dL Normal 12.0-16.0 [facility] Comment on above: Performed By: #### C BC #### [facility] [address] [place] [address] Dr. Ortega Morel IG # 0.04 10e3/ul Critically high 0.00-0.03 [facility] Comment on above: Performed By: #### C BC #### [facility] [address] [place] [address] Dr. Ortega Morel IG % 0.7 % Critically high 0.0-0.5 [facility] Comment on above: Performed By: #### C BC #### [facility] [address] [place] [address] Dr. Ortega Morel LYMPH # 1.7 103/ul Normal 1.2-3.8 [facility] Comment on above: Performed By: #### C BC #### [facility] [address] [place] [address] Dr. Ortega Morel Lymphocytes/100 WBC (Bld) 28.2 % Normal 20.5-60.0 [facility] Comment on above: Performed By: #### C BC #### [facility] [address] [place] [address] Dr. Ortega Morel MANUAL DIFF REQ NO Normal [facility] Comment on above: Performed By: #### C BC #### [facility] [address] [place] [address] Dr. Ortega Morel MCH (RBC) [Entitic mass] 33.4 pg Normal 26.7-34.0 [facility] Comment on above: Performed By: #### C BC #### [facility] [address] [place] [address] Dr. Ortega Morel MCHC (RBC) [Mass/Vol] 34.8 g/dL Normal 29.9-35.2 [facility] Comment on above: Performed By: #### C BC #### [facility] [address] [place] [address] Dr. Ortega Morel MCV (RBC) [Entitic vol] 96.1 fL Normal 81.0-99.0 [facility] Comment on above: Performed By: #### C BC #### [facility] [address] [place] [address] Dr. Ortega Morel MONO # 0.7 103/ul Normal 0.3-0.8 [facility] Comment on above: Performed By: #### C BC #### [facility] [address] [place] [address] Dr. Ortega Morel Monocytes/100 WBC (Bld) 11.4 % Normal 1.7-12.0 [facility] Comment on above: Performed By: #### C BC #### [facility] [address] [place] [address] Dr. Ortega Morel NEUT # 3.4 103/ul Normal 1.4-6.5 [facility] Comment on above: Performed By: #### C BC #### [facility] [address] [place] [address] Dr. Ortega Morel Neutrophils/100 WBC (Bld) 56.7 % Normal 43.0-75.0 [facility] Comment on above: Performed By: #### C BC #### [facility] [address] [place] [address] Dr. Ortega Morel Platelet mean volume (Bld) [Entitic vol] 10.1 fL Normal 9.5-13.5 [facility] Comment on above: Performed By: #### C BC #### [facility] [address] [place] [address] Dr. Ortega Morel PLT 217 103/ul Normal 150-450 [facility] Comment on above: Performed By: #### C BC #### [facility] [address] [place] [address] Dr. Ortega Morel RBC 4.31 106/ul Normal 4.20-5.40 [facility] Comment on above: Performed By: #### C BC #### [facility] [address] [place] [address] Dr. Ortega Morel WBC 6.0 103/ul Normal 4.0-11.0 [facility] Comment on above: Performed By: #### C BC #### [facility] [address] [place] [address] Dr. Ortega Morel CULTURE URINEon 07-15-2022 CULTURE URINE Culture Observations : NO GROWTH. Normal [facility] Comment on above: Performed By: #### C MP #### [facility] [address] [place] [address] Dr. Ortega Morel FREE T3on 07-15-2022 FREE T3 1.87 pg/mlL Critically low 2.18-3.98 [facility] Comment on above: Performed By: #### T SH, LIPID, FT3 #### [facility] [address] [place] [address] Dr. Ortega Morel FREE T4on 07-15-2022 Free T4 [Mass/Vol] 0.92 ng/dL Normal 0.76-1.46 [facility] Comment on above: Performed By: #### F T4 #### [facility] [address] [place] [address] Dr. Ortega Morel GLYCOHEMOGLOBIN A1Con 2021 ADA RECOMMENDATION SEE BELOW Normal [facility] Comment on above: Result Comment: ADA RECOMMENDED LIMIT 4.0 - 6.0 ADA THERAPEUTIC TARGET < 7.0 ACTION SUGGESTED > 7.0 Performed By: #### C MP #### [facility] [address] [address] [address] Ortega Morel Glucose [Mass/Vol] 103 mg/dL Normal [facility] Comment on above: Performed By: #### C MP #### [facility] [address] [address] [address] Ortega Morel HbA1c (Bld) [Mass fraction] 5.2 % Normal 4.5-6.2 [facility] Comment on above: Performed By: #### C MP #### [facility] [address] [place] [address] Dr. Ortega Morel LIPID PROFILEon 07-15-2022 CHOL-HDL RATIO NORM SEE BELOW Normal [facility] Comment on above: Result Comment: 3.3 - 4.4 LOW RISK 4.4 - 7.1 AVERAGE RISK 7.1 - 11.0 MODERATE RISK >11.0 HIGH RISK Performed By: #### T SH, LIPID, FT3 #### [facility] [address] [place] [address] Dr. Ortega Morel Cholesterol [Mass/Vol] 197 mg/dL Normal <=200 [facility] Comment on above: Performed By: #### T SH, LIPID, FT3 #### [facility] [address] [place] [address] Dr. Ortega Morel Cholesterol in HDL [Mass/Vol] 54 mg/dL Normal 40-60 [facility] Comment on above: Performed By: #### T SH, LIPID, FT3 #### [facility] [address] [place] [address] Dr. Ortega Morel Cholesterol in LDL [Mass/Vol] 111.8 mg/dL Normal [facility] Comment on above: Performed By: #### T SH, LIPID, FT3 #### [facility] [address] [place] [address] Dr. Ortega Morel Cholesterol.total/Chol esterol in HDL [Mass ratio] 3.6 {ratio} Normal [facility] Comment on above: Performed By: #### T SH, LIPID, FT3 #### [facility] [address] [place] [address] Dr. Ortega Morel HDL NORMAL > or = 60 mg/dl - LO W CARDIOVASCULAR RISK <40 mg/dl - HIGH CARDIOVASCULAR RISK Normal [facility] Comment on above: Performed By: #### T SH, LIPID, FT3 #### [facility] [address] [address] [address] Ortega Morel LDL CALC NORMAL SEE BELOW Normal [facility] Comment on above: Result Comment: <100 mg/dl OPTIMAL 100 - 129 mg/dl NEAR OR ABOVE OPTIMAL 130 - 159 mg/dl BORDERLINE HIGH 160 - 189 mg/dl HIGH >190 mg/dl VERY HIGH Performed By: #### T SH, LIPID, FT3 #### [facility] [address] [address] [address] Ortega Morel Triglyceride [Mass/Vol] 156 mg/dL Critically high <=150 [facility] Comment on above: Performed By: #### T SH, LIPID, FT3 #### [facility] [address] [place] [address] Dr. Ortega Morel VLDL CALC 31.2 mg/dL Normal [facility] Comment on above: Performed By: #### T SH, LIPID, FT3 #### [facility] [address] [place] [address] Dr. Ortega Morel PROF 14(COMP METB)on 022 Albumin [Mass/Vol] 3.8 g/dL Normal 3.4-5.0 [facility] Comment on above: Performed By: #### C MP #### [facility] [address] [place] [address] Dr. Ortega Morel Albumin/Globulin [Mass ratio] 1.2 {ratio} Normal [facility] Comment on above: Performed By: #### C MP #### [facility] [address] [place] [address] Dr. Ortega Morel ALP [Catalytic activity/Vol] 84 U/L Normal 46-116 [facility] Comment on above: Performed By: #### C MP #### [facility] [address] [place] [address] Dr. Ortega Morel ALT [Catalytic activity/Vol] 15 U/L Normal 14-59 [facility] Comment on above: Performed By: #### C MP #### [facility] [address] [address] [address] Ortega Morel Anion gap [Moles/Vol] 13.6 mmol/L Normal [facility] Comment on above: Performed By: #### C MP #### [facility] [address] [address] [address] Ortega Morel AST [Catalytic activity/Vol] 16 U/L Normal 15-37 [facility] Comment on above: Performed By: #### C MP #### [facility] [address] [address] [address] Ortega Morel Bilirubin [Mass/Vol] 0.5 mg/dL Normal 0.2-1.0 [facility] Comment on above: Performed By: #### C MP #### [facility] [address] [place] [address] Dr. Ortega Morel Calcium [Mass/Vol] 8.7 mg/dL Normal 8.5-10.1 [facility] Comment on above: Performed By: #### C MP #### [facility] [address] [place] [address] Dr. Ortega Morel Chloride [Moles/Vol] 105 mmol/L Normal 98-107 [facility] Comment on above: Performed By: #### C MP #### [facility] [address] [place] [address] Dr. Ortega Morel CO2 [Moles/Vol] 25.5 mmol/L Normal 21.0-32.0 [facility] Comment on above: Performed By: #### C MP #### [facility] [address] [place] [address] Dr. Ortega Morel Creatinine [Mass/Vol] 0.69 mg/dL Normal 0.55-1.02 [facility] Comment on above: Performed By: #### C MP #### [facility] [address] [place] [address] Dr. Ortega Morel EGFR-AF FILIPINO >60 Normal >=60 [facility] Comment on above: Performed By: #### C MP #### [facility] [address] [place] [address] Dr. Ortega Morel EGFR-NON AF FILIPINO >60 Normal >=60 [facility] Comment on above: Performed By: #### C MP #### [facility] [address] [place] [address] Dr. Ortega Morel Globulin (S) [Mass/Vol] 3.2 g/dL Normal [facility] Comment on above: Performed By: #### C MP #### [facility] [address] [place] [address] Dr. Ortega Morel Glucose [Mass/Vol] 94 mg/dL Normal 74-106 [facility] Comment on above: Performed By: #### C MP #### [facility] [address] [place] [address] Dr. Ortega Morel Potassium [Moles/Vol] 4.1 mmol/L Normal 3.5-5.1 [facility] Comment on above: Performed By: #### C MP #### [facility] [address] [place] [address] Dr. Ortega Morel Protein [Mass/Vol] 7.0 g/dL Normal 6.4-8.2 [facility] Comment on above: Performed By: #### C MP #### [facility] [address] [place] [address] Dr. Ortega Morel Sodium [Moles/Vol] 140 mmol/L Normal 136-145 [facility] Comment on above: Performed By: #### C MP #### [facility] [address] [place] [address] Dr. Ortega Morel Urea nitrogen [Mass/Vol] 14.0 mg/dL Normal 7.0-18.0 [facility] Comment on above: Performed By: #### C MP #### [facility] [address] [place] [address] Dr. Ortega Morel Urea nitrogen/Creatinine [Mass ratio] 20.3 mg/mg Normal [facility] Comment on above: Performed By: #### C MP #### [facility] [address] [place] [address] Dr. Ortega Morel TSHon 07-15-2022 TSH 14.645 uIU/mL Critically high 0.358-3.740 [facility] Comment on above: Performed By: #### T SH, LIPID, FT3 #### [facility] [address] [place] [address] Dr. Ortega Morel UA RANDOMon 07-15-2022 Bilirubin Ql (U) Negative Normal NEGATIVE [facility] Comment on above: Performed By: #### U A #### [facility] [address] [place] [address] Dr. Ortega Morel Clarity (U) CLEAR Normal CLEAR [facility] Comment on above: Performed By: #### U A #### [facility] [address] [place] [address] Dr. Ortega Morel Color (U) YELLOW Normal YELLOW [facility] Comment on above: Performed By: #### U A #### [facility] [address] [place] [address] Dr. Ortega Morel Glucose Ql (U) Negative Normal NEGATIVE [facility] Comment on above: Performed By: #### U A #### [facility] [address] [place] [address] Dr. Ortega Morel Hemoglobin Ql (U) Negative Normal NEGATIVE [facility] Comment on above: Performed By: #### U A #### [facility] [address] [place] [address] Dr. Ortega Morel Ketones Ql (U) Negative Normal NEGATIVE [facility] Comment on above: Performed By: #### U A #### [facility] [address] [place] [address] Dr. Ortega Morel LEUKOCYTES Negative Normal NEGATIVE [facility] Comment on above: Performed By: #### U A #### [facility] [address] [place] [address] Dr. Ortega Morel Nitrite Ql (U) Negative Normal NEGATIVE [facility] Comment on above: Performed By: #### U A #### [facility] [address] [place] [address] Dr. Ortega Morel pH (U) 6.5 [pH] Normal 5-9 [facility] Comment on above: Performed By: #### U A #### [facility] [address] [place] [address] Dr. Ortega Morel SPEC GRAVITY 1.025 Normal 1.005-<=1.0 25 [facility] Comment on above: Performed By: #### U A #### [facility] [address] [place] [address] Dr. Ortega Morel UA PROTEIN TRACE Normal NEGATIVE/ TRACE [facility] Comment on above: Performed By: #### U A #### [facility] [address] [place] [address] Dr. Ortega Morel Urobilinogen Qn (U) 1.0 {Alphonso'U}/dL Normal 0.2 - 1. 0 [facility] Comment on above: Performed By: #### U A #### [facility] [address] [place] [address] Dr. Ortega Morel Covid-19 PCR (CVDTB)on 04-14 SARS-CoV-2 (COVID-19) RNA LIU+probe Ql (Unsp spec) Not detected Normal NOT DETECTED [facility] Comment on above: Result Comment: When [...] for this test is supported by the [employer] Analyst of Health and Human Service's declaration that [...] used). Performed By: #### C MP #### [facility] [address] [place] [address] Dr. Ortega Morel Covid-19 PCR (CVDTBH)on 04-13 SARS-CoV-2 (COVID-19) RNA LIU+probe Ql (Unsp spec) Not detected Normal NOT DETECTED [facility] Comment on above: Result Comment: When [...] for this test is supported by the [employer] Analyst of Health and Human Service's declaration that [...] used). Performed By: #### C MP #### [facility] [address] [place] [address] Dr. Ortega Morel CBC AUTO DIFFon 01-11-2022 BASO # 0.0 103/ul Normal 0.0-0.1 [facility] Comment on above: Performed By: #### C MP #### [facility] [address] [place] [address] Dr. Ortega Morel Basophils/100 WBC (Bld) 0.6 % Normal 0.2-2.0 [facility] Comment on above: Performed By: #### C MP #### [facility] [address] [place] [address] Dr. Ortega Morel EO # 0.1 103/ul Normal 0.0-0.7 [facility] Comment on above: Performed By: #### C MP #### [facility] [address] [place] [address] Dr. Ortega Moerl Eosinophils/100 WBC (Bld) 1.5 % Normal 0.9-7.0 [facility] Comment on above: Performed By: #### C MP #### [facility] [address] [place] [address] Dr. Ortega Morel Erythrocyte distribution width (RBC) [Ratio] 12.7 % Normal 11.0-15.0 [facility] Comment on above: Performed By: #### C MP #### [facility] [address] [place] [address] Dr. Ortega Morel Hematocrit (Bld) [Volume fraction] 38.0 % Normal 36.0-48.0 [facility] Comment on above: Performed By: #### C MP #### [facility] [address] [place] [address] Dr. Ortega Morel Hemoglobin (Bld) [Mass/Vol] 13.1 g/dL Normal 12.0-16.0 [facility] Comment on above: Performed By: #### C MP #### [facility] [address] [place] [address] Dr. Ortega Morel IG # 0.02 10e3/ul Normal 0.00-0.03 [facility] Comment on above: Performed By: #### C MP #### [facility] [address] [place] [address] Dr. Ortega Morel IG % 0.4 % Normal 0.0-0.5 [facility] Comment on above: Performed By: #### C MP #### [facility] [address] [place] [address] Dr. Ortega Morel LYMPH # 1.0 103/ul Critically low 1.2-3.8 [facility] Comment on above: Performed By: #### C MP #### [facility] [address] [place] [address] Dr. Ortega Morel Lymphocytes/100 WBC (Bld) 18.3 % Critically low 20.5-60.0 [facility] Comment on above: Performed By: #### C MP #### [facility] [address] [place] [address] Dr. Ortega Morel MANUAL DIFF REQ NO Normal [facility] Comment on above: Performed By: #### C MP #### [facility] [address] [address] [address] Ortega Morel MCH (RBC) [Entitic mass] 33.9 pg Normal 26.7-34.0 [facility] Comment on above: Performed By: #### C MP #### [facility] [address] [place] [address] Dr. Ortega Morel MCHC (RBC) [Mass/Vol] 34.5 g/dL Normal 29.9-35.2 [facility] Comment on above: Performed By: #### C MP #### [facility] [address] [place] [address] Dr. Ortega Morel MCV (RBC) [Entitic vol] 98.4 fL Normal 81.0-99.0 [facility] Comment on above: Performed By: #### C MP #### [facility] [address] [place] [address] Dr. Ortega Morel MONO # 0.5 103/ul Normal 0.3-0.8 [facility] Comment on above: Performed By: #### C MP #### [facility] [address] [place] [address] Dr. Ortega Morel Monocytes/100 WBC (Bld) 9.2 % Normal 1.7-12.0 [facility] Comment on above: Performed By: #### C MP #### [facility] [address] [place] [address] Dr. Ortega Morel NEUT # 3.6 103/ul Normal 1.4-6.5 [facility] Comment on above: Performed By: #### C MP #### [facility] [address] [place] [address] Dr. Ortega Morel Neutrophils/100 WBC (Bld) 70.0 % Normal 43.0-75.0 [facility] Comment on above: Performed By: #### C MP #### [facility] [address] [place] [address] Dr. Ortega Morel Platelet mean volume (Bld) [Entitic vol] 10.0 fL Normal 9.5-13.5 [facility] Comment on above: Performed By: #### C MP #### [facility] [address] [address] [address] Ortega Morel PLT 189 103/ul Normal 150-450 [facility] Comment on above: Performed By: #### C MP #### [facility] [address] [address] [address] Ortega Morel RBC 3.86 106/ul Critically low 4.20-5.40 [facility] Comment on above: Performed By: #### C MP #### [facility] [address] [id number] Ortega Morel WBC 5.2 103/ul Normal 4.0-11.0 [facility] Comment on above: Performed By: #### C MP #### [facility] [address] [address] [address] ABD/PELV W CONon [...] SABRINA HARRIS Date: 2022-01-11 10:31 Normal [facility] URINE PROFILEon 2 Bilirubin Ql (U) Negative Normal NEGATIVE [facility] Comment on above: Performed By: #### E RUR #### [facility] [address] [place] [address] Dr. Ortega Morel Clarity (U) CLEAR Normal CLEAR [facility] Comment on above: Performed By: #### E RUR #### [facility] [address] [place] [address] Dr. Ortega Morel Color (U) BROWN Abnormal YELLOW [facility] Comment on above: Performed By: #### E RUR #### [facility] [address] [place] [address] Dr. Ortega MAZA A micrscopic examina tion will be performed if indicated. Normal [facility] Comment on above: Performed By: #### E RUR #### [facility] [address] [place] [address] Dr. Ortega Morel Glucose Ql (U) Negative Normal NEGATIVE [facility] Comment on above: Performed By: #### E RUR #### [facility] [address] [place] [address] Dr. Ortega Morel Hemoglobin Ql (U) Negative Normal NEGATIVE [facility] Comment on above: Performed By: #### E RUR #### [facility] [address] [place] [address] Dr. Ortega Morel Ketones Ql (U) TRACE Abnormal NEGATIVE [facility] Comment on above: Performed By: #### E RUR #### [facility] [address] [place] [address] Dr. Ortega Morel LEUKOCYTES Negative Normal NEGATIVE [facility] Comment on above: Performed By: #### E RUR #### [facility] [address] [place] [address] Dr. Ortega Morel Nitrite Ql (U) Negative Normal NEGATIVE [facility] Comment on above: Performed By: #### E RUR #### [facility] [address] [place] [address] Dr. Ortega Morel pH (U) 6.0 [pH] Normal 5-9 [facility] Comment on above: Performed By: #### E RUR #### [facility] [address] [place] [address] Dr. Ortega Morel SPEC GRAVITY 1.025 Normal 1.005-<=1.0 25 [facility] Comment on above: Performed By: #### E RUR #### [facility] [address] [place] [address] Dr. Ortega Morel UA PROTEIN Negative Normal NEGATIVE/ TRACE [facility] Comment on above: Performed By: #### E RUR #### [facility] [address] [place] [address] Dr. Ortega Morel UR MICRO IND NOT INDICATED Normal [facility] Comment on above: Performed By: #### E RUR #### [facility] [address] [place] [address] Dr. Ortega Morel Urobilinogen Qn (U) 1.0 {Alphonso'U}/dL Normal 0.2 - 1. 0 [facility] Comment on above: Performed By: #### E RUR #### [facility] [address] [place] [address] Dr. Ortega Morel LACTATE/LACTIC ACIDon 2021 Lactate [Moles/Vol] 0.7 mmol/L Normal 0.4-1.9 [facility] Comment on above: Performed By: #### L ACT #### [facility] [address] [place] [address] Dr. Ortega Morel LIPASEon 01-11-2022 Lipase [Catalytic activity/Vol] 66.0 U/L Critically low 73.0-393.0 [facility] Comment on above: Performed By: #### C MP #### [facility] [address] [place] [address] Dr. Ortega Morel PROF 14(COMP METB)on 022 Albumin [Mass/Vol] 3.4 g/dL Normal 3.4-5.0 [facility] Comment on above: Performed By: #### C MP #### [facility] [address] [place] [address] Dr. Ortega Morel Albumin/Globulin [Mass ratio] 1.1 {ratio} Normal [facility] Comment on above: Performed By: #### C MP #### [facility] [address] [place] [address] Dr. Ortega Morel ALP [Catalytic activity/Vol] 71 U/L Normal 46-116 [facility] Comment on above: Performed By: #### C MP #### [facility] [address] [place] [address] Dr. Ortega Morel ALT [Catalytic activity/Vol] 20 U/L Normal 14-59 [facility] Comment on above: Performed By: #### C MP #### [facility] [address] [place] [address] Dr. Ortega Morel Anion gap [Moles/Vol] 10.3 mmol/L Normal [facility] Comment on above: Performed By: #### C MP #### [facility] [address] [place] [address] Dr. Ortega Morel AST [Catalytic activity/Vol] 15 U/L Normal 15-37 [facility] Comment on above: Performed By: #### C MP #### [facility] [address] [place] [address] Dr. Ortega Morel Bilirubin [Mass/Vol] 0.7 mg/dL Normal 0.2-1.0 [facility] Comment on above: Performed By: #### C MP #### [facility] [address] [place] [address] Dr. Ortega Morel Calcium [Mass/Vol] 8.7 mg/dL Normal 8.5-10.1 [facility] Comment on above: Performed By: #### C MP #### [facility] [address] [place] [address] Dr. Ortega Morel Chloride [Moles/Vol] 106 mmol/L Normal 98-107 [facility] Comment on above: Performed By: #### C MP #### [facility] [address] [place] [address] Dr. Ortega Morel CO2 [Moles/Vol] 26.5 mmol/L Normal 21.0-32.0 [facility] Comment on above: Performed By: #### C MP #### [facility] [address] [place] [address] Dr. Ortega Morel Creatinine [Mass/Vol] 0.74 mg/dL Normal 0.55-1.02 [facility] Comment on above: Performed By: #### C MP #### [facility] [address] [place] [address] Dr. Ortega Morel EGFR-AF FILIPINO >60 Normal >=60 [facility] Comment on above: Performed By: #### C MP #### [facility] [address] [place] [address] Dr. Ortega Morel EGFR-NON AF FILIPINO >60 Normal >=60 [facility] Comment on above: Performed By: #### C MP #### [facility] [address] [place] [address] Dr. Ortega Morel Globulin (S) [Mass/Vol] 3.1 g/dL Normal [facility] Comment on above: Performed By: #### C MP #### [facility] [address] [place] [address] Dr. Ortega Morel Glucose [Mass/Vol] 95 mg/dL Normal 74-106 [facility] Comment on above: Performed By: #### C MP #### [facility] [address] [place] [address] Dr. Ortega Morel Potassium [Moles/Vol] 3.8 mmol/L Normal 3.5-5.1 [facility] Comment on above: Performed By: #### C MP #### [facility] [address] [place] [address] Dr. Ortega Morel Protein [Mass/Vol] 6.5 g/dL Normal 6.4-8.2 [facility] Comment on above: Performed By: #### C MP #### [facility] [address] [place] [address] Dr. Ortega Morel Sodium [Moles/Vol] 139 mmol/L Normal 136-145 [facility] Comment on above: Performed By: #### C MP #### [facility] [address] [address] [address] Ortega Morel Urea nitrogen [Mass/Vol] 15.0 mg/dL Normal 7.0-18.0 [facility] Comment on above: Performed By: #### C MP #### [facility] [address] [place], [place] [address] Dr. Ortega Morel Urea nitrogen/Creatinine [Mass ratio] 20.3 mg/mg Normal [facility] Comment on above: Performed By: #### C MP #### [facility] [address] [place], [place] [address] Dr. Ortega Morel TROPONIN, HIGH SENSITIVITYon 01-11-2022 HSTROP <4.0 Normal 4.0-51.3 [facility] Comment on above: Result Comment: CUT- OFF POINTS HAVE BEEN ESTABLISHED BASED ON THE FOURTH UNIVERSAL DEFINITIONS OF MYOCARDIAL INFARCTION. THE UPPER REFERENCE LIMIT (URL) OF TROPONIN, DEFINED THE 99TH PERCENTILE OF cTnI DISTRIBUTION IN A REFERENCE POPULATION, HAS BEEN CONFIRMED THE DECISION THRESHOLD FOR RI DIAGNOSIS. Performed By: #### C MP #### [facility] [address] [address] [address] Ortega BENTONon 09-29-2021 SERENITY Office Visit (JUAN ) -- EZEQUIEL LEI ([id number]) 1960 F Date Time Provider Department 09/29/21 11:15 AM JESSICA LITTLE III During your visit today, we recorded the following information about you: Pulse Blood pressure Weight 79/minute 134/91 91.2 kg Jessica Little III, MD 09/29/2021 11:22 AM Addendum Ms. Lei is here today at the request of Blas Slaughter [address] [place] [phone] for my opinion regarding recurrent diverticulitis. My [...] cervical lymphadenopathy CT abdomen pelvis wo con [facility] [place] [address] [place] [address] CT Scan Report Signed Patient: Ezequiel Lei MR#: [id number] : 1960 Acct:[id number] Age/Sex: 61 / F ADM Date: 08/30/21 Loc: ER Room: Type: [facility] ER Attending Dr: Ordering Provider: Jas [...] Facet arthropat (more content not included)... Normal [facility] HISTORY PHYSICALon HISTORY PHYSICAL HNO ID: [id number] Author: Jessica Little III, MD Service: ? Author Type: Physician Type: HANDP Filed: 09/29/2021 12:21 PM Note Text: Ms. Lei is here today at the request of Blas C Girvin [address] [place] [id number] for my opinion regarding recurrent diverticulitis. My [...] cervical lymphadenopathy CT abdomen pelvis wo con [facility] [place] [address] [place] [id number] Scan Report Signed Patient: Ezequiel Lei MR#: [id number] 239 : 1960 Acct:[id number] Age/Sex: 61 / F ADM Date: 08/30/21 Loc: ER Room: Type: [facility] ER Attending Dr: Ordering Provider: Jas [...] by: Quinton (more content not included)... Normal [facility] Covid-19 PCR (CVDTB[facility])on SARS-CoV-2 (COVID-19) RNA LIU+probe Ql (Unsp spec) Not detected Normal NOT DETECTED [facility] Comment on above: Result Comment: This test is not yet approved or cleared by the [place] FDA. When there are no FDA-approved or cleared tests available, and other criteria are met, FDA can make tests available under an emergency access mechanism called an Emergency Use Authorization (EUA). The EUA for this test is supported by the [place] of Health and Human Service's (HHS's) declaration [...] consistent with SARS-CoV-2. Performed By: #### [facility] #### [facility] [address] [place] [address] Dr. Ortega Morel [facility]on SARS-CoV-2 (COVID-19) RNA LIU+probe Ql (Unsp spec) Detected Critically abnormal NOT DETECTED [facility] Comment on above: Result Comment: This test is not yet approved or cleared by the [place] FDA. When there are no FDA-approved or cleared tests available, and other criteria are met, FDA can make tests available under an emergency access mechanism called an Emergency Use Authorization (EUA). The EUA for this test is supported by the [employer] of Health and Human Service's (HHS's) declaration [...] longer be used). Performed By: #### C #### [facility] [address] [place], [place] [address] Dr. Ortega Morel Quantiferon-TB Plus (Client Incubated)on 07-08-2020 Gamma interferon background IA Qn (Bld) 0.09 International_Unit/mL [facility] Comment on above: Performed By: #### 3 [id number], [id number] #### [facility] [address] [place] [address] M. tuberculosis stim IFN-g by CD4+ CD8+ T-cells corrected for background Qn (Bld) 0.43 International_Unit/mL [facility] Comment on above: Performed By: #### 3 [id number] #### [facility] [address] [place] [address] M. tuberculosis stim IFN-g by CD4+ T-cells corrected for background Qn (Bld) 0.36 International_Unit/mL [facility] Comment on above: Performed By: #### 3 [id number], [id number] #### [facility] [address] [place] [address] M. tuberculosis stim IFN-g Ql (Bld) [Interp] Negative Negative [facility] Comment on above: Result Comment: The specimen received for QuantiFERON testing was incubated by the ordering institution. Specific procedures outlined in our Directory of Services and in the package insert for the QuantiFERON Gold (In Tube) test must be followed to enable for proper stimulation of cells for the production of interferon gamma. Performed at: [address] [id number] PhD Anjel Arreola Performed By: #### 3 [id number] #### [facility] [address] [place] [address] Mitogen stimulated gamma interferon Qn (Bld) >10.[address] [facility] Comment on above: Performed By: #### 3 [id number], [id number] #### [facility] [address] [place] [address] Service comment (Unsp spec) [Interp] Comment [facility] Comment on above: Result Comment: The QuantiFERON-TB Gold Plus result is determined by subtracting the Nil value from either TB antigen (Ag) tube. The mitogen tube serves as a control for the test. Performed By: #### 3 [id number], [id number] #### [facility] [address] [place] [address] Hep Bs Abon 07-06-2020 HBV surface Ab Ql (S) Reactive Fis [facility] Comment on above: Result Comment: Non Reactive: Inconsistent with immunity, less than 10 mIU/mL Reactive: Consistent with immunity, greater than 9.9 mIU/mL Performed at: [facility] [id number] PhD Anjel Arreola Performed By: #### 3 [id number], [id number], [id number] #### [facility] [address] [place] [address] Measles/Mumps/Rubella Immuni tyon 07-06-2020 MeV IgG IA Qn (S) {index_val} Immune >16.[address] [facility] Comment on above: Result Comment: Nega tive <13.5 Equivocal 13.5 - 16.4 Positive >16.4 Presence of antibodies to Rubeola is presumptive evidence of immunity except when acute infection is suspected. Performed By: #### 3 [id number], [id number], [id number] #### [facility] [address] [place] [address] MuV IgG IA Qn (S) 31.4 A unit/mL Immune >10.[address] [facility] Comment on above: Result Comment: Nega tive <9.0 Equivocal 9.0 - 10.9 Positive >10.9 A positive result generally indicates past exposure to Mumps virus or previous vaccination. Performed at: [facility] [address] [place], [place] [id number] PhD Anjel Arreola Performed By: #### 3 [id number], [id number] #### [facility] [address] [place] [address] Rubella virus IgG Qn (S) 24.40 [IU]/mL Immune >0.[address] [facility] Comment on above: Result Comment: Non- immune <0.90 Equivocal 0.90 - 0.99 Immune >0.99 Performed By: #### 3 [id number], [id number], [id number] #### [facility] [address] [place] [address] Varic IgGon 07-06-2020 VZV IgG IA Qn (S) >4000 Immune >[address] [facility] Comment on above: Result Comment: Nega tive <135 Equivocal 135 - 165 Positive >165 A positive result generally indicates exposure to the pathogen or administration of specific immunoglobulins, but it is not indication of active infection or stage of disease. Performed at: [facility] [address] [place], [place] [id number] PhD Anjel Arreola Performed By: #### 3 [id number], [id number], [id number] #### [facility] [address] [place] [address] Consent for Treatmenton 06-14 Consent for Treatment [id number]:[address] [facility] Physician Orderon 07-05-2020 Physician Order [id number]:[address] [facility] Vital Signs Date Time Vital Sign Value Performing Clinician Facility 09-22-2024 11:44-0500 Body height 154.94 cm Blas Katy DO Work Phone: [facility] 09-22-2024 11:44-0500 Body mass index (BMI) [Ratio] 37.4 kg/m2 Blas Slaughter DO Work Phone: [facility] 09-22-2024 11:44-0500 Body temperature 98.2 [degF] Blas Slaughter DO Work Phone: [facility] 09-22-2024 11:44-0500 Body weight 89.81 kg Blas lSaughter DO Work Phone: [facility] 09-22-2024 11:44-0500 Diastolic blood pressure 78 mm[Hg] Blas Slaughter DO Work Phone: [facility] 09-22-2024 11:44-0500 Heart rate 74 /min Blas Slaughter DO Work Phone: [facility] 09-22-2024 11:44-0500 SaO2% (BldA) [Mass fraction] 98 % Blas Slaughter DO Work Phone: [facility] 09-22-2024 11:44-0500 Systolic blood pressure 122 mm[Hg] Blas Slaughter DO Work Phone: [facility] 09-18-2024 13:30-0500 Diastolic blood pressure 62 mm[Hg] Blas Slaughter DO Work Phone: [facility] 09-18-2024 13:30-0500 Heart rate 62 /min Blas Slaughter DO Work Phone: [facility] 09-18-2024 13:30-0500 Respiratory rate 18 /min Blas Slaughter DO Work Phone: [facility] 09-18-2024 13:30-0500 SaO2% (BldA) [Mass fraction] 98 % Blas Slaughter DO Work Phone: [facility] 09-18-2024 13:30-0500 Systolic blood pressure 110 mm[Hg] Blas Slaughter DO Work Phone: [facility] 09-18-2024 12:09-0500 Body temperature 98.3 [degF] Blas Slaughter DO Work Phone: [facility] 09-18-2024 12:01-0500 Body height 154.94 cm Blas Slaughter DO Work Phone: [facility] 09-18-2024 12:01-0500 Body weight 81.64 kg Blas Slaughter DO Work Phone: [facility] 08-06-2024 11:10-0500 Diastolic blood pressure 78 mm[Hg] Blas Katy DO Work Phone: [facility] 08-06-2024 11:10-0500 Systolic blood pressure 118 mm[Hg] Blas Katy DO Work Phone: [facility] 08-06-2024 10:38-0500 Body temperature 97.7 [degF] Blas Katy DO Work Phone: [facility] 08-06-2024 10:38-0500 Heart rate 84 /min Blas Katy DO Work Phone: [facility] 08-06-2024 10:38-0500 Respiratory rate 22 /min Blas Slaughter DO Work Phone: [facility] 08-06-2024 10:38-0500 SaO2% (BldA) [Mass fraction] 100 % Blas Slaughter DO Work Phone: [facility] 08-06-2024 10:34-0500 Body height 154.94 cm Blas Katy DO Work Phone: [facility] 08-06-2024 10:34-0500 Body weight 89.9 kg Blas Katy DO Work Phone: [facility] 02-18-2024 14:56-0400 Body height 154.94 cm [facility] 02-18-2024 14:56-0400 Body mass index (BMI) [Ratio] 37 kg/m2 [facility] 02-18-2024 14:56-0400 Body temperature 97.2 [degF] [facility] 02-18-2024 14:56-0400 Body weight 88.9 kg [facility] 02-18-2024 14:56-0400 Diastolic blood pressure 86 mm[Hg] [facility] 02-18-2024 14:56-0400 SaO2% (BldA) [Mass fraction] 98 % [facility] 02-18-2024 14:56-0400 Systolic blood pressure 120 mm[Hg] [facility] 01-22-2024 09:04-0400 Body height 154.94 cm [facility] 01-22-2024 09:04-0400 Body mass index (BMI) [Ratio] 36.8 kg/m2 [facility] 01-22-2024 09:04-0400 Body temperature 97.3 [degF] [facility] 01-22-2024 09:04-0400 Body weight 88.59 kg [facility] 01-22-2024 09:04-0400 Diastolic blood pressure 84 mm[Hg] [facility] 01-22-2024 09:04-0400 Heart rate 78 /min [facility] 01-22-2024 09:04-0400 SaO2% (BldA) [Mass fraction] 99 % [facility] 01-22-2024 09:04-0400 Systolic blood pressure 124 mm[Hg] [facility] 12-14-2023 10:18-0400 Body height 154.94 cm [facility] 12-14-2023 10:18-0400 Body mass index (BMI) [Ratio] 36.8 kg/m2 [facility] 12-14-2023 10:18-0400 Body temperature 98 [degF] [facility] 12-14-2023 10:18-0400 Body weight 88.45 kg [facility] 12-14-2023 10:18-0400 Diastolic blood pressure 84 mm[Hg] [facility] 12-14-2023 10:18-0400 Heart rate 68 /min [facility] 12-14-2023 10:18-0400 Systolic blood pressure 132 mm[Hg] [facility] 09-11-2023 14:40-0500 Body height 154.94 cm Blas Slaughter Other [employer] Other 09-11-2023 14:40-0500 Body mass index (BMI) [Ratio] 37.6 kg/m2 Blas Slaughter Other [employer] Other 09-11-2023 14:40-0500 Body temperature 97.9 [degF] Blas Slaughter Other [employer] Other 09-11-2023 14:40-0500 Body weight 90.27 kg Blas Slaughter Other [employer] Other 09-11-2023 14:40-0500 Diastolic blood pressure 88 mm[Hg] Blas Slaughter Other [employer] Other 09-11-2023 14:40-0500 Respiratory rate 18 /min Blas Lindseyjulissa Other [employer] Other 09-11-2023 14:40-0500 SaO2% (BldA) [Mass fraction] 98 % Blas Slaughter Other [employer] Other 09-11-2023 14:40-0500 Systolic blood pressure 138 mm[Hg] Blas Slaughter Other [employer] Other 01-19-2023 10:30-0400 Body height 154.94 cm Blas Slaughter Other [employer] Other 01-19-2023 10:30-0400 Body mass index (BMI) [Ratio] 36.27 kg/m2 Blas Slaughter Other [employer] Other 01-19-2023 10:30-0400 Body temperature 98.7 [degF] Blas Slaughter Other [employer] Other 01-19-2023 10:30-0400 Body weight 87.09 kg Blas Lindseyjulissa Other [employer] Other 01-19-2023 10:30-0400 Diastolic blood pressure 82 mm[Hg] Blas Slaughter Other [employer] Other 01-19-2023 10:30-0400 Respiratory rate 18 /min Blas Lindseyjulissa Other [employer] Other 01-19-2023 10:30-0400 SaO2% (BldA) [Mass fraction] 97 % Blas Slaughter Other [employer] Other 01-19-2023 10:30-0400 Systolic blood pressure 126 mm[Hg] Blas Slaughter Other [employer] Other 07-17-2022 10:50-0500 Body height 154.94 cm Blas Slaughter Other [employer] Other 07-17-2022 10:50-0500 Body mass index (BMI) [Ratio] 37.5 kg/m2 Blas Lindseyjulissa Other [employer] Other 07-17-2022 10:50-0500 Body temperature 97.6 [degF] Blas Slaughter Other [employer] Other 07-17-2022 10:50-0500 Body weight 90.04 kg Blas Slaughter Other [employer] Other 07-17-2022 10:50-0500 Diastolic blood pressure 88 mm[Hg] Blas Slaughter Other [employer] Other 07-17-2022 10:50-0500 Respiratory rate 18 /min Blas Slaughter Other [employer] Other 07-17-2022 10:50-0500 SaO2% (BldA) [Mass fraction] 99 % Blas Slaughter Other [employer] Other 07-17-2022 10:50-0500 Systolic blood pressure 132 mm[Hg] Blas Slaughter Other [employer] Other 01-17-2022 09:10-0400 Body height 154.94 cm Blas Slaughter Other [employer] Other 01-17-2022 09:10-0400 Body mass index (BMI) [Ratio] 37.31 kg/m2 Blas Slaughter Other [employer] Other 01-17-2022 09:10-0400 Body temperature 96.8 [degF] Blas Slaughter Other [employer] Other 01-17-2022 09:10-0400 Body weight 89.59 kg Blas Slaughter Other [employer] Other 01-17-2022 09:10-0400 Diastolic blood pressure 86 mm[Hg] Blas Slaughter Other [employer] Other 01-17-2022 09:10-0400 Respiratory rate 18 /min Blas Slaughter Other [employer] Other 01-17-2022 09:10-0400 SaO2% (BldA) [Mass fraction] 98 % Blas Slaughter Other [employer] Other 01-17-2022 09:10-0400 Systolic blood pressure 126 mm[Hg] Blas Slaughter Other [employer] Other Encounters Encounter Date Encounter Type Care Provider Facility Start: 09-22-2024 End: 09-22-2024 ambulatory Blas Slaughter DO Work Phone: [facility] Work Phone: Start: 09-22-2024 End: 09-22-2024 Patient encounter procedure Blas Slaughter DO Work Phone: [facility] Physician [facility] [place] Work Phone: Start: 09-18-2024 End: 09-18-2024 Emergency department patient visit Blas Slaughter DO Work Phone: [facility] Work Phone: Start: 08-06-2024 End: 08-06-2024 Emergency department patient visit Blas Slaughter DO Work Phone: [facility] Work Phone: Start: 06-25-2024 End: 06-26-2024 Refill Luisa Kasandra Nataprawira DO Work Phone: [facility] Comment on above: Surgical menopause o n hormone replacement therapy Start: 02-18-2024 End: 02-18-2024 ambulatory [facility] Work Phone: Start: 02-18-2024 End: 02-18-2024 Patient encounter procedure [facility] [place] Work Phone: Start: 01-22-2024 End: 01-22-2024 ambulatory [facility] Work Phone: Start: 01-22-2024 End: 01-22-2024 Patient encounter procedure [facility] [place] Work Phone: Start: 12-14-2023 End: 12-14-2023 ambulatory [facility] Work Phone: Start: 12-14-2023 End: 12-14-2023 Patient encounter procedure [facility] [place] Work Phone: Start: 11-28-2023 Non-patient / Non-visit [facility] Work Phone: Start: 11-19-2023 Non-patient / Non-visit [facility] Work Phone: Start: 09-19-2023 End: 09-19-2023 ambulatory Blas Slaughter Other [employer] Other Start: 09-19-2023 Telephone encounter Blas Slaughter [facility] [place] Start: 09-12-2023 End: 09-12-2023 ambulatory Blas Slaughter Other [employer] Other Start: 09-12-2023 Telephone encounter Blas Slaughter [facility] [place] Start: 09-11-2023 End: 09-11-2023 ambulatory Blas Slaughter Other [employer] Other Start: 09-11-2023 Office outpatient visit 25 minutes Blas Slaughter [facility] [place] Start: 09-10-2023 End: 09-10-2023 ambulatory Blas Slaughter Other [employer] Other Start: 09-10-2023 Encounter for genera l adult medical examination without abnormal findings Blas Slaughter [facility] [place] Start: 09-10-2023 Telephone encounter Blas Slaughter [facility] [place] Start: 08-27-2023 End: 08-27-2023 ambulatory Blas Slaughter Other [employer] Other Start: 08-27-2023 Encounter for genera l adult medical examination without abnormal findings Blas Slaughter [facility] [place] Start: 08-27-2023 Telephone encounter Blas Slaughter [facility] [place] Start: 08-21-2023 End: 08-21-2023 ambulatory Blas Slaughter Other [employer] Other Start: 08-21-2023 Telephone encounter Blas Slaughter [facility] [place] Start: 05-01-2023 End: 05-01-2023 ambulatory Blas Slaughter Other [employer] Other Start: 05-01-2023 Telephone encounter Blas Slaughter [facility] [place] Start: 03-07-2023 End: 03-07-2023 ambulatory Blas Slaughter Other [employer] Other Start: 03-07-2023 Telephone encounter Blas Slaughter [facility] [place] Start: 02-15-2023 End: 02-15-2023 ambulatory Blas Slaughter Other [employer] Other Start: 02-15-2023 Telephone encounter Blas Slaughter [facility] [place] Start: 01-19-2023 End: 01-19-2023 ambulatory Blas Slaughter Other [employer] Other Start: 01-19-2023 Office outpatient visit 25 minutes Blas Slaughter [facility] [place] Start: 12-05-2022 End: 12-05-2022 ambulatory Blas Slaughter Other [employer] Other Start: 12-05-2022 Telephone encounter Blas Slaughter [facility] [place] Start: 10-10-2022 End: 10-10-2022 ambulatory Blas Slaughter Other [employer] Other Start: 10-10-2022 Telephone encounter Blas Slaughter [facility] [place] Start: 09-04-2022 End: 09-04-2022 ambulatory Blas Slaughter Other [employer] Other Start: 09-04-2022 Telephone encounter Blas Slaughter [facility] [place] Start: 08-16-2022 End: 08-16-2022 ambulatory Blas Slaughter Other [employer] Other Start: 08-16-2022 Telephone encounter Blas Slaughter [facility] [place] Start: 07-17-2022 End: 07-17-2022 ambulatory Blas Slaughter Other [employer] Other Start: 07-17-2022 Office outpatient visit 25 minutes Blas Slaughter [facility] [place] Start: 07-17-2022 Telephone encounter Blas Slaughter [facility] [place] Start: 07-15-2022 End: 07-16-[address] BLAS SLAUGHTER Facility:[facility] Start: 05-02-2022 End: 05-02-2022 ambulatory COSME MCINTYRE Facility:[facility] Start: 04-28-2022 End: 04-28-2022 ambulatory COSME MCINTYRE Facility:[facility] Start: 03-01-2022 End: 03-01-2022 ambulatory Blas Slaughter Other [employer] Other Start: 03-01-2022 Telephone encounter Blas Slaughter [facility] [place] Start: 02-27-2022 End: 02-27-2022 ambulatory Blas Slaughter Other [employer] Other Start: 02-27-2022 Telephone encounter Blas Slaughter [facility] [place] Start: 01-17-2022 End: 01-17-2022 ambulatory Blas Slaughter Other [employer] Other Start: 01-17-2022 Office outpatient visit 15 minutes Blas Slaughter [facility] [place] Start: 01-11-2022 End: 01-11-[address] CHARLEE TAYLOR Facility:[facility] Start: 09-20-2021 End: 09-20-[address] BLAS SLAUGHTER Facility:[facility] Start: 08-21-2021 End: 08-21-[address] DOCTOR GOLDSTEIN Facility:[facility] Procedures Date Procedure Procedure Detail Performing Clinician Start: 09-18-2024 Viral nucleic acid assay Blas Slaughter DO Work Phone: Start: 09-18-2024 Plain chest X-ray Blas Slaughter DO Work Phone: Plan of Treatment Date Care Activity Detail Author Start: 04-13-2024 Influenza vaccination Influenz a Vaccine (#1) [facility] Start: 2001 Screening for malign ant neoplasm of breast Mammogram [facility] Start: 1991 Screening for malign ant neoplasm of cervix [facility] Start: 1982 Screening for malign ant neoplasm of cervix Pap Smear [facility] Start: 1961 Screening for malign ant neoplasm of colon [facility] metabo lic 2000 panel - Serum or Plasma [facility] Patient Education [facility] Work Phone: Patient referral [facility] Work Phone: Urine culture [facility] Immunizations Immunization Date Immunization Notes Care Provider Fa cility 07-18-2021 influenza virus vaccine, unspecified formulation Luisa Stiles DO Work Phone: [facility] 06-13-2021 COVID-19 Vaccine Moderna - Documentation Purposes Only Blas Slaughter Other [facility] 11-03-2020 tetanus toxoid, reduced diphtheria toxoid, and acellular pertussis vaccine, adsorbed [facility] 09-08-2020 COVID-19 Vaccine Moderna - Documentation Purposes Only Blas Slaughter Other [facility] 08-11-2020 COVID-19 Vaccine Moderna - Documentation Purposes Only Blas Slaughter Other [facility] NEGATED: Highlighted row has not occurred!10-17-2019 influenza, seasonal, injectable Blas Slaughter Other [employer] Other Payers Date Payer Category [id number] 08-06-2024 Self-pay [id number] 08-13-2022 Blue Cross Blue Shield BCBS [id number] 1961 Unknown [id number] [id number] 1961 Unknown [id number]. 593 1961 Unknown [id number]. 593 1961 Unknown [id number]. 593 1961 Unknown [id number]. 593 1961 Unknown [id number]. 593 08-13-1958 Unknown [id number] Unknown [id number] 531 Unknown [id number] 531 Social History Date Type Detail Facility Unknown if ever smoked [facility] [employer] Other Start: 08-13-1981 Sex Assigned At N [facility] [employer] Other Start: 04-13-2023 End: 12-14-2023 Tobacco smoking status VAIS Ex-smoker (finding) [facility] Start: 1960 Sex Assigned At Female F [facility] End: 08-13-2014 History of tobacco use Current smoker [facility] End: 08-13-2014 History of tobacco use Cigarette Smoker [facility] Start: 04-17-2023 Alcoholic beverage intake Current drinker of alcohol (finding) [facility] Start: 04-17-2023 History of Social function [facility] Start: 04-13-2023 Tobacco Comment Last smoked : > 10 years [facility] Start: 04-13-2023 Alcohol Comment caffeine intak e : 1-2 cups per day 1 cup of coffee daily , an occasional mountain dew [facility] Start: 09-18-2024 Tobacco smoking stat us NHIS Current some day smoker [facility] Start: 09-18-2024 End: 09-22-2024 Sex Female (finding) [facility] Clinical Notes 12-04-2012 to 01-22-2024 Note Date & Type Note Facility 01-22-2024 Evaluation note Authored January 22, 2024 9:42 am The above note written by __ _Prince Quinones____ acting as human recorder, note dictated by Dr. Kenney .I performed the above HPI, ROS, and Examination. I formulated and dictated the treatment plan and was present for entire encounter. Blas Slaughter D.O. Author Blas Slaughter [facility] Authored December 14, 2023 11:35a m The above note written by __ _Prince Quinones____ acting as human recorder, note dictated by Dr. Kenney .I performed the above HPI, ROS, and Examination. I formulated and dictated the treatment plan and was present for entire encounter. Blas Slaughter D.O. [facility] Work Phone: [phone]) 132-706005-03-2024 Evaluation note* Author Blas Slaughter [facility] Authored December 14, 2023 11:35a m The above note written by __ _Prince Quinonse____ acting as human recorder, note dictated by Dr. Kenney .I performed the above HPI, ROS, and Examination. I formulated and dictated the treatment plan and was present for entire encounter. Blas Slaughter D.O. 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 Reassurance given. Aug, Other fci (current) drug therapy (ICD-10 - Z79.899) Aug, [...] B Complex and a B12 vitamin daily. [employer] Other 01-29-2024 Evaluation note* Encounter Date Diagnosis Assessment Notes Treatment Notes Treatment Clinical Notes Aug, Wellness examination (ICD-10 - Z00.00) [employer] Other 01-15-2024 Evaluation note* Encounter Date Diagnosis Assessment Notes Treatment Notes Treatment Clinical Notes Aug, Wellness examination (ICD-10 - Z00.00) Aug, Hypothyroidism (ICD-10 - E03.9) Aug, Hyperglycemia (ICD-1 0 - R73.9) [employer] Other 07-26-2023 Evaluation note* Encounter Date Diagnosis Assessment Notes Treatment Notes Treatment Clinical Notes Feb, Abnormal mammogram of left breast (ICD-10 - R92.8) [employer] Other 06-09-2023 Evaluation note* Encounter Date Diagnosis [...] have a bilateral mammogram done. Jan, Other fci (current) drug therapy (ICD-10 - Z79.899) Jan, Anxiety (ICD-10 - F41.9) Continue with above medication as needed. Jan, Nocturia (ICD-10 - R35.1) [employer] Other 01-04-2023 Evaluation note* Encounter Date Diagnosis Assessment Notes Treatment Notes Treatment Clinical Notes Aug, Hyperlipidemia (ICD-10 - E78.5) [employer] Other 12-05-2022 Evaluation note* Encounter Date Diagnosis Assessment Notes Treatment Notes Treatment Clinical Notes Jul, Hypothyroidism (ICD-10 - E03.9) [employer] Other 12-05-2022 Evaluation note* Encounter Date Diagnosis [...] done with her next lab. 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 [employer] Other 07-20-2022 Evaluation note* Encounter Date Diagnosis Assessment Notes Treatment Notes Treatment Clinical Notes Feb, Cystitis (ICD-10 - N30.90) [employer] Other 07-18-2022 Evaluation note* Encounter Date Diagnosis Assessment Notes Treatment Notes Treatment Clinical Notes Feb, Dysuria (ICD-10 - R30.0) Feb, Diverticulitis (ICD-10 - K57.92) Feb, Cough (ICD-10 - R05.9) [employer] Other 06-07-2022 Evaluation note* Encounter Date Diagnosis Assessment Notes Treatment Notes Treatment Clinical Notes Jan, Diverticulitis (ICD-10 - K57.92) She did go see the specialist in [place] for evaluation who recommended that she have [...] Jan, Hypothyroidism (ICD-10 - E03.9) Jan, Other fci (current) drug therapy (ICD-10 - Z79.899) Jan, Nocturia (ICD-10 - R35.1) Jan, Encounter for screening mammogram for breast cancer (ICD-10 - Z12.31) [employer] Other 04-24-2013 History general Narrative - Reported* Type Description Date Medical History Hypothyroidism Medical History Colonoscopy 12-04-12; Dr. Hardy Medical History Diverticulosis Surgical History hysterectomy and bilateral ooph erectomy 1988 Surgical History tumor removal 1993 Surgical History gallbladder 1995 Surgical History Colonoscopy, Dr. Alcocer rman- Sigmoid Diverticulosis repeat in 10 years 12-04- Surgical History Fried, cortisone injection rt kn ee Hospitalization History see above Hospitalization History [facility] [place] 03/09/2015 Hospitalization History Urgent Care - Diarrhea 1 Hospitalization History [facility] - [facility] Pain 2019 [facility] [employer] Other Evaluation [facility]No [facility] Other Evaluation note* Diagnosis Onset Date Resolution Status Diverticulitis of colon acut e Weight gain acute [facility] Work Phone: Evaluation note* Diagnosis Surgical menopause on hormone replacement therapy documented in this encounter [facility] noteNo assessment information available[facility] Work [facility]: Evaluation note* Diagnosis Onset Date Resolution Status Admit Date Anxiety acute September 22, 2024 11:52am Nausea acute September 22, 2024 11:52am Vomiting and diarrhea acute Sep 11:52am [facility] Work Phone: Hospital Discharge instructions Additional Instructions Follow-up with your primary care doctor Return to ED if develop worsening [facility] Work Phone: Summary Purpose Family History Relationship Condition Age at Onset Recorded Date/T corina father Unknown Diabetes mellitus Unknown Family history of mental disorder Unknown grandparent Unknown Not Specified Unknown Malignant neoplasm Unknown Relationship Condition Age at Onset Recorded Date/T corina father Unknown Diabetes mellitus Unknown Family history of mental disorder Unknown grandparent Unknown mother Unknown Malignant neoplasm Unknown Advance Directives Advance Directive Response Recorded Date/ Time Advance Directives No April 9:53am Advance Directive Response Recorded Date/ Time Advance Directives No April 8:53am Reason for Referral Reason appt pt needs cons ult w/ Dr. Muñoz to discuss recurrent diverticulitis and discuss colonoscopy Diagnosis 1 Diverticulitis (K57. 92) Referral Organization [facility] Referring Provider First Name Blas Referring Provider Last Name Katy Referring Provider Specialty Family Prac kat Referred Organization [facility] Referred Provider Jose Muñoz Referred Address ,[place], [place],[address] Referred Provider Specialty Surgery Referral Priority Routine General Notes PaulinoCharissa junior 01/17/2022 09:06:40 AM > referral sent p2p with visit note, last two CT scans, ER labs and ins card. pt informed she zeina be contacted to schedule this appt. Chief Complaint and Reason for Visit Chief Complaint Amb Documentation med refill Semaglutide Reason for Visit Diverticulitis of co rhoda Weight gain Chief Complaint Amb Documentation med refill Semaglutide med refill Semaglutide Reason for Visit Diverticulitis of co [place]oda Weight gain Diverticulitis of colon Leg cramps Weight gain Chief Complaint Amb Documentation med refill Semaglutide med refill Semaglutide med refill Semaglutide Reason for Visit Diverticulitis of co rhoda Weight gain Diverticulitis of colon Leg cramps Weight gain Leg cramps Weight gain Chief Complaint Admit Date cold symptoms August 06, 2024 10:27am dizzy/light headed September 18, 2024 1 1:32am Chief Complaint Admit Date cold symptoms August 06, 2024 10:27am dizzy/light headed September 18, 2024 1 1:32am anxiety/discuss meds September 22, 2024 11:52am Reason for Visit Admit Date Anxiety September 22, 2024 11:52am Nausea September 22, 2024 11:52am Vomiting and diarrhea September 22 11:52am Additional Source Comments INFORMATION SOURCE (unrecogn ized section and content) DATE CREATED AUTHOR 07/08/2020 Yg Gilbert [facility] DATE CREATED AUTHOR AUTHOR'S ORGANIZ ATION 11/04/2021 [facility] DATE CREATED AUTHOR AUTHOR'S ORGANIZ ATION 07/16/2022 [facility] DATE CREATED AUTHOR AUTHOR'S ORGANIZ ATION 09/20/2024 [facility] REASON FOR VISIT (unrecogniz ed section and content) Reason Comments Med Refill Care Teams (unrecognized sec tion and content) Team Status: Active Member Role Status Dates Blas Slaughter DO Primary Care Provider Active Team Status: Inactive Member Role Status Dates Blas Slaughter DO Primary Care Provider Active S tart: August 06, 2024 End: August 06, 2024 Dina Mendez , OLERICULTURE TEACHER Emergency Provider Active Start: August 06, 2024 End: August 06, 2024 Team Status: Inactive Member Role Status Dates Blas Slaughter DO Primary Care Provider Active S tart: September 18, 2024 End: September 18, 2024 Luis Enrique Shaffer Krys DO Emergency Provider Active Sta rt: September 18, 2024 End: September 18, 2024 Team Status: Active Member Role Status Dates Blas Slaughter DO Primary Care Provide r, Attending Provider Active Start: November 19, 2023 Team Status: Active Member Role Status Dates Blas Slaughter DO Primary Care Provider Active S tart: November 28, 2023 Prince Quinones LPN Attending Provider Active St art: November 28, 2023 Team Status: Inactive Member Role Status Dates Blas Slaughter DO Primary Care Provide r, Attending Provider Active Start: December 14, 2023 End: December 14, 2023 Team Status: Inactive Member Role Status Donnie Slaughter DO Primary Care Provide r, Attending Provider Active Start: January 22, 2024 End: January 22, 2024 Team Status: Inactive Member Role Status Donnie Slaughter DO Primary Care Provide r, Attending Provider Active Start: February 18, 2024 End: February 18, 2024 [employer] Relationship Specialty Start Date End Date Blas Slaughter MD [address] [place] [address] PCP - General Family Medicine 04/17/23 Team Status: Inactive Member Role Status Donnie Slaughter DO Primary Care Provide r, Attending Provider Active Start: September 22, 2024 End: September 22, 2024 Goals (unrecognized section and content) Goals may be documented in a n alternate section FOR RECORDS PERTAINING TO PATIENTS WHO ARE [...] BE BASED ON THE PRIMARY CLINICAL RECORDS. [facility] [employer] [facility]. provides no warranty or guarantee of the accuracy or completeness of information in this document.
[2024-09-23 07:36] LABS: Bilirubin Urine NEGATIVE (NEGATIVE); Blood Urine NEGATIVE (NEGATIVE); Clarity Urine CLEAR (CLEAR); Color Urine YELLOW (YELLOW); Glucose Urine UA NEGATIVE (NEGATIVE); Ketones Urine NEGATIVE (NEGATIVE); Leukocyte Esterase Urine NEGATIVE (NEGATIVE); Nitrite Urine NEGATIVE (NEGATIVE); Protein Urine NEGATIVE (NEG/TRACE); Urobilinogen Urine 0.2 EU/dL (0.2-1.0)
[2024-09-23 07:36] LABS: Basophils Percent Auto 0.7 % (0.2-2.0); Eosinophils Absolute Auto 0.1 10^3/uL (0.0-0.7); Eosinophils Percent Auto 1.8 % (0.9-7.0); Hematocrit 42.6 % (36.0-48.0); Hemoglobin 14.3 g/dL (12.0-16.0); Immature Granulocytes Abs Auto 0.06 10^3/uL (0.00-0.03); Immature Granulocytes Pct Auto 1.1 % (0.0-0.5); Lymphocytes Absolute Auto 1.7 10^3/uL (1.2-3.8); Lymphocytes Percent Auto 30.3 % (20.5-60.0); Mean Corpuscular HGB Conc 33.6 g/dL (29.9-35.2); Mean Corpuscular Hemoglobin 33.3 pg (26.7-34.0); Mean Corpuscular Volume 99.1 fL (81.0-99.0); Mean Platelet Volume 9.6 fL (9.5-13.5); Monocytes Absolute Auto 0.6 10^3/uL (0.3-0.8); Monocytes Percent Auto 10.8 % (1.7-12.0); Neutrophils Percent Auto 55.3 % (43.0-75.0); Platelet Count 231 10^3/uL (150-450); Red Cell Distribution Width 12.5 % (11.0-15.0); White Blood Count 5.5 10^3/uL (4.0-11.0)
[2024-09-23 09:50] LABS: Alanine Aminotransferase 28 U/L (14-59); Albumin Globulin Ratio 1.2; Albumin Level 3.6 g/dL (3.4-5.0); Alkaline Phosphatase 96 U/L (46-116); Anion Gap 11.6; Aspartate Amino Transferase 26 U/L (15-37); BUN Creatinine Ratio 19.4; Bilirubin Total 0.4 mg/dL (0.2-1.0); Calcium 8.9 mg/dL (8.5-10.1); Carbon Dioxide 29.5 mmol/L (21.0-32.0); Chloride 107 mmol/L (98-107); Chol HDL Ratio 3.5; Cholesterol 165 mg/dL (<=200); Estimated GFR (African America >60 (>=60 mL/min/1.73m^2); Estimated GFR (Non-African Ame >60 (>=60 mL/min/1.73m^2); Free T3 2.27 pg/mL (2.18-3.98); Glucose 79 mg/dL (74-106); HDL Cholesterol 47 mg/dL (40-60); LDL Cholesterol Calculated 96.2 mg/dL; Potassium 4.1 mmol/L (3.5-5.1); Sodium 144 mmol/L (136-145); Thyroid Stimulating Hormone 4.708 uIU/mL (0.358-3.740); Total Protein 6.6 g/dL (6.4-8.2); Triglycerides 109 mg/dL (<=150); VLDL CHOLESTEROL 21.8 mg/dL
[2024-09-23 10:05] LABS: Free T4 1.35 ng/dL (0.76-1.46)
== END 2024-09-23 06:40 | disposition home or self-care (01) ==
PROVIDERS: PCP Family Medicine; Visit Provider Family Medicine
DX: Z00.00 Encounter for general adult medical examination without abnormal findings (principal); E03.9 Hypothyroidism, unspecified; E78.5 Hyperlipidemia, unspecified; Z79.899 Other long term (current) drug therapy; R35.1 Nocturia; R73.9 Hyperglycemia, unspecified
CPT/HCPCS: 36415; 80053; 80061; 81003; 84439; 84443; 84481; 85025; 87086

== ENCOUNTER 2025-02-10 11:09 | Outpatient (OUT) | payer BC, SELFPAY ==
[2025-02-10 11:30] LABS: Glucose Urine UA NEGATIVE (NEGATIVE)
== END 2025-02-10 11:10 | disposition home or self-care (01) ==
LOC: LAB 11:12
PROVIDERS: PCP Family Medicine; Visit Provider Family Medicine
DX: R30.0 Dysuria (principal)
CPT/HCPCS: 81003; 87086; 87088; 87186

== ENCOUNTER 2025-05-27 10:47 | Outpatient (OUT) | payer BC, SELFPAY ==
[2025-05-27 11:42] LABS: Glucose Urine UA NEGATIVE (NEGATIVE)
--- OUTSIDE RECORDS SUMMARY | 2025-05-28 10:50 | XMS_ITS | CCD ---
Author Organization [facility] Care Team Providers Care [employer] Worker Name Role Phone Blas Slaughter Unavailable FRANCISCO JAVIER, COSME Admitting Unavailable FRANCISCO JAVIER, COSME Attending Unavailable FRANCISCO JAVIER, COSME Consulting Unavailable FRANCISCO JAVIER, COSME Admitting Unavailable FRANCISCO JAVIER, COSME Attending Unavailable GIRJULISSA, DR ODONNELL Primary Care Unavailable FRANCISCO JAVIER, COSME Consulting Unavailable KASANDRA, DR ODONNELL Admitting Unavailable GIRVIN, DR ODONNELL Attending Unavailable GIRJULISSA, DR ODONNELL Primary Care Unavailable GIRVIN, DR ODONNELL Consulting Unavailable PAY, DR DESHPANDE Admitting Unavailable PAY, DR DESHPANDE Attending Unavailable PAY, DR DESHPANDE Consulting Unavailable HARRIS, SABRINA Consulting Unavailable MISC, DR SKINNER Admitting Unavailable MISC, DR SKINNER Attending Unavailable MISC, DR SKINNER Consulting Unavailable GIRVIN, DR ODONNELL Admitting Unavailable GIRVIN, DR ODONNELL Attending Unavailable KASANDRA, DR ODONNELL Consulting Unavailable Blas Slaughter MD Primary Care Provider [phone] Blas Slaughter DO Primary Care Provider Dina Mendez APRN Emergency Provider [phone] Luis Enrique Marcano DO Emergency Provider [phone] Blas Slaughter DO Primary Care Provider Blas Slaughter DO Attending Provider Candido Phan DO Emergency Provider [phone] Prince Quinones LPN Attending Provider UnavailNurys Cunningham DO Attending Provider [phone] Blas Slaughter DO Primary Care Provider [phone] Blas Slaughter DO Attending Provider [phone] Blas Slaughter Primary Care Unavailable Candido Phan Admitting Unavailable Candido Phan Attending Unavailable GirBlas costa Attending Unavailable Blas Slaughter Admitting Unavailable Salazar Monae Admitting Unavailable Salazar Monae Attending Unavailable Blas Slaughter Primary Care Unavailable Blas Slaughter Primary Care Unavailable Luis Enrique Marcano Admitting Unavailable Luis Enrique Marcano Attending Unavailable Blas Slaughter Primary Care Unavailable Dina Mendez Admitting Unavailable Dina Mendez Attending Unavailable Blas Slaughter DO Primary Care Provider Blas Slaughter DO Attending Provider Blas Slaughter DO Referring Provider Salazar Monae MD Attending Provider Allergies Allergy Classification Reported Allergen(s) Allergy Type Date of Onset Reaction(s) Facility HMG-CoA Reductase Inhibitors (statins) (1 source) atorvastatin Drug Allergy 4 muscle aches/pain [facility] Nitroimidazoles (antibiotic) (1 source) metroNIDAZOLE Drug Allergy 4 Hives, hives ? per ER 11/06/12 [facility] Opioid Agonists (1 source) Meperidine Drug Allergy 4 Hives, rash, swelling [facility] Quinolones (antibiotic) (1 source) Ciprofloxacin Drug Allergy 4 Hives, hives ? per ER 11/06/12 [facility] (20 sources) atorvastatin Drug Allergy 4 muscle aches/pain [facility] (20 sources) Ciprofloxacin Drug Allergy 4 hives ? per ER 11/06/12, Hives, hives ? per ER 11/06/12 [facility] (20 sources) Meperidine Drug Allergy 2 Hives [facility] (20 sources) metroNIDAZOLE Drug Allergy 2 Hives [facility] (1 source) Ciprofloxacin Drug Allergy [facility] (1 source) Meperidine Drug Allergy [facility] (1 source) metroNIDAZOLE Drug Allergy [facility] (2 sources) Ciprofloxacin Drug Allergy 2 Hives [facility] (2 sources) Meperidine Drug Allergy 3 [facility] (1 source) atorvastatin Drug Allergy 5 [facility] (1 source) Ciprofloxacin Drug Allergy 5 [facility] (1 source) Meperidine Drug Allergy 5 [facility] (1 source) metroNIDAZOLE Drug Allergy 5 [facility] Medications Current Medications Medication Drug Class(es) [...] a week for 30 days Nov, Active atorvastatin 20 mg oral tablet (2 sources) HMG-CoA Reductase Inhibitor atorvastatin (Lipitor) 20 MG tablet 1 (one) time each day at the same time. Active 84 hr estradiol 0.14929 mg/hr transdermal system (20 sources) Estrogen Start: 09-22-2024 apply 1 dose transdermal route two times weekly Start: 09-18-2024 End: 09-22-2024 Estradiol 0.1 mg/24 hr patch semiweekly Discontinued September 18, 2024 1:00am September 22, 2024 1:08pm Start: 06-26-2024 estradiol (Anita ne-DOT) 0.1 MG/24HR [...] 1 PATCH TRANSDERML Twice a Week April 30, 2018 12:00am September 18, 2024 1:10pm Vivelle Active lidocaine 0.05 mg/mg medicated patch (14 sources) Antiarrhythmic, Amide Local Anesthetic Start: 05-25-2025 apply 1 dose topically once daily Start: 10-14-2019 End: 09-21-2020 apply 1 dose topically every twenty-four hours Lidocaine 5 % adhesive patch,medicated Discontinued 2 PATCH TOPICAL Q24H October 14, 2019 1:00am September 21, 2020 10:46am leave on most painful area for up to 12 hrs magnesium oxide 400 mg oral tablet (18 sources) Start: 01-22-2024 End: 12-23-2024 take 1 tablet by mouth once daily as needed meloxicam 15 mg oral tablet (2 sources) Nonsteroidal Anti-inflammatory Drug Start: 05-25-2025 take 0.5-1 tablets by mouth once daily Multivitamin Women (19 sources) Multivitamin Wom en Not-Taking/PRN Multivitamin Wom en Not-Taking Multivitamin Wom en Active nitrofurantoin, macrocrystals 25 mg / nitrofurantoin, monohydrate 75 mg oral capsule (16 sources) Nitrofuran Antibacterial Start: 05-27-2025 End: 05-27-2025 take 1 capsule by mouth twice daily at mealtime Start: 02-10-2025 End: 02-10-2025 take 1 capsule by mouth twice daily at mealtime Nitrofurantoin Monohyd/M-Cryst (Macrobid) 100 mg capsule Discontinued 100 MG PO Twice daily February 10, 2025 11:00am February 10, 2025 1:43pm must administer with a meal/food Start: 02-27-2022 take 1 capsule by mo [facility] twice daily at mealtime Macrobid 100 MG 1 capsule Orally twice a day with food for 7 days Feb, Active ondansetron 4 mg disintegrating oral tablet (20 sources) Serotonin-3 Receptor Antagonist Start: 02-11-2025 take 1 tablet by mouth every six hours as needed for nausea and vomiting Start: 09-18-2024 End: 03-23-2025 Ondansetron Hcl 4 mg tablet Discontinued 4 MG PO every 6 to 8 hours as needed for nausea and vomiting September 18, 2024 1:00am March 23, 2025 9:20am Start: 08-31-2021 End: 12-14-2023 take 1 tablet by mouth every eight hours as needed for nausea and vomiting Ondansetron 4 mg tablet,disintegrating Discontinued 4 MG PO Q8H as needed for nausea and vomiting August 31, 2021 1:00am December 14, 2023 10:28am 0.25 mg, 0.5 mg dose 1.5 ml semaglutide 1.34 mg/ml pen injector (3 sources) Ozempic (0.25 or 0.5 MG/DOSE) 2 MG/1.5ML INJECT 0.25 MG SUBCUTANEOUSLY ONCE WEEKLY DIRECTED for 28 Active Semaglutide (1 source) Start: 02-18-20 24 inject 1 mL by subcutaneous injection every week Semaglutide Active 0.5 ML SUBCUT .once weekly February 18, 2024 12:00am tiZANidine 4 mg oral tablet (6 sources) Central alpha-2 Adrenergic Agonist Start: 12-24-19 25 vitamin b12 1 mg extended release oral tablet (3 sources) Vitamin B12 Start: 12-08-19 20 take 1 tablet by mouth once daily Vitamin B12 1000 MCG 1 tablet Orally qd Sun-Nov, Active Vitamin B12 1000 MCG (13 sources) Start: 12-08-19 20 take 1 tablet by mouth once daily Vitamin B12 1000 MCG 1 tablet Orally qd Sun-Nov, Active Vitamin D3-Vitamin K2 (Mk4) (K2 Plus D3) 1,000-100 unit-mcg tablet (12 sources) Start: 12-14-19 24 take 1 tablet by mouth once daily Vitamin D3-Vitamin K2 (Mk4) (K2 Plus D3) 1,000-100 unit-mcg tablet Active 1 TAB PO Daily December 14, 2023 12:00am Complies with drug therapy Start: 12-14-2023 take 1 tablet by mouth once da michael Start: 12-14-2023 take 1 tablet by mouth once da michael Vitamin D3-Vitamin K2 (Mk4) (K2 Plus D3) 1,000-100 unit-mcg tablet Active 1 TAB PO Daily December 13, 2023 11:00pm Start: 12-14-2023 take 1 tablet by mouth once da michael Vitamin D3-Vitamin K2 (Mk4) (K2 Plus D3) [...] 15 August 31, 2021 December 14, 2023 10:28am Start: 11-03-2020 End: 08-31-2021 take 1 tablet by mouth every four to six hours as needed for pain Hydrocodone-Acetaminophen 5-325 mg Table t Discontinued 1 TAB PO EVERY 4-6 HOURS as needed for Pain 20 November 03, 2020 August 31, 2021 3:07am Start: 10-14-2019 End: 09-21-2020 take 1 tablet by mouth every four to six hours as needed for pain Hydrocodone-Acetaminophen ([place]) 5-325 mg tablet Discontinued 1 TAB PO EVERY 4-6 HOURS as needed for pain 10 October 14, 2019 September 21, 2020 10:46am Start: 04-30-2018 End: 05-03-2018 take 1 tablet by mouth every four hours Hydrocodone-Acetaminophen ([place]) 5-325 mg tablet Discontinued 1 TAB PO Q4H 10 3 April 30, 2018 May 02, 2018 12:00am May 03, 2018 12:01am acetaminophen 325 mg / oxyCODONE hydrochloride 5 mg oral tablet (12 sources) Opioid Agonist Start: 02-11-2025 End: 03-23-2025 take 1 tablet by mouth every six hours as needed for pain Oxycodone-Acetaminophen (Percocet) 5-325 mg tablet Discontinued 1 TAB PO Q6H as needed for pain 12 February 11, 2025 March 23, 2025 9:20am Start: 12-23-2024 End: 03-23-2025 take 1 tablet by mouth four times daily as needed for pain Oxycodone-Acetaminophen (Percocet) 5-325 mg tablet Discontinued 1 TAB PO Four times daily as needed for pain 09 03December 23, 2024 March 23, 2025 9:20am Start: 09-12-2021 Percocet 5-325 MG 1 tablet Orally q8-12 hrs prn Aug, Active amoxicillin 875 mg / clavulanate 125 mg oral tablet (20 sources) Penicillin-class Antibacterial Start: 02-11-2025 End: 03-23-2025 take 1 tablet by mouth three times daily Amoxicillin-Pot Clavulanate 875-125 mg tablet Discontinued 1 TAB PO Three times daily 02 03February 11, 2025 12:00am March 23, 2025 9:19am Start: 02-10-2025 End: 03-23-2025 take 1 tablet by mouth twice daily at mealtime Amoxicillin-Pot Clavulanate 875-125 mg tablet Discontinued 1 TAB PO Twice daily 01 06February 10, 2025 12:00am March 23, 2025 9:19am with food Start: 09-02-2024 End: 09-18-2024 take 1 tablet by mouth twice daily at mealtime Amoxicillin-Pot Clavulanate 875-125 mg tablet Discontinued 1 TAB PO Twice daily 01 06September 02, 2024 1:00am September 18, 2024 1:11pm with food Start: 09-21-2020 End: 12-14-2023 take 1 tablet by mouth twice daily Amoxicillin-Pot Clavulanate (Augmentin) 875-125 mg Tablet Discontinued 1 TAB PO Twice daily September 12, 2021 1:00am November 19, 2023 9:45am Start: 04-30-2018 End: 09-12-2018 take 1 tablet by mouth twice daily Amoxicillin-Pot Clavulanate 875-125 mg tablet Discontinued 1 TAB PO Twice daily April 30, 2018 12:00am September 12, 2018 10:13am cephalexin 500 mg oral capsule (12 sources) Cephalosporin Antibacterial Start: 09-12-2018 End: 09-19-2018 take 1 capsule by mouth twice daily Cephalexin (Keflex) 500 mg capsule Discontinued 500 MG PO Twice daily 14 September 12, 2018 1:00am September 18, 2018 1:00am September 19, 2018 1:01am cyclobenzaprine hydrochloride 10 mg oral tablet (12 sources) Muscle Relaxant Start: 10-14-2019 End: 09-21-2020 take 1 tablet by mouth three times daily as needed for muscle spasms Cyclobenzaprine 10 mg tablet Discontinued 10 MG PO Three times daily as needed for muscle spasm October 14, 2019 1:00am September 21, 2020 10:46am dicyclomine hydrochloride 10 mg oral capsule (9 sources) Anticholinergic Start: 07-21-2024 End: 09-18-2024 take 1 capsule by mouth every eight hours as needed Dicyclomine 10 mg capsule Discontinued 10 MG PO .COMPLEX July 21, 2024 1:00am September 18, 2024 1:11pm 10 mg orally q8 hrs prn intestinal cramping; doxycycline hyclate 100 mg oral tablet (20 sources) Tetracycline-class Drug Start: 08-12-2024 End: 09-02-2024 take 1 tablet by mouth twice daily Doxycycline Hyclate 100 mg tablet Discontinued 100 MG PO Twice daily August 12, 2024 1:00am September 02, 2024 2:52pm Start: 04-30-2018 End: 09-12-2018 take 1 capsule by mouth twice daily Doxycycline Hyclate 100 mg capsule Discontinued 100 MG PO Twice daily 01 06April 30, 2018 12:00am September 12, 2018 10:13am fluconazole 150 mg oral tablet (20 sources) Azole Antifungal Start: 03-02-2025 End: 03-23-2025 take 1 tablet by mouth once daily Fluconazole 150 mg tablet Discontinued 150 MG PO Daily March 02, 2025 12:00am March 23, 2025 9:19am Start: 09-02-2024 End: 09-18-2024 take 1 tablet by mouth once daily Fluconazole 150 mg tablet Discontinued 150 MG PO Daily 2 September 02, 2024 1:00am September 18, 2024 1:09pm Start: 04-30-2018 End: 09-12-2018 take 1 tablet by mouth once Fluconazole 150 mg tablet Discontinued 150 MG PO Once April 30, 2018 12:00am September 12, 2018 10:13am homatropine / HYDROcodone (1 source) Opioid Agonist, Cholinergic Muscarinic Agonist Start: 09-20-2021 take 5 mL by mouth every six hours as needed Hycodan Syrup 5mg/1.5 mg 5ml po q 6 hrs prn for 7 days Sep, Not-Taking hydrOXYzine pamoate 25 mg oral capsule (20 sources) Antihistamine Start: 09-19-2024 End: 03-23-2025 Hydroxyzine Pamoate 25 mg capsule Discontinued 25 MG PO .COMPLEX September 19, 2024 1:00am March 23, 2025 9:20am 25 mg orally Q8-12 hours prn anxiety; Start: 08-27-2020 Vistaril 25 MG 1 capsule Orally q8-12 hrs prn anxiety prn Aug, Active ibuprofen 600 mg oral tablet (12 sources) Nonsteroidal Anti-inflammatory Drug Start: 08-31-2021 End: 09-18-2024 take 1 tablet by mouth every eight hours as needed for pain Ibuprofen 600 mg tablet Discontinued 600 MG PO Q8H as needed for pain August 31, 2021 1:00am September 18, 2024 1:18pm levothyroxine sodium 0.15 mg oral tablet (20 sources) l-Thyroxine Start: 10-30-2022 take 1 tablet by mouth once daily in the morning levothyroxine (Synthroid, Levoxyl) 175 MCG tablet TAKE 1 TABLET BY MOUTH ONCE EVERY MORNING ON AN EMPTY STOMACH 10/30/2022 Active Start: 04-30-2018 End: 01-26-2025 take 1 tablet by mouth once daily Levothyroxine 150 mcg tablet Discontinued 150 MCG PO Daily October 19, 2023 1:28pm January 26, 2025 10:54am take 1 tablet by gio th once daily in the morning Levothyroxine Sodium 150 MCG TAKE 1 TABLET DAILY EVERY MORNING ON AN EMPTY STOMACH Orally Active take 1 tablet by gio th once daily in the morning Levothyroxine Sodium 175 MCG TAKE 1 TABLET DAILY EVERY MORNING ON AN EMPTY STOMACH Orally for 90 days Active methylPREDNISolone (19 sources) Corticosteroid Start: 10-17-2019 SOLU-MEDROL 41 - 125 mg Oct, 125 mg naproxen 500 mg oral tablet (12 sources) Nonsteroidal Anti-inflammatory Drug Start: 10-14-2019 End: 09-21-2020 take 1 tablet by mouth twice daily as needed for pain Naproxen 500 mg tablet Discontinued 500 MG PO Twice daily as needed for pain October 14, 2019 1:00am September 21, 2020 10:46am administer with food or milk ozempic (0.25 [...] Jan, Active predniSONE 20 mg oral tablet (18 sources) Start: 05-05-2025 End: 05-25-2025 take 3 tablets by mouth once daily at mealtime, then take 2 tablets by mouth once daily, then take 1 tablet by mouth once daily at mealtime Prednisone 20 mg tablet Discontinued 0 PO .with food or milk 30 04May 05, 2025 2:20pm May 25, 2025 11:05am take 3 tablets a day x3 days, 2 tabs a day x3 days and then 1 tab a day x3 days orally WITH FOOD OR MILK; Start: 12-23-2024 End: 03-23-2025 take 3 tablets by mouth once daily at mealtime, then take 2 tablets by mouth once daily, then take 1 tablet by mouth once daily at mealtime Prednisone 20 mg tablet Discontinued 0 PO .with food or milk 30 04December 23, 2024 12:00am March 23, 2025 9:20am take 3 tablets a day x3 days, 2 tabs a day x3 days and then 1 tab a day x3 days orally WITH FOOD OR MILK; Start: 08-06-2024 End: 09-18-2024 take 1 tablet by mouth once daily Prednisone 20 mg tablet Discontinued 20 MG PO Daily 12 15August 06, 2024 1:00am September 18, 2024 1:10pm rosuvastatin calcium 10 mg oral tablet (20 sources) HMG-CoA Reductase Inhibitor Start: 12-14-2023 End: 08-26-2024 take 1 tablet by mouth once daily Rosuvastatin 10 mg tablet Discontinued 10 MG PO Daily May 23, 2024 7:47am August 26, 2024 2:55pm Start: 11-28-2023 End: 12-14-2023 take 1 tablet by mouth once daily Rosuvastatin 10 mg tablet Discontinued 0 .ROUTE .COMPLEX November 28, 2023 8:31am December 14, 2023 10:32am TAKE 1 TABLET BY MOUTH EVERY DAY Start: 11-28-2023 End: 11-28-2023 take 1 tablet by mouth once daily Rosuvastatin 10 mg tablet Discontinued 10 MG PO Daily November 28, 2023 12:00am November 28, 2023 8:31am Start: 04-30-2018 End: 11-28-2023 take 1 tablet by mouth once daily Rosuvastatin 5 mg tablet Discontinued 5 MG PO Daily April 30, 2018 12:00am November 28, 2023 8:30am Semaglutide (12 sources) Start: 12-14-2023 End: 02-18-2024 inject 0.5 mg by subcutaneous injection every week Semaglutide (Ozempic) 0.25 mg or 0.5 mg (2 mg/3 mL) pen injector Discontinued 0.25 MG SUBCUT every week December 14, 2023 12:00am February 18, 2024 3:23pm FreeTextSi.5 MG Subcutaneous once weekly; Note: Source Status: Not-TakingundefinedPRN; Refills: 5; Qty: 1.5 ml; Provider: Kasandra Vasquez Start: 12-14-2023 End: 02-18-2024 inject 0.5 mg by subcutaneous injection every week Semaglutide (Ozempic) 0.25 mg or 0.5 mg (2 mg/3 mL) pen injector Discontinued 0.25 MG SUBCUT every week December 13, 2023 11:00pm February 18, 2024 2:23pm FreeTextSi.5 MG Subcutaneous once weekly; Note: Source Status: Not-TakingundefinedPRN; Refills: 5; Qty: 1.5 ml; Provider: Kasandra Vasquez Start: 12-14-2023 End: 02-18-2024 inject 0.5 mg by subcutaneous injection every week Semaglutide (Ozempic) 0.25 mg or 0.5 mg (2 mg/3 mL) pen injector Discontinued 0.25 MG SUBCUT every week December 14, 2023 12:00am February 18, 2024 3:23pm FreeTextSi.5 MG Subcutaneous once weekly; Note: Source Status: Not-Taking\PRN; Refills: 5; Qty: 1.5 ml; Provider: Kasandra Vasquez Start: 12-14-2023 inject 0.5 mg by subcutaneous injection every week Semaglutide (Ozempic) 0.25 mg or 0.5 mg (2 mg/3 mL) pen injector Active 0.25 MG SUBCUT every week December 14, 2023 12:00am FreeTextSi.5 MG Subcutaneous once weekly; Note: Source Status: Not-Taking\PRN; Refills: 5; Qty: 1.5 ml; Provider: Kasandra Vasquez Semaglutide (Weight Loss) (12 sources) Start: 12-14-2023 End: 12-14-2023 Semaglutide (Weight Loss) (W egovy) 0.25 mg/0.5 mL pen injector Discontinued 0.25 MG SUBCUT every week December 13, 2023 11:00pm December 14, 2023 9:44am Start: 12-14-2023 End: 12-14-2023 Semaglutide (Weight Loss) (W egovy) 0.25 mg/0.5 mL pen injector Discontinued 0.25 MG SUBCUT every week December 14, 2023 12:00am December 14, 2023 10:44am Semaglutide 0.6 mg/0.5 mL (9 sources) Start: 02-18-2024 End: 09-22-2024 Semaglutide 0.6 mg/0.5 mL Discontinued 0.5 ML SUBCUT .once weekly February 18, 2024 12:00am September 22, 2024 1:02pm Start: 02-18-2024 End: 09-22-2024 Semaglutide 0.6 mg/0.5 mL Di scontinued 0.5 ML SUBCUT .once weekly February 17, 2024 11:00pm September 22, 2024 12:02pm Start: 02-18-2024 Semaglutide 0. 6 mg/0.5 mL Active 0.5 ML SUBCUT .once weekly February 17, 2024 11:00pm sertraline 25 mg oral tablet (15 sources) Serotonin Reuptake Inhibitor Start: 10-15-2024 End: 12-23-2024 take 1 tablet by mouth once daily Sertraline 25 mg tablet Discontinued 0 .ROUTE .COMPLEX 90 October 15, 2024 11:18am December 23, 2024 2:11pm TAKE 1 TABLET BY MOUTH EVERY DAY Start: 09-22-2024 End: 10-15-2024 take 1 tablet by mouth once daily Sertraline (Zoloft) 25 mg tablet Discontinued 25 MG PO Daily September 22, 2024 1:00am October 15, 2024 11:18am Triamcinolone (19 sources) Corticosteroid Start: 01-22-2017 Kenalog -40 mg Jan, 40 mg Problems Active Problems Problem Classification Problem Date Documented Date Episodic/Chronic Allergic reactions (6 sources) Urticaria; Translations: [Urticaria, unspecified] 05-05-2025 Episodic Anxiety disorders (20 sources) Anxiety; Translations: [Anxiety disorder, unspecified] Chronic Complications of surgical procedures or medical care (2 sources) Postsurgical menopause; 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 postprocedural ovarian failure] 06-25-2024 Chronic Conditions associated with dizziness or vertigo (10 sources) Dizziness; Translations: [Dizziness and giddiness] Onset: 09-18-2024 09-18-2024 Episodic Diabetes mellitus without complication (6 sources) Hyperglycemia, unspecified Onset: 01-17-2022 Resolved: 01-17-2022 Episodic Disorders of lipid metabolism (20 sources) Hyperlipidemia; Translations: [Hyperlipidemia, unspecified] Onset: 01-17-2022 Resolved: 01-17-2022 Chronic Diverticulosis and diverticulitis (20 sources) Diverticulitis; Translations: [Diverticulitis of intestine, part unspecified, without perforation or abscess without bleeding] Onset: 01-13-2022 Resolved: 02-27-2022 Chronic Genitourinary symptoms and ill-defined conditions (13 sources) Nocturia; Translations: [Dysuria] Onset: 01-17-2022 Resolved: 02-27-2022 Episodic Intestinal infection (8 sources) Viral gastroenteritis due to Angier-like agent; Translations: [Acute gastroenteropathy due to Angier agent] 09-22-2024 Episodic Nausea and vomiting (18 sources) Diarrhea and vomiting; Translations: [Vomiting, unspecified] 09-22-2024 Episodic Osteoarthritis (19 sources) Osteoarthritis of knee; Translations: [Unilateral primary osteoarthritis, right knee] Chronic Other aftercare (5 sources) Other long term acute care registered nurse (current) drug therapy; Translations: [OTH NURSING HOME CURRENT DRUG THERAPY] Onset: 01-13-2022 Resolved: 01-17-2022 Episodic Other connective tissue disease (11 sources) Cramp in lower limb; Translations: [Cramp and spasm] 01-22-2024 Episodic Other connective tissue disease (3 sources) Cramp and spasm; Translations: [Cramp of limb] 01-22-2024 Episodic Other connective tissue disease (10 sources) Spasm; Translations: [Other muscle spasm] 12-23-2024 Episodic Other connective tissue disease (1 source) Other muscle spasm; Translations: [Spasm of muscle] 12-23-2024 Episodic Other diseases of bladder and urethra (19 sources) Spasm of bladder; Translations: [Other specified disorders of bladder] Chronic Other ear and sense organ disorders (19 sources) Otitis externa; Translations: [Unspecified otitis externa, unspecified ear] Chronic Other lower respiratory disease (8 sources) Dyspnea; Translations: [Shortness of breath] 09-22-2024 Episodic Other nervous system disorders (2 sources) Nerve root disorder Chronic Other nervous system disorders (4 sources) Chronic pain; Translations: [Other chronic pain] 05-25-2025 Chronic Other nutritional; endocrine; and metabolic disorders [...] Episodic Other nutritional; endocrine; and metabolic disorders (9 sources) Weight increased; Translations: [Abnormal weight gain] 12-14-2023 Episodic Other screening for suspected conditions (not mental disorders or infectious disease) (12 sources) Encounter for screening mammogram for malignant neoplasm of breast; Translations: [Other abnormal and inconclusive findings on diagnostic imaging of breast] Onset: 01-17-2022 Resolved: 01-17-2022 Episodic Other upper respiratory infections (20 sources) Sore throat symptom; Translations: [Acute pharyngitis, unspecified] Onset: 09-23-2021 08-14-2024 Episodic Spondylosis; intervertebral disc disorders; other back problems (4 sources) Inflammation of sacroiliac joint; Translations: [Sacroiliitis, not elsewhere classified] 05-25-2025 Chronic Spondylosis; intervertebral disc disorders; other back problems (20 sources) Low back pain; Translations: [Lumbar back pain] 12-23-2024 Episodic Sprains and strains (12 sources) Low back strain; Translations: [Strain of muscle, fascia and tendon of lower back, initial encounter] 10-14-2019 Episodic Superficial injury; contusion (12 sources) Abrasion of foot; Translations: [Abrasion, unspecified foot, initial encounter] 11-03-2020 Episodic Thyroid disorders (20 sources) Hypothyroidism; Translations: [Hypothyroidism, unspecified] Onset: 01-17-2022 Resolved: 01-17-2022 Chronic Unclassified (3 sources) CONTACT W/AND (SUSP) EXPOS COVID-19; Translations: [CONTACT W/AND (SUSP) EXPOS COVID-19] Onset: 05-09-2022 Unclassified (1 source) COUGH, UNSPECIFIED; Translations: [COUGH, UNSPECIFIED] Onset: 09-23-2021 Unclassified (12 sources) Fracture of toe 11-03-2020 Unclassified (2 sources) M54.50 - Low back pain, unspecified,M54.10 - Radiculopathy, site unspecified Unclassified (1 source) Other low back pain; Translations: [Other low back pain] Onset: 05-25-2025 Unclassified (1 source) Cough, unspecified; Translations: [Cough, [...] Test Name Value Interpretation Reference Range Facility Laboratory - Chemistry and C hemistry - challengeOrdered By: Blas Slaughter on 05-27-2025 Bilirubin Ql (U) Negative NEGATIVE [facility] Glucose (U) [Mass/Vol] Negative NEGATIVE [facility] Ketones Ql (U) Negative NEGATIVE [facility] pH (U) 6.0 [pH] 5.0-9.0 [facility] Specific gravity (U) [Rel density] >=1.030 Abnormal 1.005-1.025 [facility] Urobilinogen Qn (U) 1.0 {Alphonso'U}/dL 0.2-1.0 [facility] Laboratory - Specimen inform ationOrdered By: Blas Slaughter on 05-27-2025 Appearance (U) CLEAR CLEAR [facility] Color (U) YELLOW YELLOW [facility] Laboratory - UrinalysisOrder ed By: Blas Slaughter on 05-27-2025 Leukocyte esterase Test strip Ql (U) Negative NEGATIVE [facility] Nitrite Ql (U) Negative NEGATIVE [facility] Protein Ql (U) Negative NEG/TRACE [facility] No Panel InformationOrdered By: Blas Slaughter on 05-27-2025 Urine Occult Blood Negative NEGATIVE [facility] X-ray reportOrdered By: Chito Pedraza on 05-25-2025 Study report [facility] Main [address] [address] XRay Report Signed Patient: Ezequiel Lei MR#: [id number] : 1960 Acct:[id number] Age/Sex: 64 / F ADM Date: 5 Loc: XD Room: Type: REG CLI Attending Dr: Salazar Monae MD Copies to: Salazar Monae MD~ Ordering Provider: Salazar Monae MD Date of Service: 05/25/25 XR/XR lumbar spine AP/LAT/FLX/EXT: M54.59 - Other lowback pain LUMBAR SPINE - 4 views CLINICAL HISTORY: Low back pain. Down right leg, chronic COMPARISON: Lumbar spine 10/18/2019 FINDINGS: Vertebral body heights appear maintained. Endplate and facet joint degenerative changes with mild disc space narrowing L1-L2 and L2-L3 similar to the prior study without pathological motion. XR/XR lumbar spine AP/LAT/FLX/EXT IMPRESSION: NO SIGNIFICANT CHANGE IN LUMBAR SPINE FINDINGS. Impression dictated by: Jose Pedraza Jr., D.OAna Rosa 05/25/2025 4:04 PM Dictation Location: [place] [address] Transcribed By: [facility] 05/25/25 1604 Dictated By: Jose Pedraza Jr, DO 05/25/25 1601 Signed By: 05/25/25 1604 [facility] XR lumbar spine AP/LAT/FLX/E XTon 05-25-2025 XR lumbar spine AP/LAT/FLX/EXT [facility] Main [address] [address] XRay Report Signed Patient: Ezequiel Lei MR#: [id number] : 1960 Acct:[id number] Age/Sex: 64 / F ADM Date: 05/25/25 Loc: XD Room: Type: REG CLI Attending Dr: Salazar Monae MD Copies to: Salazar Monae MD Ordering Provider: Salazar Monae MD Date of Service: 05/25/25 XR/XR lumbar spine AP/LAT/FLX/EXT: M54.59 - Other low back pain LUMBAR SPINE - 4 views CLINICAL HISTORY: Low back pain. Down right leg, chronic COMPARISON: Lumbar spine 10/18/2019 FINDINGS: Vertebral body heights appear maintained. Endplate and facet joint degenerative changes with mild disc space narrowing L1-L2 and L2-L3 similar to the prior study without pathological motion. XR/XR lumbar spine AP/LAT/FLX/EXT IMPRESSION: NO SIGNIFICANT CHANGE IN LUMBAR SPINE FINDINGS. Impression dictated by: Jose Pedraza Jr., D.O. 05/25/2025 4:04 PM Dictation Location: [place] [address] Transcribed By: [facility] 05/25/25 1604 Dictated By: Jose Pedraza Jr, DO 05/25/25 1601 Signed By: 05/25/25 1604 Normal [facility] Alanine aminotransferase [En zymatic activity/volume] in Serum or PlasmaOrdered By: PROVIDER TEMP on 02-11-2025 ALT [Catalytic activity/Vol] 10 U/L Normal 7-52 [facility] Comment on above: Performed By: #### C BC, HEPATIC, BMP, LIPASE ####[facility] [id number] Albumin [Mass/volume] in Ser um or Plasma by Bromocresol green (BCG) dye binding methoOrdered By: PROVIDER TEMP on 02-11-2025 Albumin BCG dye [Mass/Vol] 4.3 g/dL 3.5-5.7 [facility] Alkaline phosphatase [Enzyma tic activity/volume] in Serum or PlasmaOrdered By: PROVIDER TEMP on 02-11-2025 ALP [Catalytic activity/Vol] 90 U/L Normal 34-104 [facility] Comment on above: Performed By: #### C BC, HEPATIC, BMP, LIPASE ####[facility] [address] [place] [id number] [facility] Appearance of UrineOrdered B y: Candido Phan on 02-11-2025 Appearance (U) Clear Normal Clear [facility] Comment on above: Order Comment: Name Collection Type:: Clean-Voided Midstream Performed By: #### A DDONUAPLUS, UHCG, CUU ####[facility] Aspartate aminotransferase [ Enzymatic activity/volume] in Serum or PlasmaOrdered By: PROVIDER TEMP on 02-11-2025 AST [Catalytic activity/Vol] 16 U/L Normal 13-39 [facility] Comment on above: Order Comment: REDRA W Result Comment: PERF ORMED BY: [facility] [address] [facility] [place] [address] PATHOLOGIST CONTROL AREA OPERATOR CARLEY PETERS M.D. Performed By: #### R EDRAW K, REDRAW DBILi, REDRAW AST #### [facility] [address] [place] [address] Bacteria [Presence] in Urine by AutomatedOrdered By: Candido Phan on 02-11-2025 Bacteria Auto Ql (U) Rare [HPF] None Seen [facility] Basic Metabolic Panelon Anion gap [Moles/Vol] Not performed Normal 6.0-15.0 [facility] Comment on above: Performed By: #### C BC, HEPATIC, BMP, LIPASE ####[address] Creatinine Clr Calc Pharmacy 91.24 Normal [facility] Comment on above: Performed By: #### C BC, HEPATIC, BMP, LIPASE ####[place] [id number] [address] GFR/1.73 sq M.predicted MDRD (S/P/Bld) [Vol rate/Area] mL/min/{1.73_m2} Normal [facility] Comment on above: Performed By: #### C BC, HEPATIC, BMP, LIPASE ####[address] Potassium Normal 3.5-5.1 [facility] Comment on above: Result Comment: Spec imen hemolyzed, redraw requested Performed By: #### C BC, HEPATIC, BMP, LIPASE ####[facility] [place] [id number] [facility] Basophils [#/volume] in Bloo d by Automated countOrdered By: PROVIDER TEMP on 02-11-2025 Basophils (Bld) [#/Vol] 0.1 10*3/uL Normal 0.0-0.2 [facility] Comment on above: Result Comment: PERF ORMED BY: [place] [address] PATHOLOGIST CONTROL AREA OPERATOR CARLEY PETERS M.D. Performed By: #### C BC, HEPATIC, BMP, LIPASE ####[address] Basophils/100 leukocytes in Blood by Automated countOrdered By: PROVIDER TEMP on 02-11-2025 Basophils/100 WBC (Bld) 1.1 % Normal . [facility] Comment on above: Performed By: #### C BC, HEPATIC, BMP, LIPASE ####[address] Bilirubin Test strip Ql (U)O rdered By: Candido Phan on 02-11-2025 Bilirubin Ql (U) Negative Negative [facility] Bilirubin.direct [Mass/volum e] in Serum or PlasmaOrdered By: PROVIDER TEMP on 02-11-2025 Bilirubin.direct [Mass/Vol] 0.10 mg/dL 0.03-0.18 [facility] Bilirubin.total [Mass/volume ] in Serum or PlasmaOrdered By: PROVIDER TEMP on 02-11-2025 Bilirubin [Mass/Vol] 0.4 mg/dL Normal 0.3-1.0 [facility] Comment on above: Performed By: #### C BC, HEPATIC, BMP, LIPASE ####[place] [id number] [facility] CT abdomen pelvis w conon CT abdomen pelvis w con [facility] Main [place] [address] [place] [address] CT Scan Report Signed Patient: Ezequiel Lei MR#: [id number] : 1960 Acct:[id number] Age/Sex: 64 / F ADM Date: 02/11/25 Loc: ER Room: Type: [facility] ER Attending Dr: Copies to: Candido Phan DO Ordering Provider: Candido Phan DO Date of Service: 02/11/25 CT/CT abdomen pelvis w con: abd pain CT ABDOMEN AND PELVIS WITH INTRAVENOUS CONTRAST: CLINICAL HISTORY: Lower abdominal pain with nausea COMPARISON: CT abdomen and pelvis 08/31/2021 TECHNIQUE: Spiral images were obtained through the abdomen and pelvis following the administration of intravenous contrast. This CT exam was performed using one or more following dose reduction techniques: Automated exposure control, adjustment of the mA and/or kV according to patient size, or use of iterative reconstruction technique. FINDINGS: Lung Bases: [No acute process.] Organs:Gallbladder has been removed. Liver portal vein pancreas spleen and adrenal glands all appear unremarkable. Subcentimeter low-attenuation lesion right kidney too small for accurate characterization. Left kidney appears unremarkable. Abdominal aorta appears normal in caliber.[ GI: Stomach is grossly unremarkable. Small bowel appears nondilated. Colonic diverticulosis. Mild inflammatory changes seen along the sigmoid colon suspicious for developing diverticulitis. Appendix is normal.[ Pelvis:[Urinary bladder is unremarkable. Uterus has been removed.] Peritoneum/Retroperitoneum :No free air or free fluid or lymphadenopathy.[ Abd wall/Bones:Abdominal wall demonstrate no acute findings. Osseous structures demonstrate degenerative change.[ CT/CT abdomen pelvis w con IMPRESSION: CT evidence of sigmoid diverticulitis without perforation or abscess. Impression dictated by: Jose Pedraza Jr., D.O. 02/11/2025 9:04 AM Dictation Location: [place] [address] Transcribed By: [facility] 02/11/25 0904 Dictated By: Jose Pedraza Jr, DO 02/11/25 09 Signed By: 02/11/25 0904 Normal [facility] Calcium [Mass/volume] in Ser um or PlasmaOrdered By: PROVIDER GUY on 02-11-2025 Calcium [Mass/Vol] 9.0 mg/dL Normal 8.6-10.3 [facility] Comment on above: Performed By: #### C BC, HEPATIC, BMP, LIPASE ####[facility] [address] Carbon dioxide, total [Moles /volume] in Serum or PlasmaOrdered By: PROVIDER TEMP on 02-11-2025 CO2 [Moles/Vol] 23.1 mmol/L Normal 21.0-31.0 [facility] Comment on above: Performed By: #### C BC, HEPATIC, BMP, LIPASE ####[address] Chloride [Moles/volume] in S apollo or PlasmaOrdered By: PROVIDER TEMP on 02-11-2025 Chloride [Moles/Vol] 108 mmol/L High 98-107 [facility] Comment on above: Performed By: #### C BC, HEPATIC, BMP, LIPASE ####[address] Color of Urine by AutoOrdere d By: Candido Phan on 02-11-2025 Color (U) Yellow Normal Yellow [facility] Comment on above: Order Comment: Name Collection Type:: Clean-Voided Midstream Performed By: #### A DDONUAPLUS, UHCG, CUU ####[place] [id number] [facility] Complete Blood Count Auto Di ffon 02-11-2025 Mean Corpuscular HGB Conc 35.2 g/dL High 32.0-35.0 [facility] Comment on above: Performed By: #### C BC, HEPATIC, BMP, LIPASE ####[place] [id number] [facility] Monocytes/100 WBC (Bld) 19.52 % Normal 0.00-20.00 [facility] Comment on above: Performed By: #### C BC, HEPATIC, BMP, LIPASE ####[place] [id number] [facility] NRBC% 0.1 /100{WBC} Normal 0-0.5 [facility] Comment on above: Performed By: #### C BC, HEPATIC, BMP, LIPASE ####[place] [id number] [facility] White Blood Count 8.2 [CFU]/mL Normal 3.8-11.6 [facility] Comment on above: Performed By: #### C BC, HEPATIC, BMP, LIPASE ####[address] Creatinine [Mass/volume] in Serum or PlasmaOrdered By: PROVIDER TEMP on 02-11-2025 Creatinine [Mass/Vol] 0.64 mg/dL Normal 0.60-1.20 [facility] Comment on above: Performed By: #### C BC, HEPATIC, BMP, LIPASE ####[place] [id number] [facility] Dipstick and Microscopicon 0 02-11-2025 Bacteria,Urine Rare Normal None Seen [facility] Comment on above: Order Comment: Name Collection Type:: Clean-Voided Midstream Performed By: #### A DDONUAPLUS, UHCG, CUU ####[place] [id number] [facility] Bilirubin,Urine Negative Normal Negative [facility] Comment on above: Order Comment: Name Collection Type:: Clean-Voided Midstream Performed By: #### A DDONUAPLUS, UHCG, CUU ####[place] [id number] [facility] Glucose Ql (U) Normal Normal Normal [facility] Comment on above: Order Comment: Name Collection Type:: Clean-Voided Midstream Performed By: #### A DDONUAPLUS, UHCG, CUU ####[place] [id number] [facility] Hyaline Casts,Urine None Normal 0-8 [facility] Comment on above: Order Comment: Name Collection Type:: Clean-Voided Midstream Performed By: #### A DDONUAPLUS, UHCG, CUU ####[place] [id number] [facility] Mucus,Urine 1+ [LPF] Critically abnormal [facility] Comment on above: Order Comment: Name Collection Type:: Clean-Voided Midstream Performed By: #### A DDONUAPLUS, UHCG, CUU ####[address] [place] [address] [facility] Nitrite,Urine Negative Normal Negative [facility] Comment on above: Order Comment: Name Collection Type:: Clean-Voided Midstream Performed By: #### A DDONUAPLUS, UHCG, CUU ####[place] [id number] [facility] Occult Blood,Urine Negative Normal Negative [facility] Comment on above: Order Comment: Name Collection Type:: Clean-Voided Midstream Performed By: #### A DDONUAPLUS, UHCG, CUU ####[place] [id number] [facility] Protein,Urine Negative Normal Negative [facility] Comment on above: Order Comment: Name Collection Type:: Clean-Voided Midstream Performed By: #### A DDONUAPLUS, UHCG, CUU ####[address] RBC,Urine 1-2 Normal 0-4 [facility] Comment on above: Order Comment: Name Collection Type:: Clean-Voided Midstream Performed By: #### A DDONUAPLUS, UHCG, CUU ####[address] Specificy Rozel,Urine 1.023 Normal 1.001-1.030 [facility] Comment on above: Order Comment: Name Collection Type:: Clean-Voided Midstream Performed By: #### A DDONUAPLUS, UHCG, CUU ####[place] [id number] [facility] Squamous Epithelial Cell,Urine 3-4 Normal 0-2 [facility] Comment on above: Order Comment: Name Collection Type:: Clean-Voided Midstream Performed By: #### A DDONUAPLUS, UHCG, CUU ####[place] [id number] [facility] Urobilinogen,Urine Normal Normal Normal [facility] Comment on above: Order Comment: Name Collection Type:: Clean-Voided Midstream Performed By: #### A DDONUAPLUS, UHCG, CUU ####[facility] [place] [id number] [facility] WBC,Urine 5-9 Normal 0-4 [facility] Comment on above: Order Comment: Name Collection Type:: Clean-Voided Midstream Performed By: #### A DDONUAPLUS, [facility], U ####[place] [id number] [facility] Eosinophils [#/volume] in Bl ood by Automated countOrdered By: PROVIDER TEMP on 02-11-2025 Eosinophils (Bld) [#/Vol] 0.1 10*3/uL Normal 0.0-0.45 [facility] Comment on above: Performed By: #### C BC, HEPATIC, BMP, LIPASE ####[address] Eosinophils/100 leukocytes i n Blood by Automated countOrdered By: PROVIDER TEMP on 02-11-2025 Eosinophils/100 WBC (Bld) 1.2 % Normal . [facility] Comment on above: Performed By: #### C BC, HEPATIC, BMP, LIPASE ####[address] Epithelial cells.squamous [# /area] in Urine sediment by Automated countOrdered By: Candido Phan on 02-11-2025 Epithelial cells.squamous Auto (Urine sed) [#/Area] 3-4 [HPF] High 0-2 [facility] Erythrocyte distribution wid th [Ratio] by Automated countOrdered By: PROVIDER TEMP on 02-11-2025 Erythrocyte distribution width (RBC) [Ratio] 14.0 % Normal 11.9-15.3 [facility] Comment on above: Performed By: #### C BC, HEPATIC, BMP, LIPASE ####[address] Erythrocytes [#/area] in Uri ne sediment by Automated countOrdered By: Candido Phan on 02-11-2025 RBC Auto (Urine sed) [#/Area] 1-2 [HPF] 0-4 [facility] Erythrocytes [#/volume] in B lood by Automated countOrdered By: PROVIDER TEMP on 02-11-2025 RBC (Bld) [#/Vol] 4.16 10*6/uL Normal 3.60-5.00 [facility] Comment on above: Performed By: #### C BC, HEPATIC, BMP, LIPASE ####[facility] [place] [address] [facility] Glucose [Mass/volume] in Ser um or PlasmaOrdered By: PROVIDER TEMP on 02-11-2025 Glucose [Mass/Vol] 104 mg/dL High 70-100 [facility] Comment on above: ADA recommended refe rence rangeRandom Glucose Reference Range is dependent on time and content of last meal. Glucose of more than 200 mg/dL in a nonstressed, ambulatory subject supports the diagnosis of Diabetes Mellitus. Result Comment: [place] om Glucose Reference Range is dependent on time and content of last meal. Glucose of more than 200 mg/dL in a nonstressed, ambulatory subject supports the diagnosis of Diabetes Mellitus. ADA recommended reference range Performed By: #### C BC, HEPATIC, BMP, LIPASE ####[facility] [place] [address] [place] Glucose [Mass/volume] in Uri ne by Test stripOrdered By: Candido Phan on 02-11-2025 Glucose Test strip (U) [Mass/Vol] Normal mg/dL Normal [facility] HCG ( test) IA.rapi d Ql (U)Ordered By: PROVIDER TEMP on 02-11-2025 HCG ( test) Ql (U) Negative [facility] HCG,Urineon 02-11-2025 Beta HCG ( test) Ql (U) Negative Normal [facility] Comment on above: Order Comment: Name Collection Type:: Clean-Voided Midstream Result Comment: PERF ORMED BY: [facility] [address] [place] [address] PATHOLOGIST CONTROL AREA OPERATOR CARLEY PETERS M.D. Performed By: #### A DDONUAPLUS, UHCG, CUU ####[place] [id number] [place] [address] [facility] Hematocrit [Volume Fraction] of Blood by Automated countOrdered By: PROVIDER TEMP on 02-11-2025 Hematocrit (Bld) [Volume fraction] 41.5 % Normal 34.0-46.4 [facility] Comment on above: Performed By: #### C BC, HEPATIC, BMP, LIPASE ####[address] Hemoglobin Test strip Ql (U) Ordered By: Candido Phan on 02-11-2025 Hemoglobin Ql (U) Negative Negative [facility] Hemoglobin [Mass/volume] in BloodOrdered By: PROVIDER TEMP on 02-11-2025 Hemoglobin (Bld) [Mass/Vol] 14.6 g/dL Normal 11.8-15.4 [facility] Comment on above: Performed By: #### C BC, HEPATIC, BMP, LIPASE ####[address] Hepatic Panelon 02-11-2025 Albumin [Mass/Vol] 4.3 g/dL Normal 3.5-5.7 [facility] Comment on above: Performed By: #### C BC, HEPATIC, BMP, LIPASE ####[place] [id number] [facility] Aspartate Amino Transferase Normal 13-39 [facility] Comment on above: Result Comment: Spec imen hemolyzed, redraw requested Performed By: #### C BC, HEPATIC, BMP, LIPASE ####[place] [id number] [facility] Bilirubin,Direct Normal 0.03-0.18 [facility] Comment on above: Result Comment: Spec imen hemolyzed, redraw requested Performed By: #### C BC, HEPATIC, BMP, LIPASE ####[place] [id number] [facility] Bilirubin,Indirect Not performed Normal [facility] Comment on above: Performed By: #### C BC, HEPATIC, BMP, LIPASE ####[place] [id number] [facility] Hyaline casts [#/area] in Ur ine sediment by Automated countOrdered By: Candido Phan on 02-11-2025 Hyaline casts Auto (Urine sed) [#/Area] None [LPF] 0-8 [facility] Ketones [Presence] in Urine by Test stripOrdered By: Candido Phan on 02-11-2025 Ketones Ql (U) Negative Normal Negative [facility] Comment on above: Order Comment: Name Collection Type:: Clean-Voided Midstream Performed By: #### A DDONUAPLUS, CG, CUU ####[place] [id number] [place] [id number] [facility] Leukocyte esterase [Presence ] in Urine by Test stripOrdered By: Candido Phan on 02-11-2025 Leukocyte esterase Test strip Ql (U) 1+ Normal Negative [facility] Comment on above: Order Comment: Name Collection Type:: Clean-Voided Midstream Performed By: #### A DDONUAPLUS, CG, CUU ####[place] [id number] [place] [id number] [facility] Leukocytes [#/area] in Urine sediment by Automated countOrdered By: Candido Phan on 02-11-2025 WBC Auto (Urine sed) [#/Area] 5-9 [HPF] High 0-4 [facility] Leukocytes [#/volume] correc malka for nucleated erythrocytes in Blood by Automated counOrdered By: PROVIDER TEMP on 02-11-2025 WBC corrected for nucl RBC Auto (Bld) [#/Vol] 8.2 10*3/uL 3.8-11.6 [facility] Leukocytes [#/volume] in Blo od by Automated countOrdered By: PROVIDER TEMP on 02-11-2025 WBC (Bld) [#/Vol] 8.2 10*3/uL Normal 3.8-11.6 [facility] Comment on above: Performed By: #### C BC, HEPATIC, BMP, LIPASE ####[place] [id number] Lipase [Enzymatic activity/v olume] in Serum or PlasmaOrdered By: PROVIDER TEMP on 02-11-2025 Lipase [Catalytic activity/Vol] 30.0 U/L Normal 11.0-82.0 [facility] Comment on above: Result Comment: PERF ORMED BY: [facility] [address] [place] [address] PATHOLOGIST CONTROL AREA OPERATOR CARLEY PETERS M.D. Performed By: #### C BC, HEPATIC, BMP, LIPASE ####[place] [id number] Lymphocytes [#/volume] in Bl ood by Automated countOrdered By: PROVIDER TEMP on 02-11-2025 Lymphocytes (Bld) [#/Vol] 1.0 10*3/uL Normal 1.00-4.8 [facility] Comment on above: Performed By: #### C BC, HEPATIC, BMP, LIPASE ####[address] Lymphocytes/100 leukocytes i n Blood by Automated countOrdered By: PROVIDER TEMP on 02-11-2025 Lymphocytes/100 WBC (Bld) 12.0 % Normal . [facility] Comment on above: Performed By: #### C BC, HEPATIC, BMP, LIPASE ####[address] MCH [Entitic mass] by Automa malka countOrdered By: PROVIDER TEMP on 02-11-2025 MCH (RBC) [Entitic mass] 35.1 pg High 24.7-34.3 [facility] Comment on above: Performed By: #### C BC, HEPATIC, BMP, LIPASE ####[address] MCHC Auto (RBC) [Mass/Vol]Or dered By: PROVIDER TEMP on 02-11-2025 MCHC (RBC) [Mass/Vol] 35.2 g/dL High 32.0-35.0 [facility] MCV [Entitic volume] by Auto mated countOrdered By: PROVIDER TEMP on 02-11-2025 MCV (RBC) [Entitic vol] 99.8 fL Normal 80-100 [facility] Comment on above: Performed By: #### C BC, HEPATIC, BMP, LIPASE ####[address] Monocyte distribution width [Entitic volume] in Blood by AutomatedOrdered By: PROVIDER TEMP on 02-11-2025 Monocyte distribution width Auto (Bld) [Entitic vol] 19.52 % 0.00-20.00 [facility] Monocytes [#/volume] in Bloo d by Automated countOrdered By: PROVIDER TEMP on 02-11-2025 Monocytes (Bld) [#/Vol] 0.7 10*3/uL Normal 0.0-0.8 [facility] Comment on above: Performed By: #### C BC, HEPATIC, BMP, LIPASE ####[place] [id number] [facility] Monocytes/100 leukocytes in Blood by Automated countOrdered By: PROVIDER TEMP on 02-11-2025 Monocytes/100 WBC (Bld) 9.0 % Normal . [facility] Comment on above: Performed By: #### C BC, HEPATIC, BMP, LIPASE ####[address] Mucus [Presence] in Urine by AutomatedOrdered By: Candido Phan on 02-11-2025 Mucus Auto Ql (U) 1+ [LPF] Abnormal [facility] Neutrophils [#/volume] in Bl ood by Automated countOrdered By: PROVIDER TEMP on 02-11-2025 Neutrophils (Bld) [#/Vol] 6.3 10*3/uL Normal 1.8-7.7 [facility] Comment on above: Performed By: #### C BC, HEPATIC, BMP, LIPASE ####[place] [id number] [facility] Neutrophils/100 leukocytes i n Blood by Automated countOrdered By: PROVIDER TEMP on 02-11-2025 Neutrophils/100 WBC (Bld) 76.7 % Normal . [facility] Comment on above: Performed By: #### C BC, HEPATIC, BMP, LIPASE ####[place] [id number] [facility] Nitrite Test strip Ql (U)Ord ered By: Candido Phan on 02-11-2025 Nitrite Ql (U) Negative Negative [facility] No Panel InformationOrdered By: PROVIDER TEMP on 02-11-2025 Estimated GFR (CKD-EPI) > 60.0 mL/Min [facility] Creatinine Clearance (Chem 91.24 [facility] Nucleated erythrocytes [Pres ence] in Blood by Automated countOrdered By: PROVIDER TEMP on 02-11-2025 Nucleated RBC Auto Ql (Bld) 0.1 /100{WBC} 0-0.5 [facility] Platelet mean volume [Entiti c volume] in Blood by Automated countOrdered By: PROVIDER TEMP on 02-11-2025 Platelet mean volume (Bld) [Entitic vol] 7.5 fL Normal 6.3-10.7 [facility] Comment on above: Performed By: #### C BC, HEPATIC, BMP, LIPASE ####[facility] Platelets [#/volume] in Bloo d by Automated countOrdered By: PROVIDER TEMP on 02-11-2025 Platelets (Bld) [#/Vol] 231 10*3/uL Normal 150-450 [facility] Comment on above: Performed By: #### C BC, HEPATIC, BMP, LIPASE ####[place] [id number] [address] Potassium [Moles/volume] in Serum or PlasmaOrdered By: PROVIDER TEMP on 02-11-2025 Potassium [Moles/Vol] 3.8 mmol/L Normal 3.5-5.1 [facility] Comment on above: Order Comment: REDRA W Performed By: #### R EDRAW K, REDRAW DBILi, REDRAW AST #### [facility] [address] Protein Test strip (U) [Mass /Vol]Ordered By: Candido Phan on 02-11-2025 Protein (U) [Mass/Vol] Negative Negative [facility] Protein [Mass/volume] in Ser um or PlasmaOrdered By: PROVIDER TEMP on 02-11-2025 Protein [Mass/Vol] 6.7 g/dL Normal 6.4-8.9 [facility] Comment on above: Performed By: #### C BC, HEPATIC, BMP, LIPASE ####[facility] Redraw Bilirubin,Directon Redraw Bilirubin,Direct 0.10 mg/dL Normal 0.03-0.18 [facility] Comment on above: Order Comment: REDRA W Performed By: #### R EDRAW K, REDRAW DBILi, REDRAW AST #### [facility] [address] Serum globulin measurement b y calculation (mass/volume)Ordered By: PROVIDER TEMP on 02-11-2025 Globulin (S) [Mass/Vol] 2.4 g/dL [facility] Comment on above: Performed By: #### C BC, HEPATIC, BMP, LIPASE ####[facility] Serum or plasma albumin/glob ulin mass ratioOrdered By: PROVIDER TEMP on 02-11-2025 Albumin/Globulin [Mass ratio] 1.8 {ratio} [facility] Comment on above: Performed By: #### C BC, HEPATIC, BMP, LIPASE ####[place] [id number] Serum or plasma anion gap de terminationOrdered By: PROVIDER TEMP on 02-11-2025 Anion gap [Moles/Vol] TNP [facility] Comment on above: Test not performed Serum or plasma non-glucuron idated bilirubin measurement (mass/volume)Ordered By: PROVIDER TEMP on 02-11-2025 Bilirubin.indirect [Mass/Vol] [facility] Test not performed Sodium [Moles/volume] in Ser um or PlasmaOrdered By: PROVIDER TEMP on 02-11-2025 Sodium [Moles/Vol] 137 mmol/L Normal 136-145 [facility] Comment on above: Performed By: #### C BC, HEPATIC, BMP, LIPASE ####[facility] Specific gravity Test strip (U) [Rel density]Ordered By: Candido Phan on 02-11-2025 Specific gravity (U) [Rel density] 1.023 1.001-1.030 [facility] Urea nitrogen [Mass/volume] in Serum or PlasmaOrdered By: ANGELINE TOVAR on 02-11-2025 Urea nitrogen [Mass/Vol] 16 mg/dL Normal 7-25 [facility] Comment on above: Performed By: #### C BC, HEPATIC, BMP, LIPASE ####[place] [id number] [place] [address] [facility] Urine Cultureon 02-11-2025 Bacteria identified Cx Nom (U) <9,000 colonies/ml mixed bacterial skin contaminants 2 Days PERFORMED BY: [facility] [address] [place] [id number] PATHOLOGIST CONTROL AREA OPERATOR CARLEY PETERS M.D. Normal [facility] Comment on above: Performed By: #### A RICARDO, [facility], [facility] ####[place] [id number] [place] [address] [facility] Urine cultureOrdered By: Mariama Phan on 02-11-2025 Bacteria identified Cx Nom (U) 2 Days [facility] Urobilinogen Test strip (U) [Mass/Vol]Ordered By: Candido Phan on 02-11-2025 Urobilinogen (U) [Mass/Vol] Normal mg/dL Normal [facility] pH of Urine by Test stripOrd ered By: Candido Phan on 02-11-2025 pH (U) 5.5 [pH] Normal 5.0-9.0 [facility] Comment on above: Order Comment: Name Collection Type:: Clean-Voided Midstream Performed By: #### A RICARDO, [facility], [facility] ####[facility] [place] [id number] [facility] Laboratory - Chemistry and C hemistry - challengeOrdered By: Blas Slaughter on 02-10-2025 Bilirubin Ql (U) Negative NEGATIVE [facility] Glucose (U) [Mass/Vol] Negative NEGATIVE Fi [facility] Ketones Ql (U) Negative NEGATIVE [facility] pH (U) 6.0 [pH] 5.0-9.0 [facility] Specific gravity (U) [Rel density] >=1.030 Abnormal 1.005-1.025 [facility] Urobilinogen Qn (U) 0.2 {Alphonso'U}/dL 0.2-1.0 [facility] Laboratory - Specimen inform ationOrdered By: Blas Slaughter on 02-10-2025 Appearance (U) CLEAR CLEAR [facility] Color (U) YELLOW YELLOW [facility] Laboratory - UrinalysisOrder ed By: Blas Slaughter on 02-10-2025 Leukocyte esterase Test strip Ql (U) Negative NEGATIVE [facility] Nitrite Ql (U) Negative NEGATIVE [facility] Protein Ql (U) Negative NEG/TRACE [facility] No Panel InformationOrdered By: Blas Slaughter on 02-10-2025 Urine Occult Blood Negative NEGATIVE [facility] Urine Cultureon 02-10-2025 Bacteria identified Cx Nom (U) ORGANISM: Escherichia coli (O:ESCCOL) [place] Count 75,000 Aerobic MARIANNA Charge ([id number]) SUSCEPTIBILITY ORGANISM: O:ESCCOL ANTIBIOTIC INTERPRETATION MARIANNA Amikacin S <16 Amoxacillin/K Clavulanate S <8 Ampicillin R >16 Ampicillin/Sulbactam I 1616/8 Aztreonam S <4 Cefazolin S <2 Cefepime S <2 Ceftazidime S <1 Ceftazidime/Avibactam S <4 Ceftolozane/Tazobactam S <2 Ceftriaxone S <1 Cefuroxime S <4 Ciprofloxacin S <0.25 Ertapenem S <0.5 Gentamicin S <2 Levofloxacin S <0.5 Meropenem S <1 Meropenem/Vaborbactam S <2 Nitrofurantoin S <32 Piperacillin/Tazobactam S <8 Tetracycline S <4 Tigecycline S <2 Tobramycin S <2 Trimethoprim/Sulfamethoxaz ole R >2 S = SUSCEPTIBLE I = INTERMEDIATE R = RESISTANT BLANK = DATA NOT AVAILABLE, OR DRUG NOT ADVISABLE OR TESTED R* = RESISTANCE DUE TO EXTENDED SPECTRUM BETA-LACTAMASES ESBL = EXTENDED SPECTRUM BETA-LACTAMASE TFG = THYMIDINE-DEPENDENT STRAIN CÉSAR = BETA-LACTAMASE POSITIVE IB = INDUCIBLE BETA-LACTAMASE. APPEARS IN PLACE OF 'S' WITH SPECIES KNOWN TO POSSESS INDUCIBLE BETA-LACTAMASES. POTENTIALLY THEY MAY BECOME RESISTANT TO ALL B-LACTAM DRUGS. PERFORMED BY: [place] [address] PATHOLOGIST CONTROL AREA OPERATOR CARLEY PETERS M.D. Normal [facility] Comment on above: Performed By: #### C UU #### [address] Alanine aminotransferase [En zymatic activity/volume] in Serum or PlasmaOrdered By: Luis Enrique Marcano on 09-18-2024 ALT [Catalytic activity/Vol] Alanine aminotransferase [Enzymatic activity/volume] in Serum or Plasma 7-52 [facility] Albumin [Mass/volume] in Ser um or Plasma by Bromocresol green (BCG) dye binding methoOrdered By: Luis Enrique Marcano on 09-18-2024 Albumin BCG dye [Mass/Vol] Albumin [Mass/volume] in Serum or Plasma by Bromocresol green (BCG) dye binding metho 3.5-5.7 [facility] Alkaline phosphatase [Enzyma tic activity/volume] in Serum or PlasmaOrdered By: Luis Enrique Marcano on 09-18-2024 ALP [Catalytic activity/Vol] Alkaline phosphatase [Enzymatic activity/volume] in Serum or Plasma 34-104 [facility] Appearance of UrineOrdered B y: Luis Enrique Marcano on 09-18-2024 Appearance (U) Urine appearance Clear [facility] Aspartate aminotransferase [ Enzymatic activity/volume] in Serum or PlasmaOrdered By: Luis Enrique Marcano on 09-18-2024 AST [Catalytic activity/Vol] Aspartate aminotransferase [Enzymatic activity/volume] in Serum or Plasma 13-39 [facility] B-Type Natriuretic Peptideon 09-18-2024 Natriuretic peptide B (Bld) [Mass/Vol] 30.0 pg/mL Normal 5-100 [facility] Comment on above: Result Comment: PERF ORMED BY: [place] [address] PATHOLOGIST CONTROL AREA OPERATOR TIBURCIO BARRON M.D. Performed By: #### H S TROP, CBC, HEPATIC, BMP, PT, BNP, CK ####[address] Bacteria [Presence] in Urine by AutomatedOrdered By: Luis Enrique Marcano on 09-18-2024 Bacteria Auto Ql (U) Bacteria [Presence] in Urine by Automated None Seen [facility] Basic Metabolic Panelon Anion gap [Moles/Vol] 11.9 mmol/L Normal 6.0-15.0 [facility] Comment on above: Performed By: #### H S TROP, CBC, HEPATIC, BMP, PT, BNP, CK ####[address] Calcium [Mass/Vol] 9.0 mg/dL Normal 8.6-10.3 [facility] Comment on above: Performed By: #### H S TROP, CBC, HEPATIC, BMP, PT, BNP, CK ####[address] Chloride [Moles/Vol] 109 mmol/L High 98-107 [facility] Comment on above: Performed By: #### H S TROP, CBC, HEPATIC, BMP, PT, BNP, CK ####[address] CO2 [Moles/Vol] 21.5 mmol/L Normal 21.0-31.0 [facility] Comment on above: Performed By: #### H S TROP, CBC, HEPATIC, BMP, PT, BNP, CK ####[address] Creatinine [Mass/Vol] 0.71 mg/dL Normal 0.60-1.20 [facility] Comment on above: Performed By: #### H S TROP, CBC, HEPATIC, BMP, PT, BNP, CK ####[address] Creatinine Clr Calc Pharmacy 78.53 Normal [facility] Comment on above: Result Comment: PERF ORMED BY: [facility] [address] [address] PATHOLOGIST CONTROL ARE[employer] OPERATOR TIBURCIO BARRON M.D. Performed By: #### H S TROP, CBC, HEPATIC, BMP, PT, BNP, CK ####[place] [id number] GFR/1.73 sq M.predicted MDRD (S/P/Bld) [Vol rate/Area] mL/min/{1.73_m2} Normal [facility] Comment on above: Performed By: #### H S TROP, CBC, HEPATIC, BMP, PT, BNP, CK ####[place] [address] Glucose [Mass/Vol] 117 mg/dL High 70-100 [facility] Comment on above: Result Comment: [facility] Glucose Reference Range is dependent on time and content of last meal. Glucose of more than 200 mg/dL in a nonstressed, ambulatory subject supports the diagnosis of Diabetes Mellitus. ADA recommended reference range Performed By: #### H S TROP, CBC, HEPATIC, BMP, PT, BNP, CK ####[place] [address] Potassium [Moles/Vol] 3.4 mmol/L Low 3.5-5.1 [facility] Comment on above: Performed By: #### H S TROP, CBC, HEPATIC, BMP, PT, BNP, CK ####[place] [address] Sodium [Moles/Vol] 139 mmol/L Normal 136-145 [facility] Comment on above: Performed By: #### H S TROP, CBC, HEPATIC, BMP, PT, BNP, CK ####[place] [address] Urea nitrogen [Mass/Vol] 13 mg/dL Normal 7-25 [facility] Comment on above: Performed By: #### H S TROP, CBC, HEPATIC, BMP, PT, BNP, CK ####[place] [address] [place] [id number] [place] Basophils Auto (Bld) [#/Vol] Ordered By: Luis Enrique Marcano on 09-18-2024 Basophils (Bld) [#/Vol] Automated basophil count 0.0-0.2 [facility] Basophils/100 WBC Auto (Bld) Ordered By: Luis Enrique Marcano on 09-18-2024 Basophils/100 WBC (Bld) Automated basophil % . [facility] Bilirubin Test strip Ql (U)O rdered By: Luis Enrique Marcano on 09-18-2024 Bilirubin Ql (U) Bilirubin.total [Pre sence] in Urine by Test strip Negative [facility] Bilirubin.direct [Mass/volum e] in Serum or PlasmaOrdered By: Luis Enrique Marcano on 09-18-2024 Bilirubin.direct [Mass/Vol] Bilirubin.direct [Mass/volume] in Serum or Plasma High 0.03-0.18 [facility] Bilirubin.total [Mass/volume ] in Serum or PlasmaOrdered By: Luis Enrique Marcano on 09-18-2024 Bilirubin [Mass/Vol] Bilirubin.total [Mass/volume] in Serum or Plasma 0.3-1.0 [facility] COVID Cepheid NegativeOrdere d By: Luis Enrique Marcano on 09-18-2024 SARS-CoV-2 (COVID-19) Ab IA Ql COVID Cepheid Negative [facility] Comment on above: This is a duplicate [...] or Cepheid Disclaimer revoked sooner. PERFORMED BY: [place] [address] PATHOLOGIST CONTROL AREA OPERATOR TIBURCIO BARRON M.D. Normal [facility] Comment on above: Performed By: #### C OVID19 FLU RSV, CEPHEID NEG #### [address] Calcium [Mass/volume] in Ser um or PlasmaOrdered By: Luis Enrique Marcano on 09-18-2024 Calcium [Mass/Vol] Calcium [Mass/volume ] in Serum or Plasma 8.6-10.3 [facility] Carbon dioxide, total [Moles /volume] in Serum or PlasmaOrdered By: Luis Enrique Marcano on 09-18-2024 CO2 [Moles/Vol] Carbon dioxide, tota l [Moles/volume] in Serum or Plasma 21.0-31.0 [facility] Cepheid COVID PCR Negativeon 09-18-2024 SARS-CoV-2 (COVID-19) RNA LIU+probe Ql (Unsp spec) Negative Normal Negative [facility] Comment on above: Result Comment: This is a duplicate Cepheid Xpert Xpress CoV-2/Flu/RSV Plus RNA by RT-PCR result to be used for statistical tracking purpose only. PERFORMED BY: [place] [address] PATHOLOGIST CONTROL AREA OPERATOR TIBURCIO BARRON M.D. Performed By: #### C OVID19 FLU RSV, CEPHEID NEG #### [facility] [address] [place] [id number] [place] Chloride [Moles/volume] in S apollo or PlasmaOrdered By: Luis Enrique Marcano on 09-18-2024 Chloride [Moles/Vol] Chloride [Moles/vol ume] in Serum or Plasma High 98-107 [facility] Color Auto (U)Ordered By: Cisco Marcano on 09-18-2024 Color (U) Color of Urine by Auto Yellow Fi [facility] Complete Blood Count Auto Di ffon 09-18-2024 Basophils (Bld) [#/Vol] 0.0 10*3/uL Normal 0.0-0.2 [facility] Comment on above: Result Comment: PERF ORMED BY: [place] [address] PATHOLOGIST CONTROL AREA OPERATOR TIBURCIO BARRON M.D. Performed By: #### H S TROP, CBC, HEPATIC, BMP, PT, BNP, CK ####[place] [address] [place] [address] [place] Basophils/100 WBC (Bld) 0.9 % Normal . [facility] Comment on above: Performed By: #### H S TROP, CBC, HEPATIC, BMP, PT, BNP, CK ####[facility] [place] [address] [place] Eosinophils (Bld) [#/Vol] 0.1 10*3/uL Normal 0.0-0.45 [facility] Comment on above: Performed By: #### H S TROP, CBC, HEPATIC, BMP, PT, BNP, CK ####[address] Eosinophils/100 WBC (Bld) 1.2 % Normal . [facility] Comment on above: Performed By: #### H S TROP, CBC, HEPATIC, BMP, PT, BNP, CK ####[address] Erythrocyte distribution width (RBC) [Ratio] 13.1 % Normal 11.9-15.3 [facility] Comment on above: Performed By: #### H S TROP, CBC, HEPATIC, BMP, PT, BNP, CK ####[address] Hematocrit (Bld) [Volume fraction] 40.8 % Normal 34.0-46.4 [facility] Comment on above: Performed By: #### H S TROP, CBC, HEPATIC, BMP, PT, BNP, CK ####[address] Hemoglobin (Bld) [Mass/Vol] 14.5 g/dL Normal 11.8-15.4 [facility] Comment on above: Performed By: #### H S TROP, CBC, HEPATIC, BMP, PT, BNP, CK ####[address] Lymphocytes (Bld) [#/Vol] 1.7 10*3/uL Normal 1.00-4.8 [facility] Comment on above: Performed By: #### H S TROP, CBC, HEPATIC, BMP, PT, BNP, CK ####[address] Lymphocytes/100 WBC (Bld) 37.7 % Normal . [facility] Comment on above: Performed By: #### H S TROP, CBC, HEPATIC, BMP, PT, BNP, CK ####[address] MCH (RBC) [Entitic mass] 34.5 pg High 24.7-34.3 [facility] Comment on above: Performed By: #### H S TROP, CBC, HEPATIC, BMP, PT, BNP, CK ####[address] MCV (RBC) [Entitic vol] 97.4 fL Normal 80-100 [facility] Comment on above: Performed By: #### H S TROP, CBC, HEPATIC, BMP, PT, BNP, CK ####[address] Mean Corpuscular HGB Conc 35.5 g/dL High 32.0-35.0 [facility] Comment on above: Performed By: #### H S TROP, CBC, HEPATIC, BMP, PT, BNP, CK ####[address] Monocytes (Bld) [#/Vol] 0.4 10*3/uL Normal 0.0-0.8 [facility] Comment on above: Performed By: #### H S TROP, CBC, HEPATIC, BMP, PT, BNP, CK ####[address] Monocytes/100 WBC (Bld) 23.57 % High 0.00-20.00 [facility] Comment on above: Result Comment: For adults in ED, MDW > 20.0 may be associated with a higher risk of sepsis during the first 12 hrs of hospital admission Performed By: #### H S TROP, CBC, HEPATIC, BMP, PT, BNP, CK ####[address] Monocytes/100 WBC (Bld) 9.2 % Normal . [facility] Comment on above: Performed By: #### H S TROP, CBC, HEPATIC, BMP, PT, BNP, CK ####[address] Neutrophils (Bld) [#/Vol] 2.3 10*3/uL Normal 1.8-7.7 [facility] Comment on above: Performed By: #### H S TROP, CBC, HEPATIC, BMP, PT, BNP, CK ####[address] Neutrophils/100 WBC (Bld) 51.0 % Normal . [facility] Comment on above: Performed By: #### H S TROP, CBC, HEPATIC, BMP, PT, BNP, CK ####[address] NRBC% 0.1 /100{WBC} Normal 0-0.5 [facility] Comment on above: Performed By: #### H S TROP, CBC, HEPATIC, BMP, PT, BNP, CK ####[address] Platelet mean volume (Bld) [Entitic vol] 7.6 fL Normal 6.3-10.7 [facility] Comment on above: Performed By: #### H S TROP, CBC, HEPATIC, BMP, PT, BNP, CK ####[address] Platelets (Bld) [#/Vol] 235 10*3/uL Normal 150-450 [facility] Comment on above: Performed By: #### H S TROP, CBC, HEPATIC, BMP, PT, BNP, CK ####[address] RBC (Bld) [#/Vol] 4.19 10*6/uL Normal 3.60-5.00 [facility] Comment on above: Performed By: #### H S TROP, CBC, HEPATIC, BMP, PT, BNP, CK ####[address] WBC (Bld) [#/Vol] 4.5 10*3/uL Normal 3.8-11.6 [facility] Comment on above: Performed By: #### H S TROP, CBC, HEPATIC, BMP, PT, BNP, CK ####[address] Creatine Kinaseon 09-18-2024 CK [Catalytic activity/Vol] 189 U/L Normal [facility] Comment on above: Performed By: #### H S TROP, CBC, HEPATIC, BMP, PT, BNP, CK ####[place] [id number] [facility] Creatine kinase [Enzymatic a ctivity/volume] in Serum or PlasmaOrdered By: Luis Enrique Marcano on 09-18-2024 CK [Catalytic activity/Vol] Creatine kinase [Enzymatic activity/volume] in Serum or Plasma [facility] Creatinine [Mass/volume] in Serum or PlasmaOrdered By: Luis Enrique Marcano on 09-18-2024 Creatinine [Mass/Vol] Creatinine [Mass/v olume] in Serum or Plasma 0.60-1.20 [facility] Dipstick and Microscopicon 0 09-18-2024 Appearance (U) Clear Normal Clear [facility] Comment on above: Order Comment: Name Collection Type:: Clean-Voided Midstream Performed By: #### A DDONUAPLUS ####[address] Bacteria,Urine Rare Normal None Seen [facility] Comment on above: Order Comment: Name Collection Type:: Clean-Voided Midstream Performed By: #### A DDONUAPLUS ####[address] Bilirubin,Urine Negative Normal Negative [facility] Comment on above: Order Comment: Name Collection Type:: Clean-Voided Midstream Performed By: #### A DDONUAPLUS ####[place] [id number] [facility] Color (U) Yellow Normal Yellow [facility] Comment on above: Order Comment: Name Collection Type:: Clean-Voided Midstream Performed By: #### A DDONUAPLUS ####[place] [id number] [facility] Glucose Ql (U) Normal Normal Normal [facility] Comment on above: Order Comment: Name Collection Type:: Clean-Voided Midstream Performed By: #### A DDONUAPLUS ####[place] [address] [facility] Hyaline Casts,Urine None Normal 0-8 [facility] Comment on above: Order Comment: Name Collection Type:: Clean-Voided Midstream Performed By: #### A DDONUAPLUS ####[address] [address] [facility] Ketones Ql (U) 2+ High Negative [facility] Comment on above: Order Comment: Name Collection Type:: Clean-Voided Midstream Performed By: #### A DDONUAPLUS ####[address] [address] [facility] Leukocyte esterase Test strip Ql (U) Negative Normal Negative [facility] Comment on above: Order Comment: Name Collection Type:: Clean-Voided Midstream Performed By: #### A DDONUAPLUS ####[address] [address] [facility] Mucus,Urine 1+ Critically abnormal [facility] Comment on above: Order Comment: Name Collection Type:: Clean-Voided Midstream Result Comment: PERF ORMED BY: [place] [address] PATHOLOGIST CONTROL ARE[employer] OPERATOR TIBURCIO BARRON M.D. Performed By: #### A DDONUAPLUS ####[address] [address] [facility] Nitrite,Urine Negative Normal Negative [facility] Comment on above: Order Comment: Name Collection Type:: Clean-Voided Midstream Performed By: #### A DDONUAPLUS ####[address] [address] [facility] Occult Blood,Urine Negative Normal Negative [facility] Comment on above: Order Comment: Name Collection Type:: Clean-Voided Midstream Result Comment: PERF ORMED BY: [place] [id number] PATHOLOGIST CONTROL AREA OPERATOR TIBURCIO BARRON M.D. Performed By: #### A DDONUAPLUS ####[place] [id number] [facility] pH (U) 7.5 [pH] Normal 5.0-9.0 [facility] Comment on above: Order Comment: Name Collection Type:: Clean-Voided Midstream Performed By: #### A DDONUAPLUS ####[address] [address] [facility] Protein,Urine Trace High Negative [facility] Comment on above: Order Comment: Name Collection Type:: Clean-Voided Midstream Performed By: #### A DDONUAPLUS ####[address] [address] [facility] RBC,Urine 1 [HPF] Normal 0-4 [facility] Comment on above: Order Comment: Name Collection Type:: Clean-Voided Midstream Performed By: #### A DDONUAPLUS ####[place] [id number] [facility] Specificy Rozel,Urine 1.025 Normal 1.001-1.030 [facility] Comment on above: Order Comment: Name Collection Type:: Clean-Voided Midstream Performed By: #### A DDONUAPLUS ####[address] [address] [facility] Squamous Epithelial Cell,Urine 3 [HPF] High 0-2 [facility] Comment on above: Order Comment: Name Collection Type:: Clean-Voided Midstream Performed By: #### A DDONUAPLUS ####[address] [address] [facility] Urobilinogen,Urine 2 mg/dL High Normal [facility] Comment on above: Order Comment: Name Collection Type:: Clean-Voided Midstream Performed By: #### A DDONUAPLUS ####[address] [address] [facility] WBC,Urine 3 [HPF] Normal 0-4 [facility] Comment on above: Order Comment: Name Collection Type:: Clean-Voided Midstream Performed By: #### A DDONUAPLUS ####[address] [address] [facility] ECG 12 lead ECGon 09-18-2024 ECG 12 lead ECG [facility] [place] [address] Electrocardiograph Report Signed Patient: Ezequiel Lei MR#: [id number] : 1960 Acct:[id number] Age/Sex: 64 / F ADM Date: 09/18/24 Loc: ER Room: Type: [facility] ER Attending Dr: Ordering Provider: Luis [...] previous ECGs available Confirmed by Luis Enrique Maracno DO ([id number]) on 09/18/2024 4:42:55 PM Referred By: Electronically Signed By: Luis Enrique Marcano DO Transcribed By: MUS Signed By Luis Enrique Marcano DO 5 1643 Normal [facility] Eosinophils Auto (Bld) [#/Vo l]Ordered By: Luis Enrique Marcano on 09-18-2024 Eosinophils (Bld) [#/Vol] Automated eosinophil count 0.0-0.45 [facility] Eosinophils/100 WBC Auto (Bl d)Ordered By: Luis Enrique Marcano on 09-18-2024 Eosinophils/100 WBC (Bld) Automated eosinophil % . [facility] Epithelial cells.squamous [# /area] in Urine sediment by Automated countOrdered By: Luis Enrique Marcano on 09-18-2024 Epithelial cells.squamous Auto (Urine sed) [#/Area] Epithelial cells.squamous [#/area] in Urine sediment by Automated count High 0-2 [facility] Erythrocyte distribution wid th Auto (RBC) [Ratio]Ordered By: Luis Enrique Marcano on 09-18-2024 Erythrocyte distribution width (RBC) [Ratio] Erythrocyte distribution width [Ratio] by Automated count 11.9-15.3 [facility] Erythrocytes [#/area] in Uri ne sediment by Automated countOrdered By: Luis Enrique Marcano on 09-18-2024 RBC Auto (Urine sed) [#/Area] Erythrocytes [#/area] in Urine sediment by Automated count 0-4 [facility] Globulin Calc (S) [Mass/Vol] Ordered By: Luis Enrique Marcano on 09-18-2024 Globulin (S) [Mass/Vol] Serum globulin measurement by calculation (mass/volume) [facility] Glucose [Mass/volume] in Ser um or PlasmaOrdered By: Luis Enrique Marcano on 09-18-2024 Glucose [Mass/Vol] Glucose [Mass/volume ] in Serum or Plasma High 70-100 [facility] Comment on above: ADA recommended refe rence [...] [Mass/volume] in Urine by Test strip Normal [facility] Hematocrit Auto (Bld) [Volum e fraction]Ordered By: Luis Enrique Marcano on 09-18-2024 Hematocrit (Bld) [Volume fraction] Hematocrit [Volume Fraction] of Blood by Automated count 34.0-46.4 [facility] Hemoglobin Test strip Ql (U) Ordered By: Luis Enrique Marcano on 09-18-2024 Hemoglobin Ql (U) Hemoglobin [Presence ] in Urine by Test strip Negative [facility] Hemoglobin [Mass/volume] in BloodOrdered By: Luis Enrique Marcano on 09-18-2024 Hemoglobin (Bld) [Mass/Vol] Hemoglobin [Mass/volume] in Blood 11.8-15.4 [facility] Hepatic Panelon 09-18-2024 Albumin [Mass/Vol] 4.0 g/dL Normal 3.5-5.7 [facility] Comment on above: Performed By: #### H S TROP, CBC, HEPATIC, BMP, PT, BNP, CK ####[facility] [id number] [place] [id number] [facility] Albumin/Globulin [Mass ratio] 1.5 {ratio} Normal [facility] Comment on above: Performed By: #### H S TROP, CBC, HEPATIC, BMP, PT, BNP, CK ####[address] ALP [Catalytic activity/Vol] 55 U/L Normal 34-104 [facility] Comment on above: Performed By: #### H S TROP, CBC, HEPATIC, BMP, PT, BNP, CK ####[address] ALT [Catalytic activity/Vol] 15 U/L Normal 7-52 [facility] Comment on above: Performed By: #### H S TROP, CBC, HEPATIC, BMP, PT, BNP, CK ####[address] AST [Catalytic activity/Vol] 25 U/L Normal 13-39 [facility] Comment on above: Performed By: #### H S TROP, CBC, HEPATIC, BMP, PT, BNP, CK ####[address] Bilirubin [Mass/Vol] 0.7 mg/dL Normal 0.3-1.0 [facility] Comment on above: Performed By: #### H S TROP, CBC, HEPATIC, BMP, PT, BNP, CK ####[address] Bilirubin,Indirect 0.5 mg/dL Normal [facility] Comment on above: Performed By: #### H S TROP, CBC, HEPATIC, BMP, PT, BNP, CK ####[address] Bilirubin.indirect [Mass/Vol] 0.20 mg/dL High 0.03-0.18 [facility] Comment on above: Performed By: #### H S TROP, CBC, HEPATIC, BMP, PT, BNP, CK ####[address] Globulin (S) [Mass/Vol] 2.6 g/dL Normal [facility] Comment on above: Performed By: #### H S TROP, CBC, HEPATIC, BMP, PT, BNP, CK ####[facility] [id number] Protein [Mass/Vol] 6.6 g/dL Normal 6.4-8.9 [facility] Comment on above: Performed By: #### H S TROP, CBC, HEPATIC, BMP, PT, BNP, CK ####[facility] [id number] Hyaline casts [#/area] in Ur ine sediment by Automated countOrdered By: Luis Enrique Marcano on 09-18-2024 Hyaline casts Auto (Urine sed) [#/Area] Hyaline casts [#/area] in Urine sediment by Automated count 0-8 [facility] INR in Platelet poor plasma by Coagulation assayOrdered By: Luis Enrique Marcano on 09-18-2024 INR Coag (PPP) [Relative time] INR in Platelet poor plasma by Coagulation assay [facility] Comment on above: INR Therapeutic Rang e [...] n Urine by Test strip High Negative [facility] Leukocyte esterase [Presence ] in Urine by Test stripOrdered By: Luis Enrique Marcano on 09-18-2024 Leukocyte esterase Test strip Ql (U) Leukocyte esterase [Presence] in Urine by Test strip Negative [facility] Leukocytes [#/area] in Urine sediment by Automated countOrdered By: Luis Enrique Marcano on 09-18-2024 WBC Auto (Urine sed) [#/Area] Leukocytes [#/area] in Urine sediment by Automated count 0-4 [facility] Leukocytes [#/volume] correc malka for nucleated erythrocytes in Blood by Automated counOrdered By: Luis Enrique Marcano on 09-18-2024 WBC corrected for nucl RBC Auto (Bld) [#/Vol] Leukocytes [#/volume] corrected for nucleated erythrocytes in Blood by Automated coun 3.8-11.6 [facility] Lymphocytes Auto (Bld) [#/Vo l]Ordered By: Luis Enrique Marcano on 09-18-2024 Lymphocytes (Bld) [#/Vol] Lymphocytes [#/volume] in Blood by Automated count 1.00-4.8 [facility] Lymphocytes/100 WBC Auto (Bl d)Ordered By: Luis Enrique Marcano on 09-18-2024 Lymphocytes/100 WBC (Bld) Lymphocytes/100 leukocytes in Blood by Automated count . [facility] MCH Auto (RBC) [Entitic mass ]Ordered By: Luis Enrique Marcano on 09-18-2024 MCH (RBC) [Entitic mass] MCH [Entitic mass] by Automated count High 24.7-34.3 [facility] MCHC Auto (RBC) [Mass/Vol]Or dered By: Luis Enrique Marcano on 09-18-2024 MCHC (RBC) [Mass/Vol] MCHC [Mass/volume] by Automated count High 32.0-35.0 [facility] MCV Auto (RBC) [Entitic vol] Ordered By: Luis Enrique Marcano on 09-18-2024 MCV (RBC) [Entitic vol] MCV [Entitic volume] by Automated count 80-100 [facility] Monocyte distribution width [Entitic volume] in Blood by AutomatedOrdered By: Luis Enrique Marcano on 09-18-2024 Monocyte distribution width Auto (Bld) [Entitic vol] Monocyte distribution width [Entitic volume] in Blood by Automated High 0.00-20.00 [facility] Comment on above: For adults in ED, MD W > 20.0 may be associated with a higher risk of sepsis during the first 12 hrs of hospital admission Monocytes Auto (Bld) [#/Vol] Ordered By: Luis Enrique Marcano on 09-18-2024 Monocytes (Bld) [#/Vol] Automated blood monocyte count 0.0-0.8 [facility] Monocytes/100 WBC Auto (Bld) Ordered By: Luis Enrique Marcano on 09-18-2024 Monocytes/100 WBC (Bld) Automated monocyte % . [facility] Mucus [Presence] in Urine by AutomatedOrdered By: Luis Enrique Marcano on 09-18-2024 Mucus Auto Ql (U) Mucus [Presence] in Urine by Automated Abnormal [facility] Natriuretic peptide B [Mass/ Vol]Ordered By: Luis Enrique Marcano on 09-18-2024 Natriuretic peptide B (Bld) [Mass/Vol] BNP ser/plas 5-100 [facility] Neutrophils Auto (Bld) [#/Vo l]Ordered By: Luis Enrique Marcano on 09-18-2024 Neutrophils (Bld) [#/Vol] Neutrophils [#/volume] in Blood by Automated count 1.8-7.7 [facility] Neutrophils/100 WBC Auto (Bl d)Ordered By: Luis Enrique Marcano on 09-18-2024 Neutrophils/100 WBC (Bld) Automated neutrophil % . [facility] Nitrite Test strip Ql (U)Ord ered By: Luis Enrique Marcano on 09-18-2024 Nitrite Ql (U) Nitrite [Presence] i n Urine by Test strip Negative [facility] No Panel InformationOrdered By: Luis Enrique Marcano on 09-18-2024 Estimated GFR (CKD-EPI) > 60.0 mL/Min [facility] Creatinine Clearance (Chem 78.53 [facility] Nucleated erythrocytes [Pres ence] in Blood by Automated countOrdered By: Luis Enrique Marcano on 09-18-2024 Nucleated RBC Auto Ql (Bld) Nucleated erythrocytes [Presence] in Blood by Automated count 0-0.5 [facility] Platelet mean volume Auto (B ld) [Entitic vol]Ordered By: Luis Enrique Marcano on 09-18-2024 Platelet mean volume (Bld) [Entitic vol] Platelet mean volume [Entitic volume] in Blood by Automated count 6.3-10.7 [facility] Platelets Auto (Bld) [#/Vol] Ordered By: Luis Enrique Marcano on 09-18-2024 Platelets (Bld) [#/Vol] Platelets [#/volume] in Blood by Automated count 150-450 [facility] Potassium [Moles/volume] in Serum or PlasmaOrdered By: Luis Enrique Marcano on 09-18-2024 Potassium [Moles/Vol] Potassium [Moles/v olume] in Serum or Plasma Low 3.5-5.1 [facility] Protein Test strip (U) [Mass /Vol]Ordered By: Luis Enrique Marcano on 09-18-2024 Protein (U) [Mass/Vol] Protein [Mass/vol ume] in Urine by Test strip High Negative [facility] Protein [Mass/volume] in Ser um or PlasmaOrdered By: Luis Enrique Marcano on 09-18-2024 Protein [Mass/Vol] Protein [Mass/volume ] in Serum or Plasma 6.4-8.9 [facility] Prothrombin Time INRon 09-18 INR Coag (PPP) [Relative time] 1.0 {INR} Normal [facility] Comment on above: [...] heart valves: 3 - 4.5 PERFORMED BY: [facility] [address] [place] [address] PATHOLOGIST CONTROL ARE[employer] OPERATOR TIBURCIO BARRON M.D. Performed By: #### H S TROP, CBC, HEPATIC, BMP, PT, BNP, CK ####[facility] [id number] [place] [id number] [facility] PT Coag (PPP) [Time] 11.7 s Normal 9.0-12.9 [facility] Comment on above: Result Comment: A matocrit value greater than 55% may lead to inaccurate results in coagulation testing. Patients having hematocrit values >55% require a special collection tube for coagulation studies. Please contact the laboratory at [phone] for redraw instructions. Performed By: #### H S TROP, CBC, HEPATIC, BMP, PT, BNP, CK ####[facility] [id number] [place] [id number] [facility] Prothrombin time (PT)Ordered By: Luis Enrique Marcano on 09-18-2024 PT Coag (PPP) [Time] Prothrombin time (PT) 9.0- 12.9 [facility] Comment on above: A hematocrit value g reater than 55% may lead to inaccurate results in coagulation testing. Patients having hematocrit values >55% require a special collection tube for coagulation studies. Please contact the laboratory at [phone] for redraw instructions. RBC Auto (Bld) [#/Vol]Ordere d By: Luis Enrique Marcano on 09-18-2024 RBC (Bld) [#/Vol] Erythrocytes [#/volu me] in Blood by Automated count 3.60-5.00 [facility] Respiratory specimen influen za A virus, influenza B virus, respiratory syncytical virOrdered By: Luis Enrique Marcano on 09-18-2024 SARS-CoV-2 (COVID-19) RNA LIU+probe Ql (Unsp spec) Respiratory specimen influenza A virus, influenza B virus, respiratory syncytical vir [facility] Serum or plasma albumin/glob ulin mass ratioOrdered By: Luis Enrique Marcano on 09-18-2024 Albumin/Globulin [Mass ratio] Serum or plasma albumin/globulin mass ratio [facility] Serum or plasma anion gap de terminationOrdered By: Luis Enrique Marcano on 09-18-2024 Anion gap [Moles/Vol] Serum or plasma an ion gap determination 6.0-15.0 [facility] Serum or plasma non-glucuron idated bilirubin measurement (mass/volume)Ordered By: Luis Enrique Marcano on 09-18-2024 Bilirubin.indirect [Mass/Vol] Serum or plasma non-glucuronidated bilirubin measurement (mass/volume) [facility] Sodium [Moles/volume] in Ser um or PlasmaOrdered By: Luis Enrique Marcano on 09-18-2024 Sodium [Moles/Vol] Sodium [Moles/volume ] in Serum or Plasma 136-145 [facility] Specific gravity Test strip (U) [Rel density]Ordered By: Luis Enrique Marcano on 09-18-2024 Specific gravity (U) [Rel density] Specific gravity of Urine by Test strip 1.001-1.030 [facility] Troponin I High Sensitivityo n 09-18-2024 Troponin I High Sensitivity 3 Normal 0-15 [facility] Comment on above: Result Comment: The Troponin units of report have been changed to meet the Chest Pain Accreditation requirement, element EC5.M1l2. Troponin units are changed from pg/ml to ng/L. Also, the decimal is removed and results are in whole numbers. PERFORMED BY: [place] [address] PATHOLOGIST CONTROL ARE[employer] OPERATOR TIBURCIO BARRON M.D. Performed By: #### H S TROP, CBC, HEPATIC, BMP, PT, BNP, CK ####[facility] [id number] Troponin I.cardiac [Mass/vol ume] in Serum or Plasma by Detection limit <= 0.01 ng/Ordered By: Luis Enrique Marcano on 09-18-2024 Troponin I.cardiac DL <= 0.01 ng/mL [Mass/Vol] Troponin I.cardiac [Mass/volume] in Serum or Plasma by Detection limit <= 0.01 ng/ 0-15 [facility] Comment on above: The Troponin units o [...] nitrogen [Mass/volume] in Serum or Plasma 7-25 [facility] Urobilinogen Test strip (U) [Mass/Vol]Ordered By: Luis Enrique Marcano on 09-18-2024 Urobilinogen (U) [Mass/Vol] Urobilinogen [Mass/volume] in Urine by Test strip High Normal [facility] WBC Auto (Bld) [#/Vol]Ordere d By: Luis Enrique Marcano on 09-18-2024 WBC (Bld) [#/Vol] Leukocytes [#/volume ] in Blood by Automated count 3.8-11.6 [facility] X-ray reportOrdered By: Gabino Shirley on 09-18-2024 Study report [facility] [address] [place] [id number] XRay Report Signed Patient: Ezequiel Lei MR#: [id number] : 1960 Acct:[id number] Age/Sex: 64 / F ADM Date: 5 Loc: ER Room: Type: PRE ER Attending Dr: Copies to: Luis Enrique Marcano DO~ Ordering Provider: Luis Enrique Marcano DO [...] Gabino Shirley M.D.09/18/2024 12:34 PM Dictation Location: [place] [address] Transcribed By: [facility] 09/18/24 1234 Dictated By: Gabino Shirley II, MD 09/18/24 1232 Signed By: 09/18/24 [facility]4 [facility] Work Phone: XR chest 1V portableon 09-18 XR chest 1V portable [facility] [address] [place] [address] [place] [address] XRay Report Signed Patient: Ezequiel Lei MR#: [id number] : 1960 Acct:[id number] Age/Sex: 64 / F ADM Date: 09/18/24 [...] Gabino Shirley M.D.09/18/2024 12:34 PM Dictation Location: [place] [address] Transcribed By: JAMEY 09/18/24 1234 Dictated By: Gabino Shirley II, MD 09/18/24 1232 Signed By: 09/18/24 1234 Normal [facility] pH Test strip (U)Ordered By: Luis Enrique Marcano on 09-18-2024 pH (U) pH of Urine by Test strip 5.0-9.0 [facility] Automated epithelial cells c ount in urine sediment (number/area)on 11-19-2023 Epithelial cells Auto (Urine sed) [#/Area] RARE #/LPF NONE/RARE [facility] Automated leukocytes count i n urine sediment (number/area)on 11-19-2023 WBC Auto (Urine sed) [#/Area] 0-2 #/HPF 0-2 [facility] Automated urine specific gra vity by refractometryon 11-19-2023 Specific gravity Refractometry automated (U) [Rel density] >=1.030 1.005-1.025 [facility] Basophils Auto (Bld) [#/Vol] on 11-19-2023 Basophils (Bld) [#/Vol] 0.1 10 3/uL 0.0-0.1 [facility] Basophils/100 WBC Auto (Bld) on 11-19-2023 Basophils/100 WBC (Bld) 0.7 % 0.2-2.0 [facility] Bilirubin Auto test strip (U ) [Mass/Vol]on 11-19-2023 Bilirubin (U) [Mass/Vol] Negative NEGATIVE [facility] Casts typing in urine sedime nt by light microscopyon 11-19-2023 Casts LM Nom (Urine sed) NONE SEEN #/LPF NONE SEEN [facility] Color Auto (U)on 11-19-2023 Color (U) YELLOW YELLOW [facility] Eosinophils/100 WBC Auto (Bl d)on 11-19-2023 Eosinophils/100 WBC (Bld) 1.2 % 0.9-7.0 [facility] Erythrocyte distribution wid th Auto (RBC) [Ratio]on 11-19-2023 Erythrocyte distribution width (RBC) [Ratio] 12.3 % 11.0-15.0 [facility] Estimated glomerular filtrat ion rate (GFR) non- Americanon 11-19-2023 GFR/1.73 sq M.predicted among non-blacks MDRD (S/P/Bld) [Vol rate/Area] mL/min/{1.73_m2} >=60 [facility] Globulin Calc (S) [Mass/Vol] on 11-19-2023 Globulin (S) [Mass/Vol] 3.5 g/dL [facility] Hematocrit Auto (Bld) [Volum e fraction]on 11-19-2023 Hematocrit (Bld) [Volume fraction] 43.4 % 36.0-48.0 [facility] Hemoglobin [Mass/volume] in Bloodon 11-19-2023 Hemoglobin (Bld) [Mass/Vol] 14.9 g/dL 12.0-16.0 [facility] Ketones Auto test strip (U) [Mass/Vol]on 11-19-2023 Ketones (U) [Mass/Vol] Negative NEGATIVE [facility] - Chemistry and C hemistry - challengeon 11-19-2023 Albumin [Mass/Vol] 3.8 g/dL 3.4-5.0 [facility] ALP [Catalytic activity/Vol] 91 U/L 46-116 [facility] ALT [Catalytic activity/Vol] 21 U/L 14-59 [facility] AST [Catalytic activity/Vol] 18 U/L 15-37 [facility] Bilirubin [Mass/Vol] 0.7 mg/dL 0.2-1.0 [facility] Calcium [Mass/Vol] 9.3 mg/dL 8.5-10.1 [facility] Chloride [Moles/Vol] 104 mmol/L 98-107 [facility] CO2 [Moles/Vol] 22.2 mmol/L 21.0-32.0 [facility] Creatinine [Mass/Vol] 0.79 mg/dL 0.55-1.02 [facility] GFR/1.73 sq M.predicted MDRD (S/P/Bld) [Vol rate/Area] mL/min/{1.73_m2} >=60 [facility] Glucose [Mass/Vol] 99 mg/dL 74-106 [facility] Lipase [Catalytic activity/Vol] 23.0 U/L 16.0-77.0 [facility] Potassium [Moles/Vol] 3.9 mmol/L 3.5-5.1 [facility] Protein [Mass/Vol] 7.3 g/dL 6.4-8.2 [facility] Sodium [Moles/Vol] 140 mmol/L 136-145 [facility] Urea nitrogen [Mass/Vol] 18.0 mg/dL 7.0-18.0 [facility] Urea nitrogen/Creatinine [Mass ratio] 22.8 mg/mg [facility] Laboratory - Hematology and Cell countson 11-19-2023 Immature granulocytes/100 WBC (Bld) 0.6 % 0.0-0.5 [facility] Leukocytes [#/volume] correc malka for nucleated erythrocytes in Blood by Automated counon 11-19-2023 WBC corrected for nucl RBC Auto (Bld) [#/Vol] 8.3 10 3/uL 4.0-11.0 [facility] Lymphocytes Auto (Bld) [#/Vo l]on 11-19-2023 Lymphocytes (Bld) [#/Vol] 1.9 10 3/uL 1.2-3.8 [facility] Lymphocytes/100 WBC Auto (Bl d)on 11-19-2023 Lymphocytes/100 WBC (Bld) 22.3 % 20.5-60.0 [facility] MCH Auto (RBC) [Entitic mass ]on 11-19-2023 MCH (RBC) [Entitic mass] 33.3 pg 26.7-34.0 [facility] MCHC Auto (RBC) [Mass/Vol]on 11-19-2023 MCHC (RBC) [Mass/Vol] 34.3 g/dL 29.9-35.2 [facility] MCV Auto (RBC) [Entitic vol] on 11-19-2023 MCV (RBC) [Entitic vol] 97.1 fL 81.0-99.0 [facility] Monocytes Auto (Bld) [#/Vol] on 11-19-2023 Monocytes (Bld) [#/Vol] 0.8 10 3/uL 0.3-0.8 [facility] Monocytes/100 WBC Auto (Bld) on 11-19-2023 Monocytes/100 WBC (Bld) 9.3 % 1.7-12.0 [facility] Mucus LM Ql (Urine sed)on Mucus Ql (Urine sed) NONE SEEN NONE SEEN [facility] Neutrophils Auto (Bld) [#/Vo l]on 11-19-2023 Neutrophils (Bld) [#/Vol] 5.5 10 3/uL 1.4-6.5 [facility] Neutrophils/100 WBC Auto (Bl d)on 11-19-2023 Neutrophils/100 WBC (Bld) 65.9 % 43.0-75.0 [facility] No Panel Informationon 11-18 Urine Microscopic Review YES [facility] Eosinophils # (Auto) 0.1 10 3/uL 0.0-0.7 [facility] Immature Granulocyte # (Auto) 0.05 10 3/uL 0.00-0.03 [facility] Platelet mean volume Auto (B ld) [Entitic vol]on 11-19-2023 Platelet mean volume (Bld) [Entitic vol] 9.9 fL 9.5-13.5 [facility] Platelets Auto (Bld) [#/Vol] on 11-19-2023 Platelets (Bld) [#/Vol] 251 10 3/uL 150-450 [facility] Protein Auto test strip (U) [Mass/Vol]on 11-19-2023 Protein (U) [Mass/Vol] Negative NEG/[facility] RBC Auto (Bld) [#/Vol]on RBC (Bld) [#/Vol] 4.47 10 6/uL 4.20-5.40 [facility] Serum or plasma albumin/glob ulin mass ratioon 11-19-2023 Albumin/Globulin [Mass ratio] 1.1 {ratio} [facility] Serum or plasma anion gap de terminationon 11-19-2023 Anion gap [Moles/Vol] 17.7 mmol/L Fi relands [facility] Specific gravity Auto test s trip (U) [Rel density]on 11-19-2023 Specific gravity (U) [Rel density] CLEAR CLEAR [facility] Urine bacteria detection by automated methodon 11-19-2023 Bacteria Auto Ql (U) NONE SEEN #/HPF NONE SEEN [facility] Urine glucose measurement by test strip (mass/volume)on 11-19-2023 Glucose Test strip (U) [Mass/Vol] Negative NEGATIVE [facility] Urine hemoglobin detection b y automated test stripon 11-19-2023 Hemoglobin Auto test strip Ql (U) TRACE-I NEGATIVE [facility] Urine nitrite detection by a utomated test stripon 11-19-2023 Nitrite Auto test strip Ql (U) Negative NEGATIVE [facility] Urine sediment crystal ident ification by light microscopyon 11-19-2023 Crystals LM Nom (Urine sed) None Seen #/HPF None Seen [facility] Urine sediment leukocyte cou nt by microscopy (number/high power field)on 11-19-2023 WBC LM.HPF (Urine sed) [#/Area] NONE SEEN #/HPF NONE SEEN [facility] Urobilinogen Auto test strip (U) [Mass/Vol]on 11-19-2023 Urobilinogen Qn (U) 0.2 {Alphonso'U}/dL 0.2-1.0 [facility] pH Auto test strip (U)on pH (U) 5.5 [pH] 5.0-9.0 [facility] CBC AUTO DIFFon 07-15-2022 BASO # 0.1 103/ul Normal 0.0-0.1 [facility] Comment on above: Performed By: #### C BC #### [facility] [address] [place] [address] [address] Ortega Morel Basophils/100 WBC (Bld) 1.0 % Normal 0.2-2.[address] [facility] Comment on above: Performed By: #### C BC #### [facility] [address] [place] [address] [address] Ortega Morel EO # 0.1 103/ul Normal 0.0-0.[address] [facility] Comment on above: Performed By: #### C BC #### [facility] Laboratory [address] [place] [address] Dr. Ortega Morel Eosinophils/100 WBC (Bld) 2.0 % Normal 0.9-7.0 [facility] Comment on above: Performed By: #### C BC #### [facility] [address] [place] [address] Dr. Ortega Morel Erythrocyte distribution width (RBC) [Ratio] 12.2 % Normal 11.0-15.0 [facility] Comment on above: Performed By: #### C BC #### [facility] [address] [place] [address] Dr. Ortega Morel Hematocrit (Bld) [Volume fraction] 41.4 % Normal 36.0-48.0 [facility] Comment on above: Performed By: #### C BC #### [facility] [address] [place] [address] Dr. Ortega Morel Hemoglobin (Bld) [Mass/Vol] 14.4 g/dL Normal 12.0-16.0 [facility] Comment on above: Performed By: #### C BC #### [facility] [address] [place] [address] Dr. Ortega Morel IG # 0.04 10e3/ul Critically high 0.00-0.03 [facility] Comment on above: Performed By: #### C BC #### [facility] [address] [place] [address] Dr. Ortega Morel IG % 0.7 % Critically high 0.0-0.5 [facility] Comment on above: Performed By: #### C BC #### [facility] [address] [place] [address] Dr. Ortega Morel LYMPH # 1.7 103/ul Normal 1.2-3.[address] [facility] Comment on above: Performed By: #### C BC #### [facility] [address] [place] [address] Dr. Ortega Morel Lymphocytes/100 WBC (Bld) 28.2 % Normal 20.5-60.0 [facility] Comment on above: Performed By: #### C BC #### [facility] [address] [place] [address] Dr. Ortega Morel MANUAL DIFF REQ NO Normal [facility] Comment on above: Performed By: #### C BC #### [facility] [address] [place] [address] Dr. Ortega Morel MCH (RBC) [Entitic mass] 33.4 pg Normal 26.7-34.0 [facility] Comment on above: Performed By: #### C BC #### [facility] [address] [place] [address] Dr. Ortega Morel MCHC (RBC) [Mass/Vol] 34.8 g/dL Normal 29.9-35.[address] [facility] Comment on above: Performed By: #### C BC #### [facility] [address] [place] [address] Dr. Ortega Morel MCV (RBC) [Entitic vol] 96.1 fL Normal 81.0-99.0 [facility] Comment on above: Performed By: #### C BC #### [facility] [address] [place] [address] Dr. Ortega Morel MONO # 0.7 103/ul Normal 0.3-0.8 [facility] Comment on above: Performed By: #### C BC #### [facility] [address] [place] [address] Dr. Ortega Morel Monocytes/100 WBC (Bld) 11.4 % Normal 1.7-12.0 [facility] Comment on above: Performed By: #### C BC #### [facility] [address] [place] [address] Dr. Ortega Morel NEUT # 3.4 103/ul Normal 1.4-6.[address] [facility] Comment on above: Performed By: #### C BC #### [facility] [address] [place] [address] Dr. Ortega Morel Neutrophils/100 WBC (Bld) 56.7 % Normal 43.0-75.[address] [facility] Comment on above: Performed By: #### C BC #### [facility] [address] [place] [address] Dr. Ortega Morel Platelet mean volume (Bld) [Entitic vol] 10.1 fL Normal 9.5-13.5 [facility] Comment on above: Performed By: #### C BC #### [facility] [address] [place] [address] Dr. Ortega Morel PLT 217 103/ul Normal 150-[address] [facility] Comment on above: Performed By: #### C BC #### [facility] [address] [place] [address] Dr. Ortega Morel RBC 4.31 106/ul Normal 4.20-5.[address] [facility] Comment on above: Performed By: #### C BC #### [facility] [address] [place] [address] Dr. Ortega Morel WBC 6.0 103/ul Normal 4.0-11.0 [facility] Comment on above: Performed By: #### C BC #### [facility] [address] [place] [address] Dr. Ortega Morel CULTURE URINEon 07-15-2022 CULTURE URINE Culture Observations : NO GROWTH. Normal [facility] Comment on above: Performed By: #### C MP #### [facility] [address] [place] [address] Dr. Ortega Morel FREE T3on 07-15-2022 FREE T3 1.87 pg/mlL Critically low 2.18-3.[address] [facility] Comment on above: Performed By: #### T SH, LIPID, FT3 #### [facility] [address] [place] [address] Dr. Ortega Morel FREE T4on 07-15-2022 Free T4 [Mass/Vol] 0.92 ng/dL Normal 0.76-1.46 [facility] Comment on above: Performed By: #### F T4 #### [facility] [address] [place] [address] Dr. Ortega Morel GLYCOHEMOGLOBIN A1Con 2021 ADA RECOMMENDATION SEE BELOW Normal [facility] Comment on above: Result Comment: ADA RECOMMENDED LIMIT 4.0 - 6.0 ADA THERAPEUTIC TARGET < 7.0 ACTION SUGGESTED > 7.0 Performed By: #### C MP #### [facility] [address] [place] [address] Dr. Ortega Morel Glucose [Mass/Vol] 103 mg/dL Normal [facility] Comment on above: Performed By: #### C MP #### [facility] [address] [address] [address] Ortega Morel HbA1c (Bld) [Mass fraction] 5.2 % Normal 4.5-6.2 [facility] Comment on above: Performed By: #### C MP #### [facility] [address] [place] [address] Dr. Ortega Morel LIPID PROFILEon 07-15-2022 CHOL-HDL RATIO NORM SEE BELOW Normal [facility] Comment on above: Result Comment: 3.3 - 4.4 LOW RISK 4.4 - 7.1 AVERAGE RISK 7.1 - 11.0 MODERATE RISK >11.0 HIGH RISK Performed By: #### T SH, LIPID, FT3 #### [facility] [address] [place] [address] Dr. Ortega Morel Cholesterol [Mass/Vol] 197 mg/dL Normal <=200 Th [facility] Comment on above: Performed By: #### T SH, LIPID, FT3 #### [facility] [address] [place] [address] Dr. Ortega Morel Cholesterol in HDL [Mass/Vol] 54 mg/dL Normal 40-60 [facility] Comment on above: Performed By: #### T SH, LIPID, FT3 #### [facility] [address] [place] [address] Dr. Ortega Morel Cholesterol in LDL [Mass/Vol] 111.8 mg/dL Normal [facility] Comment on above: Performed By: #### T SH, LIPID, FT3 #### [facility] [address] [place] [address] Dr. Ortega Morel Cholesterol.total/Chol esterol in HDL [Mass ratio] 3.6 {ratio} Normal [facility] Comment on above: Performed By: #### T SH, LIPID, FT3 #### [facility] [address] [place] [address] Dr. Ortega Morel HDL NORMAL > or = 60 mg/dl - LO W CARDIOVASCULAR RISK <40 mg/dl - HIGH CARDIOVASCULAR RISK Normal [facility] Comment on above: Performed By: #### T SH, LIPID, FT3 #### [facility] [address] [address] [address] Ortega Morel LDL CALC NORMAL SEE BELOW Normal [facility] Comment on above: Result Comment: <100 mg/dl OPTIMAL 100 - 129 mg/dl NEAR OR ABOVE OPTIMAL 130 - 159 mg/dl BORDERLINE HIGH 160 - 189 mg/dl HIGH >190 mg/dl VERY HIGH Performed By: #### T SH, LIPID, FT3 #### [facility] [address] [place] [address] Dr. Ortega Morel Triglyceride [Mass/Vol] 156 mg/dL Critically high <=150 [facility] Comment on above: Performed By: #### T SH, LIPID, FT3 #### [facility] [address] [place] [address] Dr. Ortega Morel VLDL CALC 31.2 mg/dL Normal [facility] Comment on above: Performed By: #### T SH, LIPID, FT3 #### [facility] [address] [place] [address] Dr. Ortega Morel PROF 14(COMP METB)on 022 Albumin [Mass/Vol] 3.8 g/dL Normal 3.4-5.0 [facility] Comment on above: Performed By: #### C MP #### [facility] [address] [place] [address] Dr. Ortega Morel Albumin/Globulin [Mass ratio] 1.2 {ratio} Normal [facility] Comment on above: Performed By: #### C MP #### [facility] [address] [place] [address] Dr. Ortega Morel ALP [Catalytic activity/Vol] 84 U/L Normal 46-116 [facility] Comment on above: Performed By: #### C MP #### [facility] [address] [address] [address] Ortega Morel ALT [Catalytic activity/Vol] 15 U/L Normal 14-59 [facility] Comment on above: Performed By: #### C MP #### [facility] [address] [place] [address] Dr. Ortega Morel Anion gap [Moles/Vol] 13.6 mmol/L Normal Th [facility] Comment on above: Performed By: #### C MP #### [facility] [address] [address] [address] Ortega Morel AST [Catalytic activity/Vol] 16 U/L Normal 15-37 [facility] Comment on above: Performed By: #### C MP #### [facility] [address] [place] [address] Dr. Ortega Morel Bilirubin [Mass/Vol] 0.5 mg/dL Normal 0.2-1.0 [facility] Comment on above: Performed By: #### C MP #### [facility] [address] [place] [address] Dr. Ortega Morel Calcium [Mass/Vol] 8.7 mg/dL Normal 8.5-10.1 [facility] Comment on above: Performed By: #### C MP #### [facility] [address] [place] [address] Dr. Ortega Morel Chloride [Moles/Vol] 105 mmol/L Normal 98-[address] [facility] Comment on above: Performed By: #### C MP #### [facility] [address] [place] [address] Dr. Ortega Morel CO2 [Moles/Vol] 25.5 mmol/L Normal 21.0-32.[address] [facility] Comment on above: Performed By: #### C MP #### [facility] [address] [place] [address] Dr. Ortega Morel Creatinine [Mass/Vol] 0.69 mg/dL Normal 0.55-1.[address] [facility] Comment on above: Performed By: #### C MP #### [facility] [address] [place] [address] Dr. Ortega Morel EGFR-AF ERITREAN >60 Normal >=[address] [facility] Comment on above: Performed By: #### C MP #### [facility] [address] [address] [address] Ortega Morel EGFR-NON AF ERITREAN >60 Normal >=60 [facility] Comment on above: Performed By: #### C MP #### [facility] [address] [address] [address] Ortega Morel Globulin (S) [Mass/Vol] 3.2 g/dL Normal [facility] Comment on above: Performed By: #### C MP #### [facility] [address] [address] [address] Ortega Morel Glucose [Mass/Vol] 94 mg/dL Normal 74-106 [facility] Comment on above: Performed By: #### C MP #### [facility] [address] [place] [address] Dr. Ortega Morel Potassium [Moles/Vol] 4.1 mmol/L Normal 3.5-5.1 [facility] Comment on above: Performed By: #### C MP #### [facility] [address] [address] [address] Ortega Morel Protein [Mass/Vol] 7.0 g/dL Normal 6.4-8.[address] [facility] Comment on above: Performed By: #### C MP #### [facility] [address] [address] [address] Ortega Morel Sodium [Moles/Vol] 140 mmol/L Normal 136-[address] [facility] Comment on above: Performed By: #### C MP #### [facility] [address] [address] [address] Ortega Morel Urea nitrogen [Mass/Vol] 14.0 mg/dL Normal 7.0-18.0 [facility] Comment on above: Performed By: #### C MP #### [facility] [address] [address] [address] Ortega Morel Urea nitrogen/Creatinine [Mass ratio] 20.3 mg/mg Normal [facility] Comment on above: Performed By: #### C MP #### [facility] [address] [place] [address] Dr. Ortega Morel TSHon 07-15-2022 TSH 14.645 uIU/mL Critically high 0.358-3.740 [facility] Comment on above: Performed By: #### T SH, LIPID, FT3 #### [facility] [address] [place] [address] Dr. Ortega Morel UA RANDOMon 07-15-2022 Bilirubin Ql (U) Negative Normal NEGATIVE [facility] Comment on above: Performed By: #### U A #### [facility] [address] [place] [address] Dr. Ortega Morel Clarity (U) CLEAR Normal CLEAR [facility] Comment on above: Performed By: #### U A #### [facility] [address] [place] [address] Dr. Ortega Morel Color (U) YELLOW Normal YELLOW [facility] Comment on above: Performed By: #### U A #### [facility] [address] [place] [address] Dr. Ortega Morel Glucose Ql (U) Negative Normal NEGATIVE [facility] Comment on above: Performed By: #### U A #### [facility] [address] [place] [address] Dr. Ortega Morel Hemoglobin Ql (U) Negative Normal NEGATIVE [facility] Comment on above: Performed By: #### U A #### [facility] [address] [place] [address] Dr. Ortega Morel Ketones Ql (U) Negative Normal NEGATIVE [facility] Comment on above: Performed By: #### U A #### [facility] [address] [place] [address] Dr. Ortega Morel LEUKOCYTES Negative Normal NEGATIVE [facility] Comment on above: Performed By: #### U A #### [facility] [address] [place] [address] Dr. Ortega Morel Nitrite Ql (U) Negative Normal NEGATIVE [facility] Comment on above: Performed By: #### U A #### [facility] [address] [place] [address] Dr. Ortega Morel pH (U) 6.5 [pH] Normal 5-[address] [facility] Comment on above: Performed By: #### U A #### [facility] [address] [place] [address] Dr. Ortega Morel SPEC GRAVITY 1.025 Normal 1.005-<=1.0 25 [facility] Comment on above: Performed By: #### U A #### [facility] [address] [place] [address] Dr. Ortega Morel UA PROTEIN TRACE Normal NEGATIVE/ TRACE [facility] Comment on above: Performed By: #### U A #### [facility] [address] [place] [address] Dr. Ortega Morel Urobilinogen Qn (U) 1.0 {Alphonso'U}/dL Normal 0.2 - 1. 0 [facility] Comment on above: Performed By: #### U A #### [facility] [address] [place] [address] Dr. Ortega Morel [facility]on [facility]14 SARS-CoV-2 (COVID-19) RNA LIU+probe Ql (Unsp spec) Not detected Normal NOT DETECTED [facility] Comment on above: Result Comment: When [...] for this test is supported by the Systems Requirements Planner of Health and Human Service's declaration that [...] used). Performed By: #### C MP #### [facility] [address] [place] [address] Dr. Ortega Morel Covid-19 PCR ([facility])on 04-13 SARS-CoV-2 (COVID-19) RNA LIU+probe Ql (Unsp spec) Not detected Normal NOT DETECTED [facility] Comment on above: Result Comment: When [...] for this test is supported by the Systems Requirements Planner of Health and Human Service's declaration that [...] used). Performed By: #### C MP #### [facility] [address] [place] [address] Dr. Ortega Morel CBC AUTO DIFFon 01-11-2022 BASO # 0.0 103/ul Normal 0.0-0.[address] [facility] Comment on above: Performed By: #### C MP #### [facility] [address] [place] [address] Dr. Ortega Morel Basophils/100 WBC (Bld) 0.6 % Normal 0.2-2.[address] [facility] Comment on above: Performed By: #### C MP #### [facility] [address] [place] [address] Dr. Ortega Morel EO # 0.1 103/ul Normal 0.0-0.[address] [facility] Comment on above: Performed By: #### C MP #### [facility] [address] [place] [address] Dr. Ortega Morel Eosinophils/100 WBC (Bld) 1.5 % Normal 0.9-7.0 [facility] Comment on above: Performed By: #### C MP #### [facility] [address] [place] [address] Dr. Ortega Morel Erythrocyte distribution width (RBC) [Ratio] 12.7 % Normal 11.0-15.0 [facility] Comment on above: Performed By: #### C MP #### [facility] [address] [place] [address] Dr. Ortega Morel Hematocrit (Bld) [Volume fraction] 38.0 % Normal 36.0-48.0 [facility] Comment on above: Performed By: #### C MP #### [facility] [address] [place] [address] Dr. Ortega Morel Hemoglobin (Bld) [Mass/Vol] 13.1 g/dL Normal 12.0-16.0 [facility] Comment on above: Performed By: #### C MP #### [facility] [address] [place] [address] Dr. Ortega Morel IG # 0.02 10e3/ul Normal 0.00-0.03 [facility] Comment on above: Performed By: #### C MP #### [facility] [address] [place] [address] Dr. Ortega Morel IG % 0.4 % Normal 0.0-0.5 [facility] Comment on above: Performed By: #### C MP #### [facility] [address] [place] [address] Dr. Ortega Morel LYMPH # 1.0 103/ul Critically low 1.2-3.[address] [facility] Comment on above: Performed By: #### C MP #### [facility] [address] [place] [address] Dr. Ortega Morel Lymphocytes/100 WBC (Bld) 18.3 % Critically low 20.5-60.0 [facility] Comment on above: Performed By: #### C MP #### [facility] [address] [place] [address] Dr. Ortega Morel MANUAL DIFF REQ NO Normal [facility] Comment on above: Performed By: #### C MP #### [facility] [address] [place] [address] Dr. Ortega Morel MCH (RBC) [Entitic mass] 33.9 pg Normal 26.7-34.0 [facility] Comment on above: Performed By: #### C MP #### [facility] [address] [place] [address] Dr. Ortega Morel MCHC (RBC) [Mass/Vol] 34.5 g/dL Normal 29.9-35.2 [facility] Comment on above: Performed By: #### C MP #### [facility] [address] [place] [address] Dr. Ortega Morel MCV (RBC) [Entitic vol] 98.4 fL Normal 81.0-99.0 [facility] Comment on above: Performed By: #### C MP #### [facility] [address] [place] [address] Dr. Ortega Morel MONO # 0.5 103/ul Normal 0.3-0.[address] [facility] Comment on above: Performed By: #### C MP #### [facility] [address] [place] [address] Dr. Ortega Morel Monocytes/100 WBC (Bld) 9.2 % Normal 1.7-12.0 [facility] Comment on above: Performed By: #### C MP #### [facility] [address] [place] [address] Dr. Ortega Morel NEUT # 3.6 103/ul Normal 1.4-6.[address] [facility] Comment on above: Performed By: #### C MP #### [facility] [address] [place] [address] Dr. Ortega Morel Neutrophils/100 WBC (Bld) 70.0 % Normal 43.0-75.[address] [facility] Comment on above: Performed By: #### C MP #### [facility] [address] [place] [address] Dr. Ortega Morel Platelet mean volume (Bld) [Entitic vol] 10.0 fL Normal 9.5-13.5 [facility] Comment on above: Performed By: #### C MP #### [facility] [address] [address] [address] Ortega Morel PLT 189 103/ul Normal 150-[address] [facility] Comment on above: Performed By: #### C MP #### [facility] [address] [address] [address] Ortega Morel RBC 3.86 106/ul Critically low 4.20-5.40 [facility] Comment on above: Performed By: #### C MP #### [facility] [address] [address] [address] Ortega Morel WBC 5.2 103/ul Normal 4.0-11.0 [facility] Comment on above: Performed By: #### C MP #### [facility] [address] [place], [place] [address] ABD/PELV W CONon [...] SABRINA HARRIS Date: 2022-01-11 10:[address] [facility] ER URINE PROFILEon 2 Bilirubin Ql (U) Negative Normal NEGATIVE [facility] Comment on above: Performed By: #### E RUR #### [facility] [address] [place] [address] Dr. Ortega Morel Clarity (U) CLEAR Normal CLEAR [facility] Comment on above: Performed By: #### E RUR #### [facility] [address] [place] [address] Dr. Ortega Morel Color (U) BROWN Abnormal YELLOW [facility] Comment on above: Performed By: #### E RUR #### [facility] [address] [place] [address] Dr. Ortega Morel ERUAHD A micrscopic examina tion will be performed if indicated. Normal [facility] Comment on above: Performed By: #### E RUR #### [facility] [address] [place] [address] Dr. Ortega Morel Glucose Ql (U) Negative Normal NEGATIVE [facility] Comment on above: Performed By: #### E RUR #### [facility] [address] [place] [address] Dr. Ortega Morel Hemoglobin Ql (U) Negative Normal NEGATIVE [facility] Comment on above: Performed By: #### E RUR #### [facility] [address] [place] [address] Dr. Ortega Morel Ketones Ql (U) TRACE Abnormal NEGATIVE [facility] Comment on above: Performed By: #### E RUR #### [facility] [address] [place] [address] Dr. Ortega Morel LEUKOCYTES Negative Normal NEGATIVE [facility] Comment on above: Performed By: #### E RUR #### [facility] [address] [place] [address] Dr. Ortega Morel Nitrite Ql (U) Negative Normal NEGATIVE [facility] Comment on above: Performed By: #### E RUR #### [facility] [address] [place] [address] Dr. Ortega Morel pH (U) 6.0 [pH] Normal 5-9 [facility] Comment on above: Performed By: #### E RUR #### [facility] [address] [place] [address] Dr. Ortega Morel SPEC GRAVITY 1.025 Normal 1.005-<=1.0 25 [facility] Comment on above: Performed By: #### E RUR #### [facility] [address] [place] [address] Dr. Ortega Morel UA PROTEIN Negative Normal NEGATIVE/ TRACE [facility] Comment on above: Performed By: #### E RUR #### [facility] [address] [place] [address] Dr. Ortega Morel UR MICRO IND NOT INDICATED Normal [place] [facility] Comment on above: Performed By: #### E RUR #### [facility] [address] [place] [address] Dr. Ortega Morel Urobilinogen Qn (U) 1.0 {Alphonso'U}/dL Normal 0.2 - 1. 0 [facility] Comment on above: Performed By: #### E RUR #### [facility] [address] [place] [address] Dr. Ortega Morel LACTATE/LACTIC ACIDon 2021 Lactate [Moles/Vol] 0.7 mmol/L Normal 0.4-1.9 [facility] Comment on above: Performed By: #### L ACT #### [facility] [address] [place] [address] Dr. Ortega Morel LIPASEon 01-11-2022 Lipase [Catalytic activity/Vol] 66.0 U/L Critically low 73.0-393.0 [facility] Comment on above: Performed By: #### C MP #### [facility] [address] [place] [address] Dr. Ortega Morle PROF 14(COMP METB)on 06-01-2 022 Albumin [Mass/Vol] 3.4 g/dL Normal 3.4-5.0 [facility] Comment on above: Performed By: #### C MP #### [facility] [address] [place] [address] Dr. Ortega Morel Albumin/Globulin [Mass ratio] 1.1 {ratio} Normal [facility] Comment on above: Performed By: #### C MP #### [facility] [address] [place] [address] Dr. Ortega Morel ALP [Catalytic activity/Vol] 71 U/L Normal 46-116 [facility] Comment on above: Performed By: #### C MP #### [facility] [address] [place] [address] Dr. Ortega Morel ALT [Catalytic activity/Vol] 20 U/L Normal 14-59 [facility] Comment on above: Performed By: #### C MP #### [facility] [address] [place] [address] Dr. Ortega Morel Anion gap [Moles/Vol] 10.3 mmol/L Normal [facility] Comment on above: Performed By: #### C MP #### [facility] [address] [place] [address] Dr. Ortega Morel AST [Catalytic activity/Vol] 15 U/L Normal 15-37 [facility] Comment on above: Performed By: #### C MP #### [facility] [address] [place] [address] Dr. Ortega Morel Bilirubin [Mass/Vol] 0.7 mg/dL Normal 0.2-1.0 [facility] Comment on above: Performed By: #### C MP #### [facility] [address] [place] [address] Dr. Ortega Morel Calcium [Mass/Vol] 8.7 mg/dL Normal 8.5-10.1 [facility] Comment on above: Performed By: #### C MP #### [facility] [address] [place] [address] Dr. Ortega Morel Chloride [Moles/Vol] 106 mmol/L Normal 98-107 [facility] Comment on above: Performed By: #### C MP #### [facility] [address] [address] [address] Ortega Morel CO2 [Moles/Vol] 26.5 mmol/L Normal 21.0-32.[address] [facility] Comment on above: Performed By: #### C MP #### [facility] [address] [address] [address] Ortega Morel Creatinine [Mass/Vol] 0.74 mg/dL Normal 0.55-1.[address] [facility] Comment on above: Performed By: #### C MP #### [facility] [address] [address] [address] Ortega Morel EGFR-AF ERITREAN >60 Normal >=[address] [facility] Comment on above: Performed By: #### C MP #### [facility] [address] [place] [address] Dr. Ortega Morel EGFR-NON AF ERITREAN >60 Normal >=[address] [facility] Comment on above: Performed By: #### C MP #### [facility] [address] [place] [address] Dr. Ortega Morel Globulin (S) [Mass/Vol] 3.1 g/dL Normal [facility] Comment on above: Performed By: #### C MP #### [facility] [address] [place] [address] Dr. Ortega Morel Glucose [Mass/Vol] 95 mg/dL Normal 74-[address] [facility] Comment on above: Performed By: #### C MP #### [facility] [address] [place] [address] Dr. Ortega Morel Potassium [Moles/Vol] 3.8 mmol/L Normal 3.5-5.[address] [facility] Comment on above: Performed By: #### C MP #### [facility] [address] [place] [address] Dr. Ortega Morel Protein [Mass/Vol] 6.5 g/dL Normal 6.4-8.[address] [facility] Comment on above: Performed By: #### C MP #### [facility] [address] [address] [address] Ortega Morel Sodium [Moles/Vol] 139 mmol/L Normal 136-145 [facility] Comment on above: Performed By: #### C MP #### [facility] [address] [address] [address] Ortega Morel Urea nitrogen [Mass/Vol] 15.0 mg/dL Normal 7.0-18.0 [facility] Comment on above: Performed By: #### C MP #### [facility] [address] [address] [address] Ortega Morel Urea nitrogen/Creatinine [Mass ratio] 20.3 mg/mg Normal [facility] Comment on above: Performed By: #### C MP #### [facility] [address] [address] [address] Ortega Morel TROPONIN, HIGH SENSITIVITYon 01-11-2022 HSTROP <4.0 Normal 4.0-51.3 [facility] Comment on above: Result Comment: CUT- OFF POINTS HAVE BEEN ESTABLISHED BASED ON THE FOURTH UNIVERSAL DEFINITIONS OF MYOCARDIAL INFARCTION. THE UPPER REFERENCE LIMIT (URL) OF TROPONIN, DEFINED THE 99TH PERCENTILE OF cTnI DISTRIBUTION IN A REFERENCE POPULATION, HAS BEEN CONFIRMED THE DECISION THRESHOLD FOR [place] DIAGNOSIS. Performed By: #### C MP #### [facility] [address] [place] [address] Dr. Ortega Glass 09-29-2021 [facility] Office Visit (JUAN ) -- EZEQUIEL LEI ([id number]) 1960 F Date Time Provider Department 09/29/21 11:15 AM JESSICA LITTLE III During your visit today, we recorded the following information about you: Pulse Blood pressure Weight 79/minute 134/91 91.2 kg Jessica Little III, MD 09/29/2021 11:22 AM Addendum Ms. Lei is here today at the request of Blas Slaughter [address] [place] [phone] for my opinion regarding recurrent diverticulitis. My [...] cervical lymphadenopathy CT abdomen pelvis wo con [facility] [place] [address] [place] [id number] Scan Report Signed Patient: Ezequiel Lei MR#: [id number] : 1960 Acct:[id number] Age/Sex: 61 / F ADM Date: 08/30/21 Loc: ER Room: Type: [facility] ER Attending Dr: Ordering Provider: Jas [...] Facet arthropat (more content not included)... Normal [facility] HISTORY PHYSICALon 2 HISTORY PHYSICAL HNO ID: [id number] Author: Jessica Little III, MD Service: ? Author Type: Physician Type: HANDP Filed: 09/29/2021 12:21 PM Note Text: Ms. Lei is here today at the request of Blas Slaughter [address] [place] [phone] for my opinion regarding recurrent diverticulitis. My [...] cervical lymphadenopathy CT abdomen pelvis wo con [facility] [place] [address] [place], [place] [id number] CT Scan Report Signed Patient: Ezequiel Lei MR#: [id number] : 1960 Acct:[id number] Age/Sex: 61 / F ADM Date: 08/30/21 Loc: ER Room: Type: [facility] ER Attending Dr: Ordering Provider: Jas [...] by: Quinton (more content not included)... Normal [facility] Covid-19 PCR (CVDTB)on SARS-CoV-2 (COVID-19) RNA LIU+probe Ql (Unsp spec) Not detected Normal NOT DETECTED [facility] Comment on above: Result Comment: This test is not yet approved or cleared by the [place] FDA. When there are no FDA-approved or cleared tests available, and other criteria are met, FDA can make tests available under an emergency access mechanism called an Emergency Use Authorization (EUA). The EUA for this test is supported by the [place] of Health and Human Service's (HHS's) declaration [...] consistent with SARS-CoV-2. Performed By: #### C [facility] #### [facility] [address] [place] [address] Dr. Ortega Morel Covid-19 PCR (CVDTB)on SARS-CoV-2 (COVID-19) RNA LIU+probe Ql (Unsp spec) Detected Critically abnormal NOT DETECTED [facility] Comment on above: Result Comment: This test is not yet approved or cleared by the [place] FDA. When there are no FDA-approved or cleared tests available, and other criteria are met, FDA can make tests available under an emergency access mechanism called an Emergency Use Authorization (EUA). The EUA for this test is supported by the Systems Requirements Planner of Health and Human Service's (HHS's) declaration [...] be used). Performed By: #### C #### [facility] [address] [place] [address] Dr. Ortega Morel Quantiferon-TB Plus (Client Incubated)on 07-08-2020 Gamma interferon background IA Qn (Bld) 0.09 International_Unit/mL [facility] Comment on above: Performed By: #### 3 [id number], [id number] #### [facility] [address] [place] [address] M. tuberculosis stim IFN-g by CD4+ CD8+ T-cells corrected for background Qn (Bld) 0.43 International_Unit/mL [facility] Comment on above: Performed By: #### 3 [id number], [id number], [id number] #### [facility] [address] [place] [address] M. tuberculosis stim IFN-g by CD4+ T-cells corrected for background Qn (Bld) 0.36 International_Unit/mL [facility] Comment on above: Performed By: #### 3 [id number], [id number], [id number] #### [facility] [address] [place] [address] M. tuberculosis stim IFN-g Ql (Bld) [Interp] Negative Negative [facility] Comment on above: Result Comment: The specimen received for QuantiFERON testing was incubated by the ordering institution. Specific procedures outlined in our Directory of Services and in the package insert for the QuantiFERON Gold (In Tube) test must be followed to enable for proper stimulation of cells for the production of interferon gamma. [facility]formed at: [facility] [address], [place] [id number] PhD Anjel Arreola Performed By: #### 3 [id number], [id number], [id number], [id number] #### [facility] [address] [place] [address] Mitogen stimulated gamma interferon Qn (Bld) >10.00 [facility] Comment on above: Performed By: #### 3 [id number], [id number], [id number], [id number] #### [facility] [address] [place] [address] Service comment (Unsp spec) [Interp] Comment [facility] Comment on above: Result Comment: The QuantiFERON-TB Gold Plus result is determined by subtracting the Nil value from either TB antigen (Ag) tube. The mitogen tube serves as a control for the test. Performed By: #### 3 [id number], [id number], [id number], [id number] #### [facility] [address] [place] [address] Hep Bs Abon 07-06-2020 HBV surface Ab Ql (S) Reactive Fis [facility] Comment on above: Result Comment: Non Reactive: Inconsistent with immunity, less than 10 mIU/mL Reactive: Consistent with immunity, greater than 9.9 mIU/mL Performed at: [address] [id number] PhD Anjel Arreola Performed By: #### 3 [id number], [id number], [id number], [id number] #### [facility] [address] [place] [address] Measles/Mumps/Rubella Immuni tyon 07-06-2020 MeV IgG IA Qn (S) {index_val} Immune >16.4 [facility] Comment on above: Result Comment: Nega tive <13.5 Equivocal 13.5 - 16.4 Positive >16.4 Presence of antibodies to Rubeola is presumptive evidence of immunity except when acute infection is suspected. Performed By: #### 3 [id number], [id number], [id number] #### [facility] [address] [place] [address] MuV IgG IA Qn (S) 31.4 A unit/mL Immune >10.9 [facility] Comment on above: Result Comment: Nega tive <9.0 Equivocal 9.0 - 10.9 Positive >10.9 A positive result generally indicates past exposure to Mumps virus or previous vaccination. Performed at: [address] [id number] PhD Anjel Arreola Performed By: #### 3 [id number], [id number], [id number], [id number] #### [facility] [address] [place] [address] Rubella virus IgG Qn (S) 24.40 [IU]/mL Immune >0.99 [facility] Comment on above: Result Comment: Non- immune <0.90 Equivocal 0.90 - 0.99 Immune >0.99 Performed By: #### 3 [id number], [id number], [id number], [id number] #### [facility] [address] [place] [address] Varic IgGon 07-06-2020 VZV IgG IA Qn (S) >4000 Immune >165 [facility] Comment on above: Result Comment: Nega tive <135 Equivocal 135 - 165 Positive >165 A positive result generally indicates exposure to the pathogen or administration of specific immunoglobulins, but it is not indication of active infection or stage of disease. Performed at: [address] [id number] PhD Anjel Arreola Performed By: #### 3 [id number], [id number], [id number], [id number] #### [facility] [address] [place] [address] Consent for Treatmenton 06-14 Consent for Treatment [id number]:127 Normal [facility] Physician Orderon 07-05-2020 Physician Order [id number]:127 Normal [facility] Vital Signs Date Time Vital Sign Value Performing Clinician Facility 05-25-2025 11:03-0400 Body height 154.94 cm Blas Slaughter DO Work Phone: [facility] 05-25-2025 11:03-0400 Body mass index (BMI) [Ratio] 37.2 kg/m2 Blas Slaughter DO Work Phone: [facility] 05-25-2025 11:03-0400 Body weight 89.35 kg Blas Slaughter DO Work Phone: [facility] 05-25-2025 11:03-0400 Diastolic blood pressure 80 mm[Hg] Blas Slaughter DO Work Phone: [facility] 05-25-2025 11:03-0400 Heart rate 74 /min Blas Slaughter DO Work Phone: [facility] 05-25-2025 11:03-0400 SaO2% (BldA) [Mass fraction] 98 % Blas Slaughter DO Work Phone: [facility] 05-25-2025 11:03-0400 Systolic blood pressure 124 mm[Hg] Blas Slaughter DO Work Phone: [facility] 05-05-2025 13:55-0400 Body height 154.94 cm Blas Slaughter DO Work Phone: [facility] 05-05-2025 13:55-0400 Body temperature 98.4 [degF] Blas Slaughter DO Work Phone: [facility] 05-05-2025 13:55-0400 Diastolic blood pressure 88 mm[Hg] Blas Slaughter DO Work Phone: [facility] 05-05-2025 13:55-0400 Heart rate 63 /min Blas Slaughter DO Work Phone: [facility] 05-05-2025 13:55-0400 SaO2% (BldA) [Mass fraction] 97 % Blas Slaughter DO Work Phone: [facility] 05-05-2025 13:55-0400 Systolic blood pressure 130 mm[Hg] Blas Slaughter DO Work Phone: [facility] 03-23-2025 09:18-0400 Body height 154.94 cm Blas Slaughter DO Work Phone: [facility] 03-23-2025 09:18-0400 Body mass index (BMI) [Ratio] 35.1 kg/m2 Blas Slaughter DO Work Phone: [facility] 03-23-2025 09:18-0400 Body weight 84.36 kg Blas Slaughter DO Work Phone: [facility] 03-23-2025 09:18-0400 Diastolic blood pressure 96 mm[Hg] Blas Slaughter DO Work Phone: [facility] 03-23-2025 09:18-0400 Heart rate 71 /min Blas Slaughter DO Work Phone: [facility] 03-23-2025 09:18-0400 Systolic blood pressure 157 mm[Hg] Blas Slaughter DO Work Phone: [facility] 02-11-2025 04:38-0400 Diastolic blood pressure 74 mm[Hg] Blas Slaughter DO Work Phone: [facility] 02-11-2025 04:38-0400 Heart rate 74 /min Blas Slaughter DO Work Phone: [facility] 02-11-2025 04:38-0400 Respiratory rate 16 /min Blas Slaughter DO Work Phone: [facility] 02-11-2025 04:38-0400 SaO2% (BldA) [Mass fraction] 96 % Blas Slaughter DO Work Phone: [facility] 02-11-2025 04:38-0400 Systolic blood pressure 134 mm[Hg] Blas Slaughter DO Work Phone: [facility] 02-11-2025 01:27-0400 Body height 154.94 cm Blas Slaughter DO Work Phone: [facility] 02-11-2025 01:27-0400 Body temperature 97.6 [degF] Blas Slaughter DO Work Phone: [facility] 02-11-2025 01:27-0400 Body weight 88.9 kg Blas Slaughter DO Work Phone: [facility] 12-23-2024 14:03-0400 Body height 154.[address] [facility] 12-23-2024 14:03-0400 Body temperature 98.3 [degF] [facility] 12-23-2024 14:03-0400 Diastolic blood pressure 82 mm[Hg] [facility] 12-23-2024 14:03-0400 Heart rate 86 /min [facility] 12-23-2024 14:03-0400 SaO2% (BldA) [Mass fraction] 97 % [facility] 12-23-2024 14:03-0400 Systolic blood pressure 108 mm[Hg] [facility] 09-22-2024 11:44-0500 Body height 154.94 cm Blas Slaughter DO Work Phone: [facility] 09-22-2024 11:44-0500 Body mass index (BMI) [Ratio] 37.4 kg/m2 Blas Slaughter DO Work Phone: [facility] 09-22-2024 11:44-0500 Body temperature 98.2 [degF] Blas Slaughter DO Work Phone: [facility] 09-22-2024 11:44-0500 Body weight 89.81 kg Blas Slaughter DO Work Phone: [facility] 09-22-2024 11:44-0500 Diastolic blood pressure 78 mm[Hg] Blas Slaughter DO Work Phone: [facility] 09-22-2024 11:44-0500 Heart rate 74 /min Blas Slaughter DO Work Phone: [facility] 09-22-2024 11:44-0500 SaO2% (BldA) [Mass fraction] 98 % Blas Slaughter DO Work Phone: [facility] 09-22-2024 11:44-0500 Systolic blood pressure 122 mm[Hg] Blas Slaughter DO Work Phone: [facility] 09-18-2024 13:30-0500 Diastolic blood pressure 62 mm[Hg] Blas Slaughter DO Work Phone: [facility] 09-18-2024 13:30-0500 Heart rate 62 /min Blas Slaughter DO Work Phone: [facility] 09-18-2024 13:30-0500 Respiratory rate 18 /min Blas Slaughter DO Work Phone: [facility] 09-18-2024 13:30-0500 SaO2% (BldA) [Mass fraction] 98 % Blas Slaughter DO Work Phone: [facility] 09-18-2024 13:30-0500 Systolic blood pressure 110 mm[Hg] Blas Slaughter DO Work Phone: [facility] 09-18-2024 12:09-0500 Body temperature 98.3 [degF] Blas Slaughter DO Work Phone: [facility] 09-18-2024 12:01-0500 Body height 154.94 cm Blas Slaughter DO Work Phone: [facility] 09-18-2024 12:01-0500 Body weight 81.64 kg Blas Slaughter DO Work Phone: [facility] 08-06-2024 11:10-0500 Diastolic blood pressure 78 mm[Hg] Blas Slaughter DO Work Phone: [facility] 08-06-2024 11:10-0500 Systolic blood pressure 118 mm[Hg] Blas Slaughter DO Work Phone: [facility] 08-06-2024 10:38-0500 Body temperature 97.7 [degF] Blas Slaughter DO Work Phone: [facility] 08-06-2024 10:38-0500 Heart rate 84 /min Blas Slaughter DO Work Phone: [facility] 08-06-2024 10:38-0500 Respiratory rate 22 /min Blas Slaughter DO Work Phone: [facility] 08-06-2024 10:38-0500 SaO2% (BldA) [Mass fraction] 100 % Blas Slaughter DO Work Phone: [facility] 08-06-2024 10:34-0500 Body height 154.94 cm Blas Slaughter DO Work Phone: [facility] 08-06-2024 10:34-0500 Body weight 89.9 kg Blas Slaughter DO Work Phone: [facility] 02-18-2024 14:56-0400 Body height 154.[address] [facility] 02-18-2024 14:56-0400 Body mass index (BMI) [Ratio] 37 kg/m2 [facility] 02-18-2024 14:56-0400 Body temperature 97.2 [degF] [facility] 02-18-2024 14:56-0400 Body weight 88.[address] [facility] 02-18-2024 14:56-0400 Diastolic blood pressure 86 mm[Hg] [facility] 02-18-2024 14:56-0400 SaO2% (BldA) [Mass fraction] 98 % [facility] 02-18-2024 14:56-0400 Systolic blood pressure 120 mm[Hg] [facility] 01-22-2024 09:04-0400 Body height 154.[address] [facility] 01-22-2024 09:04-0400 Body mass index (BMI) [Ratio] 36.8 kg/m2 [facility] 01-22-2024 09:04-0400 Body temperature 97.3 [degF] [facility] 01-22-2024 09:04-0400 Body weight 88.[address] [facility] 01-22-2024 09:04-0400 Diastolic blood pressure 84 mm[Hg] [facility] 01-22-2024 09:04-0400 Heart rate 78 /min [facility] 01-22-2024 09:04-0400 SaO2% (BldA) [Mass fraction] 99 % [facility] 01-22-2024 09:04-0400 Systolic blood pressure 124 mm[Hg] [facility] 12-14-2023 10:18-0400 Body height 154.[address] [facility] 12-14-2023 10:18-0400 Body mass index (BMI) [Ratio] 36.8 kg/m2 [facility] 12-14-2023 10:18-0400 Body temperature 98 [degF] [facility] 12-14-2023 10:18-0400 Body weight 88.[address] [facility] 12-14-2023 10:18-0400 Diastolic blood pressure 84 mm[Hg] [facility] 12-14-2023 10:18-0400 Heart rate 68 /min [facility] 12-14-2023 10:18-0400 Systolic blood pressure 132 mm[Hg] [facility] 09-11-2023 14:40-0500 Body height 154.94 cm Blas Slaughter Other [employer] [facility] [employer] Other 09-11-2023 14:40-0500 Body mass index (BMI) [Ratio] 37.6 kg/m2 Blas Slaughter Other [employer] [facility] [employer] Other 09-11-2023 14:40-0500 Body temperature 97.9 [degF] Blas Slaughter Other [employer] Other 09-11-2023 14:40-0500 Body weight 90.27 kg Blas Slaughter Other [employer] [facility] [employer] [employer] Other 09-11-2023 14:40-0500 Diastolic blood pressure 88 mm[Hg] Blas Slaughter Other [employer] [employer] [employer] Other 09-11-2023 14:40-0500 Respiratory rate 18 /min Blas Slaughter Other [employer] Other 09-11-2023 14:40-0500 SaO2% (BldA) [Mass fraction] 98 % Blas Slaughter Other [employer] Other 09-11-2023 14:40-0500 Systolic blood pressure 138 mm[Hg] Blas Slaughter Other [employer] Other 01-19-2023 10:30-0400 Body height 154.94 cm Blas Slaughter Other [employer] Other 01-19-2023 10:30-0400 Body mass index (BMI) [Ratio] 36.27 kg/m2 Blas Slaughter Other [employer] Other 01-19-2023 10:30-0400 Body temperature 98.7 [degF] Blas Slaughter Other [employer] Other 01-19-2023 10:30-0400 Body weight 87.09 kg Blas Slaughter Other [employer] Other 01-19-2023 10:30-0400 Diastolic blood pressure 82 mm[Hg] Blas Slaughter Other [employer] Other 01-19-2023 10:30-0400 Respiratory rate 18 /min Blas Slaughter Other [employer] Other 01-19-2023 10:30-0400 SaO2% (BldA) [Mass fraction] 97 % Blas Slaughter Other [employer] Other 01-19-2023 10:30-0400 Systolic blood pressure 126 mm[Hg] Blas Slaughter Other [employer] Other 07-17-2022 10:50-0500 Body height 154.94 cm Blas Slaughter Other [employer] Other 07-17-2022 10:50-0500 Body mass index (BMI) [Ratio] 37.5 kg/m2 Blas Slaughter Other [employer] Other 07-17-2022 10:50-0500 Body temperature 97.6 [degF] Blas Slaughter Other [employer] Other 07-17-2022 10:50-0500 Body weight 90.04 kg Blas Slaughter Other [employer] Other 07-17-2022 10:50-0500 Diastolic blood pressure 88 mm[Hg] Blas Slaughter Other [employer] Other 07-17-2022 10:50-0500 Respiratory rate 18 /min Blas Slaughter Other [employer] Other 07-17-2022 10:50-0500 SaO2% (BldA) [Mass fraction] 99 % Blas Slaughter Other [employer] Other 07-17-2022 10:50-0500 Systolic blood pressure 132 mm[Hg] Blas Slaughter Other [employer] Other 01-17-2022 09:10-0400 Body height 154.94 cm Blas Slaughter Other [employer] Other 01-17-2022 09:10-0400 Body mass index (BMI) [Ratio] 37.31 kg/m2 Blas Slaughter Other [employer] Other 01-17-2022 09:10-0400 Body temperature 96.8 [degF] Blas Slaughter Other [employer] Other 01-17-2022 09:10-0400 Body weight 89.59 kg Blas Slaughter Other [employer] Other 01-17-2022 09:10-0400 Diastolic blood pressure 86 mm[Hg] Blas Slaughter Other [employer] Other 01-17-2022 09:10-0400 Respiratory rate 18 /min Blas Slaughter Other [employer] Other 01-17-2022 09:10-0400 SaO2% (BldA) [Mass fraction] 98 % Blas Slaughter Other [employer] Other 01-17-2022 09:10-0400 Systolic blood pressure 126 mm[Hg] Blas Slaughter Other [employer] Other Encounters Encounter Date Encounter Type Care Provider Facility Start: 05-27-2025 Non-patient / Non-visit Blas Slaughter DO -[facility] Work Phone: Start: 05-25-2025 End: 05-25-2025 Patient encounter procedure Salazar Monae MD -[facility] Work Phone: Start: 05-25-2025 End: 05-25-2025 ambulatory Salazar Monae Facility:[facility] Start: 05-25-2025 End: 05-25-2025 Patient encounter procedure Salazar Monae MD -[facility] Work Phone: Start: 05-05-2025 End: 05-05-2025 ambulatory Blas Slaughter DO Work Phone: [facility] Work Phone: Start: 05-05-2025 End: 05-05-2025 Patient encounter procedure Blas Slaughter DO -[facility] [place] Work Phone: Start: 03-23-2025 End: 03-23-2025 ambulatory Blas Slaughter DO Work Phone: [facility] Work Phone: Start: 03-23-2025 End: 03-23-2025 Patient encounter procedure Nurys Robledo DO -[facility] Work Phone: Start: 02-11-2025 Non-patient / Non-visit danny Quinones [facility] Work [facility]: Start: 02-11-2025 End: 02-11-2025 Emergency department patient visit Blas Slaughter DO Work Phone: -Emergency Room Work Phone: Start: 02-10-2025 End: 02-10-2025 ambulatory Blas Slaughter Facility:[facility] Start: 02-10-2025 Non-patient / Non-visit Blas Slaughter DO -[facility] Work Phone: Start: 12-23-2024 End: 12-23-2024 ambulatory [facility] Work Phone: Start: 12-23-2024 End: 12-23-2024 Patient encounter procedure [facility] [place] Work Phone: Start: 11-16-2024 End: 11-19-2024 Refill Luisa J Nataprawira DO Work Phone: [facility] Comment on above: Surgical menopause o n hormone replacement therapy Start: 09-23-2024 Patient encounter status [facility] Start: 09-22-2024 End: 09-22-2024 ambulatory Blas Slaughter DO Work Phone: [facility] Work Phone: Start: 09-22-2024 End: 09-22-2024 Patient encounter procedure Blas Slaughter DO Work Phone: [facility] [place] Work Phone: Start: 09-18-2024 End: 09-18-2024 Emergency department patient visit Blas Slaughter DO Work Phone: [facility]-Emergency Room Work Phone: Start: 08-06-2024 End: 08-06-2024 Emergency department patient visit Blas Slaughter DO Work Phone: [facility]-Emergency Room Work Phone: Start: 06-25-2024 End: 06-26-2024 Refill Luisa Stiles DO Work Phone: [facility] Comment on above: Surgical menopause o n hormone replacement therapy Start: 02-18-2024 End: 02-18-2024 ambulatory [facility] Work Phone: Start: 02-18-2024 End: 02-18-2024 Patient encounter procedure [facility] [place] Work Phone: Start: 01-22-2024 End: 01-22-2024 ambulatory [facility] Work Phone: Start: 01-22-2024 End: 01-22-2024 Patient encounter procedure [facility] [place] Work Phone: Start: 12-14-2023 End: 12-14-2023 ambulatory [facility] Work Phone: Start: 12-14-2023 End: 12-14-2023 Patient encounter procedure [facility] [place] Work Phone: Start: 11-28-2023 Non-patient / Non-visit [facility] Work Phone: Start: 11-19-2023 Non-patient / Non-visit [facility] Work Phone: Start: 09-19-2023 End: 09-19-2023 ambulatory Blas Slaughter Other [employer] Other Start: 09-19-2023 Telephone encounter Blas Slaughter [facility] [place] Start: 09-12-2023 End: 09-12-2023 ambulatory Blas Slaughter Other [employer] Other Start: 09-12-2023 Telephone encounter Blas Slaughter [facility] [place] Start: 09-11-2023 End: 09-11-2023 ambulatory Blas Slaughter Other [employer] Other Start: 09-11-2023 Office outpatient visit 25 minutes Blas Slaughter [facility] [place] Start: 09-10-2023 End: 09-10-2023 ambulatory Blas Slaughter Other [employer] Other Start: 09-10-2023 Encounter for genera l adult medical examination without abnormal findings Blas Slaughter [facility] [place] Start: 09-10-2023 Telephone encounter Blas Slaughter [facility] [place] Start: 08-27-2023 End: 08-27-2023 ambulatory Blas Slaughter Other [employer] Other Start: 08-27-2023 Encounter for genera l adult medical examination without abnormal findings Blas Slaughter [facility] [place] Start: 08-27-2023 Telephone encounter Blas Slaughter [facility] [place] Start: 08-21-2023 End: 08-21-2023 ambulatory Blas Slaughter Other [employer] Other Start: 08-21-2023 Telephone encounter Blas Slaughter [facility] [place] Start: 05-01-2023 End: 05-01-2023 ambulatory Blas Slaughter Other [employer] Other Start: 05-01-2023 Telephone encounter Blas Slaughter [facility] [place] Start: 03-07-2023 End: 03-07-2023 ambulatory Blas Slaughter Other [employer] Other Start: 03-07-2023 Telephone encounter Blas Slaughter [facility] [place] Start: 02-15-2023 End: 02-15-2023 ambulatory Blas Slaughter Other [employer] Other Start: 02-15-2023 Telephone encounter Blas Slaughter [facility] [place] Start: 01-19-2023 End: 01-19-2023 ambulatory Blas Slaughter Other [employer] Other Start: 01-19-2023 Office outpatient visit 25 minutes Blas Slaughter [facility] [place] Start: 12-05-2022 End: 12-05-2022 ambulatory Blas Slaughter Other [employer] Other Start: 12-05-2022 Telephone encounter Blas Slaughter [facility] [place] Start: 10-10-2022 End: 10-10-2022 ambulatory Blas Slaughter Other [employer] Other Start: 10-10-2022 Telephone encounter Blas Slaughter [facility] [place] Start: 09-04-2022 End: 09-04-2022 ambulatory Blas Slaughter Other [employer] Other Start: 09-04-2022 Telephone encounter Blas Slaughter [facility] [place] Start: 08-16-2022 End: 08-16-2022 ambulatory Blas Slaughter Other [employer] Other Start: 08-16-2022 Telephone encounter Blas Slaughter [facility] Family [facility] [place] Start: 07-17-2022 End: 07-17-2022 ambulatory Blas Slaughter Other [employer] Other Start: 07-17-2022 Office outpatient visit 25 minutes [facility] Start: 07-17-2022 Telephone encounter Blas Slaughter [facility] [place] Start: 07-15-2022 End: 07-16-[address] BLAS SLAUGHTER Facility:[facility] Start: 05-02-2022 End: 05-02-2022 ambulatory COSME MCINTYRE Facility:[facility] Start: 04-28-2022 End: 04-28-2022 ambulatory COSME MCINTYRE Facility:[facility] Start: 03-01-2022 End: 03-01-2022 ambulatory Blas Slaughter Other [employer] Other Start: 03-01-2022 Telephone encounter [facility] Start: 02-27-2022 End: 02-27-2022 ambulatory Blas Slaughter Other [employer] Other Start: 02-27-2022 Telephone encounter Blas Slaughter [facility] Start: 01-17-2022 End: 01-17-2022 ambulatory Blas Slaughter Other [employer] Other Start: 01-17-2022 Office outpatient visit 15 minutes Blas Slaughter [facility] Start: 01-11-2022 End: 01-11-[address] CHARLEE TAYLOR Facility:[facility] Start: 09-20-2021 End: 09-20-[address] BLAS SLAUGHTER Facility:[facility] Start: 08-21-2021 End: 08-21-[address] DOCTOR GOLDSTEIN Facility:[facility] Procedures Date Procedure Procedure Detail Performing Clinician Start: 05-25-2025 X-ray of lumbar spin e, four views Blas Slaughter DO Work Phone: Start: 02-11-2025 Urine culture Blas costa DO Work Phone: Start: 02-11-2025 Computed tomography of abdomen and pelvis with contrast Blas Slaughter DO Work Phone: Start: 09-18-2024 Viral nucleic acid assay Blas Slaughter DO Work Phone: Start: 09-18-2024 Plain chest X-ray Blas Slaughter DO Work Phone: Plan of Treatment Date Care Activity Detail Author Start: 05-27-2025 Urine culture [facility] Start: 05-05-2025 Patient referral [facility] Work Phone: Start: 04-13-2025 Influenza vaccination Influenz a Vaccine (Season Ended) [facility] Start: 02-11-2025 Bacteria identified in Urine by Culture Urine Culture [facility] Start: 02-11-2025 Computed tomography of abdomen and pelvis with contrast CT abdomen pelvis w con [facility] Start: 02-11-2025 CT Abdomen and Pelvi s W contrast IV [facility] Start: 02-11-2025 Urine culture [facility] Start: 02-10-2025 Urine culture [facility] Start: 04-13-2024 Influenza vaccination Influenz a Vaccine (#1) [facility] Start: 2001 Screening for malign ant neoplasm of breast Mammogram [facility] Start: 1991 Screening for malign ant neoplasm of cervix [facility] Start: 1982 Screening for malign ant neoplasm of cervix Pap Smear [facility] Start: 1961 Screening for malign ant neoplasm of colon [facility] metabo lic 2000 panel - Serum or Plasma [facility] Comprehensive metabo lic 2000 panel - Serum or Plasma [facility] MG Breast - bilatera l Screening [facility] MG Breast - bilatera l Screening [facility] Patient Education [facility] Work Phone: Patient referral [facility] Work Phone: Urine culture [facility] Immunizations Immunization Date Immunization Notes Care Provider Fa niallty 07-18-2021 influenza virus vaccine, unspecified formulation Luisa Stiles DO Work Phone: [facility] 06-13-2021 COVID-19 Vaccine Moderna - Documentation Purposes Only Blas Slaughter Other [facility] 11-03-2020 tetanus toxoid, reduced diphtheria toxoid, and acellular pertussis vaccine, adsorbed [facility] 09-08-2020 COVID-19 Vaccine Moderna - Documentation Purposes Only Blas Slaughter Other [facility] 08-11-2020 COVID-19 Vaccine Moderna - Documentation Purposes Only Blas Slaughter Other [facility] NEGATED: Highlighted row has not occurred!10-17-2019 influenza, seasonal, injectable Blas Slaughter Other [employer] Other Payers Date Payer Category Payer Blue [employer] Blue Shield [id number] 2024 Self-pay [id number] 2022 Blue Cross Blue Shield BCBS [id number] 1961 Unknown [id number] 593 1961 Unknown [id number]. 593 1961 Unknown [id number]. 593 1961 Unknown [id number]. 593 1961 Unknown [id number]. 593 1961 Unknown [id number] [id number]. 593 1959 Unknown [id number] Unknown [id number] [id number]. 531 Unknown [id number] [id number]. 531 Unknown [id number] [id number]. 531 Unknown [id number] [id number]. 531 Unknown [id number]. 531 Social History Date Type Detail Facility Unknown if ever smoked [facility] [employer] Other Start: 08-13-1981 Sex Assigned At [facility] [employer] Other Start: 12-14-2023 End: 05-14-2025 Tobacco smoking status [facility] Ex-smoker (finding) [facility] Start: 1960 Sex Assigned At Female F [facility] End: 08-13-2014 History of tobacco use Current smoker [facility] End: 08-13-2014 History of tobacco use Cigarette Smoker [facility] Start: 04-17-2023 Alcoholic beverage intake Current drinker of alcohol (finding) [facility] Start: 04-17-2023 History of Social function [facility] Start: 04-13-2023 Tobacco Comment Last smoked : > 10 years [facility] Start: 04-13-2023 Alcohol Comment caffeine intak e : 1-2 cups per day 1 cup of coffee daily , an occasional mountain dew [facility] Start: 09-18-2024 End: 12-22-2024 Tobacco smoking status [facility] Current some day smoker [facility] Start: 09-18-2024 End: 12-23-2024 Sex Female (finding) [facility] Clinical Notes 12-04-2012 to 05-05-2025 Note Date & Type Note Facility 09-23-2025 Evaluation note Authored May 05, 2025 2:36pm The above note written by __ _Prince Quinones____ acting as human recorder, note dictated by Dr. Kenney .I performed the above HPI, ROS, and Examination. I formulated and dictated the treatment plan and was present for entire encounter. Blas Slaughter D.O. [facility] Work Phone: 1(489) 973-553009-23-2025 Hospital Discharge instructionsAmbulatory Orders* Referral to Pain Management Time Frame: 05/05/25, Location: None Selected [facility] Work Phone: [phone]) 780-816208-11-2025 Evaluation note* Diagnosis Onset Date Resolution Status Admit Date Diverticulitis large intestine acute March 23, 2025 9:10am Hives acute April 1:59pm Lumbar pain acute April 1:59pm [facility] Work Phone: 1(851) 111-838905-13-2025 Evaluation note* Author Blas Slaughter [facility] Authored December 23, 2024 2:59p m The above note written by __ _Prince Quinones____ acting as human recorder, note dictated by Dr. Kenney .I performed the above HPI, ROS, and Examination. I formulated and dictated the treatment plan and was present for entire encounter. Blas Slaughter D.O. [facility] Work Phone: [phone]) 846-575104-09-2025 Telephone encounter Note* Telephone Encounter - Luisa Stiles DO - 11/19/2024 4:57 PM EDT Patient has not been seen since [facility]22 [id number] Miscellaneous Notes* Telephone Encounter - Luisa Stiles DO - 11/19/2024 4:57 PM EDT Patient has not been seen since 2022 documented in [facility] encounter[facility] [id number] Evaluation note* [facility] Authored January 22, 2024 9:42 am The above note written by __ _Prince Quinones____ acting as human recorder, note dictated by Dr. Kenney .I performed the above HPI, ROS, and Examination. I formulated and dictated the treatment plan and was present for entire encounter. Blas Slaughter D.O. Author Blas [facility] Authored December 14, 2023 11:35a m The above note written by __ _Prince Quinones____ acting as human recorder, note dictated by Dr. Kenney .I performed the above HPI, ROS, and Examination. I formulated and dictated the treatment plan and was present for entire encounter. Blas Slaughter D.O. [facility] Work Phone: 1([phone]) 501-522705-03-2024 Evaluation note* Author Blas Slaughter [facility] Authored December 14, 2023 11:35a m The above note written by __ _Prince Quinones____ acting as human recorder, note dictated by Dr. Kenney .I performed the above HPI, ROS, and Examination. I formulated and dictated the treatment plan and was present for entire encounter. Blas Slaughter D.O. 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 Reassurance given. Aug, Other residential (current) drug therapy (ICD-10 - Z79.899) Aug, [...] B Complex and a B12 vitamin daily. [employer] Other 01-29-2024 Evaluation note* Encounter Date Diagnosis Assessment Notes Treatment Notes Treatment Clinical Notes Aug, Wellness examination (ICD-10 - Z00.00) [employer] Other 01-15-2024 Evaluation note* Encounter Date Diagnosis Assessment Notes Treatment Notes Treatment Clinical Notes Aug, Wellness examination (ICD-10 - Z00.00) Aug, Hypothyroidism (ICD-10 - E03.9) Aug, Hyperglycemia (ICD-1 0 - R73.9) [employer] Other 07-26-2023 Evaluation note* Encounter Date Diagnosis Assessment Notes Treatment Notes Treatment Clinical Notes Feb, Abnormal mammogram of left breast (ICD-10 - R92.8) [employer] Other 06-09-2023 Evaluation note* Encounter Date Diagnosis [...] have a bilateral mammogram done. Jan, Other residential (current) drug therapy (ICD-10 - Z79.899) Jan, Anxiety (ICD-10 - F41.9) Continue with above medication as needed. Jan, Nocturia (ICD-10 - R35.1) [employer] Other 01-04-2023 Evaluation note* Encounter Date Diagnosis Assessment Notes Treatment Notes Treatment Clinical Notes Aug, Hyperlipidemia (ICD-10 - E78.5) [employer] Other 12-05-2022 Evaluation note* Encounter Date Diagnosis Assessment Notes Treatment Notes Treatment Clinical Notes Jul, Hypothyroidism (ICD-10 - E03.9) [employer] Other 12-05-2022 Evaluation note* Encounter Date Diagnosis [...] done with her next lab. Jul, Other residential (current) drug therapy (ICD-10 - Z79.899) Jul, [...] she has a mammogram scheduled for 07-20-22. [employer] Other 07-20-2022 Evaluation note* Encounter Date Diagnosis Assessment Notes Treatment Notes Treatment Clinical Notes Feb, Cystitis (ICD-10 - N30.90) [employer] Other 07-18-2022 Evaluation note* Encounter Date Diagnosis Assessment Notes Treatment Notes Treatment Clinical Notes Feb, Dysuria (ICD-10 - R30.0) Feb, Diverticulitis (ICD-10 - K57.92) Feb, Cough (ICD-10 - R05.9) [employer] Other 06-07-2022 Evaluation note* Encounter Date Diagnosis Assessment Notes Treatment Notes Treatment Clinical Notes Jan, Diverticulitis (ICD-10 - K57.92) She did go see the specialist in [place] for evaluation who recommended that she have [...] Jan, Hypothyroidism (ICD-10 - E03.9) Jan, Other residential (current) drug therapy (ICD-10 - Z79.899) Jan, Nocturia (ICD-10 - R35.1) Jan, Encounter for screening mammogram for breast cancer (ICD-10 - Z12.31) [employer] Other 04-24-2013 History general Narrative - Reported* Type Description Date Medical History Hypothyroidism Medical History Colonoscopy 12-04-12; Dr. Hardy Medical History Diverticulosis Surgical History hysterectomy and bilateral ooph erectomy 1988 Surgical History tumor removal 1993 Surgical History gallbladder 1995 Surgical History Colonoscopy, Dr. Alcocer rmleobardo- Sigmoid Diverticulosis repeat in 10 years 12-04-12 Surgical History Fried, cortisone injection rt kn ee Hospitalization History see above [place] [facility] [place] Hospitalization History Urgent Care - Diarrhea 1 [place] [facility] [place] [employer] Other Evaluation noteNo [employer] Other Evaluation note* Diagnosis Onset Date Resolution Status Diverticulitis of colon acut e Weight gain acute [facility] Work Phone: Evaluation note* Diagnosis Surgical menopause on hormone replacement therapy documented in this encounter [facility] HealthcareEvaluation noteNo assessment information availableC[facility] Work Phone: Evaluation note* Diagnosis Onset Date Resolution Status Admit Date Anxiety acute September 22, 2024 11:52am Nausea acute September 22, 2024 11:52am Vomiting and diarrhea acute Feb ru2024 11:52am [facility] Work Phone: Evaluation note* Diagnosis Surgical menopause on hormone replacement therapy documented in this encounter [facility] HealthcareEvaluation note* Diagnosis Onset Date Resolution Status Admit Date Lumbar pain acute December 23 1:51pm Muscle spasm acute December 23 1:51pm [facility] Work Phone: Hospital Discharge instructions Additional Instructions Follow-up with your primary care doctor Return to ED if develop worsening [facility] Work Phone: Hospital Discharge instructions Additional Instructions If your symptoms return/worsen or you develop any further concerns or symptoms please see your doctor or return to the emergency department immediately. It is imperative that you go over today's visit and all results with your primary care provider.[facility] Work Phone: Reason for referral (narrative)No reason for referral information availableC[facility] Clinic [facility] Work Phone: Summary Purpose Family History Relationship [...] Date/ Time Advance Directives No April 8:53am Advance Directive Response Recorded Date/ Time Advance Directives No December 22 4:29pm Advance Directive Response Recorded Date/ Time Advance Directives No May 14, 2025 11:41am Reason for Referral Reason appt pt needs cons josephine w/ Dr. Muñoz to discuss recurrent diverticulitis and discuss colonoscopy Diagnosis 1 Diverticulitis (K57. 92) Referral Organization [facility] Kit Cervantes Referring Provider First Name Blas Referring Provider Last Name Kasandra Referring Provider Specialty Family Prac kat Referred Organization [facility] Referred Provider Jose Muñoz Referred Address ,[place], [place],[address] Referred Provider Specialty Surgery Referral Priority Routine General Notes Charissa Paulino 01/17/2022 09:06:40 AM > referral sent p2p with visit note, last two CT scans, ER labs and ins card. pt informed she zeina be contacted to schedule this appt. Chief Complaint and Reason for Visit Chief Complaint Admit Date back pain December 23, 2024 1:51p m abdominal pain/nausea February 11, 2025 1:2 5am Reason for Visit Admit Date Lumbar pain December 23, 2024 1:51p m Muscle spasm December 23, 2024 1:51p m Chief Complaint Amb Documentation med refill Semaglutide [...] 11:52am Vomiting and diarrhea September 22 11:52am Chief Complaint Admit Date back pain December 23, 2024 1:51p m Chief Complaint Admit Date back pain December 23, 2024 1:51p m abdominal pain/nausea February 11, 2025 1:2 5am Amb Documentation February 11, 2025 9:43a m diverticulitis March 23, 2025 9: 10am Chief Complaint Admit Date abdominal pain/nausea February 11, 2025 1:2 5am Amb Documentation February 11, 2025 9:43a m diverticulitis March 23, 2025 9: 10am back pain May 05, 2025 1:59pm Reason for Visit Admit Date Diverticulitis large intestine March 232024 9:10am Hives May 05, 2025 1:59pm Lumbar pain May 05, 2025 1:59pm Chief Complaint Admit Date diverticulitis March 23, 2025 9: 10am back pain May 05, 2025 1:59pm Ref: Dr. Slaughter - Low Back Pain, Radicul opathy May 25, 2025 10:45am M54.59 May 25, 2025 1 1:52am Reason for Visit Admit Date Diverticulitis large intestine March 232024 9:10am Hives May 05, 2025 1:59pm Lumbar pain May 05, 2025 1:59pm Lumbar radiculopathy May 25, 2025 10:45am Other chronic pain May 25, 2025 1 0:45am Other low back pain May 25, 2025 1 0:45am Sacroiliitis May 25, 2025 1 0:45am Additional Source Comments INFORMATION SOURCE (unrecogn ized section and content) DATE CREATED AUTHOR 07/08/2020 [place] [facility] DATE CREATED AUTHOR AUTHOR'S ORGANIZ ATION 11/04/2021 [facility] DATE CREATED AUTHOR AUTHOR'S ORGANIZ ATION 07/16/2022 [facility] DATE CREATED AUTHOR AUTHOR'S ORGANIZ ATION 05/26/[address] [facility] REASON FOR VISIT (unrecogniz ed section and content) Reason Comments Med Refill Care Teams (unrecognized sec tion and content) Team Status: Active Member Role Status Dates Blas Slaughter DO Primary Care Provider Active Team Status: Inactive Member Role Status Dates Blas Slaughter DO Primary Care Provider Active S tart: March 23, 2025 End: March 23, 2025 Nurys Robledo DO Attending Provider Active St art: March 23, 2025 End: March 23, 2025 Team Status: Inactive Member Role Status Donnie Slaughter DO Primary Care Provider Active S tart: May 05, 2025 End: May 05, 2025 Blas Slaughter DO Attending Provider Active Star t: May 05, 2025 End: May 05, 2025 Team Status: Inactive Member Role Status Donnie Slaughter DO Primary Care Provider Active S tart: May 25, 2025 End: May 25, 2025 Blas Slaughter DO Referring Provider Active Star t: May 25, 2025 End: May 25, 2025 Salazar Monae MD Attending Provider Active Sta rt: May 25, 2025 End: May 25, 2025 Team Status: Inactive Member Role Status Donnie Slaughter DO Primary Care Provider Active S tart: May 25, 2025 End: May 25, 2025 Salazar Monae MD Attending Provider Active Sta rt: May 25, 2025 End: May 25, 2025 Team Status: Active Member Role Status Donnie Slaughter DO Primary Care Provider Active S tart: February 10, 2025 Blas Slaughter DO Attending Provider Active Star t: February 10, 2025 Team Status: Inactive Member Role Status Donnie Slaughter DO Primary Care Provider Active S tart: February 11, 2025 End: February 11, 2025 Candido Phan DO Emergency Provider Active Start: February 11, 2025 End: February 11, 2025 Team Status: Active Member Role Status Donnie Slaughter DO Primary Care Provider Active S tart: February 11, 2025 Prince Quinones LPN Attending Provider Active St art: February 11, 2025 Team Status: Inactive Member Role Status Donnie Slaughter DO Primary Care Provider Active S tart: August 06, 2024 End: August 06, 2024 Dina Mendez APRN Emergency Provider Active Start: August 06, 2024 End: August 06, 2024 Team Status: Inactive Member Role Status Donnie Slaughter DO Primary Care Provider Active S tart: September 18, 2024 End: September 18, 2024 Luis Enrique Marcano DO Emergency Provider Active Sta rt: September 18, 2024 End: September 18, 2024 Team Status: Active Member Role Status Donnie Slaughter DO Primary [...] February 18, 2024 End: February 18, 2024 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 Start Date End Date Blas Slaughter MD [address] [place] [address] PCP - [facility] 04/17/23 Team Status: Inactive Member Role Status Donnie Slaughter DO Primary Care Provide r, Attending Provider Active Start: September 22, 2024 End: September 22, 2024 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 Start Date End Date Blas Slaughter MD [address] [place] [address] PCP - [facility] 04/17/23 Team Status: Inactive Member Role Status Donnie Slaughter DO Primary Care Provide r, Attending Provider Active Start: December 23, 2024 End: December 23, 2024 Team Status: Inactive Member Role Status Donnie Slaughter DO Primary Care Provider Active S tart: December 23, 2024 End: December 23, 2024 Blas Slaughter DO Attending Provider Active Star t: December 23, 2024 End: December 23, 2024 Team Status: Active Member Role Status Donnie Slaughter DO Primary Care Provider Active S tart: May 27, 2025 Blas Slaughter DO Attending Provider Active Star t: May 27, 2025 Goals (unrecognized section and content) Goals may [...] BE BASED ON THE PRIMARY CLINICAL RECORDS. [facility] [employer] [facility]. provides no warranty or guarantee of the accuracy or completeness of information in this document.
--- OUTSIDE RECORDS SUMMARY | 2025-05-28 10:52 | XMS_ITS | Encounter Summary ---
Author Organization [facility] Address [address] [place] [address] Care Team Providers Care Senior Game Developer Name Role Phone Elier Burns MD Primary Care Provider [phone] Encounter Details Date Type Department Care Team (Late st Contact Info) Description 04/17/2023 Abstract [facility] [address] [place] [phone] Luisa Stiles, DO [address] [address] Social History Tobacco Use Types Packs/Day Years Used Date Smoking Tobacco: Former Cigarettes Q uit: 08/13/2014 Tobacco Cessation:Counseling Given: Not Answered Comments:Last smoked : > 10 years Alcohol Use Standard Drinks/Week Comments Yes 1 (1 standard drink = 0.6 oz pure alcohol) caffeine intake : 1-2 cups per day 1 cup of coffee daily , an occasional mountain dew Comments No Sex and Gender Information Value Date Recorded Sex Assigned at Female 04/10/2023 8:49 AM EDT Legal Sex Female 7:12 PM EDT Gender Identity Not on file Sexual Orientation Not on file documented as of this encounter Plan of Treatment Not on file documented as of this encounter Visit Diagnoses Not on filedocumented in this encounter Care Teams Senior Game Developer Relationship Specialty Start Date End Date Elier Burns MD [address] [place] [address] [place] [address] PCP - General Family Medicine 04/17/23 documented as of this encounter
--- OUTSIDE RECORDS SUMMARY | 2025-05-28 10:52 | XMS_ITS | Clinical Summary ---
Author Organization [facility] Address [address] [place] [address] Care Team Providers Care Clinical Investigator Name Role Phone Elier Burns MD Primary Care Provider [phone] Allergies Active Allergy Reactions Criticality Noted Date Comments Ciprofloxacin Hcl Hives 09/29/2021 Other Reaction(s): Hives Meperidine Hives 09/29/2021 Meperidine Hcl 04/17/2023 Other Reaction(s): Hives Metronidazole Hives 09/29/2021 Medications atorvastatin (Lipitor) 20 MG tablet 1 (one) time each day at the same time. Active levothyroxine (Synthroid, Levoxyl) 175 MCG tablet TAKE 1 TABLET BY MOUTH ONCE EVERY MORNING ON AN EMPTY STOMACH 10/30/2022 Active rosuvastatin (Crestor) 10 MG tablet Take 10 mg by mouth in the morning. Active estradiol (Vivelle-DOT) 0.1 MG/24HRIndicatio ns:Surgical menopause on hormone replacement therapy PLACE ONE PATCH ON THE SKIN FOR 96 HOURS (4 DAYS) DO THIS TWICE WEEKLY 24 patch 06/26/2024 Active Family History Medical History Relation Name Comments Dementia Father Diabetes Father covid Father Relation Name Status Comments Brother 1 Brother 2 Alive Daughter Alive 1 daughter Father Sister 2 sisters Social History Tobacco Use Types Packs/Day Years [...] on file Sexual Orientation Not on file Last Filed Vital Signs Vital Sign Reading Time Taken Comments Blood Pressure 130/80 04/17/2023 9:45 AM EDT Pulse - - Temperature - - Respiratory Rate - - Oxygen Saturation - - Inhaled Oxygen Concentration - - Weight 87.1 kg (192 lb) 04/17/2023 9:45 AM EDT Height 154.9 cm (5' 1 ) 12/07/2020 12:00 PM EDT Body Mass Index 36.28 12/07/2020 12:00 PM EDT Plan of Treatment Not on file Insurance [facility] Care Teams Clinical Investigator Relationship Specialty Start Date End Date Elier Burns MD [address] [place] [address] [place] [address] PCP - General Family Medicine 04/17/23
--- OUTSIDE RECORDS SUMMARY | 2025-05-28 10:52 | XMS_ITS | Clinical Summary ---
Author Organization [facility] Address [address] [place], [place] [id number] Care Team Providers Care Track Mechanic Name Role Phone Elier Burns DO Unavailable [phone] Elier Burns DO Primary Care Provider [phone] Allergies Active Allergy Reactions Criticality Noted Date Comments Ciprofloxacin Hcl Hives 09/29/2021 Meperidine Hives 09/29/2021 Metronidazole Hives 09/29/2021 Medications levothyroxine (SYNTHROID) 150 mcg tablet Take 150 mcg by mouth daily before breakfast. Active rosuvastatin (CRESTOR) 10 mg tablet Take 10 mg by mouth once daily. Active Cholecalciferol , Vitamin D3, (VITAMIN D) 25 mcg (1,000 unit) cap Take 1,000 Units by mouth once daily. Active peg 3350-Electrolyt es (GOLYTELY) 236-22.74-6.74 -5.86 gram suspensionIndic ations:Divertic ulitis Refer to printed prep instructions from your provider. 4000 mL Active Social History Tobacco Use Types Packs/Day Years Used Date Smoking Tobacco: Some Days Smokeless Tobacco: Never Alcohol Use Standard Drinks/Week Comments Not Currently 0 (1 standard drink = 0.6 oz pur e alcohol) Comments Unknown Sex and Gender Information Value Date Recorded Sex Assigned at Not on file Legal Sex Female 1:45 PM EST Gender Identity Not on file Sexual Orientation Not on file Last Filed Vital Signs Vital Sign Reading Time Taken Comments Blood Pressure 134/91 09/29/2021 10:54 AM EST Pulse 79 09/29/2021 10:54 AM EST Temperature - - Respiratory Rate - - Oxygen Saturation - - Inhaled Oxygen Concentration - - Weight 91.2 kg (201 lb) 09/29/2021 10:54 AM EST Height - - Body Mass Index - - Plan of Treatment Health Maintenance Due Date Last Done Comments Anxiety Screening 1979 Depression Screening 1979 HIV Screening 1979 Hepatitis C Screening 1979 Cervical Cancer Screening [address] Colonography 2006 Cologuard (FIT-DNA) 2006 Colonoscopy 2006 Colorectal Cancer Screening 2006 Diabetes Screening 2006 Fecal Occult Blood 2006 Lipid Screening 2006 Sigmoidoscopy 2006 Pneumococcal Vaccine: 50+ (1 of 1 - PCV) 2011 Shingrix Vaccine (1 of 2) 2011 Covid-19 Vaccine (4 - 2024- season) 2025 06/13/2021, 09/08/2020, 08/11/2020 Influenza Vaccine (#1) 2025 07/18/2021 DTaP,Tdap,Td Vaccine (2 - Td or Tdap) 11/03/2030 RSV Vaccine (1 - 1-dose 75+ series) 2036 Insurance [facility] PPO Care Teams Track Mechanic Relationship Specialty Start Date End Date Elier Burns DO [address] [place] [id number] PCP - General Family Medicine 09/14/21 Elier Burns [address] [place] [address] Referring Family Medicine 09/18/21
--- OUTSIDE RECORDS SUMMARY | 2025-05-28 10:52 | XMS_ITS | Clinical Summary ---
Author Organization [facility] Address [address] [place] [address] Phone Care Team Providers Care Business Analytics Intern Name Role Phone Unavailable Primary Care Provider Unavailabl e Social History Tobacco Use Types Packs/Day Years Used Date Smoking Tobacco: Never Assessed Comments Unknown Sex and Gender Information Value Date Recorded Sex Assigned at Not on file Legal Sex Female 5:07 AM EST Gender Identity Not on file Sexual Orientation Not on file Plan of Treatment Not on file
--- OUTSIDE RECORDS SUMMARY | 2025-05-28 10:52 | XMS_ITS | Encounter Summary ---
Author Organization [facility] Address [address] [facility] [place] [address] Care Team Providers Care Jordan Man Name Role Phone Elier Burns MD Primary Care Provider [phone] Reason for Visit * Reason Comments Med Change Request Encounter Details Date Type Department Care Team (Late st Contact Info) Description 04/17/2023 Refill [facility] [address] [facility] [address] [place] [phone] Luisa Stiles, DO [address] [address] Surgical menopause on hormone replacement therapy Social History Tobacco Use Types Packs/Day Years Used Date Smoking Tobacco: Former Cigarettes Q uit: 08/13/2014 Comments:Last smoked : > 10 years Alcohol [...] documented as of this encounter Visit Diagnoses Diagnosis Surgical menopause on hormone replacement therapy documented in this encounter Care Teams Jordan Man Relationship Specialty Start Date End Date Elier Burns MD [address] [place] [id number] PCP - General Family Medicine 04/17/23 documented as of this encounter
--- OUTSIDE RECORDS SUMMARY | 2025-05-28 10:55 | XMS_ITS | CCD ---
Author Organization [facility]iniSy[facility] Care Team Providers Care Doctor'S Assistant Name Role Phone Blas Slaughter Unavailable FRANCISCO JAVIER, COSME Admitting Unavailable FRANCISCO JAVIER, CSOME Attending Unavailable FRANCISCO JAVIER, COSME Consulting Unavailable [...] Unavailable Blas Slaughter MD Primary Care Provider [phone] Blas Slaughter DO Primary Care Provider [phone] Dina Mendez APRN Emergency Provider [phone] Luis Enrique Marcano DO Emergency Provider [phone] Blas Slaughter DO Primary Care Provider [phone] Blas Slaughter DO Attending Provider Candido Phan DO Emergency Provider [phone] Prince Quinones LPN Attending Provider UnavailNurys Cunningham DO Attending Provider [phone] Blas Slaughter DO Primary Care Provider [phone] Blas Slaughter DO Attending Provider Blas Slaughter Primary Care Unavailable Candido Phan [...] Unavailable Blas Slaughter DO Primary Care Provider [phone] Blas Slaughter DO Attending Provider Blas Slaughter DO Referring Provider Salazar Monae MD Attending Provider Allergies Allergy Classification Reported Allergen(s) Allergy Type Date of Onset Reaction(s) Facility HMG-CoA Reductase Inhibitors (statins) (1 source) atorvastatin Drug Allergy 4 muscle aches/pain [facility] Nitroimidazoles (antibiotic) (1 source) metroNIDAZOLE Drug Allergy 4 Hives, hives ? per ER 11/06/12 [facility] Opioid Agonists (1 source) Meperidine Drug Allergy 4 Hives, rash, swelling [facility] Quinolones (antibiotic) (1 source) Ciprofloxacin Drug Allergy 4 Hives, hives ? per ER 11/06/12 [facility] (20 sources) atorvastatin Drug Allergy 4 muscle aches/pain [facility] (20 sources) Ciprofloxacin Drug Allergy 4 hives ? per ER 11/06/12, Hives, hives ? per ER 11/06/12 [facility] (20 sources) Meperidine Drug Allergy 2 Hives [facility] (20 sources) metroNIDAZOLE Drug Allergy 2 Hives [facility] (1 source) Ciprofloxacin Drug Allergy [facility] (1 source) Meperidine Drug Allergy [facility] (1 source) metroNIDAZOLE Drug Allergy [facility] (2 sources) Ciprofloxacin Drug Allergy 2 Hives [facility] (2 sources) Meperidine Drug Allergy 3 [facility] (1 source) atorvastatin Drug Allergy 5 [facility] (1 source) Ciprofloxacin Drug Allergy 5 [facility] (1 source) Meperidine Drug Allergy 5 [facility] (1 source) metroNIDAZOLE Drug Allergy 5 [facility] Medications Current Medications Medication Drug [...] the same time. Active 84 hr estradiol 0.36159 mg/hr transdermal system (20 sources) Estrogen Start: [...] Start: 02-27-2022 take 1 capsule by mo [facility] twice daily at mealtime Macrobid 100 [...] six hours as needed for pain Hydrocodone-Acetaminophen ([place]) 5-325 mg tablet Discontinued 1 TAB PO EVERY 4-6 HOURS as needed for pain 10 October 14, 2019 September 21, 2020 10:46am Start: 04-30-2018 End: 05-03-2018 take 1 tablet by mouth every four hours Hydrocodone-Acetaminophen ([place]) 5-325 mg tablet Discontinued 1 TAB PO [...] infection (8 sources) Viral gastroenteritis due to [place]-like agent; Translations: [Acute gastroenteropathy due to [place] agent] 09-22-2024 Episodic Nausea and vomiting (18 sources) Diarrhea and vomiting; Translations: [Vomiting, unspecified] 09-22-2024 Episodic Osteoarthritis (19 sources) Osteoarthritis of knee; Translations: [Unilateral primary osteoarthritis, right knee] Chronic Other aftercare (5 sources) Other terminal gauger (current) drug therapy; Translations: [OTH SHELTER CURRENT DRUG THERAPY] Onset: 01-13-2022 Resolved: 01-17-2022 [...] on 05-27-2025 Bilirubin Ql (U) Negative NEGATIVE [facility] Glucose (U) [Mass/Vol] Negative NEGATIVE [facility] Ketones Ql (U) Negative NEGATIVE [facility] pH (U) 6.0 [pH] 5.0-9.0 [facility] Specific gravity (U) [Rel density] >=1.030 Abnormal 1.005-1.025 [facility] Urobilinogen Qn (U) 1.0 {Alphonso'U}/dL 0.2-1.0 [facility] Laboratory - Specimen inform ationOrdered By: Blas Slaughter on 05-27-2025 Appearance (U) CLEAR CLEAR [facility] Color (U) YELLOW YELLOW [facility] Laboratory - UrinalysisOrder ed By: Blas Slaughter on 05-27-2025 Leukocyte esterase Test strip Ql (U) Negative NEGATIVE [facility] Nitrite Ql (U) Negative NEGATIVE [facility] Protein Ql (U) Negative NEG/TRACE [facility] No Panel InformationOrdered By: Blas Slaughter on 05-27-2025 Urine Occult Blood Negative NEGATIVE [facility] X-ray reportOrdered By: Chito Pedarza on 05-25-2025 Study report [facility] Main [address] [address] XRay Report Signed Patient: Ezequiel Lei MR#: [id number] : 1960 Acct:[id number] Age/Sex: 64 / F ADM Date: 5 [...] D.OAna Rosa 05/25/2025 4:04 PM Dictation Location: [place] [address] Transcribed By: [facility] 05/25/25 1604 Dictated By: Jose Pedraza Jr, DO 05/25/25 1601 Signed By: 05/25/25 1604 [facility] XR lumbar spine AP/LAT/FLX/E XTon 05-25-2025 XR lumbar spine AP/LAT/FLX/EXT [facility] Main [address] [address] XRay Report Signed Patient: Ezequiel Lei MR#: [id number] : 1960 Acct:[id number] Age/Sex: 64 / F ADM Date: 05/25/25 [...] Jr., D.O. 05/25/2025 4:04 PM Dictation Location: [place] [address] Transcribed By: [facility] 05/25/25 1604 Dictated By: Jose Pedraza Jr, DO 05/25/25 1601 Signed By: 05/25/25 1604 Normal [facility] Alanine aminotransferase [En zymatic activity/volume] in Serum or PlasmaOrdered By: PROVIDER TEMP on 02-11-2025 ALT [Catalytic activity/Vol] 10 U/L Normal 7-52 [facility] Comment on above: Performed By: #### C BC, HEPATIC, BMP, LIPASE ####[facility] [id number] Albumin [Mass/volume] in Ser um or Plasma by Bromocresol green (BCG) dye binding methoOrdered By: PROVIDER TEMP on 02-11-2025 Albumin BCG dye [Mass/Vol] 4.3 g/dL 3.5-5.7 [facility] Alkaline phosphatase [Enzyma tic activity/volume] in Serum or PlasmaOrdered By: PROVIDER TEMP on 02-11-2025 ALP [Catalytic activity/Vol] 90 U/L Normal 34-104 [facility] Comment on above: Performed By: #### C BC, HEPATIC, BMP, LIPASE ####[facility] [id number] [place] [id number] [place] Appearance of UrineOrdered B y: Candido Phan on 02-11-2025 Appearance (U) Clear Normal Clear [facility] Comment on above: Order Comment: Name Collection Type:: Clean-Voided Midstream Performed By: #### A DDONUAPLUS, UHCG, CUU ####[facility] Aspartate aminotransferase [ Enzymatic activity/volume] in Serum or PlasmaOrdered By: PROVIDER TEMP on 02-11-2025 AST [Catalytic activity/Vol] 16 U/L Normal 13-39 [facility] Comment on above: Order Comment: REDRA W Result Comment: PERF ORMED BY: [facility] [address] [facility] [place] [address] PATHOLOGIST DIRECTOR EDUCATION CARLEY PETERS M.D. Performed By: #### R EDRAW K, REDRAW DBILi, REDRAW AST #### [facility] [address] [place] [address] Bacteria [Presence] in Urine by AutomatedOrdered By: Candido Phan on 02-11-2025 Bacteria Auto Ql (U) Rare [HPF] None Seen [facility] Basic Metabolic Panelon Anion gap [Moles/Vol] Not performed Normal 6.0-15.0 [facility] Comment on above: Performed By: #### C BC, HEPATIC, BMP, LIPASE ####[address] Creatinine Clr Calc Pharmacy 91.24 Normal [facility] Comment on above: Performed By: #### C BC, HEPATIC, BMP, LIPASE ####[place] [id number] [address] GFR/1.73 sq M.predicted MDRD (S/P/Bld) [Vol rate/Area] mL/min/{1.73_m2} Normal [facility] Comment on above: Performed By: #### C BC, HEPATIC, BMP, LIPASE ####[address] Potassium Normal 3.5-5.1 [facility] Comment on above: Result Comment: Spec imen hemolyzed, redraw requested Performed By: #### C BC, HEPATIC, BMP, LIPASE ####[facility] [place] [id number] [place] Basophils [#/volume] in Bloo d by Automated countOrdered By: PROVIDER TEMP on 02-11-2025 Basophils (Bld) [#/Vol] 0.1 10*3/uL Normal 0.0-0.2 [facility] Comment on above: Result Comment: PERF ORMED BY: [place] [address] PATHOLOGIST DIRECTOR EDUCATION CARLEY PETERS M.D. Performed By: #### C BC, HEPATIC, BMP, LIPASE ####[address] Basophils/100 leukocytes in Blood by Automated countOrdered By: PROVIDER TEMP on 02-11-2025 Basophils/100 WBC (Bld) 1.1 % Normal . [facility] Comment on above: Performed By: #### C BC, HEPATIC, BMP, LIPASE ####[address] Bilirubin Test strip Ql (U)O rdered By: Candido Phan on 02-11-2025 Bilirubin Ql (U) Negative Negative [facility] Bilirubin.direct [Mass/volum e] in Serum or PlasmaOrdered By: PROVIDER TEMP on 02-11-2025 Bilirubin.direct [Mass/Vol] 0.10 mg/dL 0.03-0.18 [facility] Bilirubin.total [Mass/volume ] in Serum or PlasmaOrdered By: PROVIDER TEMP on 02-11-2025 Bilirubin [Mass/Vol] 0.4 mg/dL Normal 0.3-1.0 [facility] Comment on above: Performed By: #### C BC, HEPATIC, BMP, LIPASE ####[place] [id number] [place] CT abdomen pelvis w conon CT abdomen pelvis w con [facility] Main [place] [address] [place] [address] CT Scan Report Signed Patient: Ezequiel Lei MR#: [id number] : 1960 Acct:[id number] Age/Sex: 64 / F ADM Date: 02/11/25 Loc: ER Room: Type: [facility] ER Attending Dr: Copies to: Candido Phan [...] Jr., D.O. 02/11/2025 9:04 AM Dictation Location: [place] [address] Transcribed By: [facility] 02/11/25 0904 Dictated By: Jose Pedraza Jr, DO 02/11/25 09 Signed By: 02/11/25 0904 Normal [facility] Calcium [Mass/volume] in Ser um or PlasmaOrdered By: PROVIDER GUY on 02-11-2025 Calcium [Mass/Vol] 9.0 mg/dL Normal 8.6-10.3 [facility] Comment on above: Performed By: #### C BC, HEPATIC, BMP, LIPASE ####[facility] [id number] Carbon dioxide, total [Moles /volume] in Serum or PlasmaOrdered By: PROVIDER TEMP on 02-11-2025 CO2 [Moles/Vol] 23.1 mmol/L Normal 21.0-31.0 [facility] Comment on above: Performed By: #### C BC, HEPATIC, BMP, LIPASE ####[address] Chloride [Moles/volume] in S apollo or PlasmaOrdered By: PROVIDER TEMP on 02-11-2025 Chloride [Moles/Vol] 108 mmol/L High 98-107 [facility] Comment on above: Performed By: #### C BC, HEPATIC, BMP, LIPASE ####[address] Color of Urine by AutoOrdere d By: Candido Phan on 02-11-2025 Color (U) Yellow Normal Yellow [facility] Comment on above: Order Comment: Name Collection Type:: Clean-Voided Midstream Performed By: #### A DDONUAPLUS, UHCG, CUU ####[place] [id number] [place] Complete Blood Count Auto Di ffon 02-11-2025 Mean Corpuscular HGB Conc 35.2 g/dL High 32.0-35.0 [facility] Comment on above: Performed By: #### C BC, HEPATIC, BMP, LIPASE ####[place] [id number] [place] Monocytes/100 WBC (Bld) 19.52 % Normal 0.00-20.00 [facility] Comment on above: Performed By: #### C BC, HEPATIC, BMP, LIPASE ####[place] [id number] [place] NRBC% 0.1 /100{WBC} Normal 0-0.5 [facility] Comment on above: Performed By: #### C BC, HEPATIC, BMP, LIPASE ####[place] [id number] [place] White Blood Count 8.2 [CFU]/mL Normal 3.8-11.6 [facility] Comment on above: Performed By: #### C BC, HEPATIC, BMP, LIPASE ####[address] Creatinine [Mass/volume] in Serum or PlasmaOrdered By: PROVIDER TEMP on 02-11-2025 Creatinine [Mass/Vol] 0.64 mg/dL Normal 0.60-1.[address] [facility] Comment on above: Performed By: #### C BC, HEPATIC, BMP, LIPASE ####[place] [id number] [place] Dipstick and Microscopicon 0 02-11-2025 Bacteria,Urine Rare Normal None Seen [facility] Comment on above: Order Comment: Name Collection Type:: Clean-Voided Midstream Performed By: #### A DDONUAPLUS, UHCG, CUU ####[place] [id number] [place] Bilirubin,Urine Negative Normal Negative [facility] Comment on above: Order Comment: Name Collection Type:: Clean-Voided Midstream Performed By: #### A DDONUAPLUS, UHCG, CUU ####[place] [id number] [place] Glucose Ql (U) Normal Normal Normal [facility] Comment on above: Order Comment: Name Collection Type:: Clean-Voided Midstream Performed By: #### A DDONUAPLUS, UHCG, CUU ####[place] [id number] [place] Hyaline Casts,Urine None Normal 0-8 [facility] Comment on above: Order Comment: Name Collection Type:: Clean-Voided Midstream Performed By: #### A DDONUAPLUS, UHCG, CUU ####[place] [id number] [place] Mucus,Urine 1+ [LPF] Critically abnormal [facility] Comment on above: Order Comment: Name Collection Type:: Clean-Voided Midstream Performed By: #### A DDONUAPLUS, UHCG, CUU ####[address] [place] [address] [place] Nitrite,Urine Negative Normal Negative [facility] Comment on above: Order Comment: Name Collection Type:: Clean-Voided Midstream Performed By: #### A DDONUAPLUS, UHCG, CUU ####[place] [id number] [place] Occult Blood,Urine Negative Normal Negative [facility] Comment on above: Order Comment: Name Collection Type:: Clean-Voided Midstream Performed By: #### A DDONUAPLUS, UHCG, CUU ####[place] [id number] [place] Protein,Urine Negative Normal Negative [facility] Comment on above: Order Comment: Name Collection Type:: Clean-Voided Midstream Performed By: #### A DDONUAPLUS, UHCG, CUU ####[address] RBC,Urine 1-2 Normal 0-4 [facility] Comment on above: Order Comment: Name Collection Type:: Clean-Voided Midstream Performed By: #### A DDONUAPLUS, UHCG, CUU ####[address] Specificy [place],Urine 1.023 Normal 1.001-1.030 [facility] Comment on above: Order Comment: Name Collection Type:: Clean-Voided Midstream Performed By: #### A DDONUAPLUS, UHCG, CUU ####[place] [id number] [place] Squamous Epithelial Cell,Urine 3-4 Normal 0-2 [facility] Comment on above: Order Comment: Name Collection Type:: Clean-Voided Midstream Performed By: #### A DDONUAPLUS, UHCG, CUU ####[place] [id number] [place] Urobilinogen,Urine Normal Normal Normal [facility] Comment on above: Order Comment: Name Collection Type:: Clean-Voided Midstream Performed By: #### A DDONUAPLUS, UHCG, CUU ####[facility] [place] [id number] [place] WBC,Urine 5-9 Normal 0-4 [facility] Comment on above: Order Comment: Name Collection Type:: Clean-Voided Midstream Performed By: #### A DDONUAPLUS, [facility] [place] ####[place] [id number] [place] Eosinophils [#/volume] in Bl ood by Automated countOrdered By: PROVIDER TEMP on 02-11-2025 Eosinophils (Bld) [#/Vol] 0.1 10*3/uL Normal 0.0-0.45 [facility] Comment on above: Performed By: #### C BC, HEPATIC, BMP, LIPASE ####[address] Eosinophils/100 leukocytes i n Blood by Automated countOrdered By: PROVIDER TEMP on 02-11-2025 Eosinophils/100 WBC (Bld) 1.2 % Normal . [facility] Comment on above: Performed By: #### C BC, HEPATIC, BMP, LIPASE ####[address] Epithelial cells.squamous [# /area] in Urine sediment by Automated countOrdered By: Candido Phan on 02-11-2025 Epithelial cells.squamous Auto (Urine sed) [#/Area] 3-4 [HPF] High 0-2 [facility] Erythrocyte distribution wid th [Ratio] by Automated countOrdered By: PROVIDER TEMP on 02-11-2025 Erythrocyte distribution width (RBC) [Ratio] 14.0 % Normal 11.9-15.3 [facility] Comment on above: Performed By: #### C BC, HEPATIC, BMP, LIPASE ####[address] Erythrocytes [#/area] in Uri ne sediment by Automated countOrdered By: Candido Phan on 02-11-2025 RBC Auto (Urine sed) [#/Area] 1-2 [HPF] 0-4 [facility] Erythrocytes [#/volume] in B lood by Automated countOrdered By: PROVIDER TEMP on 02-11-2025 RBC (Bld) [#/Vol] 4.16 10*6/uL Normal 3.60-5.00 [facility] Comment on above: Performed By: #### C BC, HEPATIC, BMP, LIPASE ####[facility] [place] [address] [place] Glucose [Mass/volume] in Ser um or PlasmaOrdered By: PROVIDER TEMP on 02-11-2025 Glucose [Mass/Vol] 104 mg/dL High 70-100 [facility] Comment on above: ADA recommended refe rence rangeRandom Glucose Reference Range is dependent on time and content of last meal. Glucose of more than 200 mg/dL in a nonstressed, ambulatory subject supports the diagnosis of Diabetes Mellitus. Result Comment: Oran om Glucose Reference Range is dependent on time and content of last meal. Glucose of more than 200 mg/dL in a nonstressed, ambulatory subject supports the diagnosis of Diabetes Mellitus. ADA recommended reference range Performed By: #### C BC, HEPATIC, BMP, LIPASE ####[facility] [place] [address] [place] Glucose [Mass/volume] in Uri ne by Test stripOrdered By: Candido Phan on 02-11-2025 Glucose Test strip (U) [Mass/Vol] Normal mg/dL Normal [facility] HCG ( test) IA.rapi d Ql (U)Ordered By: PROVIDER TEMP on 02-11-2025 HCG ( test) Ql (U) Negative [facility] HCG,Urineon 02-11-2025 Beta HCG ( test) Ql (U) Negative Normal [facility] Comment on above: Order Comment: Name Collection Type:: Clean-Voided Midstream Result Comment: PERF ORMED BY: [facility] [address] [place] [address] PATHOLOGIST DIRECTOR EDUCATION CARLEY PETERS M.D. Performed By: #### A DDONUAPLUS, UHCG, CUU ####[place] [address] [place] [address] [place] Hematocrit [Volume Fraction] of Blood by Automated countOrdered By: PROVIDER TEMP on 02-11-2025 Hematocrit (Bld) [Volume fraction] 41.5 % Normal 34.0-46.4 [facility] Comment on above: Performed By: #### C BC, HEPATIC, BMP, LIPASE ####[address] Hemoglobin Test strip Ql (U) Ordered By: Candido Phan on 02-11-2025 Hemoglobin Ql (U) Negative Negative [facility] Hemoglobin [Mass/volume] in BloodOrdered By: PROVIDER TEMP on 02-11-2025 Hemoglobin (Bld) [Mass/Vol] 14.6 g/dL Normal 11.8-15.4 [facility] Comment on above: Performed By: #### C BC, HEPATIC, BMP, LIPASE ####[address] Hepatic Panelon 02-11-2025 Albumin [Mass/Vol] 4.3 g/dL Normal 3.5-5.7 [facility] Comment on above: Performed By: #### C BC, HEPATIC, BMP, LIPASE ####[place] [id number] [place] Aspartate Amino Transferase Normal 13-39 [facility] Comment on above: Result Comment: Spec imen hemolyzed, redraw requested Performed By: #### C BC, HEPATIC, BMP, LIPASE ####[place] [id number] [place] Bilirubin,Direct Normal 0.03-0.18 [facility] Comment on above: Result Comment: Spec imen hemolyzed, redraw requested Performed By: #### C BC, HEPATIC, BMP, LIPASE ####[place] [id number] [place] Bilirubin,Indirect Not performed Normal [facility] Comment on above: Performed By: #### C BC, HEPATIC, BMP, LIPASE ####[place] [id number] [place] Hyaline casts [#/area] in Ur ine sediment by Automated countOrdered By: Candido Phan on 02-11-2025 Hyaline casts Auto (Urine sed) [#/Area] None [LPF] 0-8 [facility] Ketones [Presence] in Urine by Test stripOrdered By: Candido Phan on 02-11-2025 Ketones Ql (U) Negative Normal Negative [facility] Comment on above: Order Comment: Name Collection Type:: Clean-Voided Midstream Performed By: #### A DDONUAPLUS, CG, CUU ####[place] [address] [place] [id number] [place] Leukocyte esterase [Presence ] in Urine by Test stripOrdered By: Candido Phan on 02-11-2025 Leukocyte esterase Test strip Ql (U) 1+ Normal Negative [facility] Comment on above: Order Comment: Name Collection Type:: Clean-Voided Midstream Performed By: #### A DDONUAPLUS, CG, CUU ####[place] [address] [place] [id number] [place] Leukocytes [#/area] in Urine sediment by Automated countOrdered By: Candido Phan on 02-11-2025 WBC Auto (Urine sed) [#/Area] 5-9 [HPF] High 0-4 [facility] Leukocytes [#/volume] correc malka for nucleated erythrocytes in Blood by Automated counOrdered By: PROVIDER TEMP on 02-11-2025 WBC corrected for nucl RBC Auto (Bld) [#/Vol] 8.2 10*3/uL 3.8-11.6 [facility] Leukocytes [#/volume] in Blo od by Automated countOrdered By: PROVIDER TEMP on 02-11-2025 WBC (Bld) [#/Vol] 8.2 10*3/uL Normal 3.8-11.6 [facility] Comment on above: Performed By: #### C BC, HEPATIC, BMP, LIPASE ####[place] [address] Lipase [Enzymatic activity/v olume] in Serum or PlasmaOrdered By: PROVIDER TEMP on 02-11-2025 Lipase [Catalytic activity/Vol] 30.0 U/L Normal 11.0-82.0 [facility] Comment on above: Result Comment: PERF ORMED BY: [facility] [address] [place] [address] PATHOLOGIST DIRECTOR EDUCATION CARLEY PETERS M.D. Performed By: #### C BC, HEPATIC, BMP, LIPASE ####[place] [address] Lymphocytes [#/volume] in Bl ood by Automated countOrdered By: PROVIDER TEMP on 02-11-2025 Lymphocytes (Bld) [#/Vol] 1.0 10*3/uL Normal 1.00-4.8 [facility] Comment on above: Performed By: #### C BC, HEPATIC, BMP, LIPASE ####[address] Lymphocytes/100 leukocytes i n Blood by Automated countOrdered By: PROVIDER TEMP on 02-11-2025 Lymphocytes/100 WBC (Bld) 12.0 % Normal . [facility] Comment on above: Performed By: #### C BC, HEPATIC, BMP, LIPASE ####[address] MCH [Entitic mass] by Automa malka countOrdered By: PROVIDER TEMP on 02-11-2025 MCH (RBC) [Entitic mass] 35.1 pg High 24.7-34.3 [facility] Comment on above: Performed By: #### C BC, HEPATIC, BMP, LIPASE ####[address] MCHC Auto (RBC) [Mass/Vol]Or dered By: PROVIDER TEMP on 02-11-2025 MCHC (RBC) [Mass/Vol] 35.2 g/dL High 32.0-35.[address] [facility] MCV [Entitic volume] by Auto mated countOrdered By: PROVIDER TEMP on 02-11-2025 MCV (RBC) [Entitic vol] 99.8 fL Normal 80-100 [facility] Comment on above: Performed By: #### C BC, HEPATIC, BMP, LIPASE ####[address] Monocyte distribution width [Entitic volume] in Blood by AutomatedOrdered By: PROVIDER TEMP on 02-11-2025 Monocyte distribution width Auto (Bld) [Entitic vol] 19.52 % 0.00-20.00 [facility] Monocytes [#/volume] in Bloo d by Automated countOrdered By: PROVIDER TEMP on 02-11-2025 Monocytes (Bld) [#/Vol] 0.7 10*3/uL Normal 0.0-0.8 [facility] Comment on above: Performed By: #### C BC, HEPATIC, BMP, LIPASE ####[place] [id number] [place] Monocytes/100 leukocytes in Blood by Automated countOrdered By: PROVIDER TEMP on 02-11-2025 Monocytes/100 WBC (Bld) 9.0 % Normal . [facility] Comment on above: Performed By: #### C BC, HEPATIC, BMP, LIPASE ####[address] Mucus [Presence] in Urine by AutomatedOrdered By: Candido Phan on 02-11-2025 Mucus Auto Ql (U) 1+ [LPF] Abnormal [facility] Neutrophils [#/volume] in Bl ood by Automated countOrdered By: PROVIDER TEMP on 02-11-2025 Neutrophils (Bld) [#/Vol] 6.3 10*3/uL Normal 1.8-7.7 [facility] Comment on above: Performed By: #### C BC, HEPATIC, BMP, LIPASE ####[place] [id number] [place] Neutrophils/100 leukocytes i n Blood by Automated countOrdered By: PROVIDER TEMP on 02-11-2025 Neutrophils/100 WBC (Bld) 76.7 % Normal . [facility] Comment on above: Performed By: #### C BC, HEPATIC, BMP, LIPASE ####[place] [id number] [place] Nitrite Test strip Ql (U)Ord ered By: Candido Phan on 02-11-2025 Nitrite Ql (U) Negative Negative [facility] No Panel InformationOrdered By: PROVIDER TEMP on 02-11-2025 Estimated GFR (CKD-EPI) > 60.0 mL/Min [facility] Creatinine Clearance (Chem 91.24 [facility] Nucleated erythrocytes [Pres ence] in Blood by Automated countOrdered By: PROVIDER TEMP on 02-11-2025 Nucleated RBC Auto Ql (Bld) 0.1 /100{WBC} 0-0.5 [facility] Platelet mean volume [Entiti c volume] in Blood by Automated countOrdered By: PROVIDER TEMP on 02-11-2025 Platelet mean volume (Bld) [Entitic vol] 7.5 fL Normal 6.3-10.7 [facility] Comment on above: Performed By: #### C BC, HEPATIC, BMP, LIPASE ####[facility] Platelets [#/volume] in Bloo d by Automated countOrdered By: PROVIDER TEMP on 02-11-2025 Platelets (Bld) [#/Vol] 231 10*3/uL Normal 150-450 [facility] Comment on above: Performed By: #### C BC, HEPATIC, BMP, LIPASE ####[place] [address] [address] Potassium [Moles/volume] in Serum or PlasmaOrdered By: PROVIDER TEMP on 02-11-2025 Potassium [Moles/Vol] 3.8 mmol/L Normal 3.5-5.[address] [facility] Comment on above: Order Comment: REDRA W Performed By: #### R EDRAW K, REDRAW DBILi, REDRAW AST #### [facility] [address] Protein Test strip (U) [Mass /Vol]Ordered By: Candido Phan on 02-11-2025 Protein (U) [Mass/Vol] Negative Negative [facility] Protein [Mass/volume] in Ser um or PlasmaOrdered By: PROVIDER TEMP on 02-11-2025 Protein [Mass/Vol] 6.7 g/dL Normal 6.4-8.9 [facility] Comment on above: Performed By: #### C BC, HEPATIC, BMP, LIPASE ####[facility] Redraw Bilirubin,Directon Redraw Bilirubin,Direct 0.10 mg/dL Normal 0.03-0.18 [facility] Comment on above: Order Comment: REDRA W Performed By: #### R EDRAW K, REDRAW DBILi, REDRAW AST #### [facility] [address] Serum globulin measurement b y calculation (mass/volume)Ordered By: PROVIDER TEMP on 02-11-2025 Globulin (S) [Mass/Vol] 2.4 g/dL [facility] Comment on above: Performed By: #### C BC, HEPATIC, BMP, LIPASE ####[facility] Serum or plasma albumin/glob ulin mass ratioOrdered By: PROVIDER TEMP on 02-11-2025 Albumin/Globulin [Mass ratio] 1.8 {ratio} [facility] Comment on above: Performed By: #### C BC, HEPATIC, BMP, LIPASE ####[place] [address] [address] Serum or plasma anion gap de terminationOrdered By: PROVIDER TEMP on 02-11-2025 Anion gap [Moles/Vol] TNP [facility] Comment on above: Test not performed Serum or plasma non-glucuron idated bilirubin measurement (mass/volume)Ordered By: PROVIDER TEMP on 02-11-2025 Bilirubin.indirect [Mass/Vol] [facility] on [facility]: Test not performed Sodium [Moles/volume] in Ser um or PlasmaOrdered By: PROVIDER TEMP on 02-11-2025 Sodium [Moles/Vol] 137 mmol/L Normal 136-145 [facility] Comment on above: Performed By: #### C BC, HEPATIC, BMP, LIPASE ####[facility] Specific gravity Test strip (U) [Rel density]Ordered By: Candido Phan on 02-11-2025 Specific gravity (U) [Rel density] 1.023 1.001-1.030 [facility] Urea nitrogen [Mass/volume] in Serum or PlasmaOrdered By: ANGELINE TOVAR on 02-11-2025 Urea nitrogen [Mass/Vol] 16 mg/dL Normal 7-25 [facility] Comment on above: Performed By: #### C BC, HEPATIC, BMP, LIPASE ####[place] [address] [place] [address] [place] Urine Cultureon 02-11-2025 Bacteria identified Cx Nom (U) <9,000 colonies/ml mixed bacterial skin contaminants 2 Days PERFORMED BY: [facility] [address] [place] [id number] PATHOLOGIST DIRECTOR EDUCATION CARLEY PETERS M.D. Normal [facility] Comment on above: Performed By: #### A [facility] [place] ####[place] [address] [place] [address] [place] Urine cultureOrdered By: Mariama Phan on 02-11-2025 Bacteria identified Cx Nom (U) 2 Days [facility] Urobilinogen Test strip (U) [Mass/Vol]Ordered By: Candido Phan on 02-11-2025 Urobilinogen (U) [Mass/Vol] Normal mg/dL Normal [facility] pH of Urine by Test stripOrd ered By: Candido Phan on 02-11-2025 pH (U) 5.5 [pH] Normal 5.0-9.0 [facility] Comment on above: Order Comment: Name Collection Type:: Clean-Voided Midstream Performed By: #### A [facility], [facility] [place] ####[facility]1111 [place] [id number] [place] Laboratory - Chemistry and C hemistry - challengeOrdered By: Blas Slaughter on 02-10-2025 Bilirubin Ql (U) Negative NEGATIVE [facility] Glucose (U) [Mass/Vol] Negative NEGATIVE Fi [facility] Ketones Ql (U) Negative NEGATIVE [facility] pH (U) 6.0 [pH] 5.0-9.0 [facility] Specific gravity (U) [Rel density] >=1.030 Abnormal 1.005-1.025 [facility] Urobilinogen Qn (U) 0.2 {Alphonso'U}/dL 0.2-1.0 [facility] Laboratory - Specimen inform ationOrdered By: Blas Slaughter on 02-10-2025 Appearance (U) CLEAR CLEAR [facility] Color (U) YELLOW YELLOW [facility] Laboratory - UrinalysisOrder ed By: Blas Slaughter on 02-10-2025 Leukocyte esterase Test strip Ql (U) Negative NEGATIVE [facility] Nitrite Ql (U) Negative NEGATIVE [facility] Protein Ql (U) Negative NEG/TRACE [facility] No Panel InformationOrdered By: Blas Slaughter on 02-10-2025 Urine Occult Blood Negative NEGATIVE [facility] Urine Cultureon 02-10-2025 Bacteria identified Cx Nom (U) ORGANISM: Escherichia coli (O:ESCCOL) Kechi Count 75,000 Aerobic MARIANNA Charge (NMIC56) SUSCEPTIBILITY [...] RESISTANT TO ALL B-LACTAM DRUGS. PERFORMED BY: [place] [address] PATHOLOGIST DIRECTOR EDUCATION CARLEY PETERS M.D. Normal [facility] Comment on above: Performed By: #### C UU #### [address] Alanine aminotransferase [En zymatic activity/volume] in Serum or PlasmaOrdered By: Luis Enrique Marcano on 09-18-2024 ALT [Catalytic activity/Vol] Alanine aminotransferase [Enzymatic activity/volume] in Serum or Plasma 7-52 [facility] Albumin [Mass/volume] in Ser um or Plasma by Bromocresol green (BCG) dye binding methoOrdered By: Luis Enrique Marcano on 09-18-2024 Albumin BCG dye [Mass/Vol] Albumin [Mass/volume] in Serum or Plasma by Bromocresol green (BCG) dye binding metho 3.5-5.7 [facility] Alkaline phosphatase [Enzyma tic activity/volume] in Serum or PlasmaOrdered By: Luis Enrique Marcano on 09-18-2024 ALP [Catalytic activity/Vol] Alkaline phosphatase [Enzymatic activity/volume] in Serum or Plasma 34-104 [facility] Appearance of UrineOrdered B y: Luis Enrique Marcano on 09-18-2024 Appearance (U) Urine appearance Clear [facility] Aspartate aminotransferase [ Enzymatic activity/volume] in Serum or PlasmaOrdered By: Luis Enrique Marcano on 09-18-2024 AST [Catalytic activity/Vol] Aspartate aminotransferase [Enzymatic activity/volume] in Serum or Plasma 13-39 [facility] B-Type Natriuretic Peptideon 09-18-2024 Natriuretic peptide B (Bld) [Mass/Vol] 30.0 pg/mL Normal 5-100 [facility] Comment on above: Result Comment: PERF ORMED BY: [place] [address] PATHOLOGIST DIRECTOR EDUCATION TIBURCIO BARRON M.D. Performed By: #### H S TROP, CBC, HEPATIC, BMP, PT, BNP, CK ####[address] Bacteria [Presence] in Urine by AutomatedOrdered By: Luis Enrique Marcano on 09-18-2024 Bacteria Auto Ql (U) Bacteria [Presence] in Urine by Automated None Seen [facility] Basic Metabolic Panelon Anion gap [Moles/Vol] 11.9 mmol/L Normal 6.0-15.0 [facility] Comment on above: Performed By: #### H S TROP, CBC, HEPATIC, BMP, PT, BNP, CK ####[address] Calcium [Mass/Vol] 9.0 mg/dL Normal 8.6-10.3 [facility] Comment on above: Performed By: #### H S TROP, CBC, HEPATIC, BMP, PT, BNP, CK ####[address] Chloride [Moles/Vol] 109 mmol/L High 98-107 [facility] Comment on above: Performed By: #### H S TROP, CBC, HEPATIC, BMP, PT, BNP, CK ####[address] CO2 [Moles/Vol] 21.5 mmol/L Normal 21.0-31.0 [facility] Comment on above: Performed By: #### H S TROP, CBC, HEPATIC, BMP, PT, BNP, CK ####[address] Creatinine [Mass/Vol] 0.71 mg/dL Normal 0.60-1.20 [facility] Comment on above: Performed By: #### H S TROP, CBC, HEPATIC, BMP, PT, BNP, CK ####[address] Creatinine Clr Calc Pharmacy 78.53 Normal [facility] Comment on above: Result Comment: PERF ORMED BY: [facility] [address] [place] [address] PATHOLOGIST DIRECTOR EDUCATION TIBURCIO BARRON M.D. Performed By: #### H S TROP, CBC, HEPATIC, BMP, PT, BNP, CK ####[place] [address] [address] GFR/1.73 sq M.predicted MDRD (S/P/Bld) [Vol rate/Area] mL/min/{1.73_m2} Normal [facility] Comment on above: Performed By: #### H S TROP, CBC, HEPATIC, BMP, PT, BNP, CK ####[place] [address] [address] Glucose [Mass/Vol] 117 mg/dL High 70-100 [facility] Comment on above: Result Comment: [facility] Glucose Reference Range is dependent on time and content of last meal. Glucose of more than 200 mg/dL in a nonstressed, ambulatory subject supports the diagnosis of Diabetes Mellitus. ADA recommended reference range Performed By: #### H S TROP, CBC, HEPATIC, BMP, PT, BNP, CK ####[place] [address] [address] Potassium [Moles/Vol] 3.4 mmol/L Low 3.5-5.1 [facility] Comment on above: Performed By: #### H S TROP, CBC, HEPATIC, BMP, PT, BNP, CK ####[place] [address] [address] Sodium [Moles/Vol] 139 mmol/L Normal 136-145 [facility] Comment on above: Performed By: #### H S TROP, CBC, HEPATIC, BMP, PT, BNP, CK ####[place] [address] Urea nitrogen [Mass/Vol] 13 mg/dL Normal 7-25 [facility] Comment on above: Performed By: #### H S TROP, CBC, HEPATIC, BMP, PT, BNP, CK ####[place] [address] [place] [id number] [place] Basophils Auto (Bld) [#/Vol] Ordered By: Luis Enrique Marcano on 09-18-2024 Basophils (Bld) [#/Vol] Automated basophil count 0.0-0.2 [facility] Basophils/100 WBC Auto (Bld) Ordered By: Luis Enrique Marcano on 09-18-2024 Basophils/100 WBC (Bld) Automated basophil % . [facility] Bilirubin Test strip Ql (U)O rdered By: Luis Enrique Marcano on 09-18-2024 Bilirubin Ql (U) Bilirubin.total [Pre sence] in Urine by Test strip Negative [facility] Bilirubin.direct [Mass/volum e] in Serum or PlasmaOrdered By: Luis Enrique Marcano on 09-18-2024 Bilirubin.direct [Mass/Vol] Bilirubin.direct [Mass/volume] in Serum or Plasma High 0.03-0.18 [facility] Bilirubin.total [Mass/volume ] in Serum or PlasmaOrdered By: Luis Enrique Marcano on 09-18-2024 Bilirubin [Mass/Vol] Bilirubin.total [Mass/volume] in Serum or Plasma 0.3-1.0 [facility] COVID Cepheid NegativeOrdere d By: Luis Enrique Marcano on 09-18-2024 SARS-CoV-2 (COVID-19) Ab IA Ql COVID Cepheid Negative [facility] Comment on above: This is a [...] or Cepheid Disclaimer revoked sooner. PERFORMED BY: [place] [address] PATHOLOGIST DIRECTOR EDUCATION TIBURCIO BARRON M.D. Normal [facility] Comment on above: Performed By: #### C OVID19 FLU RSV, CEPHEID NEG #### [address] Calcium [Mass/volume] in Ser um or PlasmaOrdered By: Luis Enrique Marcano on 09-18-2024 Calcium [Mass/Vol] Calcium [Mass/volume ] in Serum or Plasma 8.6-10.3 [facility] Carbon dioxide, total [Moles /volume] in Serum or PlasmaOrdered By: Luis Enrique Marcano on 09-18-2024 CO2 [Moles/Vol] Carbon dioxide, tota l [Moles/volume] in Serum or Plasma 21.0-31.0 [facility] Cepheid COVID PCR Negativeon 09-18-2024 SARS-CoV-2 (COVID-19) RNA LIU+probe Ql (Unsp spec) Negative Normal Negative [facility] Comment on above: Result Comment: This is a duplicate Cepheid Xpert Xpress CoV-2/Flu/RSV Plus RNA by RT-PCR result to be used for statistical tracking purpose only. PERFORMED BY: [place] [address] PATHOLOGIST DIRECTOR EDUCATION TIBURCIO BARRON M.D. Performed By: #### C OVID19 FLU RSV, CEPHEID NEG #### [facility] [address] [place] [address] [place] Chloride [Moles/volume] in S apollo or PlasmaOrdered By: Luis Enrique Marcano on 09-18-2024 Chloride [Moles/Vol] Chloride [Moles/vol ume] in Serum or Plasma High 98-107 [facility] Color Auto (U)Ordered By: Cisco Marcano on 09-18-2024 Color (U) Color of Urine by Auto Yellow Fi [facility] Complete Blood Count Auto Di ffon 09-18-2024 Basophils (Bld) [#/Vol] 0.0 10*3/uL Normal 0.0-0.2 [facility] Comment on above: Result Comment: PERF ORMED BY: [place] [address] PATHOLOGIST DIRECTOR EDUCATION TIBURCIO BARRON M.D. Performed By: #### H S TROP, CBC, HEPATIC, BMP, PT, BNP, CK ####[place] [address] [place] [address] [place] Basophils/100 WBC (Bld) 0.9 % Normal . [facility] Comment on above: Performed By: #### H S TROP, CBC, HEPATIC, BMP, PT, BNP, CK ####[facility] [place] [address] [place] Eosinophils (Bld) [#/Vol] 0.1 10*3/uL Normal 0.0-0.45 [facility] Comment on above: Performed By: #### H S TROP, CBC, HEPATIC, BMP, PT, BNP, CK ####[address] Eosinophils/100 WBC (Bld) 1.2 % Normal . [facility] Comment on above: Performed By: #### H S TROP, CBC, HEPATIC, BMP, PT, BNP, CK ####[address] Erythrocyte distribution width (RBC) [Ratio] 13.1 % Normal 11.9-15.3 [facility] Comment on above: Performed By: #### H S TROP, CBC, HEPATIC, BMP, PT, BNP, CK ####[address] Hematocrit (Bld) [Volume fraction] 40.8 % Normal 34.0-46.4 [facility] Comment on above: Performed By: #### H S TROP, CBC, HEPATIC, BMP, PT, BNP, CK ####[address] Hemoglobin (Bld) [Mass/Vol] 14.5 g/dL Normal 11.8-15.4 [facility] Comment on above: Performed By: #### H S TROP, CBC, HEPATIC, BMP, PT, BNP, CK ####[address] Lymphocytes (Bld) [#/Vol] 1.7 10*3/uL Normal 1.00-4.8 [facility] Comment on above: Performed By: #### H S TROP, CBC, HEPATIC, BMP, PT, BNP, CK ####[address] Lymphocytes/100 WBC (Bld) 37.7 % Normal . [facility] Comment on above: Performed By: #### H S TROP, CBC, HEPATIC, BMP, PT, BNP, CK ####[address] MCH (RBC) [Entitic mass] 34.5 pg High 24.7-34.3 [facility] Comment on above: Performed By: #### H S TROP, CBC, HEPATIC, BMP, PT, BNP, CK ####[address] MCV (RBC) [Entitic vol] 97.4 fL Normal 80-100 [facility] Comment on above: Performed By: #### H S TROP, CBC, HEPATIC, BMP, PT, BNP, CK ####[address] Mean Corpuscular HGB Conc 35.5 g/dL High 32.0-35.0 [facility] Comment on above: Performed By: #### H S TROP, CBC, HEPATIC, BMP, PT, BNP, CK ####[address] Monocytes (Bld) [#/Vol] 0.4 10*3/uL Normal 0.0-0.8 [facility] Comment on above: Performed By: #### H S TROP, CBC, HEPATIC, BMP, PT, BNP, CK ####[address] Monocytes/100 WBC (Bld) 23.57 % High 0.00-20.00 [facility] Comment on above: Result Comment: For adults in ED, MDW > 20.0 may be associated with a higher risk of sepsis during the first 12 hrs of hospital admission Performed By: #### H S TROP, CBC, HEPATIC, BMP, PT, BNP, CK ####[address] Monocytes/100 WBC (Bld) 9.2 % Normal . [facility] Comment on above: Performed By: #### H S TROP, CBC, HEPATIC, BMP, PT, BNP, CK ####[address] Neutrophils (Bld) [#/Vol] 2.3 10*3/uL Normal 1.8-7.7 [facility] Comment on above: Performed By: #### H S TROP, CBC, HEPATIC, BMP, PT, BNP, CK ####[address] Neutrophils/100 WBC (Bld) 51.0 % Normal . [facility] Comment on above: Performed By: #### H S TROP, CBC, HEPATIC, BMP, PT, BNP, CK ####[address] NRBC% 0.1 /100{WBC} Normal 0-0.5 [facility] Comment on above: Performed By: #### H S TROP, CBC, HEPATIC, BMP, PT, BNP, CK ####[address] Platelet mean volume (Bld) [Entitic vol] 7.6 fL Normal 6.3-10.7 [facility] Comment on above: Performed By: #### H S TROP, CBC, HEPATIC, BMP, PT, BNP, CK ####[address] Platelets (Bld) [#/Vol] 235 10*3/uL Normal 150-450 [facility] Comment on above: Performed By: #### H S TROP, CBC, HEPATIC, BMP, PT, BNP, CK ####[address] RBC (Bld) [#/Vol] 4.19 10*6/uL Normal 3.60-5.00 [facility] Comment on above: Performed By: #### H S TROP, CBC, HEPATIC, BMP, PT, BNP, CK ####[address] WBC (Bld) [#/Vol] 4.5 10*3/uL Normal 3.8-11.6 [facility] Comment on above: Performed By: #### H S TROP, CBC, HEPATIC, BMP, PT, BNP, CK ####[address] Creatine Kinaseon 09-18-2024 CK [Catalytic activity/Vol] 189 U/L Normal [facility] Comment on above: Performed By: #### H S TROP, CBC, HEPATIC, BMP, PT, BNP, CK ####[place] [id number] [place] Creatine kinase [Enzymatic a ctivity/volume] in Serum or PlasmaOrdered By: Luis Enrique Marcano on 09-18-2024 CK [Catalytic activity/Vol] Creatine kinase [Enzymatic activity/volume] in Serum or Plasma [facility] Creatinine [Mass/volume] in Serum or PlasmaOrdered By: Luis Enrique Marcano on 09-18-2024 Creatinine [Mass/Vol] Creatinine [Mass/v olume] in Serum or Plasma 0.60-1.20 [facility] Dipstick and Microscopicon 0 09-18-2024 Appearance (U) Clear Normal Clear [facility] Comment on above: Order Comment: Name Collection Type:: Clean-Voided Midstream Performed By: #### A DDONUAPLUS ####[address] Bacteria,Urine Rare Normal None Seen [facility] Comment on above: Order Comment: Name Collection Type:: Clean-Voided Midstream Performed By: #### A DDONUAPLUS ####[address] Bilirubin,Urine Negative Normal Negative [facility] Comment on above: Order Comment: Name Collection Type:: Clean-Voided Midstream Performed By: #### A DDONUAPLUS ####[place] [id number] [place] Color (U) Yellow Normal Yellow [facility] Comment on above: Order Comment: Name Collection Type:: Clean-Voided Midstream Performed By: #### A DDONUAPLUS ####[place] [id number] [place] Glucose Ql (U) Normal Normal Normal [facility] Comment on above: Order Comment: Name Collection Type:: Clean-Voided Midstream Performed By: #### A DDONUAPLUS ####[place] [address] [place] Hyaline Casts,Urine None Normal 0-8 [facility] Comment on above: Order Comment: Name Collection Type:: Clean-Voided Midstream Performed By: #### A DDONUAPLUS ####[address] [address] [place] Ketones Ql (U) 2+ High Negative [facility] Comment on above: Order Comment: Name Collection Type:: Clean-Voided Midstream Performed By: #### A DDONUAPLUS ####[address] [address] [place] Leukocyte esterase Test strip Ql (U) Negative Normal Negative [facility] Comment on above: Order Comment: Name Collection Type:: Clean-Voided Midstream Performed By: #### A DDONUAPLUS ####[address] [address] [place] Mucus,Urine 1+ Critically abnormal [facility] Comment on above: Order Comment: Name Collection Type:: Clean-Voided Midstream Result Comment: PERF ORMED BY: [place] [address] PATHOLOGIST DIRECTOR EDUCATION TIBURCIO BARRON M.D. Performed By: #### A DDONUAPLUS ####[address] [address] [place] Nitrite,Urine Negative Normal Negative [facility] Comment on above: Order Comment: Name Collection Type:: Clean-Voided Midstream Performed By: #### A DDONUAPLUS ####[address] [address] [place] Occult Blood,Urine Negative Normal Negative [facility] Comment on above: Order Comment: Name Collection Type:: Clean-Voided Midstream Result Comment: PERF ORMED BY: [place] [id number] PATHOLOGIST DIRECTOR EDUCATION TIBURCIO BARRON M.D. Performed By: #### A DDONUAPLUS ####[place] [id number] [place] pH (U) 7.5 [pH] Normal 5.0-9.0 [facility] Comment on above: Order Comment: Name Collection Type:: Clean-Voided Midstream Performed By: #### A DDONUAPLUS ####[address] [address] [place] Protein,Urine Trace High Negative [facility] Comment on above: Order Comment: Name Collection Type:: Clean-Voided Midstream Performed By: #### A DDONUAPLUS ####[address] [address] [place] RBC,Urine 1 [HPF] Normal 0-4 [facility] Comment on above: Order Comment: Name Collection Type:: Clean-Voided Midstream Performed By: #### A DDONUAPLUS ####[place] [id number] [place] Specificy [place],Urine 1.025 Normal 1.001-1.030 [facility] Comment on above: Order Comment: Name Collection Type:: Clean-Voided Midstream Performed By: #### A DDONUAPLUS ####[address] [address] [place] Squamous Epithelial Cell,Urine 3 [HPF] High 0-2 [facility] Comment on above: Order Comment: Name Collection Type:: Clean-Voided Midstream Performed By: #### A DDONUAPLUS ####[address] [address] [place] Urobilinogen,Urine 2 mg/dL High Normal [facility] Comment on above: Order Comment: Name Collection Type:: Clean-Voided Midstream Performed By: #### A DDONUAPLUS ####[address] [address] [place] WBC,Urine 3 [HPF] Normal 0-4 [facility] Comment on above: Order Comment: Name Collection Type:: Clean-Voided Midstream Performed By: #### A DDONUAPLUS ####[address] [address] [place] ECG 12 lead ECGon 09-18-2024 ECG 12 lead ECG [facility] [place] [address] Electrocardiograph Report Signed Patient: Ezequiel Lei MR#: [id number] : 1960 Acct:[id number] Age/Sex: 64 / F ADM Date: 09/18/24 Loc: ER Room: Type: [facility] ER Attending Dr: Ordering Provider: Luis Enrique [...] available Confirmed by Luis Enrique Marcano DO ([id number]) on 09/18/2024 4:42:55 PM Referred By: Electronically Signed By: Luis Enrique Marcano DO Transcribed By: MUS Signed By Luis Enrique Marcano DO 5 1643 Normal [facility] Eosinophils Auto (Bld) [#/Vo l]Ordered By: Luis Enrique Marcano on 09-18-2024 Eosinophils (Bld) [#/Vol] Automated eosinophil count 0.0-0.45 [facility] Eosinophils/100 WBC Auto (Bl d)Ordered By: Luis Enrique Marcano on 09-18-2024 Eosinophils/100 WBC (Bld) Automated eosinophil % . [facility] Epithelial cells.squamous [# /area] in Urine sediment by Automated countOrdered By: Luis Enrique Marcano on 09-18-2024 Epithelial cells.squamous Auto (Urine sed) [#/Area] Epithelial cells.squamous [#/area] in Urine sediment by Automated count High 0-2 [facility] Erythrocyte distribution wid th Auto (RBC) [Ratio]Ordered By: Luis Enrique Marcano on 09-18-2024 Erythrocyte distribution width (RBC) [Ratio] Erythrocyte distribution width [Ratio] by Automated count 11.9-15.3 [facility] Erythrocytes [#/area] in Uri ne sediment by Automated countOrdered By: Luis Enrique Marcano on 09-18-2024 RBC Auto (Urine sed) [#/Area] Erythrocytes [#/area] in Urine sediment by Automated count 0-4 [facility] Globulin Calc (S) [Mass/Vol] Ordered By: Luis Enrique Marcano on 09-18-2024 Globulin (S) [Mass/Vol] Serum globulin measurement by calculation (mass/volume) [facility] Glucose [Mass/volume] in Ser um or PlasmaOrdered By: Luis Enrique Marcano on 09-18-2024 Glucose [Mass/Vol] Glucose [Mass/volume ] in Serum or Plasma High 70-100 [facility] Comment on above: ADA recommended refe [...] [Mass/volume] in Urine by Test strip Normal [facility] Hematocrit Auto (Bld) [Volum e fraction]Ordered By: Luis Enrique Marcano on 09-18-2024 Hematocrit (Bld) [Volume fraction] Hematocrit [Volume Fraction] of Blood by Automated count 34.0-46.4 [facility] Hemoglobin Test strip Ql (U) Ordered By: Luis Enrique Marcano on 09-18-2024 Hemoglobin Ql (U) Hemoglobin [Presence ] in Urine by Test strip Negative [facility] Hemoglobin [Mass/volume] in BloodOrdered By: Luis Enrique Marcano on 09-18-2024 Hemoglobin (Bld) [Mass/Vol] Hemoglobin [Mass/volume] in Blood 11.8-15.4 [facility] Hepatic Panelon 09-18-2024 Albumin [Mass/Vol] 4.0 g/dL Normal 3.5-5.7 [facility] Comment on above: Performed By: #### H S TROP, CBC, HEPATIC, BMP, PT, BNP, CK ####[facility] [id number] [place] [id number] [place] Albumin/Globulin [Mass ratio] 1.5 {ratio} Normal [facility] Comment on above: Performed By: #### H S TROP, CBC, HEPATIC, BMP, PT, BNP, CK ####[address] ALP [Catalytic activity/Vol] 55 U/L Normal 34-104 [facility] Comment on above: Performed By: #### H S TROP, CBC, HEPATIC, BMP, PT, BNP, CK ####[address] ALT [Catalytic activity/Vol] 15 U/L Normal 7-52 [facility] Comment on above: Performed By: #### H S TROP, CBC, HEPATIC, BMP, PT, BNP, CK ####[address] AST [Catalytic activity/Vol] 25 U/L Normal 13-39 [facility] Comment on above: Performed By: #### H S TROP, CBC, HEPATIC, BMP, PT, BNP, CK ####[address] Bilirubin [Mass/Vol] 0.7 mg/dL Normal 0.3-1.0 [facility] Comment on above: Performed By: #### H S TROP, CBC, HEPATIC, BMP, PT, BNP, CK ####[address] Bilirubin,Indirect 0.5 mg/dL Normal [facility] Comment on above: Performed By: #### H S TROP, CBC, HEPATIC, BMP, PT, BNP, CK ####[address] Bilirubin.indirect [Mass/Vol] 0.20 mg/dL High 0.03-0.18 [facility] Comment on above: Performed By: #### H S TROP, CBC, HEPATIC, BMP, PT, BNP, CK ####[address] Globulin (S) [Mass/Vol] 2.6 g/dL Normal [facility] Comment on above: Performed By: #### H S TROP, CBC, HEPATIC, BMP, PT, BNP, CK ####[facility] [id number] Protein [Mass/Vol] 6.6 g/dL Normal 6.4-8.9 [facility] Comment on above: Performed By: #### H S TROP, CBC, HEPATIC, BMP, PT, BNP, CK ####[facility] [id number] Hyaline casts [#/area] in Ur ine sediment by Automated countOrdered By: Luis Enrique Marcano on 09-18-2024 Hyaline casts Auto (Urine sed) [#/Area] Hyaline casts [#/area] in Urine sediment by Automated count 0-8 [facility] INR in Platelet poor plasma by Coagulation assayOrdered By: Luis Enrique Marcano on 09-18-2024 INR Coag (PPP) [Relative time] INR in Platelet poor plasma by Coagulation assay [facility] Comment on above: INR Therapeutic Rang [...] n Urine by Test strip High Negative [facility] Leukocyte esterase [Presence ] in Urine by Test stripOrdered By: Luis Enrique Marcano on 09-18-2024 Leukocyte esterase Test strip Ql (U) Leukocyte esterase [Presence] in Urine by Test strip Negative [facility] Leukocytes [#/area] in Urine sediment by Automated countOrdered By: Luis Enrique Marcano on 09-18-2024 WBC Auto (Urine sed) [#/Area] Leukocytes [#/area] in Urine sediment by Automated count 0-4 [facility] Leukocytes [#/volume] correc malka for nucleated erythrocytes in Blood by Automated counOrdered By: Luis Enrique Marcano on 09-18-2024 WBC corrected for nucl RBC Auto (Bld) [#/Vol] Leukocytes [#/volume] corrected for nucleated erythrocytes in Blood by Automated coun 3.8-11.6 [facility] Lymphocytes Auto (Bld) [#/Vo l]Ordered By: Luis Enrique Marcano on 09-18-2024 Lymphocytes (Bld) [#/Vol] Lymphocytes [#/volume] in Blood by Automated count 1.00-4.8 [facility] Lymphocytes/100 WBC Auto (Bl d)Ordered By: Luis Enrique Marcano on 09-18-2024 Lymphocytes/100 WBC (Bld) Lymphocytes/100 leukocytes in Blood by Automated count . [facility] MCH Auto (RBC) [Entitic mass ]Ordered By: Luis Enrique Marcano on 09-18-2024 MCH (RBC) [Entitic mass] MCH [Entitic mass] by Automated count High 24.7-34.3 [facility] MCHC Auto (RBC) [Mass/Vol]Or dered By: Luis Enrique Marcano on 09-18-2024 MCHC (RBC) [Mass/Vol] MCHC [Mass/volume] by Automated count High 32.0-35.0 [facility] MCV Auto (RBC) [Entitic vol] Ordered By: Luis Enrique Marcano on 09-18-2024 MCV (RBC) [Entitic vol] MCV [Entitic volume] by Automated count 80-100 [facility] Monocyte distribution width [Entitic volume] in Blood by AutomatedOrdered By: Luis Enrique Marcano on 09-18-2024 Monocyte distribution width Auto (Bld) [Entitic vol] Monocyte distribution width [Entitic volume] in Blood by Automated High 0.00-20.00 [facility] Comment on above: For adults in ED, MD W > 20.0 may be associated with a higher risk of sepsis during the first 12 hrs of hospital admission Monocytes Auto (Bld) [#/Vol] Ordered By: Luis Enrique Marcano on 09-18-2024 Monocytes (Bld) [#/Vol] Automated blood monocyte count 0.0-0.8 [facility] Monocytes/100 WBC Auto (Bld) Ordered By: Luis Enrique Marcano on 09-18-2024 Monocytes/100 WBC (Bld) Automated monocyte % . [facility] Mucus [Presence] in Urine by AutomatedOrdered By: Luis Enrique Marcano on 09-18-2024 Mucus Auto Ql (U) Mucus [Presence] in Urine by Automated Abnormal [facility] Natriuretic peptide B [Mass/ Vol]Ordered By: Luis Enrique Marcano on 09-18-2024 Natriuretic peptide B (Bld) [Mass/Vol] BNP ser/plas 5-100 [facility] Neutrophils Auto (Bld) [#/Vo l]Ordered By: Luis Enrique Marcano on 09-18-2024 Neutrophils (Bld) [#/Vol] Neutrophils [#/volume] in Blood by Automated count 1.8-7.7 [facility] Neutrophils/100 WBC Auto (Bl d)Ordered By: Luis Enrique Marcano on 09-18-2024 Neutrophils/100 WBC (Bld) Automated neutrophil % . [facility] Nitrite Test strip Ql (U)Ord ered By: Luis Enrique Marcano on 09-18-2024 Nitrite Ql (U) Nitrite [Presence] i n Urine by Test strip Negative [facility] No Panel InformationOrdered By: Luis Enrique Marcano on 09-18-2024 Estimated GFR (CKD-EPI) > 60.0 mL/Min [facility] Creatinine Clearance (Chem 78.53 [facility] Nucleated erythrocytes [Pres ence] in Blood by Automated countOrdered By: Luis Enrique Marcano on 09-18-2024 Nucleated RBC Auto Ql (Bld) Nucleated erythrocytes [Presence] in Blood by Automated count 0-0.5 [facility] Platelet mean volume Auto (B ld) [Entitic vol]Ordered By: Luis Enrique Marcano on 09-18-2024 Platelet mean volume (Bld) [Entitic vol] Platelet mean volume [Entitic volume] in Blood by Automated count 6.3-10.7 [facility] Platelets Auto (Bld) [#/Vol] Ordered By: Luis Enrique Marcano on 09-18-2024 Platelets (Bld) [#/Vol] Platelets [#/volume] in Blood by Automated count 150-450 [facility] Potassium [Moles/volume] in Serum or PlasmaOrdered By: Luis Enrique Marcano on 09-18-2024 Potassium [Moles/Vol] Potassium [Moles/v olume] in Serum or Plasma Low 3.5-5.1 [facility] Protein Test strip (U) [Mass /Vol]Ordered By: Luis Enrique Marcano on 09-18-2024 Protein (U) [Mass/Vol] Protein [Mass/vol ume] in Urine by Test strip High Negative [facility] Protein [Mass/volume] in Ser um or PlasmaOrdered By: Luis Enrique Marcano on 09-18-2024 Protein [Mass/Vol] Protein [Mass/volume ] in Serum or Plasma 6.4-8.9 [facility] Prothrombin Time INRon 09-18 INR Coag (PPP) [Relative time] 1.0 {INR} Normal [facility] Comment on above: Result Comment: [...] heart valves: 3 - 4.5 PERFORMED BY: [facility] [address] [place] [address] PATHOLOGIST DIRECTOR EDUCATION TIBURCIO BARRON M.D. Performed By: #### H S TROP, CBC, HEPATIC, BMP, PT, BNP, CK ####[facility] [id number] [place] [id number] [place] PT Coag (PPP) [Time] 11.7 s Normal 9.0-12.9 [facility] Comment on above: Result Comment: A matocrit value greater than 55% may lead to inaccurate results in coagulation testing. Patients having hematocrit values >55% require a special collection tube for coagulation studies. Please contact the laboratory at [phone] for redraw instructions. Performed By: #### H S TROP, CBC, HEPATIC, BMP, PT, BNP, CK ####[facility] [id number] [place] [id number] [place] Prothrombin time (PT)Ordered By: Luis Enrique Marcano on 09-18-2024 PT Coag (PPP) [Time] Prothrombin time (PT) 9.0- 12.9 [facility] Comment on above: A hematocrit value g reater than 55% may lead to inaccurate results in coagulation testing. Patients having hematocrit values >55% require a special collection tube for coagulation studies. Please contact the laboratory at [phone] for redraw instructions. RBC Auto (Bld) [#/Vol]Ordere d By: Luis Enrique Marcano on 09-18-2024 RBC (Bld) [#/Vol] Erythrocytes [#/volu me] in Blood by Automated count 3.60-5.00 [facility] Respiratory specimen influen za A virus, influenza B virus, respiratory syncytical virOrdered By: Luis Enrique Marcano on 09-18-2024 SARS-CoV-2 (COVID-19) RNA LIU+probe Ql (Unsp spec) Respiratory specimen influenza A virus, influenza B virus, respiratory syncytical vir [facility] Serum or plasma albumin/glob ulin mass ratioOrdered By: Luis Enrique Marcano on 09-18-2024 Albumin/Globulin [Mass ratio] Serum or plasma albumin/globulin mass ratio [facility] Serum or plasma anion gap de terminationOrdered By: Luis Enrique Marcano on 09-18-2024 Anion gap [Moles/Vol] Serum or plasma an ion gap determination 6.0-15.0 [facility] Serum or plasma non-glucuron idated bilirubin measurement (mass/volume)Ordered By: Luis Enrique Marcano on 09-18-2024 Bilirubin.indirect [Mass/Vol] Serum or plasma non-glucuronidated bilirubin measurement (mass/volume) [facility] Sodium [Moles/volume] in Ser um or PlasmaOrdered By: Luis Enrique Marcano on 09-18-2024 Sodium [Moles/Vol] Sodium [Moles/volume ] in Serum or Plasma 136-145 [facility] Specific gravity Test strip (U) [Rel density]Ordered By: Luis Enrique Marcano on 09-18-2024 Specific gravity (U) [Rel density] Specific gravity of Urine by Test strip 1.001-1.030 [facility] Troponin I High Sensitivityo n 09-18-2024 Troponin I High Sensitivity 3 Normal 0-15 [facility] Comment on above: Result Comment: The Troponin units of report have been changed to meet the Chest Pain Accreditation requirement, element EC5.M1l2. Troponin units are changed from pg/ml to ng/L. Also, the decimal is removed and results are in whole numbers. PERFORMED BY: [place] [address] PATHOLOGIST DIRECTOR EDUCATION TIBURCIO BARRON M.D. Performed By: #### H S TROP, CBC, HEPATIC, BMP, PT, BNP, CK ####[facility] [id number] Troponin I.cardiac [Mass/vol ume] in Serum or Plasma by Detection limit <= 0.01 ng/Ordered By: Luis Enrique Marcano on 09-18-2024 Troponin I.cardiac DL <= 0.01 ng/mL [Mass/Vol] Troponin I.cardiac [Mass/volume] in Serum or Plasma by Detection limit <= 0.01 ng/ 0-15 [facility] Comment on above: The Troponin units [...] nitrogen [Mass/volume] in Serum or Plasma 7-25 [facility] Urobilinogen Test strip (U) [Mass/Vol]Ordered By: Luis Enrique Marcano on 09-18-2024 Urobilinogen (U) [Mass/Vol] Urobilinogen [Mass/volume] in Urine by Test strip High Normal [facility] WBC Auto (Bld) [#/Vol]Ordere d By: Luis Enrique Marcano on 09-18-2024 WBC (Bld) [#/Vol] Leukocytes [#/volume ] in Blood by Automated count 3.8-11.6 [facility] X-ray reportOrdered By: Gabino Shirley on 09-18-2024 Study report [facility] Main [place] [id number] XRay Report Signed Patient: Ezequiel Lei MR#: [id number] : 1960 Acct:[id number] Age/Sex: 64 / F ADM Date: 5 [...] Gabino Shirley M.D.09/18/2024 12:34 PM Dictation Location: [place] [address] Transcribed By: [facility] 09/18/24 1234 Dictated By: Gabino Shirley II, MD 09/18/24 1232 Signed By: 09/18/24 [facility]4 [facility] Work Phone: XR chest 1V portableon 09-18 XR chest 1V portable [facility] Main [place] [address] [place] [address] XRay Report Signed Patient: Ezequiel Lei MR#: [id number] : 1960 Acct:[id number] Age/Sex: 64 / F ADM Date: 09/18/24 [...] Gabino Shirley M.D.09/18/2024 12:34 PM Dictation Location: [place] [address] Transcribed By: JAMEY 09/18/24 1234 Dictated By: Gabino Shirley II, MD 09/18/24 1232 Signed By: 09/18/24 1234 Normal [facility] pH Test strip (U)Ordered By: Luis Enrique Marcano on 09-18-2024 pH (U) pH of Urine by Test strip 5.0-9.0 [facility] Automated epithelial cells c ount in urine sediment (number/area)on 11-19-2023 Epithelial cells Auto (Urine sed) [#/Area] RARE #/LPF NONE/RARE [facility] Automated leukocytes count i n urine sediment (number/area)on 11-19-2023 WBC Auto (Urine sed) [#/Area] 0-2 #/HPF 0-2 [facility] Automated urine specific gra vity by refractometryon 11-19-2023 Specific gravity Refractometry automated (U) [Rel density] >=1.030 1.005-1.025 [facility] Basophils Auto (Bld) [#/Vol] on 11-19-2023 Basophils (Bld) [#/Vol] 0.1 10 3/uL 0.0-0.1 [facility] Basophils/100 WBC Auto (Bld) on 11-19-2023 Basophils/100 WBC (Bld) 0.7 % 0.2-2.0 [facility] Bilirubin Auto test strip (U ) [Mass/Vol]on 11-19-2023 Bilirubin (U) [Mass/Vol] Negative NEGATIVE [facility] Casts typing in urine sedime nt by light microscopyon 11-19-2023 Casts LM Nom (Urine sed) NONE SEEN #/LPF NONE SEEN [facility] Color Auto (U)on 11-19-2023 Color (U) YELLOW YELLOW [facility] Eosinophils/100 WBC Auto (Bl d)on 11-19-2023 Eosinophils/100 WBC (Bld) 1.2 % 0.9-7.0 [facility] Erythrocyte distribution wid th Auto (RBC) [Ratio]on 11-19-2023 Erythrocyte distribution width (RBC) [Ratio] 12.3 % 11.0-15.0 [facility] Estimated glomerular filtrat ion rate (GFR) non- Americanon 11-19-2023 GFR/1.73 sq M.predicted among non-blacks MDRD (S/P/Bld) [Vol rate/Area] mL/min/{1.73_m2} >=60 [facility] Globulin Calc (S) [Mass/Vol] on 11-19-2023 Globulin (S) [Mass/Vol] 3.5 g/dL [facility] Hematocrit Auto (Bld) [Volum e fraction]on 11-19-2023 Hematocrit (Bld) [Volume fraction] 43.4 % 36.0-48.0 [facility] Hemoglobin [Mass/volume] in Bloodon 11-19-2023 Hemoglobin (Bld) [Mass/Vol] 14.9 g/dL 12.0-16.0 [facility] Ketones Auto test strip (U) [Mass/Vol]on 11-19-2023 Ketones (U) [Mass/Vol] Negative NEGATIVE [facility] Laboratory - Chemistry and C hemistry - challengeon 11-19-2023 Albumin [Mass/Vol] 3.8 g/dL 3.4-5.0 [facility] ALP [Catalytic activity/Vol] 91 U/L 46-116 [facility] ALT [Catalytic activity/Vol] 21 U/L 14-59 [facility] AST [Catalytic activity/Vol] 18 U/L 15-37 [facility] Bilirubin [Mass/Vol] 0.7 mg/dL 0.2-1.0 [facility] Calcium [Mass/Vol] 9.3 mg/dL 8.5-10.1 [facility] Chloride [Moles/Vol] 104 mmol/L 98-107 [facility] CO2 [Moles/Vol] 22.2 mmol/L 21.0-32.0 [facility] Creatinine [Mass/Vol] 0.79 mg/dL 0.55-1.[address] [facility] GFR/1.73 sq M.predicted MDRD (S/P/Bld) [Vol rate/Area] mL/min/{1.73_m2} >=60 [facility] Glucose [Mass/Vol] 99 mg/dL 74-106 [facility] Lipase [Catalytic activity/Vol] 23.0 U/L 16.0-77.0 [facility] Potassium [Moles/Vol] 3.9 mmol/L 3.5-5.[address] [facility] Protein [Mass/Vol] 7.3 g/dL 6.4-8.2 [facility] Sodium [Moles/Vol] 140 mmol/L 136-145 [facility] Urea nitrogen [Mass/Vol] 18.0 mg/dL 7.0-18.0 [facility] Urea nitrogen/Creatinine [Mass ratio] 22.8 mg/mg [facility] Laboratory - Hematology and Cell countson 11-19-2023 Immature granulocytes/100 WBC (Bld) 0.6 % 0.0-0.5 [facility] Leukocytes [#/volume] correc malka for nucleated erythrocytes in Blood by Automated counon 11-19-2023 WBC corrected for nucl RBC Auto (Bld) [#/Vol] 8.3 10 3/uL 4.0-11.0 [facility] Lymphocytes Auto (Bld) [#/Vo l]on 11-19-2023 Lymphocytes (Bld) [#/Vol] 1.9 10 3/uL 1.2-3.8 [facility] Lymphocytes/100 WBC Auto (Bl d)on 11-19-2023 Lymphocytes/100 WBC (Bld) 22.3 % 20.5-60.0 [facility] MCH Auto (RBC) [Entitic mass ]on 11-19-2023 MCH (RBC) [Entitic mass] 33.3 pg 26.7-34.0 [facility] MCHC Auto (RBC) [Mass/Vol]on 11-19-2023 MCHC (RBC) [Mass/Vol] 34.3 g/dL 29.9-35.[address] [facility] MCV Auto (RBC) [Entitic vol] on 11-19-2023 MCV (RBC) [Entitic vol] 97.1 fL 81.0-99.0 [facility] Monocytes Auto (Bld) [#/Vol] on 11-19-2023 Monocytes (Bld) [#/Vol] 0.8 10 3/uL 0.3-0.8 [facility] Monocytes/100 WBC Auto (Bld) on 11-19-2023 Monocytes/100 WBC (Bld) 9.3 % 1.7-12.0 [facility] Mucus LM Ql (Urine sed)on Mucus Ql (Urine sed) NONE SEEN NONE SEEN [facility] Neutrophils Auto (Bld) [#/Vo l]on 11-19-2023 Neutrophils (Bld) [#/Vol] 5.5 10 3/uL 1.4-6.5 [facility] Neutrophils/100 WBC Auto (Bl d)on 11-19-2023 Neutrophils/100 WBC (Bld) 65.9 % 43.0-75.0 [facility] No Panel Informationon 11-18 Urine Microscopic Review YES [facility] Eosinophils # (Auto) 0.1 10 3/uL 0.0-0.7 [facility] Immature Granulocyte # (Auto) 0.05 10 3/uL 0.00-0.03 [facility] Platelet mean volume Auto (B ld) [Entitic vol]on 11-19-2023 Platelet mean volume (Bld) [Entitic vol] 9.9 fL 9.5-13.5 [facility] Platelets Auto (Bld) [#/Vol] on 11-19-2023 Platelets (Bld) [#/Vol] 251 10 3/uL 150-450 [facility] Protein Auto test strip (U) [Mass/Vol]on 11-19-2023 Protein (U) [Mass/Vol] Negative NEG/TRACE [facility] RBC Auto (Bld) [#/Vol]on RBC (Bld) [#/Vol] 4.47 10 6/uL 4.20-5.40 [facility] Serum or plasma albumin/glob ulin mass ratioon 11-19-2023 Albumin/Globulin [Mass ratio] 1.1 {ratio} [facility] Serum or plasma anion gap de terminationon 11-19-2023 Anion gap [Moles/Vol] 17.7 mmol/L Fi relands [facility] Specific gravity Auto test s trip (U) [Rel density]on 11-19-2023 Specific gravity (U) [Rel density] CLEAR CLEAR [facility] Urine bacteria detection by automated methodon 11-19-2023 Bacteria Auto Ql (U) NONE SEEN #/HPF NONE SEEN [facility] Urine glucose measurement by test strip (mass/volume)on 11-19-2023 Glucose Test strip (U) [Mass/Vol] Negative NEGATIVE [facility] Urine hemoglobin detection b y automated test stripon 11-19-2023 Hemoglobin Auto test strip Ql (U) TRACE-I NEGATIVE [facility] Urine nitrite detection by a utomated test stripon 11-19-2023 Nitrite Auto test strip Ql (U) Negative NEGATIVE [facility] Urine sediment crystal ident ification by light microscopyon 11-19-2023 Crystals LM Nom (Urine sed) None Seen #/HPF None Seen [facility] Urine sediment leukocyte cou nt by microscopy (number/high power field)on 11-19-2023 WBC LM.HPF (Urine sed) [#/Area] NONE SEEN #/HPF NONE SEEN [facility] Urobilinogen Auto test strip (U) [Mass/Vol]on 11-19-2023 Urobilinogen Qn (U) 0.2 {Alphonso'U}/dL 0.2-1.0 [facility] pH Auto test strip (U)on pH (U) 5.5 [pH] 5.0-9.0 [facility] CBC AUTO DIFFon 07-15-2022 BASO # 0.1 103/ul Normal 0.0-0.1 [facility] Comment on above: Performed By: #### C BC #### [facility] [address] [address] [address] Ortega Morel Basophils/100 WBC (Bld) 1.0 % Normal 0.2-2.0 [facility] Comment on above: Performed By: #### C BC #### [facility] [address] [place] [address] [address] Ortega Morel EO # 0.1 103/ul Normal 0.0-0.7 [facility] Comment on above: Performed By: #### C BC #### [facility] [address] [place] [address] Dr. Ortega Morel Eosinophils/100 WBC (Bld) 2.0 % Normal 0.9-7.0 [facility] Comment on above: Performed By: #### C BC #### [facility] [address] [place] [address] Dr. Ortega Morel Erythrocyte distribution width (RBC) [Ratio] 12.2 % Normal 11.0-15.0 [facility] Comment on above: Performed By: #### C BC #### [facility] [address] [place] [address] Dr. Ortega Morel Hematocrit (Bld) [Volume fraction] 41.4 % Normal 36.0-48.0 [facility] Comment on above: Performed By: #### C BC #### [facility] [address] [place] [address] Dr. Ortega Morel Hemoglobin (Bld) [Mass/Vol] 14.4 g/dL Normal 12.0-16.0 [facility] Comment on above: Performed By: #### C BC #### [facility] [address] [place] [address] Dr. Ortega Morel IG # 0.04 10e3/ul Critically high 0.00-0.03 [facility] Comment on above: Performed By: #### C BC #### [facility] [address] [place] [address] Dr. Ortega Morel IG % 0.7 % Critically high 0.0-0.5 [facility] Comment on above: Performed By: #### C BC #### [facility] [address] [place] [address] Dr. Ortega Morel LYMPH # 1.7 103/ul Normal 1.2-3.8 [facility] Comment on above: Performed By: #### C BC #### [facility] [address] [place] [address] Dr. Ortega Morel Lymphocytes/100 WBC (Bld) 28.2 % Normal 20.5-60.0 [facility] Comment on above: Performed By: #### C BC #### [facility] [address] [place] [address] Dr. Ortega Morel MANUAL DIFF REQ NO Normal [facility] Comment on above: Performed By: #### C BC #### [facility] [address] [place] [address] Dr. Ortega Morel MCH (RBC) [Entitic mass] 33.4 pg Normal 26.7-34.0 [facility] Comment on above: Performed By: #### C BC #### [facility] [address] [place] [address] Dr. Ortega Morel MCHC (RBC) [Mass/Vol] 34.8 g/dL Normal 29.9-35.2 [facility] Comment on above: Performed By: #### C BC #### [facility] [address] [place] [address] Dr. Ortega Morel MCV (RBC) [Entitic vol] 96.1 fL Normal 81.0-99.0 [facility] Comment on above: Performed By: #### C BC #### [facility] [address] [place] [address] Dr. Ortega Morel MONO # 0.7 103/ul Normal 0.3-0.8 [facility] Comment on above: Performed By: #### C BC #### [facility] [address] [place] [address] Dr. Ortega Morel Monocytes/100 WBC (Bld) 11.4 % Normal 1.7-12.0 [facility] Comment on above: Performed By: #### C BC #### [facility] [facility] [address] [place] [address] Dr. Ortega Morel NEUT # 3.4 103/ul Normal 1.4-6.5 [facility] Comment on above: Performed By: #### C BC #### [facility] [address] [place] [address] Dr. Ortega Morel Neutrophils/100 WBC (Bld) 56.7 % Normal 43.0-75.0 [facility] Comment on above: Performed By: #### C BC #### [facility] [address] [place] [address] Dr. Ortega Morel Platelet mean volume (Bld) [Entitic vol] 10.1 fL Normal 9.5-13.5 [facility] Comment on above: Performed By: #### C BC #### [facility] [address] [place] [address] Dr. Ortega Morel PLT 217 103/ul Normal 150-450 [facility] Comment on above: Performed By: #### C BC #### [facility] [address] [place] [address] Dr. Ortega Morel RBC 4.31 106/ul Normal 4.20-5.40 [facility] Comment on above: Performed By: #### C BC #### [facility] [address] [place] [address] Dr. Ortega Morel WBC 6.0 103/ul Normal 4.0-11.0 [facility] Comment on above: Performed By: #### C BC #### [facility] [address] [place] [address] Dr. Ortega Morel CULTURE URINEon 07-15-2022 CULTURE URINE Culture Observations : NO GROWTH. Normal [facility] Comment on above: Performed By: #### C MP #### [facility] [address] [place] [address] Dr. Ortega Morel FREE T3on 07-15-2022 FREE T3 1.87 pg/mlL Critically low 2.18-3.98 [facility] Comment on above: Performed By: #### T SH, LIPID, FT3 #### [facility] [address] [place] [address] Dr. Ortega Morel FREE T4on 07-15-2022 Free T4 [Mass/Vol] 0.92 ng/dL Normal 0.76-1.46 [facility] Comment on above: Performed By: #### F T4 #### [facility] [address] [place] [address] Dr. Ortega Morel GLYCOHEMOGLOBIN A1Con 2021 ADA RECOMMENDATION SEE BELOW Normal [facility] Comment on above: Result Comment: ADA RECOMMENDED LIMIT 4.0 - 6.0 ADA THERAPEUTIC TARGET < 7.0 ACTION SUGGESTED > 7.0 Performed By: #### C MP #### [facility] [address] [place] [address] Dr. Ortega Morel Glucose [Mass/Vol] 103 mg/dL Normal [facility] Comment on above: Performed By: #### C MP #### [facility] [address] [address] [address] Ortega Morel HbA1c (Bld) [Mass fraction] 5.2 % Normal 4.5-6.2 [facility] Comment on above: Performed By: #### C MP #### [facility] [address] [place] [address] Dr. Ortega Morel LIPID PROFILEon 07-15-2022 CHOL-HDL RATIO NORM SEE BELOW Normal [facility] Comment on above: Result Comment: 3.3 - 4.4 LOW RISK 4.4 - 7.1 AVERAGE RISK 7.1 - 11.0 MODERATE RISK >11.0 HIGH RISK Performed By: #### T SH, LIPID, FT3 #### [facility] [address] [place] [address] Dr. Ortega Morel Cholesterol [Mass/Vol] 197 mg/dL Normal <=200 [facility] Comment on above: Performed By: #### T SH, LIPID, FT3 #### [facility] [address] [place] [address] Dr. Ortega Morel Cholesterol in HDL [Mass/Vol] 54 mg/dL Normal 40-60 [facility] Comment on above: Performed By: #### T SH, LIPID, FT3 #### [facility] [address] [place] [address] Dr. Ortega Morel Cholesterol in LDL [Mass/Vol] 111.8 mg/dL Normal [facility] Comment on above: Performed By: #### T SH, LIPID, FT3 #### [facility] [address] [place] [address] Dr. Ortega Morel Cholesterol.total/Chol esterol in HDL [Mass ratio] 3.6 {ratio} Normal [facility] Comment on above: Performed By: #### T SH, LIPID, FT3 #### [facility] [address] [place] [address] Dr. Ortega Morel HDL NORMAL > or = 60 mg/dl - LO W CARDIOVASCULAR RISK <40 mg/dl - HIGH CARDIOVASCULAR RISK Normal [facility] Comment on above: Performed By: #### T SH, LIPID, FT3 #### [facility] [address] [address] [address] Ortega Morel LDL CALC NORMAL SEE BELOW Normal [facility] Comment on above: Result Comment: <100 mg/dl OPTIMAL 100 - 129 mg/dl NEAR OR ABOVE OPTIMAL 130 - 159 mg/dl BORDERLINE HIGH 160 - 189 mg/dl HIGH >190 mg/dl VERY HIGH Performed By: #### T SH, LIPID, FT3 #### [facility] [address] [place] [address] Dr. Ortega Morel Triglyceride [Mass/Vol] 156 mg/dL Critically high <=150 [facility] Comment on above: Performed By: #### T SH, LIPID, FT3 #### [facility] [address] [place] [address] Dr. Orteag Morel VLDL CALC 31.2 mg/dL Normal [facility] Comment on above: Performed By: #### T SH, LIPID, FT3 #### [facility] [address] [place] [address] Dr. Ortega Morel PROF 14(COMP METB)on 022 Albumin [Mass/Vol] 3.8 g/dL Normal 3.4-5.0 [facility] Comment on above: Performed By: #### C MP #### [facility] [address] [place] [address] Dr. Ortega Morel Albumin/Globulin [Mass ratio] 1.2 {ratio} Normal [facility] Comment on above: Performed By: #### C MP #### [facility] [address] [place] [address] Dr. Ortega Morel ALP [Catalytic activity/Vol] 84 U/L Normal 46-116 [facility] Comment on above: Performed By: #### C MP #### [facility] [address] [address] [address] Ortega Morel ALT [Catalytic activity/Vol] 15 U/L Normal 14-59 [facility] Comment on above: Performed By: #### C MP #### [facility] [address] [place] [address] Dr. Ortega Morel Anion gap [Moles/Vol] 13.6 mmol/L Normal [facility] Comment on above: Performed By: #### C MP #### [facility] [address] [address] [address] Ortega Morel AST [Catalytic activity/Vol] 16 U/L Normal 15-37 [facility] Comment on above: Performed By: #### C MP #### [facility] [address] [place] [address] Dr. Ortega Morel Bilirubin [Mass/Vol] 0.5 mg/dL Normal 0.2-1.0 [facility] Comment on above: Performed By: #### C MP #### [facility] [address] [place] [address] Dr. Ortega Morel Calcium [Mass/Vol] 8.7 mg/dL Normal 8.5-10.1 [facility] Comment on above: Performed By: #### C MP #### [facility] [address] [place] [address] Dr. Ortega Morel Chloride [Moles/Vol] 105 mmol/L Normal 98-107 [facility] Comment on above: Performed By: #### C MP #### [facility] [address] [place] [address] Dr. Ortega Morel CO2 [Moles/Vol] 25.5 mmol/L Normal 21.0-32.0 [facility] Comment on above: Performed By: #### C MP #### [facility] [address] [place] [address] Dr. Ortega Morel Creatinine [Mass/Vol] 0.69 mg/dL Normal 0.55-1.02 [facility] Comment on above: Performed By: #### C MP #### [facility] [address] [place] [address] Dr. Ortega Morel EGFR-AF [place] >60 Normal >=60 [facility] Comment on above: Performed By: #### C MP #### [facility] [address] [address] [address] Ortega Morel EGFR-NON AF [place]ER >60 Normal >=60 [facility] Comment on above: Performed By: #### C MP #### [facility] [address] [address] [address] Ortega Morel Globulin (S) [Mass/Vol] 3.2 g/dL Normal [facility] Comment on above: Performed By: #### C MP #### [facility] [address] [address] [address] Ortega Morel Glucose [Mass/Vol] 94 mg/dL Normal 74-106 [facility] Comment on above: Performed By: #### C MP #### [facility] [address] [place] [address] Dr. Ortega Morel Potassium [Moles/Vol] 4.1 mmol/L Normal 3.5-5.1 [facility] Comment on above: Performed By: #### C MP #### [facility] [address] [address] [address] Ortega Morel Protein [Mass/Vol] 7.0 g/dL Normal 6.4-8.2 [facility] Comment on above: Performed By: #### C MP #### [facility] [address] [address] [address] Ortega Morel Sodium [Moles/Vol] 140 mmol/L Normal 136-145 [facility] Comment on above: Performed By: #### C MP #### [facility] [address] [address] [address] Ortega Morel Urea nitrogen [Mass/Vol] 14.0 mg/dL Normal 7.0-18.0 [facility] Comment on above: Performed By: #### C MP #### [facility] [address] [address] [address] Ortega Morel Urea nitrogen/Creatinine [Mass ratio] 20.3 mg/mg Normal [facility] Comment on above: Performed By: #### C MP #### [facility] [address] [place] [address] Dr. Ortega Morel TSHon 07-15-2022 TSH 14.645 uIU/mL Critically high 0.358-3.740 [facility] Comment on above: Performed By: #### T SH, LIPID, FT3 #### [facility] [address] [place] [address] Dr. Ortega Morel UA RANDOMon 07-15-2022 Bilirubin Ql (U) Negative Normal NEGATIVE [facility] Comment on above: Performed By: #### U A #### [facility] [address] [place] [address] Dr. Ortega Morel Clarity (U) CLEAR Normal CLEAR [facility] Comment on above: Performed By: #### U A #### [facility] [address] [place] [address] Dr. Ortega Morel Color (U) YELLOW Normal YELLOW [facility] Comment on above: Performed By: #### U A #### [facility] [address] [place] [address] Dr. Ortega Morel Glucose Ql (U) Negative Normal NEGATIVE [facility] Comment on above: Performed By: #### U A #### [facility] [address] [place] [address] Dr. Ortega Morel Hemoglobin Ql (U) Negative Normal NEGATIVE [facility] Comment on above: Performed By: #### U A #### [facility] [address] [place] [address] Dr. Ortega Morel Ketones Ql (U) Negative Normal NEGATIVE [facility] Comment on above: Performed By: #### U A #### [facility] [address] [place] [address] Dr. Ortega Morel LEUKOCYTES Negative Normal NEGATIVE [facility] Comment on above: Performed By: #### U A #### [facility] [address] [place] [address] Dr. Ortega Morel Nitrite Ql (U) Negative Normal NEGATIVE [facility] Comment on above: Performed By: #### U A #### [facility] [address] [place] [address] Dr. Ortega Morel pH (U) 6.5 [pH] Normal 5-9 [facility] Comment on above: Performed By: #### U A #### [facility] [address] [place] [address] Dr. Ortega Morel SPEC GRAVITY 1.025 Normal 1.005-<=1.0 25 [facility] Comment on above: Performed By: #### U A #### [facility] [address] [place] [address] Dr. Ortega Morel UA PROTEIN TRACE Normal NEGATIVE/ TRACE [facility] Comment on above: Performed By: #### U A #### [facility] [address] [place] [address] Dr. Ortega Morel Urobilinogen Qn (U) 1.0 {Alphonso'U}/dL Normal 0.2 - 1. 0 [facility] Comment on above: Performed By: #### U A #### [facility] [address] [place] [address] Dr. Ortega Morel [facility] SARS-CoV-2 (COVID-19) RNA LIU+probe Ql (Unsp spec) Not detected Normal NOT DETECTED [facility] Comment on above: Result Comment: When diagnostic [...] for this test is supported by the [employer] of Health and Human Service's declaration that [...] used). Performed By: #### C MP #### [facility] [address] [place] [address] Dr. Ortega Morel Covid-19 PCR ([facility])on 04-13 SARS-CoV-2 (COVID-19) RNA LIU+probe Ql (Unsp spec) Not detected Normal NOT DETECTED [facility] Comment on above: Result Comment: When diagnostic [...] for this test is supported by the Drawing [employer] of [employer] and Human Service's declaration that [...] used). Performed By: #### C MP #### [facility] [address] [place] [address] Dr. Ortega Morel CBC AUTO DIFFon 01-11-2022 BASO # 0.0 103/ul Normal 0.0-0.1 [facility] Comment on above: Performed By: #### C MP #### [facility] [address] [place] [address] Dr. Ortega Morel Basophils/100 WBC (Bld) 0.6 % Normal 0.2-2.0 [facility] Comment on above: Performed By: #### C MP #### [facility] [address] [place] [address] Dr. Ortega Morel EO # 0.1 103/ul Normal 0.0-0.7 [facility] Comment on above: Performed By: #### C MP #### [facility] [address] [place] [address] Dr. Ortega Morel Eosinophils/100 WBC (Bld) 1.5 % Normal 0.9-7.0 [facility] Comment on above: Performed By: #### C MP #### [facility] [address] [place] [address] Dr. Ortega Morel Erythrocyte distribution width (RBC) [Ratio] 12.7 % Normal 11.0-15.0 [facility] Comment on above: Performed By: #### C MP #### [facility] [address] [place] [address] Dr. Ortega Morel Hematocrit (Bld) [Volume fraction] 38.0 % Normal 36.0-48.0 [facility] Comment on above: Performed By: #### C MP #### [facility] [address] [place] [address] Dr. Ortega Morel Hemoglobin (Bld) [Mass/Vol] 13.1 g/dL Normal 12.0-16.0 [facility] Comment on above: Performed By: #### C MP #### [facility] [address] [place] [address] Dr. Ortega Morel IG # 0.02 10e3/ul Normal 0.00-0.03 [facility] Comment on above: Performed By: #### C MP #### [facility] [address] [place] [address] Dr. Ortega Morel IG % 0.4 % Normal 0.0-0.5 [facility] Comment on above: Performed By: #### C MP #### [facility] [address] [place] [address] Dr. Ortega Morel LYMPH # 1.0 103/ul Critically low 1.2-3.8 [facility] Comment on above: Performed By: #### C MP #### [facility] [address] [place] [address] Dr. Ortega Morel Lymphocytes/100 WBC (Bld) 18.3 % Critically low 20.5-60.0 [facility] Comment on above: Performed By: #### C MP #### [facility] [address] [place] [address] Dr. Ortega Morel MANUAL DIFF REQ NO Normal [facility] Comment on above: Performed By: #### C MP #### [facility] [address] [place] [address] Dr. Ortega Morel MCH (RBC) [Entitic mass] 33.9 pg Normal 26.7-34.0 [facility] Comment on above: Performed By: #### C MP #### [facility] [address] [place] [address] Dr. Ortega Morel MCHC (RBC) [Mass/Vol] 34.5 g/dL Normal 29.9-35.2 [facility] Comment on above: Performed By: #### C MP #### [facility] [address] [place] [address] Dr. Ortega Morel MCV (RBC) [Entitic vol] 98.4 fL Normal 81.0-99.0 [facility] Comment on above: Performed By: #### C MP #### [facility] [address] [place] [address] Dr. Ortega Morel MONO # 0.5 103/ul Normal 0.3-0.8 [facility] Comment on above: Performed By: #### C MP #### [facility] [address] [place] [address] Dr. Ortega Morel Monocytes/100 WBC (Bld) 9.2 % Normal 1.7-12.0 [facility] Comment on above: Performed By: #### C MP #### [facility] [address] [place] [address] Dr. Ortega Morel NEUT # 3.6 103/ul Normal 1.4-6.5 [facility] Comment on above: Performed By: #### C MP #### [facility] [address] [place] [address] Dr. Ortega Morel Neutrophils/100 WBC (Bld) 70.0 % Normal 43.0-75.0 [facility] Comment on above: Performed By: #### C MP #### [facility] [address] [place] [address] Dr. Ortega Morel Platelet mean volume (Bld) [Entitic vol] 10.0 fL Normal 9.5-13.5 [facility] Comment on above: Performed By: #### C MP #### [facility] [address] [address] [address] Ortega Morel PLT 189 103/ul Normal 150-450 [facility] Comment on above: Performed By: #### C MP #### [facility] [address] [address] [address] Ortega Morel RBC 3.86 106/ul Critically low 4.20-5.40 [facility] Comment on above: Performed By: #### C MP #### [facility] [address] [address] [address] Ortega Morel WBC 5.2 103/ul Normal 4.0-11.0 [facility] Comment on above: Performed By: #### C MP #### [facility] [address] [place], [place] [address] ABD/PELV W CONon [...] SABRINA HARRIS Date: 2022-01-11 10:31 Normal [facility] ER URINE PROFILEon 2 Bilirubin Ql (U) Negative Normal NEGATIVE [facility] Comment on above: Performed By: #### E RUR #### [facility] [address] [place] [address] Dr. Ortega Morel Clarity (U) CLEAR Normal CLEAR [facility] Comment on above: Performed By: #### E RUR #### [facility] [address] [place] [address] Dr. Ortega Morel Color (U) BROWN Abnormal YELLOW [facility] Comment on above: Performed By: #### E RUR #### [facility] [address] [place] [address] Dr. Ortega Morel ERUAHD A micrscopic examina tion will be performed if indicated. Normal [facility] Comment on above: Performed By: #### E RUR #### [facility] [address] [place] [address] Dr. Ortega Morel Glucose Ql (U) Negative Normal NEGATIVE [facility] Comment on above: Performed By: #### E RUR #### [facility] [address] [place] [address] Dr. Ortega Morel Hemoglobin Ql (U) Negative Normal NEGATIVE [facility] Comment on above: Performed By: #### E RUR #### [facility] [address] [place] [address] Dr. Ortega Morel Ketones Ql (U) TRACE Abnormal NEGATIVE [facility] Comment on above: Performed By: #### E RUR #### [facility] [address] [place] [address] Dr. Ortega Morel LEUKOCYTES Negative Normal NEGATIVE [facility] Comment on above: Performed By: #### E RUR #### [facility] [address] [place] [address] Dr. Ortega Morel Nitrite Ql (U) Negative Normal NEGATIVE [facility] Comment on above: Performed By: #### E RUR #### [facility] [address] [place] [address] Dr. Ortega Morel pH (U) 6.0 [pH] Normal 5-9 [facility] Comment on above: Performed By: #### E RUR #### [facility] [address] [place] [address] Dr. Ortega Morel SPEC GRAVITY 1.025 Normal 1.005-<=1.0 25 [facility] Comment on above: Performed By: #### E RUR #### [facility] [address] [place] [address] Dr. Ortega Morel UA PROTEIN Negative Normal NEGATIVE/ TRACE [facility] Comment on above: Performed By: #### E RUR #### [facility] [address] [place] [address] Dr. Ortega Morel UR MICRO IND NOT INDICATED Normal [facility] Comment on above: Performed By: #### E RUR #### [facility] [address] [place] [address] Dr. Ortega Morel Urobilinogen Qn (U) 1.0 {Alphonso'U}/dL Normal 0.2 - 1. 0 [facility] Comment on above: Performed By: #### E RUR #### [facility] [address] [place] [address] Dr. Ortega Morel LACTATE/LACTIC ACIDon 2021 Lactate [Moles/Vol] 0.7 mmol/L Normal 0.4-1.9 [facility] Comment on above: Performed By: #### L ACT #### [facility] [address] [place] [address] Dr. Ortega Morel LIPASEon 01-11-2022 Lipase [Catalytic activity/Vol] 66.0 U/L Critically low 73.0-393.0 [facility] Comment on above: Performed By: #### C MP #### [facility] [address] [place] [address] Dr. Ortega Morel PROF 14(COMP METB)on 06-01-2 022 Albumin [Mass/Vol] 3.4 g/dL Normal 3.4-5.0 [facility] Comment on above: Performed By: #### C MP #### [facility] [address] [place] [address] Dr. Ortega Morel Albumin/Globulin [Mass ratio] 1.1 {ratio} Normal [facility] Comment on above: Performed By: #### C MP #### [facility] [address] [place] [address] Dr. Ortega Morel ALP [Catalytic activity/Vol] 71 U/L Normal 46-116 [facility] Comment on above: Performed By: #### C MP #### [facility] [address] [place] [address] Dr. Ortega Morel ALT [Catalytic activity/Vol] 20 U/L Normal 14-59 [facility] Comment on above: Performed By: #### C MP #### [facility] [address] [place] [address] Dr. Ortega Morel Anion gap [Moles/Vol] 10.3 mmol/L Normal [facility] Comment on above: Performed By: #### C MP #### [facility] [address] [place] [address] Dr. Ortega Morel AST [Catalytic activity/Vol] 15 U/L Normal 15-37 [facility] Comment on above: Performed By: #### C MP #### [facility] [address] [place] [address] Dr. Ortega Morel Bilirubin [Mass/Vol] 0.7 mg/dL Normal 0.2-1.0 [facility] Comment on above: Performed By: #### C MP #### [facility] [address] [place] [address] Dr. Ortega Morel Calcium [Mass/Vol] 8.7 mg/dL Normal 8.5-10.1 [facility] Comment on above: Performed By: #### C MP #### [facility] [address] [place] [address] Dr. Ortega Morel Chloride [Moles/Vol] 106 mmol/L Normal 98-107 [facility] Comment on above: Performed By: #### C MP #### [facility] [address] [address] [address] Ortega Morel CO2 [Moles/Vol] 26.5 mmol/L Normal 21.0-32.0 [facility] Comment on above: Performed By: #### C MP #### [facility] [address] [address] [address] Ortega Morel Creatinine [Mass/Vol] 0.74 mg/dL Normal 0.55-1.02 [facility] Comment on above: Performed By: #### C MP #### [facility] [address] [address] [address] Ortega Morel EGFR-AF [place] >60 Normal >=60 [facility] Comment on above: Performed By: #### C MP #### [facility] [address] [place] [address] Dr. Ortega Morel EGFR-NON AF [place] >60 Normal >=60 [facility] Comment on above: Performed By: #### C MP #### [facility] [address] [place] [address] Dr. Ortega Morel Globulin (S) [Mass/Vol] 3.1 g/dL Normal [facility] Comment on above: Performed By: #### C MP #### [facility] [address] [place] [address] Dr. Ortega Morel Glucose [Mass/Vol] 95 mg/dL Normal 74-106 [facility] Comment on above: Performed By: #### C MP #### [facility] [address] [place] [address] Dr. Ortega Morel Potassium [Moles/Vol] 3.8 mmol/L Normal 3.5-5.1 [facility] Comment on above: Performed By: #### C MP #### [facility] [address] [place] [address] Dr. Ortega Morel Protein [Mass/Vol] 6.5 g/dL Normal 6.4-8.2 [facility] Comment on above: Performed By: #### C MP #### [facility] [address] [address] [address] Ortega Morel Sodium [Moles/Vol] 139 mmol/L Normal 136-145 [facility] Comment on above: Performed By: #### C MP #### [facility] [address] [address] [address] Ortega Morel Urea nitrogen [Mass/Vol] 15.0 mg/dL Normal 7.0-18.0 [facility] Comment on above: Performed By: #### C MP #### [facility] [address] [address] [address] Ortega Morel Urea nitrogen/Creatinine [Mass ratio] 20.3 mg/mg Normal [facility] Comment on above: Performed By: #### C MP #### [facility] [address] [address] [address] Ortega Morel TROPONIN, HIGH SENSITIVITYon 01-11-2022 HSTROP <4.0 Normal 4.0-51.3 [facility] Comment on above: Result Comment: CUT- OFF POINTS HAVE BEEN ESTABLISHED BASED ON THE FOURTH UNIVERSAL DEFINITIONS OF MYOCARDIAL INFARCTION. THE UPPER REFERENCE LIMIT (URL) OF TROPONIN, DEFINED THE 99TH PERCENTILE OF cTnI DISTRIBUTION IN A REFERENCE POPULATION, HAS BEEN CONFIRMED THE DECISION THRESHOLD FOR [place] DIAGNOSIS. Performed By: #### C MP #### [facility] [address] [place] [address] Dr. Ortega Glass 09-29-2021 SERENITY Office Visit (JUAN ) -- EZEQUIEL LEI ([id number]) 1960 F Date Time Provider Department 09/29/21 11:15 AM JESSICA LITTLE III During your visit today, we recorded the following information about you: Pulse Blood pressure Weight 79/minute 134/91 91.2 kg Jessica Little III, MD 09/29/2021 11:22 AM Addendum Ms. Lei is here today at the request of Blas Slaughter [address] [place] [address] for my opinion regarding recurrent diverticulitis. My [...] cervical lymphadenopathy CT abdomen pelvis wo con [facility] [place] [address] [place] [id number] Scan Report Signed Patient: Ezequiel Lei MR#: [id number] : 1960 Acct:[id number] Age/Sex: 61 / F ADM Date: 08/30/21 Loc: ER Room: Type: [facility] ER Attending Dr: Ordering Provider: Jas Watson [...] Facet arthropat (more content not included)... [facility] HISTORY PHYSICALon 2 HISTORY PHYSICAL HNO ID: [id number] Author: Jessica Little III, MD Service: ? Author Type: Physician Type: HANDP Filed: 09/29/2021 12:21 PM Note Text: Ms. Lei is here today at the request of Blas Slaughter [address] [place] [address] for my opinion regarding recurrent diverticulitis. My [...] cervical lymphadenopathy CT abdomen pelvis wo con [facility] [place] [address] [place], [place] [id number] CT Scan Report Signed Patient: Ezequiel Lei MR#: [id number] : 1960 Acct:[id number] Age/Sex: 61 / F ADM Date: 08/30/21 Loc: ER Room: Type: [facility] ER Attending Dr: Ordering Provider: Jas Watson [...] by: Quinton (more content not included)... [facility] Covid-19 PCR (CVDTB)on SARS-CoV-2 (COVID-19) RNA LIU+probe Ql (Unsp spec) Not detected Normal NOT DETECTED [facility] Comment on above: Result Comment: This test is not yet approved or cleared by the [place] FDA. When there are no FDA-approved or cleared tests available, and other criteria are met, FDA can make tests available under an emergency access mechanism called an Emergency Use Authorization (EUA). The EUA for this test is supported by the [place] of Health and Human Service's (HHS's) declaration [...] consistent with SARS-CoV-2. Performed By: #### C [facility] #### [facility] [address] [place] [address] Dr. Ortega Morel Covid-19 PCR (CVDTB)on SARS-CoV-2 (COVID-19) RNA LIU+probe Ql (Unsp spec) Detected Critically abnormal NOT DETECTED [facility] Comment on above: Result Comment: This test is not yet approved or cleared by the [place] FDA. When there are no FDA-approved or cleared tests available, and other criteria are met, FDA can make tests available under an emergency access mechanism called an Emergency Use Authorization (EUA). The EUA for this test is supported by the Drawing [employer] of Health and Human Service's (HHS's) declaration [...] be used). Performed By: #### C #### [facility] [address] [place] [address] Dr. Ortega Morel Quantiferon-TB Plus (Client Incubated)on 07-08-2020 Gamma interferon background IA Qn (Bld) 0.09 International_Unit/mL [facility] Comment on above: Performed By: #### 3 [id number] #### [facility] [address] [place] [address] M. tuberculosis stim IFN-g by CD4+ CD8+ T-cells corrected for background Qn (Bld) 0.43 International_Unit/mL [facility] Comment on above: Performed By: #### 3 [id number], [id number] #### [facility] [address] [place] [address] M. tuberculosis stim IFN-g by CD4+ T-cells corrected for background Qn (Bld) 0.36 International_Unit/mL [facility] Comment on above: Performed By: #### 3 [id number], [id number] #### [facility] [address] [place] [address] M. tuberculosis stim IFN-g Ql (Bld) [Interp] Negative Negative [facility] Comment on above: Result Comment: The specimen received for QuantiFERON testing was incubated by the ordering institution. Specific procedures outlined in our Directory of Services and in the package insert for the QuantiFERON Gold (In Tube) test must be followed to enable for proper stimulation of cells for the production of interferon gamma. Performed at: [facility] [address], [place] [id number] PhD Anjel Arreola Performed By: #### 3 [id number] #### [facility] [address] [place] [address] Mitogen stimulated gamma interferon Qn (Bld) >10.00 [facility] Comment on above: Performed By: #### 3 [id number], [id number] #### [facility] [address] [place] [address] Service comment (Unsp spec) [Interp] Comment [facility] Comment on above: Result Comment: The QuantiFERON-TB Gold Plus result is determined by subtracting the Nil value from either TB antigen (Ag) tube. The mitogen tube serves as a control for the test. Performed By: #### 3 [id number], [id number] #### [facility] [address] [place] [address] Hep Bs Abon 07-06-2020 HBV surface Ab Ql (S) Reactive [facility] Comment on above: Result Comment: Non Reactive: Inconsistent with immunity, less than 10 mIU/mL Reactive: Consistent with immunity, greater than 9.9 mIU/mL Performed at: [address] [id number] PhD Anjel Arreola Performed By: #### 3 [id number], [id number] #### [facility] [address] [place] [address] Measles/Mumps/Rubella Immuni tyon 07-06-2020 MeV IgG IA Qn (S) {index_val} Immune >16.4 [facility] Comment on above: Result Comment: Nega tive <13.5 Equivocal 13.5 - 16.4 Positive >16.4 Presence of antibodies to Rubeola is presumptive evidence of immunity except when acute infection is suspected. Performed By: #### 3 [id number], [id number] #### [facility] [address] [place] [address] MuV IgG IA Qn (S) 31.4 A unit/mL Immune >10.9 [facility] Comment on above: Result Comment: Nega tive <9.0 Equivocal 9.0 - 10.9 Positive >10.9 A positive result generally indicates past exposure to Mumps virus or previous vaccination. Performed at: [address] [id number] PhD Anjel Arreola Performed By: #### 3 [id number], [id number] #### [facility] [address] [place] [address] Rubella virus IgG Qn (S) 24.40 [IU]/mL Immune >0.99 [facility] Comment on above: Result Comment: Non- immune <0.90 Equivocal 0.90 - 0.99 Immune >0.99 Performed By: #### 3 [id number], [id number] #### [facility] [address] [place] [address] Varic IgGon 07-06-2020 VZV IgG IA Qn (S) >4000 Immune >165 [facility] Comment on above: Result Comment: Nega tive <135 Equivocal 135 - 165 Positive >165 A positive result generally indicates exposure to the pathogen or administration of specific immunoglobulins, but it is not indication of active infection or stage of disease. Performed at: [address] [id number] PhD Anjel Arreola Performed By: #### 3 [id number], [id number] #### [facility] [address] [place] [address] Consent for Treatmenton 06-14 Consent for Treatment [id number]:127 Normal [facility] Physician Orderon 07-05-2020 Physician Order [id number]:127 Normal [facility] Vital Signs Date Time Vital Sign Value Performing Clinician Facility 05-25-2025 11:03-0400 Body height 154.94 cm Blas Slaughter DO Work Phone: [facility] 05-25-2025 11:03-0400 Body mass index (BMI) [Ratio] 37.2 kg/m2 Blas Slaughter DO Work Phone: [facility] 05-25-2025 11:03-0400 Body weight 89.35 kg Blas Slaughter DO Work Phone: [facility] 05-25-2025 11:03-0400 Diastolic blood pressure 80 mm[Hg] Blas Slaughter DO Work Phone: [facility] 05-25-2025 11:03-0400 Heart rate 74 /min Blas Slaughter DO Work Phone: [facility] 05-25-2025 11:03-0400 SaO2% (BldA) [Mass fraction] 98 % Blas Slaughter DO Work Phone: [facility] 05-25-2025 11:03-0400 Systolic blood pressure 124 mm[Hg] Blas Slaughter DO Work Phone: [facility] 05-05-2025 13:55-0400 Body height 154.94 cm Blas Slaughter DO Work Phone: [facility] 05-05-2025 13:55-0400 Body temperature 98.4 [degF] Blas Slaughter DO Work Phone: [facility] 05-05-2025 13:55-0400 Diastolic blood pressure 88 mm[Hg] Blas Slaughter DO Work Phone: [facility] 05-05-2025 13:55-0400 Heart rate 63 /min Blas Slaughter DO Work Phone: [facility] 05-05-2025 13:55-0400 SaO2% (BldA) [Mass fraction] 97 % Blas Slaughter DO Work Phone: [facility] 05-05-2025 13:55-0400 Systolic blood pressure 130 mm[Hg] Blas Slaughter DO Work Phone: [facility] 03-23-2025 09:18-0400 Body height 154.94 cm Blas Slaughter DO Work Phone: [facility] 03-23-2025 09:18-0400 Body mass index (BMI) [Ratio] 35.1 kg/m2 Blas Slaughter DO Work Phone: [facility] 03-23-2025 09:18-0400 Body weight 84.36 kg Blas Slaughter DO Work Phone: [facility] 03-23-2025 09:18-0400 Diastolic blood pressure 96 mm[Hg] Blas Slaughter DO Work Phone: [facility] 03-23-2025 09:18-0400 Heart rate 71 /min Blas Slaughter DO Work Phone: [facility] 03-23-2025 09:18-0400 Systolic blood pressure 157 mm[Hg] Blas Slaughter DO Work Phone: [facility] 02-11-2025 04:38-0400 Diastolic blood pressure 74 mm[Hg] Blas Slaughter DO Work Phone: [facility] 02-11-2025 04:38-0400 Heart rate 74 /min Blas Slaughter DO Work Phone: [facility] 02-11-2025 04:38-0400 Respiratory rate 16 /min Blas Slaughter DO Work Phone: [facility] 02-11-2025 04:38-0400 SaO2% (BldA) [Mass fraction] 96 % Blas Slaughter DO Work Phone: [facility] 02-11-2025 04:38-0400 Systolic blood pressure 134 mm[Hg] Blas Slaughter DO Work Phone: [facility] 02-11-2025 01:27-0400 Body height 154.94 cm Blas Slaughter DO Work Phone: [facility] 02-11-2025 01:27-0400 Body temperature 97.6 [degF] Blas Slaughter DO Work Phone: [facility] 02-11-2025 01:27-0400 Body weight 88.9 kg Blas Slaughter DO Work Phone: [facility] 12-23-2024 14:03-0400 Body height 154.94 cm [facility] 12-23-2024 14:03-0400 Body temperature 98.3 [degF] [facility] 12-23-2024 14:03-0400 Diastolic blood pressure 82 mm[Hg] [facility] 12-23-2024 14:03-0400 Heart rate 86 /min [facility] 12-23-2024 14:03-0400 SaO2% (BldA) [Mass fraction] 97 % [facility] 12-23-2024 14:03-0400 Systolic blood pressure 108 mm[Hg] [facility] 09-22-2024 11:44-0500 Body height 154.94 cm Blas Slaughter DO Work Phone: [facility] 09-22-2024 11:44-0500 Body mass index (BMI) [Ratio] 37.4 kg/m2 Blas Slaughter DO Work Phone: [facility] 09-22-2024 11:44-0500 Body temperature 98.2 [degF] Blas Slaughter DO Work Phone: [facility] 09-22-2024 11:44-0500 Body weight 89.81 kg Blas Slaughter DO Work Phone: [facility] 09-22-2024 11:44-0500 Diastolic blood pressure 78 mm[Hg] Blas Slaughter DO Work Phone: [facility] 09-22-2024 11:44-0500 Heart rate 74 /min Blas Slaughter DO Work Phone: [facility] 09-22-2024 11:44-0500 SaO2% (BldA) [Mass fraction] 98 % Blas Slaughter DO Work Phone: [facility] 09-22-2024 11:44-0500 Systolic blood pressure 122 mm[Hg] Blas Slaughter DO Work Phone: [facility] 09-18-2024 13:30-0500 Diastolic blood pressure 62 mm[Hg] Blas Slaughter DO Work Phone: [facility] 09-18-2024 13:30-0500 Heart rate 62 /min Blas Slaughter DO Work Phone: [facility] 09-18-2024 13:30-0500 Respiratory rate 18 /min Blas Slaughter DO Work Phone: [facility] 09-18-2024 13:30-0500 SaO2% (BldA) [Mass fraction] 98 % Blas Slaughter DO Work Phone: [facility] 09-18-2024 13:30-0500 Systolic blood pressure 110 mm[Hg] Blas Slaughter DO Work Phone: [facility] 09-18-2024 12:09-0500 Body temperature 98.3 [degF] Blas Slaughter DO Work Phone: [facility] 09-18-2024 12:01-0500 Body height 154.94 cm Blas Slaughter DO Work Phone: [facility] 09-18-2024 12:01-0500 Body weight 81.64 kg Blas Slaughter DO Work Phone: [facility] 08-06-2024 11:10-0500 Diastolic blood pressure 78 mm[Hg] Blas Slaughter DO Work Phone: [facility] 08-06-2024 11:10-0500 Systolic blood pressure 118 mm[Hg] Blas Slaughter DO Work Phone: [facility] 08-06-2024 10:38-0500 Body temperature 97.7 [degF] Blas Slaughter DO Work Phone: [facility] 08-06-2024 10:38-0500 Heart rate 84 /min Blas Slaughter DO Work Phone: [facility] 08-06-2024 10:38-0500 Respiratory rate 22 /min Blas Slaughter DO Work Phone: [facility] 08-06-2024 10:38-0500 SaO2% (BldA) [Mass fraction] 100 % Blas Slaughter DO Work Phone: [facility] 08-06-2024 10:34-0500 Body height 154.94 cm Blas Slaughter DO Work Phone: [facility] 08-06-2024 10:34-0500 Body weight 89.9 kg Blas Slaughter DO Work Phone: [facility] 02-18-2024 14:56-0400 Body height 154.94 cm [facility] 02-18-2024 14:56-0400 Body mass index (BMI) [Ratio] 37 kg/m2 [facility] 02-18-2024 14:56-0400 Body temperature 97.2 [degF] [facility] 02-18-2024 14:56-0400 Body weight 88.9 kg [facility] 02-18-2024 14:56-0400 Diastolic blood pressure 86 mm[Hg] [facility] 02-18-2024 14:56-0400 SaO2% (BldA) [Mass fraction] 98 % [facility] 02-18-2024 14:56-0400 Systolic blood pressure 120 mm[Hg] [facility] 01-22-2024 09:04-0400 Body height 154.94 cm [facility] 01-22-2024 09:04-0400 Body mass index (BMI) [Ratio] 36.8 kg/m2 [facility] 01-22-2024 09:04-0400 Body temperature 97.3 [degF] [facility] 01-22-2024 09:04-0400 Body weight 88.59 kg [facility] 01-22-2024 09:04-0400 Diastolic blood pressure 84 mm[Hg] [facility] 01-22-2024 09:04-0400 Heart rate 78 /min [facility] 01-22-2024 09:04-0400 SaO2% (BldA) [Mass fraction] 99 % [facility] 01-22-2024 09:04-0400 Systolic blood pressure 124 mm[Hg] [facility] 12-14-2023 10:18-0400 Body height 154.94 cm [facility] 12-14-2023 10:18-0400 Body mass index (BMI) [Ratio] 36.8 kg/m2 [facility] 12-14-2023 10:18-0400 Body temperature 98 [degF] [facility] 12-14-2023 10:18-0400 Body weight 88.45 kg [facility] 12-14-2023 10:18-0400 Diastolic blood pressure 84 mm[Hg] [facility] 12-14-2023 10:18-0400 Heart rate 68 /min [facility] 12-14-2023 10:18-0400 Systolic blood pressure 132 mm[Hg] [facility] 09-11-2023 14:40-0500 Body height 154.94 cm Blas Slaughter Other [facility] Other 09-11-2023 14:40-0500 Body mass index (BMI) [Ratio] 37.6 kg/m2 Blas Slaughter Other [facility] Other 09-11-2023 14:40-0500 Body temperature 97.9 [degF] Blas Slaughter Other [employer] [facility] Other 09-11-2023 14:40-0500 Body weight 90.27 kg Blas Slaughter Other [facility] Other 09-11-2023 14:40-0500 Diastolic blood pressure 88 mm[Hg] Blas Slaughter Other [facility] Other 09-11-2023 14:40-0500 Respiratory rate 18 /min Blas Slaughter Other [employer] [facility] Other 09-11-2023 14:40-0500 SaO2% (BldA) [Mass fraction] 98 % Blas Slaughter Other [facility] Other 09-11-2023 14:40-0500 Systolic blood pressure 138 mm[Hg] Blas Slaughter Other [employer] Other 01-19-2023 10:30-0400 Body height 154.94 cm Blas Slaughter Other [employer] Other 01-19-2023 10:30-0400 Body mass index (BMI) [Ratio] 36.27 kg/m2 Blas Slaughter Other [employer] Other 01-19-2023 10:30-0400 Body temperature 98.7 [degF] Blas Slaughter Other [employer] [facility] Other 01-19-2023 10:30-0400 Body weight 87.09 kg Blas Slaughter Other [employer] Other 01-19-2023 10:30-0400 Diastolic blood pressure 82 mm[Hg] Blas Slaughter Other [employer] Other 01-19-2023 10:30-0400 Respiratory rate 18 /min Blas Slaughter Other [employer] Other 01-19-2023 10:30-0400 SaO2% (BldA) [Mass fraction] 97 % Blas Slaughter Other [employer] Other 01-19-2023 10:30-0400 Systolic blood pressure 126 mm[Hg] Blas Slaughter Other [employer] Other 07-17-2022 10:50-0500 Body height 154.94 cm Blas Slaughter Other [facility] Other 07-17-2022 10:50-0500 Body mass index (BMI) [Ratio] 37.5 kg/m2 Blas Slaughter Other [employer] Other 07-17-2022 10:50-0500 Body temperature 97.6 [degF] Blas Slaughter Other [employer] Other 07-17-2022 10:50-0500 Body weight 90.04 kg Blas Slaughter Other [employer] Other 07-17-2022 10:50-0500 Diastolic blood pressure 88 mm[Hg] Blas Slaughter Other [employer] Other 07-17-2022 10:50-0500 Respiratory rate 18 /min Blas Slaughter Other [employer] Other 07-17-2022 10:50-0500 SaO2% (BldA) [Mass fraction] 99 % Blas Slaughter Other [employer] Other 07-17-2022 10:50-0500 Systolic blood pressure 132 mm[Hg] Blas Slaughter Other [employer] Other 01-17-2022 09:10-0400 Body height 154.94 cm Blas Slaughter Other [employer] Other 01-17-2022 09:10-0400 Body mass index (BMI) [Ratio] 37.31 kg/m2 Blas Slaughter Other [employer] Other 01-17-2022 09:10-0400 Body temperature 96.8 [degF] Blas Slaughter Other [employer] [facility] Other 01-17-2022 09:10-0400 Body weight 89.59 kg Blas Slaughter Other [employer] Other 01-17-2022 09:10-0400 Diastolic blood pressure 86 mm[Hg] Blas Slaughter Other [employer] Other 01-17-2022 09:10-0400 Respiratory rate 18 /min Blas Slaughter Other [employer] [facility] Other 01-17-2022 09:10-0400 SaO2% (BldA) [Mass fraction] 98 % Blas Slaughter Other [employer] [facility] Other 01-17-2022 09:10-0400 Systolic blood pressure 126 mm[Hg] Blas Slaughter Other [employer] [facility] [employer] Other Encounters Encounter Date Encounter Type Care Provider Facility Start: 05-27-2025 Non-patient / Non-visit Blas Slaughter DO -[employer] Work Phone: Start: 05-25-2025 End: 05-25-2025 Patient encounter procedure Salazar Monae MD -[facility] Work Phone: Start: 05-25-2025 End: 05-25-2025 ambulatory Salazar Monae Facility:[facility] Start: 05-25-2025 End: 05-25-2025 Patient encounter procedure Salazar Monae MD -[facility] Work Phone: Start: 05-05-2025 End: 05-05-2025 ambulatory Blas Slaughter DO Work Phone: [facility] Work Phone: Start: 05-05-2025 End: 05-05-2025 Patient encounter procedure Blas Slaughter DO -[facility] Work Phone: Start: 03-23-2025 End: 03-23-2025 ambulatory Blas Slaughter DO Work Phone: [facility] Work Phone: Start: 03-23-2025 End: 03-23-2025 Patient encounter procedure Nurys Robledo DO -[facility] Work Phone: Start: 02-11-2025 Non-patient / Non-visit danny Quinones [facility] Work [facility]: Start: 02-11-2025 End: 02-11-2025 Emergency department patient visit Blas Slaughter DO Work Phone: -Emergency Room Work Phone: Start: 02-10-2025 End: 02-10-2025 ambulatory Blas Slaughter Facility:[facility] Start: 02-10-2025 Non-patient / Non-visit Blas Slaughter DO -[facility] Work Phone: Start: 12-23-2024 End: 12-23-2024 ambulatory [facility] Work Phone: Start: 12-23-2024 End: 12-23-2024 Patient encounter procedure [facility] Work Phone: Start: 11-16-2024 End: 11-19-2024 Refill Luisa J Nataprawira DO Work Phone: [facility] Comment on above: Surgical menopause o n hormone replacement therapy Start: 09-23-2024 Patient encounter status [facility] Start: 09-22-2024 End: 09-22-2024 ambulatory Blas Slaughter DO Work Phone: [facility] Work Phone: Start: 09-22-2024 End: 09-22-2024 Patient encounter procedure Blas Slaughter DO Work Phone: [facility] [place] Work Phone: Start: 09-18-2024 End: 09-18-2024 Emergency department patient visit Blas Slaughter DO Work Phone: [facility] Work Phone: Start: 08-06-2024 End: 08-06-2024 Emergency department patient visit Blas Slaughter DO Work Phone: [facility] Work Phone: Start: 06-25-2024 End: 06-26-2024 Refill Luisa Stiles DO Work Phone: [facility] Comment on above: Surgical menopause o n hormone replacement therapy Start: 02-18-2024 End: 02-18-2024 ambulatory [facility] Work Phone: Start: 02-18-2024 End: 02-18-2024 Patient encounter procedure [facility] [place] Work Phone: Start: 01-22-2024 End: 01-22-2024 ambulatory [facility] Work Phone: Start: 01-22-2024 End: 01-22-2024 Patient encounter procedure [facility] [place] Work Phone: Start: 12-14-2023 End: 12-14-2023 ambulatory [facility] Work Phone: Start: 12-14-2023 End: 12-14-2023 Patient encounter procedure [facility] [place] Work Phone: Start: 11-28-2023 Non-patient / Non-visit [facility] Work Phone: Start: 11-19-2023 Non-patient / Non-visit [facility] Work Phone: Start: 09-19-2023 End: 09-19-2023 ambulatory Blas Slaughter Other [facility] Other Start: 09-19-2023 Telephone encounter Blas Slaughter [facility] [place] Start: 09-12-2023 End: 09-12-2023 ambulatory Blas Slaughter Other [facility] Other Start: 09-12-2023 Telephone encounter Blas Slaughter [facility] [place] Start: 09-11-2023 End: 09-11-2023 ambulatory Blas Slaughter Other [facility] Other Start: 09-11-2023 Office outpatient visit 25 minutes Blas Slaughter [facility] [place] Start: 09-10-2023 End: 09-10-2023 ambulatory Blas Slaughter Other [facility] Other Start: 09-10-2023 Encounter for genera l adult medical examination without abnormal findings Blas Slaughter [facility] [place] Start: 09-10-2023 Telephone encounter Blas Slaughter [facility] [place] Start: 08-27-2023 End: 08-27-2023 ambulatory Blas Slaughter Other [facility] Other Start: 08-27-2023 Encounter for genera l adult medical examination without abnormal findings Blas Slaughter [facility] [place] Start: 08-27-2023 Telephone encounter Blas Slaughter [facility] [place] Start: 08-21-2023 End: 08-21-2023 ambulatory Blas Slaughter Other [facility] Other Start: 08-21-2023 Telephone encounter Blas Slaughter [facility] [place] Start: 05-01-2023 End: 05-01-2023 ambulatory Blas Slaughter Other [facility] Other Start: 05-01-2023 Telephone encounter Blas Slaughter [facility] [place] Start: 03-07-2023 End: 03-07-2023 ambulatory Blas Slaughter Other [facility] Other Start: 03-07-2023 Telephone encounter Blas Slaughter [facility] [place] Start: 02-15-2023 End: 02-15-2023 ambulatory Blas Slaughter Other [facility] Other Start: 02-15-2023 Telephone encounter Blas Slaughter [facility] [place] Start: 01-19-2023 End: 01-19-2023 ambulatory Blas Slaughter Other [facility] Other Start: 01-19-2023 Office outpatient visit 25 minutes Blas Slaughter [facility] [place] Start: 12-05-2022 End: 12-05-2022 ambulatory Blas Slaughter Other [facility] Other Start: 12-05-2022 Telephone encounter Blas Slaughter [facility] [place] Start: 10-10-2022 End: 10-10-2022 ambulatory Blas Slaughter Other [facility] Other Start: 10-10-2022 Telephone encounter Blas Slaughter [facility] [place] Start: 09-04-2022 End: 09-04-2022 ambulatory Blas Slaughter Other [facility] Other Start: 09-04-2022 Telephone encounter Blas Slaughter [facility] [place] Start: 08-16-2022 End: 08-16-2022 ambulatory Blas Slaughter Other [facility] Other Start: 08-16-2022 Telephone encounter Blas Slaughter [facility] [place] Start: 07-17-2022 End: 07-17-2022 ambulatory Blas Slaughter Other [facility] Other Start: 07-17-2022 Office outpatient visit [facility] Start: 07-17-2022 Telephone encounter Blas Slaughter [facility] [place] Start: 07-15-2022 End: 07-16-[address] BLAS SLAUGHTER Facility:[facility] Start: 05-02-2022 End: 05-02-2022 ambulatory COSME MCINTYRE Facility:[facility] Start: 04-28-2022 End: 04-28-2022 ambulatory COSME MCINTYRE Facility:[facility] Start: 03-01-2022 End: 03-01-2022 ambulatory Blas Slaughter Other [facility] Other Start: 03-01-2022 Telephone encounter [facility] Start: 02-27-2022 End: 02-27-2022 ambulatory Blas Slaughter Other [facility] Other Start: 02-27-2022 Telephone encounter Blas Slaughter [facility] Start: 01-17-2022 End: 01-17-2022 ambulatory Blas Slaughter Other [facility] Other Start: 01-17-2022 Office outpatient visit 15 minutes Blas Slaughter [facility] Start: 01-11-2022 End: 01-11-[address] CHARLEE [...] Activity Detail Author Start: 05-27-2025 Urine culture [facility] Start: 05-05-2025 Patient referral [facility] Work Phone: Start: 04-13-2025 Influenza vaccination Influenz a Vaccine (Season Ended) [facility] Start: 02-11-2025 Bacteria identified in Urine by Culture Urine Culture [facility] Start: 02-11-2025 Computed tomography of abdomen and pelvis with contrast CT abdomen pelvis w con [facility] Start: 02-11-2025 CT Abdomen and Pelvi s W contrast IV [facility] Start: 02-11-2025 Urine culture [facility] Start: 02-10-2025 Urine culture [facility] Start: 04-13-2024 Influenza vaccination Influenz a Vaccine (#1) [facility] Start: 2001 Screening for malign ant neoplasm of breast Mammogram [facility] Start: 1991 Screening for malign ant neoplasm of cervix [facility] Start: 1982 Screening for malign ant neoplasm of cervix Pap Smear [facility] Start: 1961 Screening for malign ant neoplasm of colon [facility] metabo lic 2000 panel - Serum or Plasma [facility] Comprehensive metabo lic 2000 panel - Serum or Plasma [facility] MG Breast - bilatera l Screening [facility] MG Breast - bilatera l Screening [facility] Patient Education [facility] Work Phone: Patient referral [facility] Work Phone: Urine culture [facility] Immunizations Immunization Date Immunization Notes Care Provider Fa niallty 07-18-2021 influenza virus vaccine, unspecified formulation Luisa Stiles DO Work Phone: [facility] 06-13-2021 COVID-19 Vaccine Moderna - Documentation Purposes Only Blas Slaughter Other [facility] 11-03-2020 tetanus toxoid, reduced diphtheria toxoid, and acellular pertussis vaccine, adsorbed [facility] 09-08-2020 COVID-19 Vaccine Moderna - Documentation Purposes Only Blas Slaughter Other [facility] 08-11-2020 COVID-19 Vaccine Moderna - Documentation Purposes Only Blas Slaughter Other [facility] NEGATED: Highlighted row has not occurred!10-17-2019 influenza, seasonal, injectable Blas Slaughter Other [facility] Other Payers Date Payer Category Payer Blue [employer] Blue Shield [id number] 2024 Self-pay [id number] 2022 Blue Cross Blue Shield BCBS [id number] 1961 Unknown [id number]. 593 1961 Unknown [id number]. 593 1961 Unknown [id number] [id number]. 593 1961 Unknown [id number] [id number]. 593 1961 Unknown [id number] 2.16.840.1.265625.3.579.2. 593 1961 Unknown [id number] [id number]. 593 1959 Unknown [id number] Unknown [id number] [id number]. 531 Unknown [id number] 2.16.840.1.683256.3.579.2. 531 Unknown [id number] 2.16.840.1.811955.3.579.2. 531 Unknown [id number] [id number]. 531 Unknown [id number] [id number]. 531 Social History Date Type Detail Facility Unknown if ever smoked [facility] Other Start: 08-13-1981 [address] [facility] Other Start: 12-14-2023 End: 05-14-2025 Tobacco smoking status [facility] Ex-smoker (finding) [facility] Start: 1960 Sex Assigned At Female F [facility] End: 08-13-2014 History of tobacco use [...] Start: 09-18-2024 End: 12-22-2024 Tobacco smoking status [facility] Current some day smoker [facility] Start: 09-18-2024 End: 12-23-2024 Sex Female (finding) [facility] Clinical Notes 12-04-2012 to 05-05-2025 Note Date & Type Note Facility 09-23-2025 Evaluation note Authored May 05, 2025 2:36pm The above note written by __ _Prince Quinones____ acting as human recorder, note dictated by Dr. Kenney .I performed the above HPI, ROS, and Examination. I formulated and dictated the treatment plan and was present for entire encounter. Blas Slaughter D.O. [facility] Work Phone: 1(587) 930-416709-23-2025 Hospital Discharge instructionsAmbulatory Orders* Referral to Pain Management Time Frame: 05/05/25, Location: None Selected [facility] Work Phone: 1(664) 768-971408-11-2025 Evaluation note* Diagnosis Onset Date Resolution Status Admit Date Diverticulitis large intestine acute March 23, 2025 9:10am Hives acute April 1:59pm Lumbar pain acute April 1:59pm [facility] Work Phone: 1(226) 421-846705-13-2025 Evaluation note* Author Blas Slaughter [facility] Authored December 23, 2024 2:59p m The above note written by __ _Prince Quinones____ acting as human recorder, note dictated by Dr. Kenney .I performed the above HPI, ROS, and Examination. I formulated and dictated the treatment plan and was present for entire encounter. Blas Slaughter D.O. [facility] Work Phone: 1(619) 313-674804-09-2025 Telephone encounter Note* Telephone Encounter - Luisa Stiles DO - 11/19/2024 4:57 PM EDT [facility] since [id number] Miscellaneous Notes* Telephone Encounter - Luisa Stiles DO - 11/19/2024 4:57 PM EDT Patient has not been seen since 2022 [id number] Evaluation note* [facility] Authored January 22, 2024 9:42 am The above note written by __ _Prince Quinones____ acting as human recorder, note dictated by Dr. Kenney .I performed the above HPI, ROS, and Examination. I formulated and dictated the treatment plan and was present for entire encounter. Blas Slaughter D.O. Author Blas [facility] Authored December 14, 2023 11:35a m The above note written by __ _Prince Quinones____ acting as human recorder, note dictated by Dr. Kenney .I performed the above HPI, ROS, and Examination. I formulated and dictated the treatment plan and was present for entire encounter. Blas Slaughter D.O. [facility] Work Phone: 1(512) 261-331505-03-2024 Evaluation note* Author Blas Slaughter [facility] Authored December 14, 2023 11:35a m The above note written by __ _Prince Quinones____ acting as human recorder, note dictated by Dr. Kenney .I performed the above HPI, ROS, and Examination. I formulated and dictated the treatment plan and was present for entire encounter. Blas Slaughter D.O. 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 Other 01-31-2024 Evaluation note* Encounter Date Diagnosis Assessment Notes Treatment Notes Treatment Clinical Notes Aug, Obesity (BMI 30-39.9 ) (ICD-10 - E66.9) Aug, Hyperglycemia (ICD-1 0 - R73.9) [facility] Other 01-30-2024 Evaluation note* Encounter Date Diagnosis [...] be an issue. Reassurance given. Aug, Other skilled nursing (current) drug therapy (ICD-10 - Z79.899) Aug, [...] B Complex and a B12 vitamin daily. [facility] Other 01-29-2024 Evaluation note* Encounter Date Diagnosis Assessment Notes Treatment Notes Treatment Clinical Notes Aug, Wellness examination (ICD-10 - Z00.00) [facility] Other 01-15-2024 Evaluation note* Encounter Date Diagnosis Assessment Notes Treatment Notes Treatment Clinical Notes Aug, Wellness examination (ICD-10 - Z00.00) Aug, Hypothyroidism (ICD-10 - E03.9) Aug, Hyperglycemia (ICD-1 0 - R73.9) [facility] Other 07-26-2023 Evaluation note* Encounter Date Diagnosis Assessment Notes Treatment Notes Treatment Clinical Notes Feb, Abnormal mammogram of left breast (ICD-10 - R92.8) [facility] Other 06-09-2023 Evaluation note* Encounter Date Diagnosis [...] have a bilateral mammogram done. Jan, Other skilled nursing (current) drug therapy (ICD-10 - Z79.899) Jan, Anxiety (ICD-10 - F41.9) Continue with above medication as needed. Jan, Nocturia (ICD-10 - R35.1) [facility] Other 01-04-2023 Evaluation note* Encounter Date Diagnosis Assessment Notes Treatment Notes Treatment Clinical Notes Aug, Hyperlipidemia (ICD-10 - E78.5) [facility] Other 12-05-2022 Evaluation note* Encounter Date Diagnosis Assessment Notes Treatment Notes Treatment Clinical Notes Jul, Hypothyroidism (ICD-10 - E03.9) [facility] Other 12-05-2022 Evaluation note* Encounter Date Diagnosis [...] done with her next lab. Jul, Other skilled nursing (current) drug therapy (ICD-10 - Z79.899) Jul, [...] she has a mammogram scheduled for 07-20-22. [facility] Other 07-20-2022 Evaluation note* Encounter Date Diagnosis Assessment Notes Treatment Notes Treatment Clinical Notes Feb, Cystitis (ICD-10 - N30.90) [facility] Other 07-18-2022 Evaluation note* Encounter Date Diagnosis Assessment Notes Treatment Notes Treatment Clinical Notes Feb, Dysuria (ICD-10 - R30.0) Feb, Diverticulitis (ICD-10 - K57.92) Feb, Cough (ICD-10 - R05.9) [facility] Other 06-07-2022 Evaluation note* Encounter Date Diagnosis Assessment Notes Treatment Notes Treatment Clinical Notes Jan, Diverticulitis (ICD-10 - K57.92) She did go see the specialist in [place] for evaluation who recommended that she have [...] Jan, Hypothyroidism (ICD-10 - E03.9) Jan, Other skilled nursing (current) drug therapy (ICD-10 - Z79.899) Jan, Nocturia (ICD-10 - R35.1) Jan, Encounter for screening mammogram for breast cancer (ICD-10 - Z12.31) [facility] Other 04-24-2013 History general Narrative - Reported* [...] – [facility] - Back Pain 2019 [facility] Other Evaluation noteNo InformationNort [employer] Other Evaluation note* Diagnosis Onset Date Resolution Status Diverticulitis of colon acut e Weight gain acute [facility] Work Phone: Evaluation note* Diagnosis Surgical menopause on hormone replacement therapy documented in this encounter [facility] HealthcareEvaluation noteNo assessment information availablePrem[facility] Work Phone: Evaluation note* Diagnosis Onset Date Resolution Status Admit Date Anxiety acute September 22, 2024 11:52am Nausea acute September 22, 2024 11:52am Vomiting and diarrhea acute Feb ru2024 11:52am [facility] Work Phone: Evaluation note* Diagnosis Surgical menopause on hormone replacement therapy documented in this encounter [facility] HealthcareEvaluation note* Diagnosis Onset Date Resolution Status Admit Date Lumbar pain acute December 23 1:51pm Muscle spasm acute December 23 1:51pm [facility] Work Phone: Hospital Discharge instructions Additional Instructions Follow-up with your primary care doctor Return to ED if develop worsening symptoms [facility] Work Phone: Hospital Discharge instructions Additional Instructions If your symptoms return/worsen or you develop any further concerns or symptoms please see your doctor or return to the emergency department immediately. It is imperative that you go over today's visit and all results with your primary care provider.[facility] Work Phone: Reason for referral (narrative)No reason for referral information availablePremier Health [facility] Center Work Phone: Summary Purpose Family History Relationship [...] Diagnosis 1 Diverticulitis (K57. 92) Referral Organization [facility] Kit Cervantes Referring Provider First Name Blas Referring Provider Last Name Kasandra Referring Provider Specialty Family Prac kat Referred Organization [facility] Referred Provider Jose Muñoz Referred Address ,[place], [place],[address] Referred Provider Specialty Surgery Referral Priority Routine [...] and content) DATE CREATED AUTHOR 07/08/2020 Ronquillo Warrick [facility] DATE CREATED AUTHOR AUTHOR'S ORGANIZ ATION 11/04/2021 [facility] DATE CREATED AUTHOR AUTHOR'S ORGANIZ ATION 07/16/2022 [facility] DATE CREATED AUTHOR AUTHOR'S ORGANIZ ATION 05/26/2025 [facility] REASON FOR VISIT (unrecogniz [...] February 18, 2024 End: February 18, 2024 Doctor'S Assistant Relationship Specialty Start Date End Date Blas Slaughter MD [address] [place] [address] PCP - [facility] 04/17/23 Team Status: Inactive Member Role Status Donnie Slaughter DO Primary Care Provide r, Attending Provider Active Start: September 22, 2024 End: September 22, 2024 Doctor'S Assistant Relationship Specialty Start Date End Date Blas Slaughter MD [address] [place] [address] PCP - [facility] 04/17/23 Team Status: Inactive Member Role Status [...] BE BASED ON THE PRIMARY CLINICAL RECORDS. [facility]. provides no warranty or guarantee of the accuracy or completeness of information in this document.
== END 2025-05-28 10:44 | disposition home or self-care (01) ==
PROVIDERS: PCP Family Medicine; Visit Provider Family Medicine
DX: R35.0 Frequency of micturition (principal)
CPT/HCPCS: 81003; 87086